=== PATIENT | male | born 1970 | race Caucasian/White ===

== ENCOUNTER 2016-10-29 16:16 | Emergency (ER) | payer BC, OTHER ==
[~2016-10-29] VITALS: Ht 185.4 cm; Wt 180.8 kg
[~2016-10-29 16:16] MED LIST: BECA1GEL TOP; INSDGIPEN SC; MCR5 PO; SLWMEC PO
[2016-10-29 16:18] VITALS: TEMP 36.9; Ht 185.4 cm; Wt 180.8 kg
--- NOTE | 2016-10-29 16:45 | EMERGENCY ROOM VISIT NOTE ---
History Report prepared by Sherri: Phil Vigil Under the Supervision of: Dr. Rosa Ramirez D.O. First contact with patient: 16:22 Chief Complaint: DIZZY Stated Complaint: DIZZINESS, SOB, PAIN IN LOWER NECK-REFERRED BY History of Present Illness The patient is a 46 year old male who presents to the Emergency Room with complaints of an episode of dizziness that occurred around an hour and a half ago. He states that he was walking his dog outside, and not doing anything strenuous, when he started getting dizzy, short of breath, and nauseous. The patient also started getting a headache and pain in the back of his neck that wraps around his neck. He says that he felt fine earlier today, and he has had nothing like this before. The patient went back to his house and sat down, and his shortness of breath went away, but his dizziness and neck pain persisted. The patient called his primary care physician's office, and was recommended to come here for evaluation. Currently, his dizziness is waning and he still has a bit of pain behind his neck. The patient describes the dizziness as feeling "off -balance". He notes that bending his neck worsens his pain. The patient also states that he still feels a bit fuzzy. He denies any chest pain, sweating, blurry vision, ringing in ears, numbness, tingling, urinary symptoms, or bowel issues. He says that he has not been sleeping well lately, and has been having extra stress with his daughter. He has no history of heart issues. The patient has recently upped his Lantus from 60 to 70 mg. His sugars have been okay, but he is still trying to lower them a bit. He notes that he does not feel like he is getting allergies. Source of History: patient Onset: An hour and a half ago Position: other (global - dizziness) Quality: other (off balance) Timing: other (episode) Associated Symptoms: + SOB, + nausea, + neck pain, No chest pain, No diaphoresis, No numbness, No urinary symptoms Note: Associated symptoms: Denies blurry vision, tingling, ringing in ears, bowel issues. Review of Systems See HPI for pertinent positives & negatives. A total of 10 systems reviewed and were otherwise negative. Past Medical & Surgical Medical Problems: (1) Diabetes (2) Lazy eye (3) PNA (pneumonia) (4) Sleep apnea Family History FHx: cancer Heart disease Social History Smoking Status: Never Smoker Alcohol Use: none Drug Use: none Marital Status: Occupation Status: employed Current/Historical Medications Scheduled Citalopram (Citalopram Hydrobromide), 40 MG PO DAILY Insulin Aspart (Novolog Flexpen), 1 DOSE SC TIDM Insulin Glargine (Lantus Solostar), 70 UNITS SC BID Liraglutide (Victoza), 1.2 MG SC DAILY Lisinopril (Lisinopril), 2.5 MG PO DAILY Lovastatin (Mevacor), 40 MG PO HS Metformin Hcl (Glucophage), 1,000 MG PO BIDM Scheduled PRN Fluticasone Propionate (Fluticasone Propionate), 2 SPRAYS JALEEL DAILY PRN for Nasal Congestion Allergies Coded Allergies: No Known Allergies (Unverified , 10/14/11) Physical Exam Vital Signs Date Time Temp Pulse Resp B/P Pulse Ox O2 Delivery O2 Flow Rate FiO2 10/29/16 21:03 98 18 118/78 97 10/29/16 20:24 100 20 131/74 92 Room Air 10/29/16 19:06 95 116/79 108 118/76 100 107/72 10/29/16 18:08 99 17 121/70 94 Room Air 10/29/16 16:36 101 10/29/16 16:18 36.9 105 18 127/81 93 Room Air Physical Exam GENERAL: obese, no acute distress, alert, well appearing, well nourished, non- toxic EYE EXAM: normal conjunctiva, PERRL and EOM's grossly intact OROPHARYNX: no exudate, no erythema, lips, buccal mucosa, and tongue normal and mucous membranes are moist NECK: supple, no nuchal rigidity, no adenopathy, non-tender LUNGS: Clear to auscultation. Normal chest wall mechanics HEART: no murmurs, S1 normal and S2 normal ABDOMEN: abdomen soft, non-tender, normo-active bowel sounds, no masses, no rebound or guarding. BACK: Back is symmetrical on inspection and there is no deformity, no midline tenderness, no CVA tenderness. SKIN: psoriatic plaques everywhere UPPER EXTREMITIES: upper extremities are grossly normal. LOWER EXTREMITIES: No pitting edema. NEURO EXAM: Normal sensorium, cranial nerves II-XII grossly intact, normal speech, no gross weakness of arms, no gross weakness of legs. No drift. Finger to nose intact. Gross sensation intact. No pronator drift, normal ataxia. Negative hints exam. Medical Decision & Procedures ER Provider Diagnostic Interpretation: Xray results per the radiologist and my interpretation. Other results have been interpreted by the radiologist and reviewed by me. HEAD CT NONCONTRAST CT DOSE: 614.27 mGy.cm HISTORY: dizzy TECHNIQUE: Multiaxial CT images of the head were performed without the use of intravenous contrast. Automated exposure control was utilized for this study. Comparison: None. Findings: The paranasal sinuses and mastoid air cells are clear. The calvarium and skull base are intact. The ventricles and sulci are within normal limits. There is no mass, hematoma, midline shift, or acute infarct. Impression: No acute intracranial abnormality. Electronically signed by: Joe Kaur M.D. 10/29/2016 5:20 PM Dictated Date/Time: 10/29/2016 5:17 PM CHEST 2 VIEWS ROUTINE HISTORY: Short of breath. COMPARISON: None. FINDINGS: The lungs are clear. Cardiac silhouette is normal in size. No pleural effusions. No pneumothorax. IMPRESSION: No acute process. Electronically signed by: Joe Kaur M.D. 10/29/2016 7:11 PM Dictated Date/Time: 10/29/2016 7:[address] DOSE: 517.22 mGy.cm HISTORY: neck pain, lower c-spine TECHNIQUE: Multiaxial CT images of the cervical spine were performed and reformatted in the sagittal and coronal plane without the use of contrast. COMPARISON: None. FINDINGS: No fractures. No subluxation. Prevertebral soft tissues and the C1-C2 interval are intact. No pneumothorax. Mild reversal of the normal lordotic curvature. Mild disc space narrowing at C4-C5, C5-C6, and C6-C7. IMPRESSION: No fractures within the cervical spine. Electronically signed by: Joe Kaur M.D. 10/29/2016 7:52 PM Dictated Date/Time: 10/29/2016 7:50 PM Laboratory Results 10/29/16 17:00 Red Blood Count 4.28, Mean Corpuscular Volume 93.5, Mean Corpuscular Hemoglobin 31.5, Mean Corpuscular Hemoglobin Concent 33.8, Mean Platelet Volume 9.3, Neutrophils (%) (Auto) 58.7, Lymphocytes (%) (Auto) 29.6, Monocytes (%) (Auto) 9.7, Eosinophils (%) (Auto) 1.7, Basophils (%) (Auto) 0.2, Neutrophils # (Auto) 5.61, Lymphocytes # (Auto) 2.83, Monocytes # (Auto) 0.93, Eosinophils # (Auto) 0.16, Basophils # (Auto) 0.02 10/29/16 17:00 Test 10/29/16 17:00 10/29/16 20:36 White Blood Count 9.56 K/uL (4.8-10.8) Red Blood Count 4.28 M/uL (4.7-6.1) Hemoglobin 13.5 g/dL (14.0-18.0) Hematocrit 40.0 % (42-52) Mean Corpuscular Volume 93.5 fL (80-100) Mean Corpuscular Hemoglobin 31.5 pg (25-34) Mean Corpuscular Hemoglobin Concent 33.8 g/dl (32-36) Platelet Count 231 K/uL (130-400) Mean Platelet Volume 9.3 fL (7.4-10.4) Neutrophils (%) (Auto) 58.7 % Lymphocytes (%) (Auto) 29.6 % Monocytes (%) (Auto) 9.7 % Eosinophils (%) (Auto) 1.7 % Basophils (%) (Auto) 0.2 % Neutrophils # (Auto) 5.61 K/uL (1.4-6.5) Lymphocytes # (Auto) 2.83 K/uL (1.2-3.4) Monocytes # (Auto) 0.93 K/uL (0.11-0.59) Eosinophils # (Auto) 0.16 K/uL (0-0.5) Basophils # (Auto) 0.02 K/uL (0-0.2) RDW Standard Deviation 46.3 fL (36.4-46.3) RDW Coefficient of Variation 13.5 % (11.5-14.5) Immature Granulocyte % (Auto) 0.1 % Immature Granulocyte # (Auto) 0.01 K/uL (0.00-0.02) D-Dimer 350 ug/L FEU (0-500) Urine Color DK YELLOW Urine Appearance CLEAR (CLEAR) Urine pH 5.0 (4.5-7.5) Urine Specific [place] 1.022 (1.000-1.030) Urine Protein NEG (NEG) Urine Glucose (UA) 2+ (NEG) Urine Ketones TRACE (NEG) Urine Occult Blood NEG (NEG) Urine Nitrite NEG (NEG) Urine Bilirubin NEG (NEG) Urine Urobilinogen NEG (NEG) Urine Leukocyte Esterase NEG (NEG) Anion Gap 10.0 mmol/L (3-11) Est Creatinine Clear Calc Drug Dose 145.8 ml/min Estimated GFR () 94.1 Estimated GFR (Non- 81.2 BUN/Creatinine Ratio 15.3 (10-20) Calcium Level 9.2 mg/dl (8.5-10.1) Total Bilirubin 1.0 mg/dl (0.2-1) Aspartate Amino Transf (AST/SGOT) 27 U/L (15-37) Alanine Aminotransferase (ALT/SGPT) 49 U/L (12-78) Alkaline Phosphatase 88 U/L (45-117) Troponin I < 0.015 ng/ml (0-0.045) Pro-B-Type Natriuretic Peptide 12 pg/ml (0-450) Total Protein 7.6 gm/dl (6.4-8.2) Albumin 3.6 gm/dl (3.4-5.0) Globulin 4.0 gm/dl (2.5-4.0) Albumin/Globulin Ratio 0.9 (0.9-2) Thyroid Stimulating Hormone (TSH) 0.913 uIu/ml (0.300-4.500) Bedside Troponin I 0.010 ng/ml (0-0.045) Laboratory results per my review. ECG Indication: other (dizziness) Rate (beats per minute): 104 Rhythm: sinus tachycardia Findings: no acute ischemic change, no ectopy, other (normal axis, normal intervals) ED Course 1627: The patient was evaluated in room C6. A complete history and physical exam was performed. 1801: I reevaluated the patient and he is feeling better. 2002: Upon reevaluation, the patient is feeling better and has no symptoms. I discussed the findings and the treatment plan with the patient. He verbalizes agreement and understanding. He was discharged home. Medical Decision Prior records/ancillary studies reviewed. Triage Nursing notes reviewed. Differential diagnosis: Etiologies such as benign positional vertigo, dehydration, hypovolemia, anemia, tumor, infection, hypoglycemia, electrolyte abnormalities, cardiac sources, intracerebral event, toxicologic, neurologic, as well as others were entertained. Exam not consistent with central neuro pathology, no dysrhythmias/ectopy on tele , no chest pain throughout. Sx improving by arrival here and resolved otherwise. BP improved spontaneously, doubt hypertensive emergency, doubt dissection, PE, vertebral dissection, ICH, CVA. Doubt cardiac etiology. Pt not orthostatic, doubt infectious etiology. Pt ambulated with a steady gait and was tolerating po at bedside. No recurrence of any symptoms. Discussed f/ u with PCP, sx to watch/return for, he verbalized understanding and was agreeable with plan. Pt well appearing at time of DC. HEART score 3 Neg trop x 2 Impression Primary Impression: Dizziness Additional Impressions: Obesity Hypertension Scribe Attestation The scribe's documentation has been prepared under my direction and personally reviewed by me in its entirety. I confirm that the note above accurately reflects all work, treatment, procedures, and medical decision making performed by me. Departure Information Dispostion Home / Self-Care Referrals Joanne Sheikh M.D. (PCP) Patient Instructions [facility] Additional Instructions Please call and follow-up with your family doctor about todays event. Please drink plenty of water and eat normally. Please continue your regular medications. If you have any recurrent symptoms or other new and concerning symptoms, please return to the emergency room. Problem Qualifiers Additional Impressions: Obesity Obesity type: due to excess calories Obesity severity: morbid Qualified Codes: E66.01 - Morbid (severe) obesity due to excess calories Hypertension Hypertension type: essential hypertension Qualified Codes: I10 - Essential ( primary) hypertension
[2016-10-29] MEDS ORDERED: INSDGIPEN SC (17:04)
[2016-10-29] MEDS ORDERED: FLNIN/ NAE (17:04)
[2016-10-29] MEDS ORDERED: CITA40TA4 PO (17:04)
[2016-10-29] MEDS ORDERED: NVLGI/PEN SC (17:04)
[2016-10-29] MEDS ORDERED: LIRA18IN SC (17:04)
[2016-10-29] MEDS ORDERED: LSN25 PO (17:04)
[2016-10-29 17:18] LABS: BASO % 0.2 %; BASO ABS # 0.02 K/uL (0-0.2); COMPLETE YES; EOS % 1.7 %; IG% 0.1 %; LYMPH % 29.6 %; LYMPH ABS # 2.83 K/uL (1.2-3.4); MEAN CELL VOLUME 93.5 fL (80-100); MEAN CORPUSCULAR HEMOGLOBIN 31.5 pg (25-34); MEAN CORPUSCULAR HGB CONC 33.8 g/dl (32-36); MEAN PLATELET VOLUME 9.3 fL (7.4-10.4); MONO % 9.7 %; NEUT % 58.7 %; PLATELET COUNT 231 K/uL (130-400); RED BLOOD COUNT 4.28 M/uL (4.7-6.1); WHITE BLOOD COUNT 9.56 K/uL (4.8-10.8)
--- NOTE | 2016-10-29 17:22 | DIAGNOSTIC IMAGING REPORT ---
HEAD CT NONCONTRAST CT DOSE: 614.27 mGy.cm HISTORY: dizzy TECHNIQUE: Multiaxial CT images of the head were performed without the use of intravenous contrast. Automated exposure control was utilized for this study. Comparison: None. Findings: The paranasal sinuses and mastoid air cells are clear. The calvarium and skull base are intact. The ventricles and sulci are within normal limits. There is no mass, hematoma, midline shift, or acute infarct. Impression: No acute intracranial abnormality. Electronically signed by: Jeo Kaur M.D. 10/29/2016 5:20 PM Dictated Date/Time: 10/29/2016 5:17 PM
[2016-10-29 17:25] LABS: URINE APPEARANCE CLEAR (CLEAR); URINE BILIRUBIN NEG (NEG); URINE COLOR DK YELLOW; URINE NITRITE NEG (NEG); URINE SPECIFIC GRAVITY 1.022 (1.000-1.030); UROBILINOGEN NEG (NEG); ZZUR CULT IF INDIC CLEAN CATCH NO
[2016-10-29 17:34] LABS: MANUAL MICROSCOPIC REQUIRED? NO; REVIEW REQ? NO
[2016-10-29 17:35] LABS: ALT/SGPT 49 U/L (12-78); BLOOD UREA NITROGEN 17 mg/dl (7-18); BUN/CREATININE RATIO 15.3 (10-20); CARBON DIOXIDE 24 mmol/L (21-32); CHLORIDE 105 mmol/L (98-107); GLUCOSE 116 mg/dl (70-99); POTASSIUM 4.3 mmol/L (3.5-5.1); SODIUM 139 mmol/L (136-145)
[2016-10-29 17:38] LABS: CALCIUM 9.2 mg/dl (8.5-10.1)
[2016-10-29 17:46] LABS: ALB/GLOB RATIO 0.9 (0.9-2); ALKALINE PHOSPHATASE 88 U/L (45-117); AST/SGOT 27 U/L (15-37); THYROID STIMULATING HORMONE 0.913 uIu/ml (0.300-4.500)
--- NOTE | 2016-10-29 19:14 | DIAGNOSTIC IMAGING REPORT ---
CHEST 2 VIEWS ROUTINE HISTORY: Short of breath. COMPARISON: None. FINDINGS: The lungs are clear. Cardiac silhouette is normal in size. No pleural effusions. No pneumothorax. IMPRESSION: No acute process. Electronically signed by: Joe Kaur M.D. 10/29/2016 7:11 PM Dictated Date/Time: 10/29/2016 7:11 PM
--- NOTE | 2016-10-29 19:54 | DIAGNOSTIC IMAGING REPORT ---
CERVICAL SPINE CT CT DOSE: 517.22 mGy.cm HISTORY: neck pain, lower c-spine TECHNIQUE: Multiaxial CT images of the cervical spine were performed and reformatted in the sagittal and coronal plane without the use of contrast. COMPARISON: None. FINDINGS: No fractures. No subluxation. Prevertebral soft tissues and the C1-C2 interval are intact. No pneumothorax. Mild reversal of the normal lordotic curvature. Mild disc space narrowing at C4-C5, C5-C6, and C6-C7. IMPRESSION: No fractures within the cervical spine. Electronically signed by: Joe Kaur M.D. 10/29/2016 7:52 PM Dictated Date/Time: 10/29/2016 7:50 PM
[2016-10-29 21:03] VITALS: BP 118/78; PULSE 98; O2SAT 97
[2016-10-29] MEDS ORDERED: METF-384 PO (22:33)
[2016-10-29] MEDS ORDERED: LOVA40TA3 PO (22:33)
== END 2016-10-29 21:03 | disposition home or self-care (01) ==
LOC: C.EDB 16:18 → C.EDC 21:03
DX: R42 Dizziness and giddiness (principal); E66.01 Morbid (severe) obesity due to excess calories; I10 Essential (primary) hypertension; E11.9 Type 2 diabetes mellitus without complications; G47.30 Sleep apnea, unspecified; Z80.9 Family history of malignant neoplasm, unspecified; Z82.49 Family history of ischemic heart disease and other diseases of the circulatory system; Z79.4 Long term (current) use of insulin; Z79.899 Other long term (current) drug therapy

== ENCOUNTER 2020-01-23 18:00 | Inpatient (IN) ==
[2020-01-23] MEDS ORDERED: ACETAMINOPHEN 325 MG TAB PO STA (18:52)
[2020-01-23] MEDS ORDERED: SODIUM CHLORIDE 0.9% 1000ML 1,000 ML IV SCH ×2 (19:00→20:15)
--- NOTE | 2020-01-23 19:11 | XRay Report ---
XR foot RT min 3V routine CLINICAL HISTORY: Fever, foot edema COMPARISON STUDY: Right foot 09/24/2012. FINDINGS: Extensive soft tissue swelling throughout the foot most pronounced within the dorsal midfoo t. Mild vascular calcifications are noted. Interval development of sclerosis, erosive change, fragmen tation, and periosteal reaction throughout the tarsal bones and proximal metatarsals. There appears t o be fragmentation/dislocation of the navicular bone and offset at the Lisfranc joint. There is also partial collapse of the midfoot. This results in a pes planus deformity. This is new compared to the prior study. Findings favor a neuropathic (Charcot) joint. A chronic infectious process or inflammato ry process would be impossible to exclude. IMPRESSION: 1. Interval development of sclerosis, erosive change, fragmentation, and periosteal reaction througho ut the tarsal bones and proximal metatarsals. There appears to be fragmentation/dislocation of the na vicular bone and offset at the Lisfranc joint. There is also partial collapse of the midfoot. This re sults in a pes planus deformity. This is new compared to the prior study. Findings favor a neuropathi c (Charcot) joint. A chronic infectious process or inflammatory process would be impossible to exclud e. 2. Extensive soft tissue swelling within the foot. ACT 112: Negative or not required by law. Electronically signed by: Joe Kaur M.D. 01/23/2020 7:09 PM
--- NOTE | 2020-01-23 19:12 | XRay Report ---
XR chest 1V portable HISTORY: SEPSIS COMPARISON: Chest 01/07/2020. FINDINGS: No pneumothorax. No pleural effusions. The heart is normal in size. Mild diffuse interstiti al thickening is again noted. No new focal lung consolidations to suggest pneumonia. No evidence for pulmonary edema. IMPRESSION: Mild diffuse interstitial thickening which is likely chronic. Otherwise, no acute process within the chest. ACT 112: Negative or not required by law. Electronically signed by: Joe Kaur M.D. 01/23/2020 7:11 PM
[2020-01-23 19:29] LABS: Basophils # (auto) 0.01 K/uL (0-0.2); Basophils % (auto) 0.1 %; Hematocrit (blood only) 40.3 % (42-52); Hemoglobin 13.7 g/dL (14.0-18.0); Immature Granulocytes % (auto) 0.8 %; Lymphocytes % (auto) 3.2 %; Mean Corpuscular Hemoglobin 30.2 pg (25-34); Mean Platelet Volume 9.4 fL (7.4-10.4); Monocytes # (auto) 1.02 K/uL (0.11-0.59); Monocytes % (auto) 8.2 %; Neutrophils # (auto) 10.94 K/uL (1.4-6.5); Neutrophils % (auto) 87.7 %; Platelet Count 173 K/uL (130-400); RDW Coefficient of Variation 13.6 % (11.5-14.5); RDW Standard Deviation 44.2 fL (36.4-46.3); Red Blood Count 4.53 M/uL (4.7-6.1); White Blood Count 12.47 K/uL (4.8-10.8)
[2020-01-23 19:40] LABS: INR 1.2 (0.9-1.1); Partial Thromboplastin Ratio 1.2; Partial Thromboplastin Time 33.4 Seconds (21.0-31.0)
[2020-01-23 20:06] LABS: Albumin Globulin Ratio 0.5 (0.9-2); Albumin Level 2.7 gm/dl (3.4-5.0); BUN Creatinine Ratio 12.8 (10-20); Bilirubin,Total 2.1 mg/dl (0.2-1); C Reactive Protein 42.1 mg/dl (0-0.29); Calcium 8.7 mg/dl (8.5-10.1); Creatinine Clr Calc Pharmacy 100.5 ml/min; Est GFR (African American) 64.4; Est GFR (Non-African American) 55.5; Globulin 5.2 gm/dl (2.5-4.0); Magnesium 1.3 mg/dl (1.8-2.4); Potassium 3.7 mmol/L (3.5-5.1); Total Protein 7.9 gm/dl (6.4-8.2); Uric Acid 6.5 mg/dl (2.6-7.2)
[2020-01-23] MEDS ORDERED: PIPERACILL/TAZOBAC CONSULT ACTIVE PRN (20:07)
[2020-01-23] MEDS ORDERED: PIPERACILLIN/TAZOBACTAM 4.5 GM/120 ML BAG IV ONE (20:07)
[2020-01-23] MEDS ORDERED: DAPTOmycin 700 MG in SYRINGE 0 ML IV ONE (20:09)
[2020-01-23] MEDS ORDERED: DAPTOMYCIN CONSULT ACTIVE PRN (20:09)
[2020-01-23] MEDS ORDERED: SODIUM CHLORIDE 0.9% 500 ML IV ONE (20:10)
[2020-01-23 20:18] LABS: Beta-Hydroxybutyrate 6.65 mg/dl (0.2-2.81)
[2020-01-23] MEDS ORDERED: OPTIRAY 320 125ml IV PRN (20:26)
[2020-01-23] MEDS ORDERED: ONDANSETRON INJ 2 MG/ML 2 ML VIAL IV STA (20:30)
[2020-01-23] MEDS ORDERED: ONDANSETRON INJ 2 MG/ML 2 ML VIAL ONE (20:30)
--- NOTE | 2020-01-23 21:03 | CT Scan Report ---
RIGHT FOOT CT with contrast CT DOSE: 238.19 mGy.cm HISTORY: R foot edema, fever TECHNIQUE: Multiaxial CT images of the right foot were performed and reformatted in the sagittal and coronal plane following the use of intravenous contrast. A dose lowering technique was utilized adhe ring to the principles of ALARA. COMPARISON: Right foot radiographs 01/23/2020. FINDINGS: There is subcutaneous edema seen throughout the foot. There are also multiple loculated flu id collections seen along the dorsum of the foot involving the subcutaneous and deep compartments. So me of the fluid collections surround the extensor tendons. Dominant fluid collection surrounding the extensor digitorum tendons contains punctate foci of gas and measures approximately 6.3 x 6.3 x 1.8 c m. There are also multiple joint effusions seen within the intertarsal joints. Peripheral enhancing f luid collections also involve the mid to distal flexor and peroneal tendons. These fluid collections demonstrate mild peripheral enhancement. Therefore, these are highly suspicious for multiple abscesse s. Destructive changes throughout the intertarsal joints, tarsometatarsal joints, and subtalar joints with erosive change, fragmentation, and periostitis involving the majority of the tarsal bones from the anterior calcaneus/anterior talus through the base of the metatarsals. This is most pronounced at the navicular bone which demonstrates fragmentation and medial dislocation. Therefore, these high fi ndings are highly suspicious for a septic arthritis/osteomyelitis throughout the majority of the hind foot and midfoot. There is also mild periosteal reaction seen within the distal shaft of the fibula w hich is also nonspecific but could represent an early osteomyelitis. There are no definite erosive ch anges at the tibiotalar joint. However, there may be a small effusion at this location. IMPRESSION: 1. Above findings are highly suspicious for advanced septic arthritis/osteomyelitis throughout majori ty of the intertarsal and tarsometatarsal joints from the subtalar joint through the tarsometatarsal joints as described above. There is extensive destructive change throughout the tarsal bones with med ial dislocation of the navicular bone. 2. Multiple dorsal soft tissue abscesses seen within the midfoot some of which contain gas. This rais es the possibility of a gas-forming organism. 3. Multiple peripheral enhancing fluid collection seen within the mid to distal tendons of the ankle/ hindfoot also likely represent infectious change. 4. There are no definite erosive changes at the tibiotalar joint. However, there may be a small effus ion at this location. Therefore, infectious involvement cannot be excluded on the basis of imaging al one. 5. There is also mild periosteal reaction seen within the distal shaft of the fibula which is also no nspecific but could represent an early osteomyelitis. ACT 112: Negative or not required by law. Electronically signed by: Joe Kaur M.D. 01/23/2020 9:02 PM
--- NOTE | 2020-01-23 22:53 | Emergency Department Note ---
History of Present Illness General Chief complaint: Illness Stated complaint: ILLNESS Time Seen by Provider: 01/23/20 18:27 History of Present Illness Maximum Pain Intensity: 0 This is a 49-year-old male with a past medical history significant for that of diabetes and sleep apnea that presents to the emergency department via private vehicle with complaints of "illness". Patient's main concern is fever and sinus congestion noting his symptoms developed a few days ago. The patient states that on Wednesday he felt ill and believe that he had a gout flare noting some right foot discomfort. He states that the pain seemed to worsen and he then took indomethacin for this and we did a getting better. He states that he also has had increased sinus pressure since that time and now feels nauseated. He denies eating any food since yesterday. He denies taking any diabetic medication today. He states that he has been following locally with Dr. Valderrama for his right ankle. No recent travel or exposure to COVID individuals. No chest pain or shortness of breath. In regard to the right foot, he notes that he has had mild pinkish hue and edema/mild deformity for about the past year. No recent trauma or injury to the right foot. Overall discomfort currently is a 0/10. Home Medications Home Medications Medication Instructions Recorded Confirmed Type citalopram [Celexa] 40 mg PO QAM 06/25/19 01/23/20 History insulin aspart U-100 [Novolog 15 unit SUBCUT TIDM 06/25/19 01/23/20 History Flexpen U-100 Insulin] insulin degludec [Tresiba 156 unit SUBCUT QAM 06/25/19 01/23/20 History FlexTouch U-200] liraglutide [Victoza 3-Moy] 1.8 mg SUBCUT QAM 06/25/19 01/23/20 History lisinopril 2.5 mg PO QAM 06/25/19 01/23/20 History lovastatin 40 mg PO HS 06/25/19 01/23/20 History metformin [Glucophage XR] 2,000 mg PO QAM 06/25/19 01/23/20 History indomethacin 50 mg PO BID PRN 01/07/20 01/23/20 History Allergies Allergy/AdvReac Type Severity Reaction Status Date / Time No Known Allergies Allergy Verified 01/23/20 19:38 Past Med/Surg History Medical History Abdominal wall cellulitis (Inactive) Diabetes (Chronic) Lazy eye (Chronic) Morbid obesity with BMI of 45.0-49.9, adult Psoriasis Sleep apnea (Chronic) Surgical History No significant past surgical history Family History Grandfather (Maternal) Coronary heart disease Grandfather (Paternal) Coronary heart disease Other No significant family history Social History Preferred Language: French Communication Ability: Effective Beliefs That Will Affect Care: None marital status: Current Living Situation: Spouse current occupational status: employed Other Information That Helps Us Care for You: No Feels Safe at Home: Yes Safety Concerns: Feels Safe At This Time Smoking Status: Never smoker Hx Alcohol Use: No Hx Substance Use: No Review of Systems A total of 10 systems reviewed and were otherwise negative Physical Exam Vital Signs Vital Signs - 24 hr 01/23/20 18:03 01/23/20 19:30 01/23/20 19:40 Temperature 39.2 C H Temperature Source Oral Pulse Rate 126 H 130 H Pulse Rate from SpO2 Sensor 126 H Respiratory Rate 22 21 Blood Pressure 138/70 113/78 Blood Pressure Mean 92 89 Pulse Oximetry 98 96 94 Oxygen Delivery Method Room Air Room Air Sepsis Recent Fever Within 48 Hours Yes Sepsis New/Unexplained Change in Mental Status No Sepsis Action Taken by Nursing No Action Required 01/23/20 20:00 01/23/20 20:38 01/23/20 20:40 Temperature 37.9 C H Temperature Source Oral Pulse Rate 123 H 115 H Pulse Rate from SpO2 Sensor 122 H Respiratory Rate 21 23 Blood Pressure 91/63 L 96/61 L Blood Pressure Mean 73 65 Pulse Oximetry 98 95 Oxygen Delivery Method Room Air Sepsis Recent Fever Within 48 Hours Sepsis New/Unexplained Change in Mental Status Sepsis Action Taken by Nursing 01/23/20 21:00 01/23/20 21:30 01/23/20 22:00 Temperature Temperature Source Pulse Rate 113 H 109 H 108 H Pulse Rate from SpO2 Sensor 111 H 111 H 109 H Respiratory Rate 18 20 20 Blood Pressure 90/56 L 96/54 L 89/62 L Blood Pressure Mean 65 66 70 Pulse Oximetry 92 94 92 Oxygen Delivery Method Room Air Room Air Room Air Sepsis Recent Fever Within 48 Hours Sepsis New/Unexplained Change in Mental Status Sepsis Action Taken by Nursing 01/23/20 22:31 Temperature Temperature Source Pulse Rate 110 H Pulse Rate from SpO2 Sensor 110 H Respiratory Rate 21 Blood Pressure 97/58 L Blood Pressure Mean 61 Pulse Oximetry 94 Oxygen Delivery Method Room Air Sepsis Recent Fever Within 48 Hours Sepsis New/Unexplained Change in Mental Status Sepsis Action Taken by Nursing VITAL SIGNS - Vital signs and nursing notes were reviewed. Concerning for sepsis, patient is tachycardic and febrile on examination. GENERAL -49-year-old male appearing his stated age who is in no acute distress. Communicates well with provider and answers questions appropriately. SKIN -the right foot is with a large amount of edema noting diffuse pinkish hue with circumferential edema and potential palpable fluctuance to the dorsum of the foot on examination. HEAD - NC/AT. EYES - PERRL with EOMI bilaterally. Sclera anicteric. EARS - No deformities of external structures noted on gross examination bilaterally. NOSE - Midline and without cyanosis. No epistaxis or purulent drainage noted. MOUTH/OROPHARYNX - Without perioral cyanosis. NECK - Neck with FROM. No nuchal rigidity. LUNGS - Chest wall symmetric without accessory muscle use, intercostals retractions, or central cyanosis. Normal vesicular breath sounds CTA B/L. No wheezes, rales, or rhonchi appreciated. CARDIAC -tachycardic with S1/S2. No murmur, rubs, or gallops appreciated. EXTREMITIES - No clubbing or peripheral cyanosis. Marked edema to the right foot but does not appear to track to the right fontenot or knee. Left lower extremity unremarkable. +5/5 strength noted in UE/LE bilaterally. Patient is with decreased sensation of the right foot to palpation but does have intact cap refill and palpable dorsalis pedis pulse. NEUROLOGIC - Cranial nerves II through XII grossly intact. PSYCH - A&Ox3 and cooperates fully with examiner. Pt is very pleasant and interacts well with examiner. Course Administered Medications Acetaminophen (Tylenol) 650 mg PO Q4H PRN PRN Reason: Pain or Fever Stop: 02/22/20 23:35 Last Admin: 01/24/20 00:25 Dose: 650 mg Documented by: [id number] Magnesium Sulfate/Dextrose (Magnesium Sulfate / D5w) 1 gm in 100 mls @ 50 mls/hr IV Q2H DISHA Stop: 01/24/20 03:01 Last Admin: 01/24/20 00:39 Dose: 50 mls/hr Documented by: [id number] Infusion: 01/24/20 00:39 Dose: 50 mls/hr Documented by: [id number] Admin: 01/23/20 23:09 Dose: 50 mls/hr Documented by: [id number] Sodium Chloride (Nss 1000ml) 1,000 mls @ 150 mls/hr IV .Q6H40M DISHA Stop: 02/22/20 23:35 Last Admin: 01/24/20 00:18 Dose: 150 mls/hr Documented by: [id number] Insulin Aspart (Novolog Flexpen) 0 units SC Q6 DISHA; Protocol Stop: 02/23/20 00:14 Last Admin: 01/24/20 00:36 Dose: 21 units Documented by: [id number] Cosigned by: [id number] Discontinued Medications Acetaminophen (Tylenol) 650 mg PO NOW STA Stop: 01/23/20 18:53 Last Admin: 01/23/20 19:23 Dose: 650 mg Documented by: [id number] Sodium Chloride (Nss 1000ml) 1,000 mls @ 999 mls/hr IV .Q1H1M DISHA Stop: 01/23/20 20:00 Last Infusion: 01/23/20 20:49 Dose: 0 mls/hr Documented by: [id number] Admin: 01/23/20 19:38 Dose: 999 mls/hr Documented by: [id number] Piperacillin Sod/Tazobactam Sod (Zosyn) 4.5 gm in 120 mls @ 240 mls/hr IV NOW ONE Stop: 01/23/20 20:36 Last Infusion: 01/23/20 21:22 Dose: 0 mls/hr Documented by: [id number] Admin: 01/23/20 20:48 Dose: 240 mls/hr Documented by: [id number] Sodium Chloride (Nss 1000ml) 1,000 mls @ 999 mls/hr IV .Q1H1M DISHA Stop: 01/23/20 21:15 Last Infusion: 01/23/20 21:51 Dose: 0 mls/hr Documented by: [id number] Admin: 01/23/20 20:48 Dose: 999 mls/hr Documented by: [id number] Daptomycin 700 mg/ Syringe 14 mls @ 7 mls/min IV NOW ONE; Protocol Stop: 01/23/20 20:10 Last Admin: 01/23/20 20:42 Dose: 7 mls/min Documented by: [id number] Sodium Chloride (Nss) 500 mls @ 999 mls/hr IV .Q31M ONE Stop: 01/23/20 20:40 Last Infusion: 01/23/20 22:43 Dose: 0 mls/hr Documented by: [id number] Admin: 01/23/20 21:52 Dose: 999 mls/hr Documented by: [id number] Sodium Chloride (Nss) 500 mls @ 500 mls/hr IV .Q1H DISHA Stop: 01/24/20 00:35 Last Infusion: 01/24/20 01:15 Dose: 0 mls/hr Documented by: [id number] Admin: 01/24/20 00:00 Dose: 500 mls/hr Documented by: [id number] Insulin Glargine (Lantus) 50 units SC NOW ONE; Protocol Stop: 01/24/20 00:16 Last Admin: 01/24/20 00:34 Dose: 50 units Documented by: [id number] Cosigned by: [id number] Ioversol (Optiray 320 125ml) 118 ml IV ONCE PRN PRN Reason: Interaction Checking Stop: 01/27/20 20:25 Last Admin: 01/23/20 20:26 Dose: 118 ml Documented by: [id number] Ondansetron HCl (Zofran) 4 mg IV NOW STA Stop: 01/23/20 20:31 Last Admin: 01/23/20 20:36 Dose: Not Given Documented by: [id number] Ondansetron HCl (Zofran) Confirm Administered Dose 4 mg .ROUTE .STK-MED ONE Stop: 01/23/20 20:31 Last Admin: 01/23/20 20:42 Dose: 4 mg Documented by: [id number] Critical Care Time Total Critical Care Time: 60 Patient presents with septic appearing vital signs in the setting of what appears to be osteomyelitis of the right lower extremity. I have personally spent about 60 minutes of critical care time in the direct management of this patient. This includes bedside care, interpretation of diagnostic studies, and testing, discussion with consultants, patient, and family members, and other required patient management activities. This 60 minutes is in excess of all separately billable procedures. Medical Decision Making Laboratory Data Result diagrams: 01/23/20 19:11 01/23/20 19:11 Lab Results 01/23/20 01/23/20 01/23/20 Range/Units 19:11 19:11 19:11 WBC 12.47 H (4.8-10.8) K/uL RBC 4.53 L (4.7-6.1) M/uL Hgb 13.7 L (14.0-18.0) g/dL Hct 40.3 L (42-52) % MCV 89.0 (80-100) fL MCH 30.2 (25-34) pg MCHC 34.0 (32-36) g/dL RDW Std Deviation 44.2 (36.4-46.3) fL RDW Coeff of José Manuel 13.6 (11.5-14.5) % Plt Count 173 (130-400) K/uL MPV 9.4 (7.4-10.4) fL Immature Gran % (Auto) 0.8 % Neut % (Auto) 87.7 % Lymph % (Auto) 3.2 % [place] % (Auto) 8.2 % Eos % (Auto) 0.0 % Baso % (Auto) 0.1 % Neut # (Auto) 10.94 H (1.4-6.5) K/uL Lymph # (Auto) 0.40 L (1.2-3.4) K/uL [place] # (Auto) 1.02 H (0.11-0.59) K/uL Eos # (Auto) 0.00 (0-0.5) K/uL Baso # (Auto) 0.01 (0-0.2) K/uL Immature Gran # (Auto) 0.10 H (0.00-0.02) K/uL ESR 80 H (0-14) mm/hr PT 13.0 H (9.0-12.0) Seconds INR 1.2 H (0.9-1.1) APTT 33.4 H (21.0-31.0) Seconds PTT Ratio 1.2 Sodium (136-145) mmol/L Potassium (3.5-5.1) mmol/L Chloride (98-107) mmol/L Carbon Dioxide (21-32) mmol/L Anion Gap (3-11) BUN (7-18) mg/dl Creatinine (0.6-1.4) mg/dl Est Cr Clr Drug Dosing ml/min Est GFR ( Amer) Est GFR (Non-Af Amer) BUN/Creatinine Ratio (10-20) Glucose (70-99) mg/dl Lactate (0.4-2.0) mmol/L Uric Acid (2.6-7.2) mg/dl Calcium (8.5-10.1) mg/dl Magnesium (1.8-2.4) mg/dl Total Bilirubin (0.2-1) mg/dl AST (15-37) U/L ALT (12-78) U/L Alkaline Phosphatase (45-117) U/L C-Reactive Protein (0-0.29) mg/dl Total Protein (6.4-8.2) gm/dl Albumin (3.4-5.0) gm/dl Globulin (2.5-4.0) gm/dl Albumin/Globulin Ratio (0.9-2) Beta-Hydroxybutyric Acd (0.2-2.81) mg/dl Procalcitonin (0-0.5) ng/ml Urine Color Urine Appearance (Clear) Urine pH (4.5-7.5) Ur Specific [place] (1.000-1.030) Urine Protein (Negative) Urine Glucose (UA) (Negative) Urine Ketones (Negative) Urine Blood (Negative) Urine Nitrite (Negative) Urine Bilirubin (Negative) Urine Urobilinogen (Negative) Ur Leukocyte Esterase (Negative) Urine WBC (Auto) (0-5) /hpf Urine RBC (Auto) (0-4) /hpf U Hyaline Cast (Auto) (0-5) /lpf U Epithel Cells (Auto) (0-5) /lpf Urine Bacteria (Auto) (Negative) Granular Casts (0) /lpf Urine Yeast Urine Sperm (None Prsent) 01/23/20 01/23/20 01/23/20 Range/Units 19:11 19:11 19:11 WBC (4.8-10.8) K/uL RBC (4.7-6.1) M/uL Hgb (14.0-18.0) g/dL Hct (42-52) % MCV (80-100) fL MCH (25-34) pg MCHC (32-36) g/dL RDW Std Deviation (36.4-46.3) fL RDW Coeff of José Manuel (11.5-14.5) % Plt Count (130-400) K/uL MPV (7.4-10.4) fL Immature Gran % (Auto) % Neut % (Auto) % Lymph % (Auto) % [place] % (Auto) % Eos % (Auto) % Baso % (Auto) % Neut # (Auto) (1.4-6.5) K/uL Lymph # (Auto) (1.2-3.4) K/uL [place] # (Auto) (0.11-0.59) K/uL Eos # (Auto) (0-0.5) K/uL Baso # (Auto) (0-0.2) K/uL Immature Gran # (Auto) (0.00-0.02) K/uL ESR (0-14) mm/hr PT (9.0-12.0) Seconds INR (0.9-1.1) APTT (21.0-31.0) Seconds PTT Ratio Sodium 126 L (136-145) mmol/L Potassium 3.7 (3.5-5.1) mmol/L Chloride 94 L (98-107) mmol/L Carbon Dioxide 24 (21-32) mmol/L Anion Gap 7.0 (3-11) BUN 19 H (7-18) mg/dl Creatinine 1.48 H (0.6-1.4) mg/dl Est Cr Clr Drug Dosing 100.5 ml/min Est GFR ( Amer) 64.4 Est GFR (Non-Af Amer) 55.5 BUN/Creatinine Ratio 12.8 (10-20) Glucose 314 H* (70-99) mg/dl Lactate 2.5 H* (0.4-2.0) mmol/L Uric Acid 6.5 (2.6-7.2) mg/dl Calcium 8.7 (8.5-10.1) mg/dl Magnesium 1.3 L (1.8-2.4) mg/dl Total Bilirubin 2.1 H (0.2-1) mg/dl AST 19 (15-37) U/L ALT 23 (12-78) U/L Alkaline Phosphatase 106 (45-117) U/L C-Reactive Protein 42.10 H (0-0.29) mg/dl Total Protein 7.9 (6.4-8.2) gm/dl Albumin 2.7 L (3.4-5.0) gm/dl Globulin 5.2 H (2.5-4.0) gm/dl Albumin/Globulin Ratio 0.5 L (0.9-2) Beta-Hydroxybutyric Acd 6.65 H (0.2-2.81) mg/dl Procalcitonin 14.75 H (0-0.5) ng/ml Urine Color Urine Appearance (Clear) Urine pH (4.5-7.5) Ur Specific [place] (1.000-1.030) Urine Protein (Negative) Urine Glucose (UA) (Negative) Urine Ketones (Negative) Urine Blood (Negative) Urine Nitrite (Negative) Urine Bilirubin (Negative) Urine Urobilinogen (Negative) Ur Leukocyte Esterase (Negative) Urine WBC (Auto) (0-5) /hpf Urine RBC (Auto) (0-4) /hpf U Hyaline Cast (Auto) (0-5) /lpf U Epithel Cells (Auto) (0-5) /lpf Urine Bacteria (Auto) (Negative) Granular Casts (0) /lpf Urine Yeast Urine Sperm (None Prsent) 01/23/20 01/23/20 Range/Units 22:00 22:47 WBC (4.8-10.8) K/uL RBC (4.7-6.1) M/uL Hgb (14.0-18.0) g/dL Hct (42-52) % MCV (80-100) fL MCH (25-34) pg MCHC (32-36) g/dL RDW Std Deviation (36.4-46.3) fL RDW Coeff of José Manuel (11.5-14.5) % Plt Count (130-400) K/uL MPV (7.4-10.4) fL Immature Gran % (Auto) % Neut % (Auto) % Lymph % (Auto) % [place] % (Auto) % Eos % (Auto) % Baso % (Auto) % Neut # (Auto) (1.4-6.5) K/uL Lymph # (Auto) (1.2-3.4) K/uL [place] # (Auto) (0.11-0.59) K/uL Eos # (Auto) (0-0.5) K/uL Baso # (Auto) (0-0.2) K/uL Immature Gran # (Auto) (0.00-0.02) K/uL ESR (0-14) mm/hr PT (9.0-12.0) Seconds INR (0.9-1.1) APTT (21.0-31.0) Seconds PTT Ratio Sodium (136-145) mmol/L Potassium (3.5-5.1) mmol/L Chloride (98-107) mmol/L Carbon Dioxide (21-32) mmol/L Anion Gap (3-11) BUN (7-18) mg/dl Creatinine (0.6-1.4) mg/dl Est Cr Clr Drug Dosing ml/min Est GFR ( Amer) Est GFR (Non-Af Amer) BUN/Creatinine Ratio (10-20) Glucose (70-99) mg/dl Lactate 1.9 (0.4-2.0) mmol/L Uric Acid (2.6-7.2) mg/dl Calcium (8.5-10.1) mg/dl Magnesium (1.8-2.4) mg/dl Total Bilirubin (0.2-1) mg/dl AST (15-37) U/L ALT (12-78) U/L Alkaline Phosphatase (45-117) U/L C-Reactive Protein (0-0.29) mg/dl Total Protein (6.4-8.2) gm/dl Albumin (3.4-5.0) gm/dl Globulin (2.5-4.0) gm/dl Albumin/Globulin Ratio (0.9-2) Beta-Hydroxybutyric Acd (0.2-2.81) mg/dl Procalcitonin (0-0.5) ng/ml Urine Color Dark Yellow Urine Appearance Clear (Clear) Urine pH 5.0 (4.5-7.5) Ur Specific [place] > 1.045 H (1.000-1.030) Urine Protein 2+ H (Negative) Urine Glucose (UA) 3+ H (Negative) Urine Ketones Trace H (Negative) Urine Blood 3+ H (Negative) Urine Nitrite Negative (Negative) Urine Bilirubin 1+ H (Negative) Urine Urobilinogen Negative (Negative) Ur Leukocyte Esterase Negative (Negative) Urine WBC (Auto) 1-5 (0-5) /hpf Urine RBC (Auto) 10-30 H (0-4) /hpf U Hyaline Cast (Auto) 5-10 H (0-5) /lpf U Epithel Cells (Auto) >30 H (0-5) /lpf Urine Bacteria (Auto) 1+ H (Negative) Granular Casts 1-5 H (0) /lpf Urine Yeast Not Reportable Urine Sperm Present A (None Prsent) Imaging Data Radiologist's Impression: XR chest 1V portable HISTORY: SEPSIS COMPARISON: Chest 01/07/2020. FINDINGS: No pneumothorax. No pleural effusions. The heart is normal in size. Mild diffuse interstitial thickening is again noted. No new focal lung consolidations to suggest pneumonia. No evidence for pulmonary edema. IMPRESSION: Mild diffuse interstitial thickening which is likely chronic. Otherwise, no acute process within the chest. ACT 112: Negative or not required by law. Electronically signed by: Joe Kaur M.D. 01/23/2020 7:11 PM XR foot RT min 3V routine CLINICAL HISTORY: Fever, foot edema COMPARISON STUDY: Right foot 09/24/2012. FINDINGS: Extensive soft tissue swelling throughout the foot most pronounced within the dorsal midfoot. Mild vascular calcifications are noted. Interval development of sclerosis, erosive change, fragmentation, and periosteal reaction throughout the tarsal bones and proximal metatarsals. There appears to be fragmentation/dislocation of the navicular bone and offset at the Lisfranc joint. There is also partial collapse of the midfoot. This results in a pes planus deformity. This is new compared to the prior study. Findings favor a neuropathic (Charcot) joint. A chronic infectious process or inflammatory process would be impossible to exclude. IMPRESSION: 1. Interval development of sclerosis, erosive change, fragmentation, and periosteal reaction throughout the tarsal bones and proximal metatarsals. There appears to be fragmentation/dislocation of the navicular bone and offset at the Lisfranc joint. There is also partial collapse of the midfoot. This results in a pes planus deformity. This is new compared to the prior study. Findings favor a neuropathic (Charcot) joint. A chronic infectious process or inflammatory process would be impossible to exclude. 2. Extensive soft tissue swelling within the foot. ACT 112: Negative or not required by law. Electronically signed by: Joe Kaur M.D. 01/23/2020 7:[address] with contrast CT DOSE: 238.19 mGy.cm HISTORY: R foot edema, fever TECHNIQUE: Multiaxial CT images of the right foot were performed and reformatted in the sagittal and coronal plane following the use of intravenous contrast. A dose lowering technique was utilized adhering to the principles of ALARA. COMPARISON: Right foot radiographs 01/23/2020. FINDINGS: There is subcutaneous edema seen throughout the foot. There are also multiple loculated fluid collections seen along the dorsum of the foot involving the subcutaneous and deep compartments. Some of the fluid collections surround the extensor tendons. Dominant fluid collection surrounding the extensor digitorum tendons contains punctate foci of gas and measures approximately 6.3 x 6.3 x 1.8 cm. There are also multiple joint effusions seen within the intertarsal joints. Peripheral enhancing fluid collections also involve the mid to distal flexor and peroneal tendons. These fluid collections demonstrate mild peripheral enhancement. Therefore, these are highly suspicious for multiple abscesses. Destructive changes throughout the intertarsal joints, tarsometat arsal joints, and subtalar joints with erosive change, fragmentation, and periostitis involving the majority of the tarsal bones from the anterior calcaneus/anterior talus through the base of the metatarsals. This is most pronounced at the navicular bone which demonstrates fragmentation and medial d islocation. Therefore, these high findings are highly suspicious for a septic arthritis/osteomyelitis throughout the majority of the hindfoot and midfoot. There is also mild periosteal reaction seen within the distal shaft of the fibula which is also nonspecific but could represent an early osteomyelitis. There are no definite erosive changes at the tibiotalar joint. However, there may be a small effusion at this location. IMPRESSION: 1. Above findings are highly suspicious for advanced septic arthritis/osteomyelitis throughout majority of the intertarsal and tarsometatarsal joints from the subtalar joint through the tarsometatarsal joints as described above. There is extensive destructive change throughout the tarsal bones with medial dislocation of the navicular bone. 2. Multiple dorsal soft tissue abscesses seen within the midfoot some of which contain gas. This raises the possibility of a gas-forming organism. 3. Multiple peripheral enhancing fluid collection seen within the mid to distal tendons of the ankle/hindfoot also likely represent infectious change. 4. There are no definite erosive changes at the tibiotalar joint. However, there may be a small effusion at this location. Therefore, infectious involvement cannot be excluded on the basis of imaging alone. 5. There is also mild periosteal reaction seen within the distal shaft of the fibula which is also nonspecific but could represent an early osteomyelitis. ACT 112: Negative or not required by law. Electronically signed by: Joe Kaur M.D. 01/23/2020 9:02 PM Blood Pressure Additional Comments: EKG reveals sinus tachycardia rate of [address] elevation. QTc 446. QRS 106. This was compared to EKG performed on January 07, 2020 and on today's exam the patient is tachycardic. No other significant changes found. MDM Narrative Patient was seen and evaluated as above in room B 10. Review was performed of nursing notes and vital signs. I did review pertinent previous visits and patient history. After obtaining a thorough history and physical examination the above work up was performed. Patient presents to us today noting sinus congestion and nausea. He also notes that this past Wednesday he began with right foot discomfort but took indomethacin treating what he believed to be a gout flare. On examination the sinus examination and head examination is quite unremarkable. His lungs are clear to auscultation. Concern was because the patient was febrile on arrival with lack of URI symptoms therefore further investigation was performed and inspection of the right foot revealed a markedly edematous foot. Patient notes that the edema to the foot has been ongoing for the past year as well as a pinkish hue. On my examination the right foot is warmer compared to the left but the patient does not believe that this is new. Septic work-up began. CBC reveals mild leukocytosis with mild anemia. There is marked elevation of ESR and CRP at 80 as well as 42 respectively. BUN and creatinine are mildly elevated. Glucose in the 300s. Magnesium low at 1.3. Beta hydroxybutyric acid is 6.65 with pro calcitonin at 14.75 and lactic acid mildly elevated but after fluids improved. I did do a weight adjustment for medication dosing for the patient and 30/kg was based upon an ideal body weight of around 80 kg therefore he received just over 2400 mL of NSS. Empiric Zosyn and daptomycin were ordered. Chest x-ray clear for any infection. X-ray of the right foot is concerning for neuropathic joint versus chronic infectious process. Given the patient's septic appearance it is felt that a CT scan of the right foot would be warranted. This is highly concerning for advanced septic arthritis/osteomyelitis. Clinically I believe this is what the patient is ex periencing. I discussed the finding with the on-call orthopedic surgeon, Dr. Whitfield. At this time we agreed upon aggressive antibiotic management and admission to the hospitalist service and he is happy to see the patient tomorrow in consult which I believe is reasonable as the patient will have to be stabilized. Case then discussed with the hospitalist service. Please refer to further documentation regarding the patient's stay. I also discussed findings with the patient's at bedside and informed the patient upon his findings here today. Case was discussed with the attending physician. EKG reveals sinus tachycardia rate of [address] elevation. QTc 446. QRS 106. This was compared to EKG performed on January 07, 2020 and on today's exam the patient is tachycardic. No other significant changes found. An order was placed for continuous cardiac monitoring. The monitor shows a rate of 113 with tachycardic sinus rhythm. I attest that I have personally reviewed the patient medication list. I attest that I have reviewed the patient's blood pressure and it was found to b e slightly elevated on arrival but did trend downward. GCS: 15 In the evaluation and treatment of this patient the following differential diagnoses were entertained: Fracture, dislocation, subluxation, DVT, sinus infection, meningitis, encephalitis, COVID-19, septic joint, osteomyelitis, among others. Impression & Plan Osteomyelitis of right foot, Sepsis Discharge Plan Visit Data *Final* Discharge Date/Time: 01/23/20 23:24 Chief Complaint: Illness Stated Complaint: ILLNESS ED Provider: [facility] Midlevel Provider: Jordy Seymour Discharge Problem: Osteomyelitis of right foot, Sepsis Patient Disposition: Admitted As Inpatient Condition: Fair Discharge Instructions Interventions: ED Discharge Assessment Last Done: 01/23/20 23:24
[2020-01-23] MEDS: MAGNESIUM SULFATE / D5W 1 GM/100 ML BAG IV SCH (23:09)
[2020-01-23 23:13] LABS: Appearance Urine Clear (Clear); Blood Urine 3+ (Negative); Color Urine Dark Yellow; Epithelial Cell Urine Auto >30 /lpf (0-5); Glucose Urine UA 3+ (Negative); Ketones Urine Trace (Negative); Leukocyte Esterase Urine Negative (Negative); Nitrite Urine Negative (Negative); Protein Urine 2+ (Negative); Specific Gravity Urine > 1.045 (1.000-1.030); Urobilinogen Urine Negative (Negative)
[2020-01-23 23:36] LABS: Bilirubin Urine 1+ (Negative); Ictotest Urine Positive (Negative)
[2020-01-23] MEDS ORDERED: SODIUM CHLORIDE 0.9% 500 ML IV SCH (23:36)
[2020-01-23] MEDS ORDERED: POLYETHYLENE (MIRALAX) 17 GM PACK PO PRN (23:36)
[2020-01-23] MEDS ORDERED: NITROGLYCERIN SL 0.4 MG/TAB TAB SL PRN (23:36)
[2020-01-23 23:37] LABS: Sperm Urine Present (None Prsent)
[2020-01-23 23:39] LABS: Bacteria Urine Automated 1+ (Negative)
[2020-01-24] MEDS ORDERED: PHARMACY GLYCEMIC MGMT CONSULT PRN (00:14)
[2020-01-24] MEDS ORDERED: INSULIN GLARGINE 100 UNIT/ML VIAL SC ONE ×2 (00:15→03:15)
[2020-01-24] MEDS: SODIUM CHLORIDE 0.9% 1000ML 1,000 ML IV SCH ×4 (00:18→21:05)
[2020-01-24] MEDS: ACETAMINOPHEN 325 MG TAB PO PRN ×2 (00:25→11:12)
[2020-01-24] MEDS: INSULIN ASPART 100 UNITS/ML 3 ML PEN SC SCH ×5 (00:36→23:17)
[2020-01-24] MEDS: MAGNESIUM SULFATE / D5W 1 GM/100 ML BAG IV SCH ×3 (00:39→09:31)
--- NOTE | 2020-01-24 00:55 | History and Physical Report ---
DATE OF ADMISSION: 01/23/2020 CHIEF COMPLAINT: Sepsis. HISTORY OF PRESENT ILLNESS: This is a 49-year-old male with past medical history significant for morbid obesity, sleep apnea, allergic rhinitis due to pollen, gout arthropathy, type 2 diabetes, psoriatic arthropathy, noncompliance, anxiety, who comes because of fevers. The patient says he developed fever last Wednesday and he also noticed pain in his right lower extremity and had some erythema. He thought it was his gout attack and taken indomethacin. That indomethacin took care of his pain, but he was developing fevers, today temperature was around 103, which prompted him to come to the ER. In the ER, he was tachycardic. Blood pressure was somewhat on the lower side. His white count was 12.4. His sodium was somewhat on the lower side at 126, glucose was 314. initial lactate was 2.5, magnesium was 1.3, procalcitonin was 14.7. Chest x-ray, no acute process seen. Right foot CT showed suspicious for septic arthritis and osteomyelitis and ER called ortho and they are going to see the patient in the a.m. Currently received fluid bolus as per sepsis protocol and daptomycin and Zosyn. His hemodynamics are improving. His lactic acid has improved to 1.9. Currently resting comfortably. He has some mild headache, no blurred vision, no earache, no runny nose. He has sinus congestion going on for several weeks now. He has allergies to pollen and it is causing him some headaches. No sore throat. Denies any cough, no difficulty swallowing, no chest pain, no shortness of breath, no nausea, no abdominal pain. Normal bowel and bladder movements. No hematuria or blood in the stools. Ambulating okay at home. ALLERGIES: No known drug allergies. PAST MEDICAL HISTORY: As mentioned above. PAST SURGICAL HISTORY: Tonsillectomy, adenoidectomy. MEDICATIONS: The patient is on indomethacin 50 mg p.o. b.i.d. p.r.n., lisinopril 2.5 mg p.o. daily, lovastatin 40 mg p.o. daily, metformin 2000 mg daily, NovoLog 15 units t.i.d. with meals, insulin degludec 156 units under skin daily, Victoza 1.8 mg under skin daily, Flexeril 10 mg p.o. b.i.d. p.r.n., Celexa 40 mg p.o. daily, Flonase 2 sprays into each nostril at bedtime, aspirin 81 mg p.o. daily. FAMILY HISTORY: Significant for father had arthritis, alcoholism; mother had ovarian cancer; maternal grandmother had breast cancer; maternal grandfather had heart disorder; paternal grandfather had heart disorder. SOCIAL HISTORY: . No smoking, no alcohol, no drug use. REVIEW OF SYSTEMS: As per HPI. Rest of the review of systems negative. PHYSICAL EXAMINATION: GENERAL: The patient is morbidly obese, currently not in acute distress. VITAL SIGNS: Temperature T-max 39.2, pulse 110, blood pressure 97/58, respiratory rate 21, oxygen 94% on room air. HEENT: No pallor, no icterus. Oral mucosa moist. NECK: No JVD, no neck masses seen. CARDIOVASCULAR: S1, S2 heard. Tachycardia. No murmurs. RESPIRATORY SYSTEM: Normal AP diameter. No accessory muscle use. No wheezing, no crackles. ABDOMEN: Soft, bowel sounds present, nontender. No distention. CENTRAL NERVOUS SYSTEM: Alert and oriented. Speech is clear. Moves extremities. Obeys commands. EXTREMITIES: Bilateral lower extremities, mild erythema seen. SKIN: Psoriatic rash seen. LABORATORY DATA: WBC 12.4, hemoglobin 13.7, hematocrit 40.3, platelets 173. PT 13, INR 1.1, APTT 33.4. Sodium 126, potassium 3.7, chloride 94, CO2 of 24, BUN 19, creatinine 1.48, serum glucose 314. Lactate 1.9. Uric acid 6.5, calcium 8.7, magnesium 1.3, total bilirubin 2.1, AST 19, ALT 23, alkaline phosphatase 106. C-reactive protein 42. Procalcitonin 14.7. IMAGING DATA: Chest x-ray: Mild diffuse interstitial thickening, which is likely chronic. No acute process within the chest. Foot x-ray: Interval development of erosive change, fragmentation and periosteal reaction throughout the tarsal bones and proximal metatarsal. This appears to be a fragmentation, dislocation of the navicular bone, and offset of the Lisfranc joint. There is also partial collapse of the midfoot. A chronic infectious process or inflammatory process would be impossible to exclude. Foot CT shows suspicion for advanced septic arthritis, osteomyelitis throughout the majority of the intertarsal and tarsometatarsal joints from the subtalar joint through the tarsometatarsal joints. Extensive destructive change through the tarsal bones with medial dislocation of the navicular bone. Multiple dorsal soft tissue abscess seen within mid foot, some of which contain gas. This raises the possibility of gas forming organisms. Multiple peripheral enhancing fluid collections seen within the mid to distal tendons of the ankle hinge joint, also likely representing infectious change. There are no definite erosive changes at the tibiotalar joint. However, there appears to be small effusion at this location. Therefore, infectious involvement cannot be excluded on the basis of imaging alone. Mild periosteal reaction seen within the distal shaft of the fibula, which is also nonspecific but could represent early osteomyelitis. EKG: Sinus tachycardia at the rate of 128, no significant change was found. ASSESSMENT AND PLAN: This is a 49-year-old male who presents with ongoing fever and right foot pain. 1. Severe sepsis mostly from right foot osteomyelitis and possible septic arthritis. Presents with tachycardia, hypotension, fever, white count of 12.4, elevated ESR and prolactin, elevated lactic acid of 2.5. Received fluid boluses per sepsis protocol, Zosyn and daptomycin. Blood pressure is improving, hemodynamics are improving. Lactic acid improved to 1.9. We will continue to monitor in the tele floor. We will give another 500 mL bolus and IV normal saline at 150 mL per hour. Ortho was notified by the ER and planned for OR tomorrow. We will monitor his hemodynamics. If he is not improving or if he gets worse, we will transfer him to the ICU. 2. History of sleep apnea, on CPAP at bedtime. 3. History of diabetes. He is on high dose of insulin degludec. We will continue with sliding scale. Hold his metformin and Victoza and consult pharmacy for glycemic management. 4. Hyponatremia with sodium of 126. Possibly somewhat could be contributed by the high glucose. Getting fluids. We will closely monitor his sodium levels. 5. Acute kidney injury, creatinine of 1.4, baseline creatinine around 1.2. Getting labs, on fluids. We will follow the labs in the a.m. 6. Hypomagnesemia, we will replace. 7. Elevated bilirubin. We will follow the repeat labs in a.m. 8. hypertension. We will hold his lisinopril as the patient is hypotensive currently. 9. Hyperlipidemia, hold his statins, the patient is getting daptomycin. 10. Depression. Continue Celexa. 11. Deep venous thrombosis prophylaxis. The patient is going to OR tomorrow. We will hold off on any anticoagulation. Could not place sequential compression devices because of the infection in the foot. DISPOSITION: Closely monitor in the tele floor. Level 1 full code. Expect to discharge home and follow with family doctor. LORI
[2020-01-24] MEDS ORDERED: GLUCAGON FOR INJ 1 MG VIAL IM PRN (01:30)
[2020-01-24] MEDS ORDERED: CARBOHYDRATES FOR HYPOGLYCEMIA PO PRN (01:30)
[2020-01-24] MEDS ORDERED: DEXTROSE 50% 50 ML SYRINGE IV PRN (01:30)
[2020-01-24] MEDS ORDERED: GLUCOSE 10 TABS/TUBE PO PRN (01:30)
[2020-01-24] MEDS ORDERED: GLUCOSE 40% GEL 15 GM TUBE PO PRN (01:30)
[2020-01-24] MEDS: PIPERACILLIN/TAZOBACTAM 4.5 GM in DEXTROSE 5% 100 ML IV SCH ×3 (02:02→21:06)
[2020-01-24] MEDS ORDERED: INSULIN ASPART 100 UNITS/ML 3 ML PEN SC SCH (03:00)
[2020-01-24 05:42] LABS: Hematocrit (blood only) 35.1 % (42-52); Hemoglobin 11.6 g/dL (14.0-18.0); Mean Corpuscular Hemoglobin 29.4 pg (25-34); Mean Corpuscular Volume 89.1 fL (80-100); Mean Platelet Volume 9.6 fL (7.4-10.4); Platelet Count 163 K/uL (130-400); RDW Coefficient of Variation 13.7 % (11.5-14.5); RDW Standard Deviation 45.4 fL (36.4-46.3); Red Blood Count 3.94 M/uL (4.7-6.1); White Blood Count 12.16 K/uL (4.8-10.8)
[2020-01-24 06:05] LABS: Estimated Average Glucose 324 mg/dl; Hemoglobin A1C 12.9 % (4.5-5.6)
[2020-01-24 06:09] LABS: Basophils # (auto) 0.01 K/uL (0-0.2); Basophils % (auto) 0.1 %; Dohle Bodies 2+; Immature Granulocytes # (auto) 0.07 K/uL (0.00-0.02); Immature Granulocytes % (auto) 0.6 %; Lymphocytes # (auto) 0.62 K/uL (1.2-3.4); Lymphocytes % (auto) 5.1 %; Monocytes # (auto) 1.11 K/uL (0.11-0.59); Monocytes % (auto) 9.1 %; Neutrophils # (auto) 10.35 K/uL (1.4-6.5); Neutrophils % (auto) 85.1 %
[2020-01-24 06:13] LABS: BUN Creatinine Ratio 13.8 (10-20); Calcium 7.6 mg/dl (8.5-10.1); Creatinine Clr Calc Pharmacy 100.2 ml/min; Est GFR (African American) 63.9; Est GFR (Non-African American) 55.1; Magnesium 1.6 mg/dl (1.8-2.4); Potassium 3.9 mmol/L (3.5-5.1)
[2020-01-24] MEDS: ONDANSETRON INJ 2 MG/ML 2 ML VIAL IV PRN (07:39)
[2020-01-24] MEDS ORDERED: MAGNESIUM SULFATE / D5W 1 GM/100 ML BAG IV ONE (09:00)
[2020-01-24] MEDS ORDERED: INSULIN GLARGINE 100 UNIT/ML VIAL SC SCH (09:00)
[2020-01-24] MEDS: CITALOPRAM 40 MG TAB PO SCH (09:06)
[2020-01-24] MEDS ORDERED: PROMETHAZINE HCL 12.5 MG in SODIUM CHLORIDE 0.9% 50 ML IV STA (11:54)
[2020-01-24] MEDS ORDERED: CLINDAMYCIN 900 MG in DEXTROSE 5% 50 ML IV SCH (12:00)
--- NOTE | 2020-01-24 13:26 | Pharmacy Report ---
Glycemic Control Consultation - Date of Service January 24, 2020 - Scope Scope: Glycemic Pharmacist consulted for glycemic control and to write orders per [facility] inpatient glycemic control protocol. - Objective Weight: 169 kg Accuchecks BSG (last 24hrs): 01/23/20 01/24/20 01/24/20 19:11 00:16 03:06 Glucose 314 H* POC Glucose 304 H* 344 H* 01/24/20 01/24/20 05:23 05:58 Glucose 296 H POC Glucose 291 H Laboratory Data (last 24hrs): 01/23/20 01/24/20 19:11 05:23 Potassium 3.7 3.9 Carbon Dioxide 24 23 Anion Gap 7.0 9.0 Creatinine 1.48 H 1.49 H Est Cr Clr Drug Dosing 100.5 100.2 Beta-Hydroxybutyric Acd 6.65 H HbA1c: Hemoglobin A1c 12.9 % (4.5-5.6) H 01/24/20 05:23 - Recent Pertinent Medications Outpatient Anti-diabetic Regimen: * Tresiba 156 units SQ QAM * Novolog 15 units TID with meals * Victoza 1.8 mg SQ daily * Metformin ER 2000 mg PO daily * A1c = 12.9 % on 01/24/20 Risk Factors for Insulin Resistance: * Steroids: none * Infection: Daptomycin + Zosyn * Pressors: none * IVF: none * Diet: NPO - Assessment & Plan Assessment & Plan: ASSESSMENT: * 49 y/o M admitted for sepsis, septic arthritis or possibly osteomyelitis. * Patient with history of Type 2 diabetes managed at home with basal + bolus insulin, Victoza SQ daily and Metformin. * Holding Victoza and Metformin while inpatient. Will continue with basal Lantus and bolus Novolog insulin for glycemic control, dosing adjusted per BSG trends. * Nurse said patient had missed taking his basal Tresiba dose (156 units QAM) on 01/22 (yesterday). Therefore, BSGs were above 300 upon admission. * A total of 100 units of Lantus was given in two shots of 50 units around 6 hrs apart last night. * Fasting BSG this AM elevated at 291, so another 100 units of Lantus was given today AM since patient had a big deficit in his insulin needs. * Novolog parameters were started with tight control based on weight and stress of 3. Correction factor will be further tightened since BSG today still elevated above 200. PLAN FOR INPATIENT GLYCEMIC CONTROL: * Holding outpatient oral diabetes medication and Victoza * Basal insulin * Lantus 100 units SQ QAM * Bolus insulin: * NovoLog per scale ACHS or Q6hrs while NPO * Goal Range: Low 110 mg/dL - High 140 mg/dL * Correction Factor: 5 mg/dL/unit * Nutritional / Prandial insulin per carb ratio of 1 unit per 3 grams CHO consumed * Please note that the plan above was derived based on current level of insulin resistance and hospital stress. These recommendations are appropriate for inpatient admission only. Plan of care upon discharge will need to be reassessed to avoid potential outpatient hypo/hyperglycemia. Thank you.
[2020-01-24] MEDS ORDERED: BACITRACIN INJ 50,000 UNIT VIAL ONE ×2 (14:53→19:05)
[2020-01-24] MEDS ORDERED: BUPIVACAINE 0.5 % 5 MG/1 ML MPF 30ML VIAL ONE (14:53)
[2020-01-24] MEDS ORDERED: MIDAZOLAM HCL 1 MG/ML 2ML VIAL ONE (15:39)
[2020-01-24] MEDS ORDERED: DEXAMETHASONE SOD INJ 4 MG/ML VIAL ONE (15:40)
[2020-01-24] MEDS ORDERED: LIDOCAINE HCL 2% 2 ML VIAL/AMP(20MG/ML) INFIL ONE (15:40)
[2020-01-24] MEDS ORDERED: ONDANSETRON INJ 2 MG/ML 2 ML VIAL ONE (15:40)
[2020-01-24] MEDS ORDERED: PROPOFOL IV EMULSION 10 MG/ML 20 ML VIAL IV ONE (15:40)
[2020-01-24] MEDS ORDERED: fentaNYL citrate 100 MCG/2 ML VIAL ONE ×2 (15:40→18:33)
--- NOTE | 2020-01-24 15:54 | History & Physical Bridge Note ---
Date of Service January 24, 2020 History & Physical Bridge Note I have examined the patient, reviewed the History & Physical and in the interval since the performance of the History & Physical I have noted the following changes of clinical significance: Will require right foot incision and drainage abscess dorsal foot, incision and drainage abscess lateral foot, tenosynovectomy extensor digitorum tendons right foot.
--- NOTE | 2020-01-24 15:56 | Anesthesiology Consultation ---
Date of Service January 24, 2020 Assessment & Plan (1) Encounter for pre-operative examination: Chart Review Chart Review: Pending: Refer to Additional Notes / Consult section and Patient NOT seen in Pre Admission Testing Consults Requested none History Surgery Operation Date: 01/24/20 11:20 Proposed Procedures p Incision and Drainage Septic Right Foot - Barrera Whitfield DO Height/Weight Height: 6 ft 1 in Weight: 169 kg Allergies Allergy/AdvReac Type Severity Reaction Status Date / Time No Known Allergies Allergy Verified 01/23/20 19:38 Medications Home Medications Medication Instructions Recorded Confirmed Last Taken citalopram [Celexa] 40 mg PO QAM 06/25/19 01/23/20 01/07/20 insulin aspart U-100 [Novolog 15 unit SUBCUT TIDM 06/25/19 01/23/20 01/05/20 Flexpen U-100 Insulin] insulin degludec [Tresiba 156 unit SUBCUT QAM 06/25/19 01/23/20 01/07/20 FlexTouch U-200] liraglutide [Victoza 3-Moy] 1.8 mg SUBCUT QAM 06/25/19 01/23/20 01/07/20 lisinopril 2.5 mg PO QAM 06/25/19 01/23/20 01/07/20 lovastatin 40 mg PO HS 06/25/19 01/23/20 01/07/20 metformin [Glucophage XR] 2,000 mg PO QAM 06/25/19 01/23/20 01/07/20 indomethacin 50 mg PO BID PRN 01/07/20 01/23/20 Unknown Active Medications Generic Name Dose Route Start Last Admin Trade Name Freq PRN Reason Stop Dose Admin Acetaminophen 650 mg 01/23/20 23:36 01/24/20 11:12 Tylenol PO 02/22/20 23:35 650 mg Q4H PRN Administration Pain or Fever Citalopram Hydrobromide 40 mg 01/24/20 09:00 01/24/20 09:06 Celexa PO 02/23/20 08:59 Not Given QAM DISHA Sodium Chloride 1,000 mls @ 150 mls/hr 01/23/20 23:36 01/24/20 12:09 Nss 1000ml IV 02/22/20 23:35 150 mls/hr .Q6H40M DISHA Administration Piperacillin Sod/Tazobactam 120 mls @ 30 mls/hr 01/24/20 02:00 01/24/20 13:40 Sod 4.5 gm/ Dextrose IV 03/06/20 01:59 Infused Q8H DISHA Infusion Protocol Clindamycin Phosphate 900 mg/ 56 mls @ 112 mls/hr 01/24/20 12:00 01/24/20 13:29 Dextrose IV 03/06/20 11:59 Infused Q8H DISHA Infusion Protocol Insulin Aspart 0 units 01/24/20 00:15 01/24/20 12:04 Novolog Flexpen SC 02/23/20 00:14 16 units Q6 DISHA Administration Protocol Insulin Glargine 100 units 01/24/20 09:00 01/24/20 09:31 Lantus SC 02/23/20 08:59 100 units DAILY@0900 DISHA Administration Lisinopril 2.5 mg 01/24/20 09:00 01/24/20 07:19 Zestril PO 02/23/20 08:59 Not Given QAM DISHA Ondansetron HCl 4 mg 01/23/20 23:36 01/24/20 07:39 Zofran IV 02/22/20 23:35 4 mg Q6H PRN Administration Nausea Past Medical History Medical History Abdominal wall cellulitis (Inactive) Diabetes (Chronic) Lazy eye (Chronic) Morbid obesity with BMI of 45.0-49.9, adult Psoriasis Sleep apnea (Chronic) Exercise / Class Metabolic Activity III < 4 Walking/Shop/Light housework Past Family History Family History Grandfather (Maternal) Coronary heart disease Grandfather (Paternal) Coronary heart disease Other No significant family history Past Surgical History Surgical History No significant past surgical history Past Anesthesia History No Hx of Anesthesia Complications and No Family Hx of Anesthesia Complications Social History Smoking Status: Never smoker Hx Alcohol Use: No Hx Substance Use: No Physical Exam Vital Signs Last Vital Signs Temp 39.4 C H 01/24/20 11:06 Pulse 121 H 01/24/20 11:06 Resp 20 01/24/20 11:06 BP 108/65 01/24/20 11:06 Pulse Ox 95 01/24/20 11:06 Testing Laboratory Results 01/24/20 05:23 01/24/20 05:23 PT 13.0 Seconds (9.0-12.0) H 01/23/20 19:11 INR 1.2 (0.9-1.1) H 01/23/20 19:11 APTT 33.4 Seconds (21.0-31.0) H 01/23/20 19:11 Hemoglobin A1c 12.9 % (4.5-5.6) H 01/24/20 05:23 Urine Color Dark Yellow 01/23/20 22:47 Urine Appearance Clear (Clear) 01/23/20 22:47 Urine pH 5.0 (4.5-7.5) 01/23/20 22:47 Ur Specific [place] > 1.045 (1.000-1.030) H 01/23/20 22:47 Urine Protein 2+ (Negative) H 01/23/20 22:47 Urine Glucose (UA) 3+ (Negative) H 01/23/20 22:47 Urine Ketones Trace (Negative) H 01/23/20 22:47 Urine Nitrite Negative (Negative) 01/23/20 22:47 Ur Leukocyte Esterase Negative (Negative) 01/23/20 22:47 Urine WBC (Auto) 1-5 /hpf (0-5) 01/23/20 22:47 Urine RBC (Auto) 10-30 /hpf (0-4) H 01/23/20 22:47 U Hyaline Cast (Auto) 5-10 /lpf (0-5) H 01/23/20 22:47 U Epithel Cells (Auto) >30 /lpf (0-5) H 01/23/20 22:47 Urine Bacteria (Auto) 1+ (Negative) H 01/23/20 22:47 01/23/20 19:40 Aerobic Blood Culture - Preliminary Blood Gram positive cocci clusters Anaerobic Blood Culture - Preliminary Gram positive cocci clusters 01/23/20 19:11 Aerobic Blood Culture - Preliminary Blood Gram positive cocci clusters Anaerobic Blood Culture - Preliminary Gram positive cocci 01/24/20 01/24/20 15:34 05:58 POC Glucose 196 H 291 H Electrocardiogram Date: 01/23/20 Findings: + ST @ (128) Sinus tachycardia Otherwise normal ECG When compared with ECG of 07-JAN-2020 14 :13, No significant change was found
--- NOTE | 2020-01-24 16:05 | Orthopedic Consultation ---
Date of Consultation January 24, 2020 Assessment & Plan (1) Foot abscess, right: The CT findings were discussed with the patient and his . Dr. Whitfield also saw that patient. He has been NPO and will be scheduled for a right foot I & D abscess. All potential risks, benefits, complications, alternatives, and rehab have been discussed with the patient and he wishes to proceed. He will be taken to the OR today, 01.24.2020. 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 He had previously seen a old coin dealer who treated him for gout. More recently, he became ill with a fever and chills. He came to [facility] ER where blood cultures were positive. He was admitted and had a CT of the right foot. There was a large fluid collection at the dorsal foot with gas noted in the area. Severe Charcot arthropathy changes of the entire midfoot. He is now being set up for surgical tx of the foot abscess. Allergies Allergy/AdvReac Type Severity Reaction Status Date / Time No Known Allergies Allergy Verified 01/23/20 19:38 Home Medications Home Medications Medication Instructions Recorded Confirmed Type citalopram [Celexa] 40 mg PO QAM 06/25/19 01/23/20 History insulin aspart U-100 [Novolog 15 unit SUBCUT TIDM 06/25/19 01/23/20 History Flexpen U-100 Insulin] insulin degludec [Tresiba 156 unit SUBCUT QAM 06/25/19 01/23/20 History FlexTouch U-200] liraglutide [Victoza 3-Moy] 1.8 mg SUBCUT QAM 06/25/19 01/23/20 History lisinopril 2.5 mg PO QAM 06/25/19 01/23/20 History lovastatin 40 mg PO HS 06/25/19 01/23/20 History metformin [Glucophage XR] 2,000 mg PO QAM 06/25/19 01/23/20 History indomethacin 50 mg PO BID PRN 01/07/20 01/23/20 History Patient History Medical History Abdominal wall cellulitis (Inactive) Diabetes (Chronic) Lazy eye (Chronic) Morbid obesity with BMI of 45.0-49.9, adult Psoriasis Sleep apnea (Chronic) Surgical History No significant past surgical history Family History Grandfather (Maternal) Coronary heart disease Grandfather (Paternal) Coronary heart disease Other No significant family history Social History Preferred Language: Portuguese Communication Ability: Effective Beliefs That Will Affect Care: None marital status: Current Living Situation: Spouse current occupational status: employed Other Information That Helps Us Care for You: No Feels Safe at Home: Yes Safety Concerns: Feels Safe At This Time Smoking Status: Never smoker Hx Alcohol Use: No Hx Substance Use: No Physical Exam Constitutional: well developed and + morbidly obese; no acute distress ENMT: external ear and nose normal, oropharynx normal Neck: trachea midline, no thyromegaly Musculoskeletal: Right foot: severe swelling and edema of the foot. There is a new skin excoriation at the dorsal foot. No open areas or draining areas. Fluctuance noted over most of the dorsal foot. Limited sensation BLE secondary to neuropathy. Skin: no rashes, warm and dry no rashes and no ulcers Neurologic: + abnormal touch/pain/proprioception Psychiatric: A+Ox3, euthymic affect Speech: normal rate/rhythm/volume of speech Results & Data ([facility]) Vital Signs (Past 12 Hours) Vital Signs Temp Pulse Resp BP Pulse Ox 01/24/20 11:06 39.4 C H 121 H 20 108/65 95 01/24/20 07:15 38.4 C H 120 H 20 90/56 L [address] right foot: Large dorsal foot abscess with gas. Charcot arthropathy changes of the midfoot. Questionable osteomyelitis of the midfoot and forefoot.
[2020-01-24] MEDS ORDERED: HYDROmorphone INJ 1 MG/ML SYRINGE IV PRN (18:39)
[2020-01-24] MEDS ORDERED: ONDANSETRON INJ 2 MG/ML 2 ML VIAL IV PRN (18:39)
[2020-01-24] MEDS ORDERED: ePHEDrine sulfate 50 MG/ML AMP IV PRN (18:39)
[2020-01-24] MEDS ORDERED: ATROPINE SULFATE 0.1 MG/ML 10ML SYR IV PRN (18:39)
[2020-01-24] MEDS ORDERED: fentaNYL citrate 100 MCG/2 ML VIAL IV PRN (18:39)
--- NOTE | 2020-01-24 18:44 | Hospitalist Progress Note ---
Date of Service January 24, 2020 Assessment & Plan (1) Sepsis: (2) Foot abscess, right: Present on admission with fever and right foot pain. Meet sepsis criteria on admission with tachycardia, febrile, leukocytosis and elevated lactate Right foot CT showed findings are highly suspicious for advanced septic arthritis/osteomyelitis throughout majority of the intertarsal and tarsometatarsal joints from the subtalar joint through the tarsometatarsal joints as described above. There is extensive destructive change throughout the tarsal bones with medial dislocation of the navicular bone. Multiple dorsal soft tissue abscesses seen within the midfoot some of which contain gas. This raises the possibility of a gas-forming organism. Multiple peripheral enhancing fluid collection seen within the mid to distal tendons of the ankle/hindfoot also likely represent infectious change. Received IVF, IV Dapto and Zosyn Continue IV abx with dapto, Zosyn and Clinda Blood cx positive for gram positive cocci Lactic acid normalize, but continue to be febrile. Case discussed with ID in [place] Dr. Nan sadler recommended to d/c the Clinda since pt already covered for anaerobes with the Zosyn Elevated ESR Continue IVF Ortho on board and plan to take to OR for I&D Keep NPO for now for the procedure Continue monitor closely Gram positive bacteremia Blood cx positive for gram positive cocci Continue Dapto IV ID consulted Blood cx repeat, will get an echo to r/o vegetation Acute Kidney Injury Possible related to sepsis Creatinine on admission 1.48 Continue IVF Will hold lisinopril and NSAID Monitor BMP History of sleep apnea on CPAP at bedtime. History of diabetes. Uncontrolled DM with A1C 12.9 Continue to hold metformin and Victoza Pharmacy on board for glycemic management. Continue Lantus and Novolog sliding scale Continue monitor BS Hyponatremia Sodium on admission 126. P Received IVF Na 130 today Continue monitor BMP Electrolytes imbalance Mg 1.6 today Magnesium replaced Continue monitor electrolytes Hypertension. BP stable will hold his lisinopril Hyperlipidemia Continue to hold his statins while on daptomycin. Depression. Continue Celexa. DVT px No anticoagulant since pt is planning to go to OR today Unable to put SCD due to right foot infection Code Status Full code Disposition Continue monitor closely Admission and Anticipated Discharge Date Admission Date: January 23, 2020 Subjective Pt was seen and examined Lying in bed with no distress with at bedside Pt said that right leg pain improves Continue to feel warm Denies any chest pain, palpitation, dizziness and SOB Physical Exam Physical Exam: General- No acute distress Head- atraumatic Eyes- PERRL, EOMI, ENT- oropharynx clear Neck- supple, no JVD Lungs- clear to auscultation Heart- regular rhythm; no murmur Abdomen- normal bowel sounds, soft, nontender Extremities- no calf tenderness, +right foot foot edema +skin excoriation at the dorsal right foot with no open area or drainage, +decrease sensation in b/l LE Neuro- alert, oriented x 3; PERRL, EOMI; no facial palsy; no dysarthria Skin- warm & dry Results & Data Results & Data ([facility]) Vital Signs (Past 12 Hours) Vital Signs Temp Pulse Resp BP Pulse Ox 01/24/20 11:06 39.4 C H 121 H 20 108/65 95 01/24/20 07:15 38.4 C H 120 H 20 90/56 L 97
--- NOTE | 2020-01-24 19:14 | Electrocardiogram Report ---
Test Reason : Blood Pressure : / mmHG Vent. Rate : 128 BPM Atrial Rate : 128 BPM P-R Int : 128 ms QRS Dur : 106 ms QT Int : 306 ms P-R-T Axes : 053 -23 046 degrees QTc Int : 446 ms Sinus tachycardia Incomplete right bundle branch block Otherwise normal ECG When compared with ECG of 07-JAN-2020 14:13, No significant change was found Confirmed by Julian Bradley ([id number]) on 01/24/2020 7:14:02 PM Referred By: REFERRED SELF Confirmed By:Sebastian Bradley
--- NOTE | 2020-01-24 20:06 | Post Operative Brief Note ---
Immediate Post Op Note v1 Date of Surgery January 24, 2020 Pre & Post Diagnosis Operation Date: 01/24/20 11:20 Pre-Op Diagnosis: Foot dorsal abscess, right lateral foot abscess; septic extensor digitorum tenosynovitis x4 tendons, Charcot foot, sepsis, diabetes mellitus, morbid obesity Post-Op Diagnosis: Foot dorsal abscess, right lateral foot abscess; septic extensor digitorum tenosynovitis x4 tendons, septic tenosynovitis extensor hallucis longus tendon, avulsion fracture lateral cuboid, Charcot foot, sepsis, diabetes mellitus, morbid obesity I identified the patient and participated in the time-out.: Yes Procedure Operation Date: 01/24/20 11:20 Actual Procedures p Incision and Drainage Septic Right Foot Dorsal abscess, incision and drainage lateral foot abscess; Tenosynovectomy Extensor Digitorum Tendons(x4 ), exploration with irrigation and debridement plantar deep space foot, irrigation debridement tarsal tunnel, tenosynovectomy extensor hallucis longus tendon, excision avulsion fracture lateral cuboid, placement of deep Hemovac suction drains x2, placement of iodoform packing x6 incisions (Right) - Barrera Whitfield DO Surgeon Barrera Whitfield DO Environmental Services Specialist None Estimated Blood Loss 15 Findings Consistent with Post-Op Diagnosis Specimens Aerobic anaerobic Gram stain dorsal abscess right foot; tenosynovitis extensor digitorum tendons foot Drains Hemovac Drain (10fr) and Other (1/2 inch iodoform gauze packing drains x6 sites) Anesthesia Type General Complications none Disposition Accompanied Patient To Recovery: No Disposition: Recovery Room
--- NOTE | 2020-01-24 20:30 | Anesthesiology Progress Note ---
Date of Service January 24, 2020 Anesthesia Post Procedure Vital Signs Vital Signs: Temp Pulse Pulse Pulse Resp BP BP 01/24/20 20:15 104 H 31 H 95/66 L 01/24/20 20:05 37.5 C 110 H 30 H 104/60 01/24/20 11:06 39.4 C H 121 H 20 108/65 01/24/20 07:15 38.4 C H 120 H 20 90/56 L 01/24/20 03:50 36.8 C 117 H 20 105/62 01/24/20 02:16 37.1 C 96/63 L 01/24/20 00:04 38.3 C H 113 H 16 113/63 01/23/20 23:13 112 H 29 H 93/62 L 01/23/20 23:00 109 H 16 87/58 L 01/23/20 22:31 110 H 21 97/58 L 01/23/20 22:00 108 H 20 89/62 L 01/23/20 21:30 109 H 20 96/54 L 01/23/20 21:00 113 H 18 90/56 L 01/23/20 20:40 115 H 23 96/61 L 01/23/20 20:38 37.9 C H Pulse Ox 01/24/20 20:15 94 01/24/20 20:05 97 01/24/20 11:06 95 01/24/20 07:15 97 01/24/20 03:50 95 01/24/20 02:16 01/24/20 00:04 97 01/23/20 23:13 92 01/23/20 23:00 95 01/23/20 22:31 94 01/23/20 22:00 92 01/23/20 21:30 94 01/23/20 21:00 92 01/23/20 20:40 95 01/23/20 20:38 Transfer of Care Handoff Completed per policy Notes Mental Status: alert / awake / arousable and participated in evaluation Patient Amnestic to Procedure: Yes Nausea / Vomiting: adequately controlled Pain: adequately controlled Airway Patency, RR, SpO2: stable & adequate BP & HR: stable & adequate Hydration State: stable & adequate Anesthetic Complications: no major complications apparent and Pt Satisfied with anesthetic care Notes: Pt at his preoperative baseline.
[2020-01-24] MEDS: DAPTOmycin 700 MG in SYRINGE 0 ML IV SCH (21:10)
[2020-01-24] MEDS ORDERED: Nursing to Pharmacy Communication SCH (21:15)
[2020-01-25] MEDS: PIPERACILLIN/TAZOBACTAM 4.5 GM in DEXTROSE 5% 100 ML IV SCH ×3 (01:21→17:08)
--- NOTE | 2020-01-25 02:49 | Operative Report (OR) ---
DATE OF OPERATION: 01/24/2020 PREOPERATIVE DIAGNOSES: 1. Right foot dorsal abscess. 2. Right lateral foot abscess. 3. Septic extensor digitorum tenosynovitis x4 tendons. 4. Charcot arthropathy of the foot. 5. Sepsis. 6. Diabetes mellitus. 7. Morbid obesity. POSTOPERATIVE DIAGNOSES: 1. Right foot dorsal abscess. 2. Right lateral foot abscess. 3. Septic extensor digitorum tenosynovitis x4 tendons. 4. Charcot arthropathy of the foot. 5. Sepsis. 6. Diabetes mellitus. 7. Morbid obesity. 8. Septic tenosynovitis of the extensor hallucis longus tendon. 9. Avulsion fracture of the lateral cuboid. PROCEDURE: 1. Incision and drainage, septic right foot dorsal abscess. 2. Incision and drainage, lateral foot abscess with evacuation of abscess of the subtalar joint. 3. Tenosynovectomy of the extensor digitorum tendons x4 tendons. 4. Exploration with irrigation and debridement, plantar deep space of the foot. 5. Irrigation and debridement, tarsal tunnel. 6. Tenosynovectomy of the extensor hallucis longus tendon. 7. Excision, avulsion fracture of the lateral cuboid. 8. Placement of deep Hemovac suction drains x2. 9. Placement of iodoform packing x6, separate incisions, right foot. SURGEON: Barrera Whitfield DO BAG LOADER: None. ANESTHESIA: General. SPECIMENS: 1. Aerobic, anaerobic Gram stain, dorsal abscess, right foot. 2. Tenosynovitis of the extensor digitorum tendons, right dorsal foot. DRAINS: Deep Hemovac suction drains x2 and iodoform one-half inch packing x6 separate incisions. COMPLICATIONS: None. BLOOD LOSS: 15 mL. PERTINENT HISTORY: This is a 49-year-old gentleman with ongoing Charcot arthropathy of his right foot under the care of Phil Ramesh DPM, over the last year. The patient has been off and on in a walking boot. Over the last several days, he had worsening redness, swelling which developed then into fevers, chills, and other constitutional symptoms. Presented to [facility], he was evaluated and noted to be in sepsis with elevated septic markers and was admitted to the hospitalist service for resuscitation and stabilization. Orthopedics was then consulted. They had CT scan and radiographs noting severe Charcot arthropathy of the right foot with massive abscess dorsal foot extending into the extensor tendons of the extensor digitorum. Also a secondary abscess noted along the lateral border of the right foot with extension into the subtalar joint. The patient was then scheduled for surgery when stabilized and when indicated. All potential risks, benefits, complications, alternatives, rehab, potential for incomplete relief of symptoms, need for further surgery, DVT, PE, , persistent pain, swelling, scarring, weakness, neurovascular injury, wound complications, need for further surgery, irrigation and debridement, and amputation were discussed with the patient and his , they both decided to proceed with procedure as indicated. DESCRIPTION OF PROCEDURE: The patient was taken to the operative suite, placed supine on the operating room table. After review of the consent and identification of proper operative site, the patient was anesthetized. Endotracheal tube was placed. Tourniquet was applied high on the right thigh over cast padding. Right lower extremity was then sterilely prepped and draped in usual fashion, elevated and tourniquet inflated to 350 mmHg. There was no exsanguination performed due to the nature of the sepsis and extensive infection. Dorsal incision was made over the mid foot extending distally at site of excoriation and thin skin consistent with abscess. After the dermal layer was pierced with a 15 blade scalpel, an exuberant amount of purulent material poured forth from the dorsal foot, approximately 100 mL or more. A specimen was obtained for aerobic, anaerobic Gram stain. Next, a second incision was made slightly distal over the distal aspect of the extensor digitorum tendons in line with the prior incision to try and preserve a skin bridge. The incision was deepened through subcutaneous tissue. Abscess material also extruded. This appeared to be in a more superficial location in the deeper abscess than the more proximal dorsal foot. Next, a third incision was made over the lateral subtalar joint extending over the lateral foot. Incision was made through the skin and subcutaneous tissue and the extensor digitorum brevis was noted to be prominent. This was incised and into the subtalar joint and sinus tarsi, there was noted to be a significant amount of abscess fluid and purulent material. This was then evacuated with a suction. Dorsal foot abscess was also evacuated with suction. Next, a fourth incision was made over the tarsal tunnel. Incision was deepened through subcutaneous tissue. Meticulous hemostasis was achieved with electrocautery. Careful dissection was performed down to the level of the tarsal tunnel. There was noted to be thin abundant fluid; however, no obvious abscess. After exploration of the tarsal tunnel, debridement was performed with rongeur. This was used to remove any fibrinous tissue. No obvious abscess was encountered. Next, another incision was made along the plantar aspect of the mid foot to explore the deep space. The incision was deepened through subcutaneous tissue. Meticulous hemostasis was achieved with electrocautery. Careful dissection was performed with Metzenbaum scissors through the plantar aponeurosis. Lakesha rakes were applied and then careful dissection was performed with Metzenbaum scissors into the deep space of the plantar foot. Thin fluid was encountered. No obvious abscess. This was irrigated with pulsatile lavage with sterile normal saline and bacitracin. Next, there was noted to be a prominence over the extensor hallucis longus. A 15-blade scalpel incision was made over the EHL. Careful dissection was performed with a 15-blade scalpel, was then transitioned to placement of Lakesha rakes and careful dissection with Metzenbaum scissors of the extensor hallus longus, there was noted to be tenosynovitis. Tenosynovectomy was then performed with a rongeur. Pulsatile lavage was used to irrigate the extensor hallucis longus extensively followed by attention directed back toward the extensor digitorum tendons. Tenosynovectomy was performed. Hypertrophic tenosynovial tissue was harvested with a rongeur and passed off as specimen. Tendons were then carefully debrided with Metzenbaum scissors and rongeur. Next, pulsatile lavage of approximately 6 liters was then used to irrigate all 6 incisions mentioned, until clear. There was noted to be an avulsion fracture of the lateral cuboid adjacent to the sinus tarsi. This was resected with a rongeur. Next, after irrigation was completed, top gloves and top sheet were changed. Fresh instruments were employed then to place 2 deep Hemovac drains in the dorsum of the foot and also in to the subtalar joint and sinus tarsi extending through a small puncture incision in the anterior aspect of the hindfoot ankle junction, taking care to avoid neurovascular structures. Next, six one-half inch iodoform gauze packing drains were placed in all the incisions mentioned and tissue was then loosely closed over all drains with interrupted 3-0 nylon sutures. Loose approximation would allow for extrusion of any infectious material. Next, a sterile lightly compressive dressing was applied overwrapped with Xeroform gauze, sterile 4 x 4s, ABD pads x3, cast padding, and George wrap. The tourniquet was released. The patient was awakened and taken to recovery in stable condition. I attest to the content of the Intraoperative Record and any orders documented therein. Any exception s are noted below.
[2020-01-25] MEDS: SODIUM CHLORIDE 0.9% 1000ML 1,000 ML IV SCH ×2 (06:37→15:34)
[2020-01-25 06:43] LABS: Hemoglobin 10.7 g/dL (14.0-18.0); Mean Corpuscular Hemoglobin 30.7 pg (25-34); Mean Corpuscular Hgb Conc 34.5 g/dL (32-36); Mean Corpuscular Volume 89.1 fL (80-100); Mean Platelet Volume 9.9 fL (7.4-10.4); Platelet Count 143 K/uL (130-400); RDW Coefficient of Variation 14.5 % (11.5-14.5); RDW Standard Deviation 47.6 fL (36.4-46.3); Red Blood Count 3.48 M/uL (4.7-6.1); White Blood Count 12.29 K/uL (4.8-10.8)
[2020-01-25 06:54] LABS: BUN Creatinine Ratio 20.1 (10-20); Calcium 7.6 mg/dl (8.5-10.1); Creatinine Clr Calc Pharmacy 118.3 ml/min; Est GFR (African American) 81.3; Est GFR (Non-African American) 70.2; Potassium 3.9 mmol/L (3.5-5.1)
[2020-01-25] MEDS ORDERED: PERFLUTREN LIPID MICROSPHERE (DEFINITY) IV ONE (07:55)
[2020-01-25] MEDS: INSULIN GLARGINE 100 UNIT/ML VIAL SC SCH ×2 (07:56→21:00)
[2020-01-25] MEDS: CITALOPRAM 40 MG TAB PO SCH (07:57)
[2020-01-25] MEDS: INSULIN ASPART 100 UNITS/ML 3 ML PEN SC SCH ×4 (07:59→21:02)
--- NOTE | 2020-01-25 08:40 | Anesthesiology Progress Note ---
Date of Service January 25, 2020 Anesthesia Post Procedure Vital Signs Vital Signs: Temp Pulse Pulse Pulse Resp BP Pulse Ox 01/25/20 07:31 36.4 C L 92 H 20 107/73 95 01/25/20 04:14 36.7 C 94 H 18 105/76 97 01/25/20 02:30 36.8 C 92 H 20 106/74 98 01/25/20 01:30 36.4 C L 94 H 18 103/71 92 01/25/20 00:40 36.5 C 97 H 24 131/80 94 01/24/20 23:56 103 H 01/24/20 23:53 37.3 C 98 H 20 95/63 L 96 01/24/20 22:51 37.6 C H 101 H 24 97/62 L 92 01/24/20 22:00 37.4 C 103 H 22 107/70 93 01/24/20 21:37 37.7 C H 104 H 24 113/79 96 01/24/20 21:15 37.3 C 105 H 24 101/55 L 94 01/24/20 21:02 106 H 18 118/66 97 01/24/20 20:50 37.7 C H 107 H 18 132/84 95 01/24/20 20:45 37.0 C 105 H 27 H 114/86 94 01/24/20 20:35 103 H 31 H 112/73 92 01/24/20 20:25 102 H 28 H 99/70 L 92 01/24/20 20:15 104 H 31 H 95/66 L 94 01/24/20 20:05 37.5 C 110 H 30 H 104/60 97 01/24/20 11:06 39.4 C H 121 H 20 108/65 95 Notes Mental Status: alert / awake / arousable Patient Amnestic to Procedure: Yes Nausea / Vomiting: adequately controlled Pain: adequately controlled Airway Patency, RR, SpO2: stable & adequate BP & HR: stable & adequate Hydration State: stable & adequate Anesthetic Complications: no major complications apparent and Pt Satisfied with anesthetic care
--- NOTE | 2020-01-25 08:45 | Orthopedic Progress Note ---
Date of Service January 25, 2020 Assessment & Plan (1) Foot abscess, right: POD #1 s/p 1. Incision and drainage, septic right foot dorsal abscess. 2. Incision and drainage, lateral foot abscess with evacuation of abscess of the subtalar joint. 3. Tenosynovectomy of the extensor digitorum tendons x4 tendons. 4. Exploration with irrigation and debridement, plantar deep space of the foot. 5. Irrigation and debridement, tarsal tunnel. 6. Tenosynovectomy of the extensor hallucis longus tendon. 7. Excision, avulsion fracture of the lateral cuboid. 8. Placement of deep Hemovac suction drains x2. 9. Placement of iodoform packing x6, separate incisions, right foot Hemovac drains to be in place until minimal drainage. Dressing kept in place today. Will plan for dressing change tomorrow and removal of some packing from each site. NWB RLE at all times. Awaiting cultures and sensitivities for proper antibiotic choices. D/C planning--uncertain at this time. (2) 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: (3) Sepsis: Admission and Anticipated Discharge Date Admission Date: January 23, 2020 Supervising Physician Co-Signing Physician Notes Patient seen and examined. Agree with LATOSHA Bynum's note as above. Per Dr. Whitfield's operative report, it looks like patient had a fairly extensive abscess in his right foot. His right foot dressings and drain are clean, dry, and intact. He has some scant serous drainage from his Hemovac drain; no purulent drainage. No erythema tracking up the leg. He has diabetes with neuropathy in that foot, and does not have much pain or feeling in that foot. However, he notes overall improvement in his general health feeling since the surgery. Intraoperative cultures are growing staph aureus, but have not yet been further speciated. Previous blood cultures are growing MSSA. He had an echocardiogram to evaluate for any evidence of endocarditis as a potential source, but this was inconclusive due to his body habitus. Infectious disease is recommending a transesophageal echocardiogram to definitively determine whether any endocarditis is the potential source of his bacteremia or whether this is coming from his right foot infection. Subjective No complaints of the right foot today. States he feels a lot better today after the surgery. Generally, feeling better. Physical Exam Constitutional: well developed and + morbidly obese; no acute distress ENMT: external ear and nose normal, oropharynx normal Neck: trachea midline, no thyromegaly Musculoskeletal: Right foot: Dressing C/D/I. Hemovac drains in place. 150 cc total drainage from last evening. Toes are mobile. Skin: no rashes, warm and dry no rashes and no ulcers Neurologic: + abnormal touch/pain/proprioception Psychiatric: A+Ox3, euthymic affect Speech: normal rate/rhythm/volume of speech Results & Data ([facility]) Vital Signs (Past 12 Hours) Vital Signs Temp Pulse Pulse Resp BP Pulse Ox 01/25/20 07:31 36.4 C L 92 H 20 107/73 95 01/25/20 04:14 36.7 C 94 H 18 105/76 97 01/25/20 02:30 36.8 C 92 H 20 106/74 98 01/25/20 01:30 36.4 C L 94 H 18 103/71 92 01/25/20 00:40 36.5 C 97 H 24 131/80 94 01/24/20 23:56 103 H 01/24/20 23:53 37.3 C 98 H 20 95/63 L 96 01/24/20 22:51 37.6 C H 101 H 24 97/62 L 92 01/24/20 22:00 37.4 C 103 H 22 107/70 93 01/24/20 21:37 37.7 C H 104 H 24 113/79 96 01/24/20 21:15 37.3 C 105 H 24 101/55 L 94 01/24/20 21:02 106 H 18 118/66 97 01/24/20 20:50 37.7 C H 107 H 18 132/84 95 01/24/20 20:45 37.0 C 105 H 27 H 114/86 94
--- NOTE | 2020-01-25 14:48 | Pharmacy Report ---
Pharmacy Glycemic Short Note 2 - Date of Service January 25, 2020 - Glycemic Short BSG Results (Last 24 hours): 01/24/20 01/24/20 01/24/20 12:00 15:34 20:07 Glucose POC Glucose 262 H 196 H 217 H 01/24/20 01/25/20 01/25/20 21:14 05:58 07:30 Glucose 216 H POC Glucose 234 H 227 H 01/25/20 11:36 Glucose POC Glucose 292 H ASSESSMENT: * 49 y/o M admitted for sepsis, septic arthritis or possibly osteomyelitis. * Patient with history of Type 2 diabetes managed at home with basal + bolus insulin, Victoza SQ daily and Metformin. * Holding Victoza and Metformin while inpatient. Will continue with basal Lantus and bolus Novolog insulin for glycemic control, dosing adjusted per BSG trends. * Nurse said patient had missed taking his basal Tresiba dose (156 units QAM) on 01/22 (yesterday). Therefore, BSGs were above 300 upon admission. * A total of 100 units of Lantus was given in two shots of 50 units around 6 hrs apart last night. * Fasting BSG this AM elevated at 291, so another 100 units of Lantus was given today AM since patient had a big deficit in his insulin needs. * Novolog parameters were started with tight control based on weight and stress of 3. Correction factor will be further tightened since BSG today still elevated above 200. 01/24: * Patient received total of 204 units of insulin yesterday, of which 150 were basal insulin * Patient had missed dose on 01/22 AM therefore basal insulin yesterday helping to make up missed dosing (avg 100 units of basal per day) * Fasting BSG this AM 227 mg/dL - dose with 110 units of insulin for this AM, and use scale for HS * Tighten CF/CR as patient received dex yesterday PLAN FOR INPATIENT GLYCEMIC CONTROL: * Holding outpatient oral diabetes medication and Victoza * Basal insulin * Lantus 110 Qam * Lantus 0-15 units based upon BSG scale * Bolus insulin: * NovoLog per scale ACHS or Q6hrs while NPO * Goal Range: Low 110 mg/dL - High 140 mg/dL * Correction Factor: 4 mg/dL/unit * Nutritional / Prandial insulin per carb ratio of 1 unit per 1.5 grams CHO consumed
--- NOTE | 2020-01-25 16:44 | Cardiology Consultation ---
Date of Consultation January 25, 2020 Assessment & Plan (1) Foot abscess, right: (2) Staphylococcus aureus bacteremia: (3) Morbid obesity with BMI of 45.0-49.9, adult: (4) Sleep apnea: Consulted to evaluate for transesophageal echocardiogram. Study ordered in the setting of staph aureus bacteremia with documented right foot abscess and osteomyelitis. Transthoracic echocardiogram without gross abnormalities or valvular abnormality on study limited. No conduction system disease or significant valvular insufficiency Will tentatively arrange for procedure tomorrow but discussed with infectious disease in interim. Uncertain whether this will change clinical course and procedural risk present in the setting of morbid obesity and severe sleep apnea. History of Present Illness Reason for Consultation: Staph aureus bacteremia Requesting Physician: Dr. Rachel Attending Physician: Breana Rachel MD History of Present Illness Patient is a 49-year-old male without prior history of cardiac or structural heart disease. His underlying medical issues include 1. Morbid obesity BMI greater than 50 2. Severe obstructive sleep apnea on BiPAP 3. Diabetes mellitus insulin requiring with peripheral neuropathy 4. Charcot foot right with nonhealing ulceration and current admission with dorsal foot abscess and osteomyelitis 5. Staph aureus bacteremia Patient is referred for consideration of transesophageal echocardiogram after discussion with initially infectious disease [facility]. Patient without thromboembolic phenomena notable by exam or history. No conduction abnormalities on EKG. Echocardiogram without visible vegetations. All valve structures intact No swallowing disorders has partial plate in. No prior difficulties with sedation Uses BiPAP for sleep and naps Allergies Allergy/AdvReac Type Severity Reaction Status Date / Time No Known Allergies Allergy Verified 01/23/20 19:38 Home Medications Home Medications Medication Instructions Recorded Confirmed Type citalopram [Celexa] 40 mg PO QAM 06/25/19 01/23/20 History insulin aspart U-100 [Novolog 15 unit SUBCUT TIDM 06/25/19 01/23/20 History Flexpen U-100 Insulin] insulin degludec [Tresiba 156 unit SUBCUT QAM 06/25/19 01/23/20 History FlexTouch U-200] liraglutide [Victoza 3-Moy] 1.8 mg SUBCUT QAM 06/25/19 01/23/20 History lisinopril 2.5 mg PO QAM 06/25/19 01/23/20 History lovastatin 40 mg PO HS 06/25/19 01/23/20 History metformin [Glucophage XR] 2,000 mg PO QAM 06/25/19 01/23/20 History indomethacin 50 mg PO BID PRN 01/07/20 01/23/20 History Patient History Medical History Abdominal wall cellulitis (Inactive) Diabetes (Chronic) Lazy eye (Chronic) Morbid obesity with BMI of 45.0-49.9, adult Psoriasis Sleep apnea (Chronic) Surgical History No significant past surgical history Family History Grandfather (Maternal) Coronary heart disease Grandfather (Paternal) Coronary heart disease Other No significant family history Social History Preferred Language: Swedish Communication Ability: Effective Beliefs That Will Affect Care: None marital status: Current Living Situation: Spouse current occupational status: employed Other Information That Helps Us Care for You: No Feels Safe at Home: Yes Safety Concerns: Feels Safe At This Time Smoking Status: Never smoker Hx Alcohol Use: No Hx Substance Use: No Physical Exam Constitutional: + morbidly obese ENMT: external ear and nose normal, oropharynx normal Neck: trachea midline, no thyromegaly + thick neck Respiratory: Auscultation: + diminished lung sounds Cardiovascular: Rate/Rhythm: regular rate and regular rhythm Heart Sounds: normal S1 and normal S2; no murmur Vessels: no JVD Extremities: + edema (1+ with right foot bandaged) Gastrointestinal (Abdomen): Obese, soft, nontender with large clinic Musculoskeletal: Right foot bandaged with drain Results & Data ([facility]) Vital Signs (Past 12 Hours) Vital Signs Temp Pulse Pulse Resp BP Pulse Ox 01/25/20 15:59 36.5 C 92 H 18 119/76 96 01/25/20 12:57 36.8 C 88 20 118/72 93 01/25/20 08:00 91 H 01/25/20 07:31 36.4 C L 92 H 20 107/73 95 Laboratory Results Laboratory Results - last 24 hr 01/24/20 01/24/20 01/24/20 16:45 20:07 21:14 WBC RBC Hgb Hct MCV MCH MCHC RDW Std Deviation RDW Coeff of José Manuel Plt Count MPV Sodium Potassium Chloride Carbon Dioxide Anion Gap BUN Creatinine Est Cr Clr Drug Dosing Est GFR ( Amer) Est GFR (Non-Af Amer) BUN/Creatinine Ratio Glucose POC Glucose 217 H 234 H Calcium COVID-19 PCR NEGATIVE 01/25/20 01/25/20 01/25/20 05:58 05:58 07:30 WBC 12.29 H RBC 3.48 L Hgb 10.7 L Hct 31.0 L MCV 89.1 MCH 30.7 MCHC 34.5 RDW Std Deviation 47.6 H RDW Coeff of José Manuel 14.5 Plt Count 143 MPV 9.9 Sodium 133 L Potassium 3.9 Chloride 104 Carbon Dioxide 22 Anion Gap 7.0 BUN 25 H Creatinine 1.22 Est Cr Clr Drug Dosing 118.3 Est GFR ( Amer) 81.3 Est GFR (Non-Af Amer) 70.2 BUN/Creatinine Ratio 20.1 H Glucose 216 H POC Glucose 227 H Calcium 7.6 L COVID-19 PCR 01/25/20 01/25/20 01/25/20 11:36 16:22 16:24 WBC RBC Hgb Hct MCV MCH MCHC RDW Std Deviation RDW Coeff of José Manuel Plt Count MPV Sodium Potassium Chloride Carbon Dioxide Anion Gap BUN Creatinine Est Cr Clr Drug Dosing Est GFR ( Amer) Est GFR (Non-Af Amer) BUN/Creatinine Ratio Glucose POC Glucose 292 H 305 H* 302 H* Calcium COVID-19 PCR
[2020-01-25] MEDS: ONDANSETRON INJ 2 MG/ML 2 ML VIAL IV PRN (17:13)
--- NOTE | 2020-01-25 19:30 | Hospitalist Progress Note ---
Date of Service January 25, 2020 Assessment & Plan (1) Sepsis: (2) Foot abscess, right: Present on admission with fever and right foot pain. Meet sepsis criteria on admission with tachycardia, febrile, leukocytosis and elevated lactate Right foot CT showed findings are highly suspicious for advanced septic arthritis/osteomyelitis throughout majority of the intertarsal and tarsometatarsal joints from the subtalar joint through the tarsometatarsal joints as described above. There is extensive destructive change throughout the tarsal bones with medial dislocation of the navicular bone. Multiple dorsal soft tissue abscesses seen within the midfoot some of which contain gas. This raises the possibility of a gas-forming organism. Multiple peripheral enhancing fluid collection seen within the mid to distal tendons of the ankle/hindfoot also likely represent infectious change. S/P day 1 Incision and Drainage Septic Right Foot Dorsal abscess, incision and drainage lateral foot abscess; Tenosynovectomy Extensor Digitorum Tendons(x4 ), exploration with irrigation and debridement plantar deep space foot, irrigation debridement tarsal tunnel, tenosynovectomy extensor hallucis longus tendon, excision avulsion fracture lateral cuboid, placement of deep Hemovac suction drains x2 by ortho Dr. Whitfield Received IVF, IV Dapto and Zosyn Continue IV abx with dapto, Zosyn Blood cx positive for gram positive cocci Wound cx from the I&D grew staph aureus ID [facility] on board will repeat blood cx Follow up sensitivity Lactic acid normalize has been afebrile Elevated ESR Will d/c IVF Continue monitor Gram positive bacteremia Blood cx positive for gram positive cocci Repeat blood cx on 01/23 positive for gram positive cocci ID [facility] on board Echo showed no wall motion abnormality. Ejection fraction 55 to 60%. No significant valvular abnormality discerned ID recommended CHUY since unable to assess for vegetation on echo due to patient body habit Continue Dapto IV and Zosyn as per ID Cardio consult for possible CHUY Will make NPO after midnight Will repeat blood cx Acute Kidney Injury Possible related to sepsis Creatinine on admission 1.48 Creatinine 1.2 today Will d/c IVF since pt increased his oral intake Continue to hold lisinopril and NSAID Monitor BMP History of sleep apnea on CPAP at bedtime. History of diabetes. Uncontrolled DM with A1C 12.9 Continue to hold metformin and [facility] on board for glycemic management. Continue Lantus and Novolog sliding scale Continue monitor BS Hyponatremia Sodium on admission 126. P Received IVF Na 133 today Continue monitor BMP Electrolytes imbalance Mg 1.6 Magnesium replaced Continue monitor electrolytes Hypertension. BP stable will hold his lisinopril Hyperlipidemia Continue to hold his statins while on daptomycin. Depression. Continue Celexa. DVT px No anticoagulant since pt is planning to go to OR today Unable to put SCD due to right foot infection Code Status Full code Disposition Continue monitor closely Admission and Anticipated Discharge Date Admission Date: January 23, 2020 Subjective Pt was seen and examined Lying in bed with no distress with at bedside Pt said that he feels ok He said that he does not have any pain Denies any chest pain, palpitation, dizziness and SOB Physical Exam Physical Exam: General- No acute distress Head- atraumatic Eyes- PERRL, EOMI, ENT- oropharynx clear Neck- supple, no JVD Lungs- clear to auscultation Heart- regular rhythm; no murmur Abdomen- normal bowel sounds, soft, nontender Extremities- no calf tenderness, +right foot wrap and hemovac in Right foot, +decrease sensation in b/l LE Neuro- alert, oriented x 3; PERRL, EOMI; no facial palsy; no dysarthria Skin- warm & dry Results & Data Results & Data ([facility]) Vital Signs (Past 12 Hours) Vital Signs Temp Pulse Pulse Resp BP Pulse Ox 01/25/20 17:00 91 H 01/25/20 15:59 36.5 C 92 H 18 119/76 96 01/25/20 12:57 36.8 C 88 20 118/72 93 01/25/20 08:00 91 H 01/25/20 07:31 36.4 C L 92 H 20 107/73 95
[2020-01-25] MEDS: DAPTOmycin 700 MG in SYRINGE 0 ML IV SCH (21:06)
[2020-01-26] MEDS: INSULIN ASPART 100 UNITS/ML 3 ML PEN SC SCH ×6 (00:43→20:51)
[2020-01-26] MEDS: SODIUM CHLORIDE 0.9% 1000ML 1,000 ML IV SCH (02:25)
[2020-01-26] MEDS: PIPERACILLIN/TAZOBACTAM 4.5 GM in DEXTROSE 5% 100 ML IV SCH (02:25)
[2020-01-26] MEDS ORDERED: INSULIN GLARGINE 100 UNIT/ML VIAL SC SCH (09:00)
[2020-01-26] MEDS ORDERED: INSULIN GLARGINE 100 UNIT/ML VIAL SC ONE (09:45)
[2020-01-26] MEDS: CITALOPRAM 40 MG TAB PO SCH (10:00)
[2020-01-26 10:10] LABS: Hematocrit (blood only) 32.2 % (42-52); Hemoglobin 10.8 g/dL (14.0-18.0); Mean Corpuscular Hemoglobin 29.8 pg (25-34); Mean Corpuscular Hgb Conc 33.5 g/dL (32-36); Mean Corpuscular Volume 88.7 fL (80-100); Mean Platelet Volume 10.2 fL (7.4-10.4); Platelet Count 183 K/uL (130-400); RDW Coefficient of Variation 14.8 % (11.5-14.5); RDW Standard Deviation 48.5 fL (36.4-46.3); Red Blood Count 3.63 M/uL (4.7-6.1); White Blood Count 13.19 K/uL (4.8-10.8)
[2020-01-26 10:21] LABS: BUN Creatinine Ratio 21.4 (10-20); Calcium 8.2 mg/dl (8.5-10.1); Creatinine Clr Calc Pharmacy 149.3 ml/min; Est GFR (African American) 104.7; Est GFR (Non-African American) 90.3; Potassium 3.7 mmol/L (3.5-5.1)
--- NOTE | 2020-01-26 10:36 | Orthopedic Progress Note ---
Date of Service January 26, 2020 Assessment & Plan (1) Foot abscess, right: POD #2 s/p 1. Incision and drainage, septic right foot dorsal abscess. 2. Incision and drainage, lateral foot abscess with evacuation of abscess of the subtalar joint. 3. Tenosynovectomy of the extensor digitorum tendons x4 tendons. 4. Exploration with irrigation and debridement, plantar deep space of the foot. 5. Irrigation and debridement, tarsal tunnel. 6. Tenosynovectomy of the extensor hallucis longus tendon. 7. Excision, avulsion fracture of the lateral cuboid. 8. Placement of deep Hemovac suction drains x2. 9. Placement of iodoform packing x6, separate incisions, right foot Hemovac drains to be in place until minimal drainage Daily dressing changes. Removal of remainder of packing over the next day 24-48 hours. Depending on how all wounds sites appear, pt possibly may need 2nd washout. NWB RLE at all times. Cultures as noted to date: antibx as per Med Team Nursing team knows about the increased sputum and will discuss with Med Service. I reminded the patient to mention this to the hospitalist during his rounds. D/C planning--uncertain at this time. (2) 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: (3) Sepsis: Admission and Anticipated Discharge Date Admission Date: January 23, 2020 Subjective Postop day 2 Patient is awake and alert sitting up in bed. Pain is controlled. Pt's is with him currently. She states he has been having increased sputum with a cough which is new. Pt states it's brown in color. No other complaints. Physical Exam Physical Exam: Dressings are removed. Multiple incisions noted with iodoform packing. Packing removed partially from all sites except one site on the medial aspect all packing removed. The lateral site has some slight purulent drainage. As I removed the packing, this lessened. Hemovac drain is still in and drained 50 mL's in the previous shift. There appears to be another 25 to 30 cc in the collection unit at this time. No serous color. Dressing sites redressed with Adaptic and 4 x 4's and ABDs and wrapped with an George wrap. Drain is currently left in at this time. The foot has some swelling compared to the left. Slight erythema at the lateral wound site. Results & Data ([facility]) Vital Signs (Past 12 Hours) Vital Signs Temp Pulse Pulse Resp BP Pulse Ox 01/26/20 08:49 36.5 C 89 18 123/81 96 01/26/20 03:41 36.3 C L 83 18 119/84 93 01/26/20 00:00 94 H 01/25/20 23:23 37 C 90 18 115/80 95 Laboratory Results Laboratory Results WBC 13.19 K/uL (4.8-10.8) H 01/26/20 09:16 RBC 3.63 M/uL (4.7-6.1) L 01/26/20 09:16 Hgb 10.8 g/dL (14.0-18.0) L 01/26/20 09:16 Hct 32.2 % (42-52) L 01/26/20 09:16 MCV 88.7 fL (80-100) 01/26/20 09:16 MCH 29.8 pg (25-34) 01/26/20 09:16 MCHC 33.5 g/dL (32-36) 01/26/20 09:16 RDW Std Deviation 48.5 fL (36.4-46.3) H 01/26/20 09:16 RDW Coeff of José Manuel 14.8 % (11.5-14.5) H 01/26/20 09:16 Plt Count 183 K/uL (130-400) 01/26/20 09:16 MPV 10.2 fL (7.4-10.4) 01/26/20 09:16 Immature Gran % (Auto) 0.6 % 01/24/20 05:23 Neut % (Auto) 85.1 % 01/24/20 05:23 Lymph % (Auto) 5.1 % 01/24/20 05:23 [place] % (Auto) 9.1 % 01/24/20 05:23 Eos % (Auto) 0.0 % 01/24/20 05:23 Baso % (Auto) 0.1 % 01/24/20 05:23 Neut # (Auto) 10.35 K/uL (1.4-6.5) H 01/24/20 05:23 Lymph # (Auto) 0.62 K/uL (1.2-3.4) L 01/24/20 05:23 [place] # (Auto) 1.11 K/uL (0.11-0.59) H 01/24/20 05:23 Eos # (Auto) 0.00 K/uL (0-0.5) 01/24/20 05:23 Baso # (Auto) 0.01 K/uL (0-0.2) 01/24/20 05:23 Immature Gran # (Auto) 0.07 K/uL (0.00-0.02) H 01/24/20 05:23 Dohle Bodies 2+ 01/24/20 05:23 ESR 80 mm/hr (0-14) H 01/23/20 19:11 PT 13.0 Seconds (9.0-12.0) H 01/23/20 19:11 INR 1.2 (0.9-1.1) H 01/23/20 19:11 APTT 33.4 Seconds (21.0-31.0) H 01/23/20 19:11 PTT Ratio 1.2 01/23/20 19:11 Sodium 133 mmol/L (136-145) L 01/26/20 09:16 Potassium 3.7 mmol/L (3.5-5.1) 01/26/20 09:16 Chloride 101 mmol/L (98-107) 01/26/20 09:16 Carbon Dioxide 25 mmol/L (21-32) 01/26/20 09:16 Anion Gap 7.0 (3-11) 01/26/20 09:16 BUN 21 mg/dl (7-18) H 01/26/20 09:16 Creatinine 0.99 mg/dl (0.6-1.4) 01/26/20 09:16 Est Cr Clr Drug Dosing 149.3 ml/min 01/26/20 09:16 Est GFR ( Amer) 104.7 01/26/20 09:16 Est GFR (Non-Af Amer) 90.3 01/26/20 09:16 BUN/Creatinine Ratio 21.4 (10-20) H 01/26/20 09:16 Glucose 119 mg/dl (70-99) H 01/26/20 09:16 POC Glucose 118 mg/dl (70-99) H 01/26/20 07:33 Estimat Average Glucose 324 mg/dl 01/24/20 05:23 Hemoglobin A1c 12.9 % (4.5-5.6) H 01/24/20 05:23 Lactate 1.9 mmol/L (0.4-2.0) 01/23/20 22:00 Uric Acid 6.5 mg/dl (2.6-7.2) 01/23/20 19:11 Calcium 8.2 mg/dl (8.5-10.1) L 01/26/20 09:16 Magnesium 1.6 mg/dl (1.8-2.4) L 01/24/20 05:23 Total Bilirubin 2.1 mg/dl (0.2-1) H 01/23/20 19:11 AST 19 U/L (15-37) 01/23/20 19:11 ALT 23 U/L (12-78) 01/23/20 19:11 Alkaline Phosphatase 106 U/L (45-117) 01/23/20 19:11 C-Reactive Protein 42.10 mg/dl (0-0.29) H 01/23/20 19:11 Total Protein 7.9 gm/dl (6.4-8.2) 01/23/20 19:11 Albumin 2.7 gm/dl (3.4-5.0) L 01/23/20 19:11 Globulin 5.2 gm/dl (2.5-4.0) H 01/23/20 19:11 Albumin/Globulin Ratio 0.5 (0.9-2) L 01/23/20 19:11 Beta-Hydroxybutyric Acd 6.65 mg/dl (0.2-2.81) H 01/23/20 19:11 Procalcitonin 14.75 ng/ml (0-0.5) H 01/23/20 19:11 Urine Color Dark Yellow 01/23/20 22:47 Urine Appearance Clear (Clear) 01/23/20 22:47 Urine pH 5.0 (4.5-7.5) 01/23/20 22:47 Ur Specific Massey > 1.045 (1.000-1.030) H 01/23/20 22:47 Urine Protein 2+ (Negative) H 01/23/20 22:47 Urine Glucose (UA) 3+ (Negative) H 01/23/20 22:47 Urine Ketones Trace (Negative) H 01/23/20 22:47 Urine Blood 3+ (Negative) H 01/23/20 22:47 Urine Nitrite Negative (Negative) 01/23/20 22:47 Urine Bilirubin 1+ (Negative) H 01/23/20 22:47 Urine Urobilinogen Negative (Negative) 01/23/20 22:47 Ur Leukocyte Esterase Negative (Negative) 01/23/20 22:47 Urine WBC (Auto) 1-5 /hpf (0-5) 01/23/20 22:47 Urine RBC (Auto) 10-30 /hpf (0-4) H 01/23/20 22:47 U Hyaline Cast (Auto) 5-10 /lpf (0-5) H 01/23/20 22:47 U Epithel Cells (Auto) >30 /lpf (0-5) H 01/23/20 22:47 Urine Bacteria (Auto) 1+ (Negative) H 01/23/20 22:47 Granular Casts 1-5 /lpf (0) H 01/23/20 22:47 Urine Yeast Not Reportable 01/23/20 22:47 Urine Sperm Present (None Prsent) A 01/23/20 22:47 COVID-19 PCR NEGATIVE (Negative) 01/24/20 16:45 Bld Cult Staph aureus PCR Positive (Negative) A 01/23/20 19:40 Blood Culture MRSA PCR Negative (Negative) 01/23/20 19:40 Diagnostic Findings Name: MIS MILLER Acct: [id number] Status: AD[place] 1970 [facility] [place]/23/20 Age: 49 Sex: M Dis Date: Loc: Telemetry [address] [place] [address]/Bed: S2-1 Spec: [id number] Collected: 01/24/20 Received: 01/24/[address]: Barrera Whitfield,D.O. Copy To: Aguila Tesfaye MD Source: Foot,Right OV Order: Ordered: Aer/Kelin Cult/Sm Comments: Reason for Exam I&D Right Foot Procedure Result Verified Site Gram Stain Final 01/25/20 Gram Stain Result Many WBCs Seen Moderate Gram Positive Cocci Aero/Kelin Cult Preliminary 01/26/20 Organism 1 Staphylococcus aureus Quantity Many Sens Sensitivities to Follow S aureus RX M.I.C. --- --------- Clindamycin S <=0.5 Daptomycin S <=0.5 Erythromycin S <=0.5 Oxacillin S <=0.25 Tetracycline S <=4 Trimeth/Sulfa S <=0.5/9.5 Vancomycin S 2 S = SENSITIVE I = INTERMEDIATE R = RESISTANT
--- NOTE | 2020-01-26 12:23 | Cardiology Progress Note ---
Date of Service January 26, 2020 Assessment & Plan (1) Foot abscess, right: (2) Staphylococcus aureus bacteremia: (3) Morbid obesity with BMI of 45.0-49.9, adult: (4) Sleep apnea: Consulted to evaluate for transesophageal echocardiogram. Study ordered in the setting of staph aureus bacteremia with documented right foot abscess and osteomyelitis. Transthoracic echocardiogram without gross abnormalities or valvular abnormality on study limited. No conduction system disease or significant valvular insufficiency Discussed case with infectious disease [facility], Dr Torey Sims, CHUY initially and not felt to change clinical course or treatment unless patient remains persistently bacteremic or other signs develop of cardiac involvement. None currently present. Procedure would be at increased risk and would likely would require a general anesthesia without expected change in clinical course as patient will require long-term antibiotic therapies and current echocardiogram without valve dysfunction Subjective No significant change overnight Physical Exam Constitutional: + morbidly obese ENMT: external ear and nose normal, oropharynx normal Neck: trachea midline, no thyromegaly + thick neck Respiratory: Auscultation: + diminished lung sounds Cardiovascular: Rate/Rhythm: regular rate and regular rhythm Heart Sounds: normal S1 and normal S2; no murmur Vessels: no JVD Extremities: + edema (1+ with right foot bandaged) Results & Data Vital Signs (Past 12 Hours) Vital Signs Temp Pulse Pulse Resp BP Pulse Ox 01/26/20 12:02 37.3 C 86 18 106/75 93 01/26/20 08:49 36.5 C 89 18 123/81 96 01/26/20 08:00 84 01/26/20 03:41 36.3 C L 83 18 119/84 93
--- NOTE | 2020-01-26 19:00 | Hospitalist Progress Note ---
Date of Service January 26, 2020 Assessment & Plan (1) Sepsis: (2) Foot abscess, right: Present on admission with fever and right foot pain. Meet sepsis criteria on admission with tachycardia, febrile, leukocytosis and elevated lactate Right foot CT showed findings are highly suspicious for advanced septic arthritis/osteomyelitis throughout majority of the intertarsal and tarsometatarsal joints from the subtalar joint through the tarsometatarsal joints as described above. There is extensive destructive change throughout the tarsal bones with medial dislocation of the navicular bone. Multiple dorsal soft tissue abscesses seen within the midfoot some of which contain gas. This raises the possibility of a gas-forming organism. Multiple peripheral enhancing fluid collection seen within the mid to distal tendons of the ankle/hindfoot also likely represent infectious change. S/P day 2 Incision and Drainage Septic Right Foot Dorsal abscess, incision and drainage lateral foot abscess; Tenosynovectomy Extensor Digitorum Tendons(x4 ), exploration with irrigation and debridement plantar deep space foot, irrigation debridement tarsal tunnel, tenosynovectomy extensor hallucis longus tendon, excision avulsion fracture lateral cuboid, placement of deep Hemovac suction drains x2 by ortho Dr. Whitfield Received IVF, IV Dapto and Zosyn Blood cx positive for staph aureus Wound cx from the I&D grew staph aureus ID [facility] on board Recommended to D/C IV Zosyn and since PCR MRSA negative, Dapto changed to Cefazolin IV Lactic acid normalize Pt has been afebrile Elevated ESR Dressing changed today by ortho with hemovac drainage remains Gram positive bacteremia Blood cx positive for gram positive cocci Repeat blood cx on 01/23 positive for gram positive cocci ID [facility] on board Echo showed no wall motion abnormality. Ejection fraction 55 to 60%. No significant valvular abnormality discerned ID recommended CHUY since unable to assess for vegetation on echo due to patient body habit IV Dapto IV and Zosyn was discontinued Transition to Cefazolin IV Cardio was consulted for CHUY. CHUY was cancelled since it would not change the management and the course of the abx Repeat blood cx collected today pending Continue monitor Acute Kidney Injury Possible related to sepsis Creatinine on admission 1.48 Creatinine 0.9 today lasix resumed Plan to resume Lisinopril in am Monitor BMP History of sleep apnea on CPAP at bedtime. History of diabetes. Uncontrolled DM with A1C 12.9 Continue to hold metformin and [facility] on board for glycemic management. Continue Lantus and Novolog sliding scale Continue monitor BS Hyponatremia Sodium on admission 126. P Received IVF Na 133 today Continue monitor BMP Electrolytes imbalance Mg 1.6 Magnesium replaced Continue monitor electrolytes Hypertension. BP stable will hold his lisinopril Hyperlipidemia Continue to hold his statins while on daptomycin. Depression. Continue Celexa. DVT px No anticoagulant since pt is planning to go to OR today Unable to put SCD due to right foot infection Code Status Full code Disposition Continue monitor closely Admission and Anticipated Discharge Date Admission Date: January 23, 2020 Subjective Pt was seen and examined Lying in bed with no do distress Pt said that he feels ok CHUY was cancelled since that would not change clinical course or treatment Denies any new complaint Physical Exam Physical Exam: General- No acute distress Head- atraumatic Eyes- PERRL, EOMI, ENT- oropharynx clear Neck- supple, no JVD Lungs- clear to auscultation Heart- regular rhythm; no murmur Abdomen- normal bowel sounds, soft, nontender Extremities- no calf tenderness, +right foot wrap and hemovac in Right foot, +decrease sensation in b/l LE Neuro- alert, oriented x 3; PERRL, EOMI; no facial palsy; no dysarthria Skin- warm & dry Results & Data Results & Data ([facility]) Vital Signs (Past 12 Hours) Vital Signs Temp Pulse Pulse Resp BP Pulse Ox 01/26/20 16:00 84 01/26/20 15:31 36.8 C 92 H 18 110/76 90 01/26/20 12:02 37.3 C 86 18 106/75 93 01/26/20 08:49 36.5 C 89 18 123/81 96 01/26/20 08:00 84
[2020-01-26] MEDS: INSULIN GLARGINE 100 UNIT/ML VIAL SC SCH (20:52)
[2020-01-26] MEDS: CEFAZOLIN 2000MG 2,000 MG/15 ML SYR IV SCH (20:52)
[2020-01-27] MEDS: CEFAZOLIN 2000MG 2,000 MG/15 ML SYR IV SCH ×3 (03:54→19:34)
[2020-01-27] MEDS: ONDANSETRON INJ 2 MG/ML 2 ML VIAL IV PRN (04:00)
[2020-01-27] MEDS: ACETAMINOPHEN 325 MG TAB PO PRN (04:00)
[2020-01-27 07:01] LABS: Hematocrit (blood only) 30.7 % (42-52); Hemoglobin 10.6 g/dL (14.0-18.0); Mean Corpuscular Hemoglobin 30.4 pg (25-34); Mean Corpuscular Hgb Conc 34.5 g/dL (32-36); Mean Platelet Volume 9.9 fL (7.4-10.4); Platelet Count 217 K/uL (130-400); RDW Coefficient of Variation 14.8 % (11.5-14.5); RDW Standard Deviation 48.3 fL (36.4-46.3); Red Blood Count 3.49 M/uL (4.7-6.1); White Blood Count 11.61 K/uL (4.8-10.8)
[2020-01-27 07:28] LABS: Est GFR (African American) 125.9; Est GFR (Non-African American) 108.6; Magnesium 2.2 mg/dl (1.8-2.4)
[2020-01-27] MEDS: CITALOPRAM 40 MG TAB PO SCH (08:38)
--- NOTE | 2020-01-27 08:39 | Orthopedic Progress Note ---
Date of Service January 27, 2020 Assessment & Plan (1) Foot abscess, right: POD #3 s/p 1. Incision and drainage, septic right foot dorsal abscess. 2. Incision and drainage, lateral foot abscess with evacuation of abscess of the subtalar joint. 3. Tenosynovectomy of the extensor digitorum tendons x4 tendons. 4. Exploration with irrigation and debridement, plantar deep space of the foot. 5. Irrigation and debridement, tarsal tunnel. 6. Tenosynovectomy of the extensor hallucis longus tendon. 7. Excision, avulsion fracture of the lateral cuboid. 8. Placement of deep Hemovac suction drains x2. 9. Placement of iodoform packing x6, separate incisions, right foot Hemovac drains to be in place until minimal drainage, likely pull tomorrow Daily dressing changes. Removal of remainder of packing over the next day 24-48 hours, will remove more tomorrow am. Depending on how all wounds sites appear, pt possibly may need 2nd washout. NWB RLE at all times. Cultures as noted to date: antibx as per Med Team Nursing team knows about the increased sputum and will discuss with Med Service. I reminded the patient to mention this to the hospitalist during his rounds. D/C planning--uncertain at this time. (2) 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: (3) Sepsis: Admission and Anticipated Discharge Date Admission Date: January 23, 2020 Supervising Physician Co-Signing Physician Notes Patient seen and examined. Agree with LATOSHA Brody's note above. Patient reports he overall continues to feel better every day. Denies significant pain in his foot. His dressings were changed today, and some of the packing from all the wounds was removed. His foot overall looks very good. Swelling and erythema continue to improve. We will leave his drain in until tomorrow, since he had about 100 output over 8 hours. This appears to be mostly serous drainage; no significant purulent drainage noted. Previous foot wound cultures are growing MSSA. Infectious disease had recommended a transesophageal echo, but cardiology did not feel like this is warranted. Currently on Ancef and daptomycin. We will plan to remove the rest of his packing and drains tomorrow. Subjective POD #3 Review of Systems Constitutional: no fever and no chills Respiratory: no cough and no dyspnea Cardiovascular: no chest pain, no dyspnea and no orthopnea Gastrointestinal: no abdominal pain, no nausea and no vomiting Physical Exam Physical Exam: Vital Signs Temp 36.4 C L 01/27/20 07:39 Pulse 75 01/27/20 07:39 Resp 19 01/27/20 07:39 BP 124/88 01/27/20 07:39 Pulse Ox 92 01/27/20 07:39 Intake & Output 01/26/20 01/27/20 01/27/20 18:59 06:59 18:59 Intake Total 1999 / 5150 3150 / 5150 Output Total 475 / 3025 2550 / 3025 Balance 1525 / 2125 600 / 2125 Weight 172.8 kg Intake: IV 0 / 0 Nss 1000ML 1,0 00 ml @ 100 mls/ 0 / 0 hr IV .Q10H SC H Rx#:[id number] Oral 19990 3150 / 5150 Output: Urine 400 / 2850 2450 / 2850 Drain Output 75 / 175 100 / 175 Right Foot Hem ovac 75 / 175 100 / 175 Constitutional: WD/WN, vitals as above no acute distress Musculoskeletal: Right foot: Dressing C/D/I. Hemovac drains in place. 100 cc total drainage from last evening. Toes are mobile, pulled all packing from 2 of the sites, approx 6 inches from the other sites. Results & Data ([facility]) Vital Signs (Past 12 Hours) Vital Signs Temp Pulse Pulse Resp BP Pulse Ox 01/27/20 07:39 36.4 C L 75 19 124/88 92 01/27/20 03:03 36.4 C L 80 16 123/77 96 01/26/20 23:15 37.2 C 92 H 20 147/85 H 96 01/26/20 23:04 93 H
[2020-01-27] MEDS: INSULIN GLARGINE 100 UNIT/ML VIAL SC SCH (08:40)
[2020-01-27] MEDS: INSULIN ASPART 100 UNITS/ML 3 ML PEN SC SCH ×4 (08:42→21:33)
--- NOTE | 2020-01-27 19:34 | Hospitalist Progress Note ---
Date of Service January 27, 2020 Assessment & Plan (1) Sepsis: (2) Foot abscess, right: Present on admission with fever and right foot pain. Meet sepsis criteria on admission with tachycardia, febrile, leukocytosis and elevated lactate Right foot CT showed findings are highly suspicious for advanced septic arthritis/osteomyelitis throughout majority of the intertarsal and tarsometatarsal joints from the subtalar joint through the tarsometatarsal joints as described above. There is extensive destructive change throughout the tarsal bones with medial dislocation of the navicular bone. Multiple dorsal soft tissue abscesses seen within the midfoot some of which contain gas. This raises the possibility of a gas-forming organism. Multiple peripheral enhancing fluid collection seen within the mid to distal tendons of the ankle/hindfoot also likely represent infectious change. S/P day 3 Incision and Drainage Septic Right Foot Dorsal abscess, incision and drainage lateral foot abscess; Tenosynovectomy Extensor Digitorum Tendons(x4 ), exploration with irrigation and debridement plantar deep space foot, irrigation debridement tarsal tunnel, tenosynovectomy extensor hallucis longus tendon, excision avulsion fracture lateral cuboid, placement of deep Hemovac suction drains x2 by ortho Dr. Whitfield Received IVF, IV Dapto and Zosyn Blood cx positive for staph aureus Wound cx from the [facility] Re[facility] to D/C IV Zosyn and since PCR MRSA negative, Dapto changed to Cefazolin IV Lactic acid normalize Pt has been afebrile Elevated ESR WBC trending down 11K Dressing changed today by ortho with hemovac drainage remains Plan to d/c hemovac tomorrow PT/OT eval Gram positive bacteremia Blood cx positive for gram positive cocci Repeat blood cx on 01/23 positive for gram positive cocci [facility] showed no wall motion abnormality. Ejection fraction 55 to 60%. No significant valvular abnormality discerned ID recommended CHUY since unable to assess for vegetation on echo due to patient body habit IV Dapto IV and Zosyn was discontinued Transition to Cefazolin IV Cardio was consulted for CHUY. CHUY was cancelled since it would not change the management and the course of the abx Repeat blood cx on 01/[address] a PICC line on Wednesday if blood cx remains negative Continue monitor Acute Kidney Injury Possible related to sepsis Creatinine on admission 1.48 Creatinine 0.9 lasix resumed Lisinopril resumed Monitor BMP History of sleep apnea on CPAP at bedtime. History of diabetes. Uncontrolled DM with A1C 12.9 Continue to hold metformin and Victoza Pharmacy on board for glycemic management. Continue Lantus and Novolog sliding scale Continue monitor BS Hyponatremia Sodium on admission 126. P Received IVF Na 133 today Continue monitor BMP Electrolytes imbalance Mg 2.2 stable Continue monitor electrolytes Hypertension. BP fluctuated Lisinopril resumed Hyperlipidemia Continue to hold his statins while on daptomycin. Depression. Continue Celexa. DVT px No anticoagulant due to recent precedure and hemovac continue to drain Unable to put SCD due to right foot infection Consider to add subq heparin tomorrow once bleeding stable Code Status Full code Disposition Will transfer to medical Admission and Anticipated Discharge Date Admission Date: January 23, 2020 Subjective Pt was seen and examined Lying in bed with no distress with at bedside Pt said that he woke up in the middle of the night and was not able to go back to bed Denies any chest pain, palpitation, dizziness and SOB Physical Exam Physical Exam: General- No acute distress Head- atraumatic Eyes- PERRL, EOMI, ENT- oropharynx clear Neck- supple, no JVD Lungs- clear to auscultation Heart- regular rhythm; no murmur Abdomen- normal bowel sounds, soft, nontender Extremities- no calf tenderness, +right foot wrap and hemovac in Right foot, +decrease sensation in b/l LE Neuro- alert, oriented x 3; PERRL, EOMI; no facial palsy; no dysarthria Skin- warm & dry Results & Data Results & Data ([facility]) Vital Signs (Past 12 Hours) Vital Signs Temp Pulse Pulse Pulse Resp BP Pulse Ox 01/27/20 15:29 36.3 C L 97 H 16 164/95 H 92 01/27/20 11:43 37.0 C 85 20 118/78 96 01/27/20 08:00 75 01/27/20 07:39 36.4 C L 75 19 124/88 92
[2020-01-28] MEDS: CEFAZOLIN 2000MG 2,000 MG/15 ML SYR IV SCH ×3 (03:55→20:05)
[2020-01-28 06:19] LABS: Hematocrit (blood only) 32.8 % (42-52); Hemoglobin 10.9 g/dL (14.0-18.0); Mean Corpuscular Hemoglobin 29.5 pg (25-34); Mean Corpuscular Hgb Conc 33.2 g/dL (32-36); Mean Corpuscular Volume 88.9 fL (80-100); Mean Platelet Volume 9.4 fL (7.4-10.4); Nucleated RBC # (auto) 0.02 K/uL (0-0); Nucleated RBC % (auto) 0.1 %; Platelet Count 282 K/uL (130-400); RDW Coefficient of Variation 14.9 % (11.5-14.5); RDW Standard Deviation 48.7 fL (36.4-46.3); Red Blood Count 3.69 M/uL (4.7-6.1); White Blood Count 13.95 K/uL (4.8-10.8)
[2020-01-28] MEDS: CITALOPRAM 40 MG TAB PO SCH (07:33)
--- NOTE | 2020-01-28 07:38 | Orthopedic Progress Note ---
Date of Service January 28, 2020 Assessment & Plan (1) Foot abscess, right: POD #4 s/p 1. Incision and drainage, septic right foot dorsal abscess. 2. Incision and drainage, lateral foot abscess with evacuation of abscess of the subtalar joint. 3. Tenosynovectomy of the extensor digitorum tendons x4 tendons. 4. Exploration with irrigation and debridement, plantar deep space of the foot. 5. Irrigation and debridement, tarsal tunnel. 6. Tenosynovectomy of the extensor hallucis longus tendon. 7. Excision, avulsion fracture of the lateral cuboid. 8. Placement of deep Hemovac suction drains x2. 9. Placement of iodoform packing x6, separate incisions, right foot Hemovac pulled this am. Daily dressing changes. Removal of remainder of packing over the next day 24-48 hours, will remove more tomorrow am. Depending on how all wounds sites appear, pt possibly may need 2nd washout. NWB RLE at all times. Cultures as noted to date: antibx as per Med Team Nursing team knows about the increased sputum and will discuss with Med Service. I reminded the patient to mention this to the hospitalist during his rounds. D/C planning--uncertain at this time. (2) 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: (3) Sepsis: Admission and Anticipated Discharge Date Admission Date: January 23, 2020 Supervising Physician Co-Signing Physician Notes Patient seen and examined. Agree with LATOSHA Brody's note above. Patient reports he overall continues to feel better every day. Denies significant pain in his foot. His dressings were changed again today, and more of the packing was removed; still some remaining in dorsal and lateral wounds. Drain removed. His foot overall looks very good. Swelling and erythema continue to improve. Previous foot wound cultures are growing MSSA. Currently on Ancef and daptomycin. Plan to remove the rest of his packing tomorrow. Subjective POD #4 pain in foot tolerable Denies any chest pain, palpitation, dizziness and SOB Physical Exam Physical Exam: Vital Signs Temp 37.1 C 01/28/20 03:14 Pulse 78 01/28/20 03:14 Resp 22 01/28/20 03:14 BP 125/72 01/28/20 03:14 Pulse Ox 94 01/28/20 03:14 Intake & Output 01/27/20 01/28/20 01/28/20 18:59 06:59 18:59 Intake Total 2800 / 6475 3675 / 6475 Output Total / 3486 3460 / 3486 Balance 2774 / 2989 215 / 2989 Weight 171.2 kg Intake: Oral 2800 / 6475 3675 / 6475 Output: Urine 3425 / 3425 Drain Output 35 60 Right Foot Hem ovac 35 60 # Bowel Movement s Constitutional: WD/WN, vitals as above no acute distress Right foot: Dressing removed. Hemovac also removed this am. Toes are mobile, pulled all packing from all sites, except the dorsal wound and the most lateral wound, otherwise all packing from medial and plantar surface has been removed. Results & Data ([facility]) Vital Signs (Past 12 Hours) Vital Signs Temp Pulse Pulse Resp BP Pulse Ox 01/28/20 03:14 37.1 C 78 22 125/72 94 01/28/20 00:00 85 01/27/20 23:18 37.7 C H 85 18 114/73 94 01/27/20 19:41 37.4 C 89 20 149/93 H 90 Laboratory Results Laboratory Results WBC 13.95 K/uL (4.8-10.8) H 01/28/20 05:56 RBC 3.69 M/uL (4.7-6.1) L 01/28/20 05:56 Hgb 10.9 g/dL (14.0-18.0) L 01/28/20 05:56 Hct 32.8 % (42-52) L 01/28/20 05:56 MCV 88.9 fL (80-100) 01/28/20 05:56 MCH 29.5 pg (25-34) 01/28/20 05:56 MCHC 33.2 g/dL (32-36) 01/28/20 05:56 RDW Std Deviation 48.7 fL (36.4-46.3) H 01/28/20 05:56 RDW Coeff of José Manuel 14.9 % (11.5-14.5) H 01/28/20 05:56 Plt Count 282 K/uL (130-400) 01/28/20 05:56 MPV 9.4 fL (7.4-10.4) 01/28/20 05:56 Immature Gran % (Auto) 0.6 % 01/24/20 05:23 Neut % (Auto) 85.1 % 01/24/20 05:23 Lymph % (Auto) 5.1 % 01/24/20 05:23 [place] % (Auto) 9.1 % 01/24/20 05:23 Eos % (Auto) 0.0 % 01/24/20 05:23 Baso % (Auto) 0.1 % 01/24/20 05:23 Neut # (Auto) 10.35 K/uL (1.4-6.5) H 01/24/20 05:23 Lymph # (Auto) 0.62 K/uL (1.2-3.4) L 01/24/20 05:23 [place] # (Auto) 1.11 K/uL (0.11-0.59) H 01/24/20 05:23 Eos # (Auto) 0.00 K/uL (0-0.5) 01/24/20 05:23 Baso # (Auto) 0.01 K/uL (0-0.2) 01/24/20 05:23 Immature Gran # (Auto) 0.07 K/uL (0.00-0.02) H 01/24/20 05:23 Absolute Nucleated RBC 0.02 K/uL (0-0) H 01/28/20 05:56 Nucleated RBC % (auto) 0.1 % 01/28/20 05:56 Dohle Bodies 2+ 01/24/20 05:23 ESR 80 mm/hr (0-14) H 01/23/20 19:11 PT 13.0 Seconds (9.0-12.0) H 01/23/20 19:11 INR 1.2 (0.9-1.1) H 01/23/20 19:11 APTT 33.4 Seconds (21.0-31.0) H 01/23/20 19:11 PTT Ratio 1.2 01/23/20 19:11 Sodium 133 mmol/L (136-145) L 01/26/20 09:16 Potassium 3.7 mmol/L (3.5-5.1) 01/26/20 09:16 Chloride 101 mmol/L (98-107) 01/26/20 09:16 Carbon Dioxide 25 mmol/L (21-32) 01/26/20 09:16 Anion Gap 7.0 (3-11) 01/26/20 09:16 BUN 21 mg/dl (7-18) H 01/26/20 09:16 Creatinine 0.76 mg/dl (0.6-1.4) 01/27/20 06:28 Est Cr Clr Drug Dosing 199.0 ml/min 01/27/20 06:28 Est GFR ( Amer) 125.9 01/27/20 06:28 Est GFR (Non-Af Amer) 108.6 01/27/20 06:28 BUN/Creatinine Ratio 21.4 (10-20) H 01/26/20 09:16 Glucose 119 mg/dl (70-99) H 01/26/20 09:16 POC Glucose 116 mg/dl (70-99) H 01/27/20 20:11 Estimat Average Glucose 324 mg/dl 01/24/20 05:23 Hemoglobin A1c 12.9 % (4.5-5.6) H 01/24/20 05:23 Lactate 1.9 mmol/L (0.4-2.0) 01/23/20 22:00 Uric Acid 6.5 mg/dl (2.6-7.2) 01/23/20 19:11 Calcium 8.2 mg/dl (8.5-10.1) L 01/26/20 09:16 Magnesium 2.2 mg/dl (1.8-2.4) 01/27/20 06:28 Total Bilirubin 2.1 mg/dl (0.2-1) H 01/23/20 19:11 AST 19 U/L (15-37) 01/23/20 19:11 ALT 23 U/L (12-78) 01/23/20 19:11 Alkaline Phosphatase 106 U/L (45-117) 01/23/20 19:11 C-Reactive Protein 42.10 mg/dl (0-0.29) H 01/23/20 19:11 Total Protein 7.9 gm/dl (6.4-8.2) 01/23/20 19:11 Albumin 2.7 gm/dl (3.4-5.0) L 01/23/20 19:11 Globulin 5.2 gm/dl (2.5-4.0) H 01/23/20 19:11 Albumin/Globulin Ratio 0.5 (0.9-2) L 01/23/20 19:11 Beta-Hydroxybutyric Acd 6.65 mg/dl (0.2-2.81) H 01/23/20 19:11 Procalcitonin 14.75 ng/ml (0-0.5) H 01/23/20 19:11 Urine Color Dark Yellow 01/23/20 22:47 Urine Appearance Clear (Clear) 01/23/20 22:47 Urine pH 5.0 (4.5-7.5) 01/23/20 22:47 Ur Specific [place] > 1.045 (1.000-1.030) H 01/23/20 22:47 Urine Protein 2+ (Negative) H 01/23/20 22:47 Urine Glucose (UA) 3+ (Negative) H 01/23/20 22:47 Urine Ketones Trace (Negative) H 01/23/20 22:47 Urine Blood 3+ (Negative) H 01/23/20 22:47 Urine Nitrite Negative (Negative) 01/23/20 22:47 Urine Bilirubin 1+ (Negative) H 01/23/20 22:47 Urine Urobilinogen Negative (Negative) 01/23/20 22:47 Ur Leukocyte Esterase Negative (Negative) 01/23/20 22:47 Urine WBC (Auto) 1-5 /hpf (0-5) 01/23/20 22:47 Urine RBC (Auto) 10-30 /hpf (0-4) H 01/23/20 22:47 U Hyaline Cast (Auto) 5-10 /lpf (0-5) H 01/23/20 22:47 U Epithel Cells (Auto) >30 /lpf (0-5) H 01/23/20 22:47 Urine Bacteria (Auto) 1+ (Negative) H 01/23/20 22:47 Granular Casts 1-5 /lpf (0) H 01/23/20 22:47 Urine Yeast Not Reportable 01/23/20 22:47 Urine Sperm Present (None Prsent) A 01/23/20 22:47 COVID-19 PCR NEGATIVE (Negative) 01/24/20 16:45 Bld Cult Staph aureus PCR Positive (Negative) A 01/23/20 19:40 Blood Culture MRSA PCR Negative (Negative) 01/23/20 19:40
[2020-01-28] MEDS: INSULIN ASPART 100 UNITS/ML 3 ML PEN SC SCH ×4 (08:12→21:28)
[2020-01-28] MEDS ORDERED: INSULIN GLARGINE 100 UNIT/ML VIAL SC SCH (09:00)
--- NOTE | 2020-01-28 10:36 | Pharmacy Report ---
Pharmacy Glycemic Short Note 2 - Date of Service January 28, 2020 - Glycemic Short BSG Results (Last 24 hours): 01/27/20 01/27/20 01/27/20 11:35 16:40 16:41 POC Glucose 132 H 68 L* 73 01/27/20 01/28/20 20:11 07:39 POC Glucose 116 H 72 ASSESSMENT: 01/27 * Patient received total of 192 units of insulin yesterday of which 110 were basal insulin * Fasting BSG on lower end of range at 72 mg/dL - spoke with nurse and patient feeling okay and plans to eat / loosened CR slightly. Plan was to hold AM Lantus until BSG trending up * Confusion with insulin coverage for AM check, no carb coverage given. (ate 75 gm of carbs) Instructed nurse to give basal dose now instead. * Lunch time BSG lower than expected d/t no correctional insulin given / will loosen CF and CR PLAN FOR INPATIENT GLYCEMIC CONTROL: * Holding outpatient oral diabetes medication and Victoza * Basal insulin * Lantus 70 units x 1 * Bolus insulin: * NovoLog per scale ACHS or Q6hrs while NPO * Goal Range: Low 110 mg/dL - High 140 mg/dL * Correction Factor: 6 mg/dL/unit * Nutritional / Prandial insulin per carb ratio of 1 unit per 3 grams CHO consumed
[2020-01-28] MEDS: INSULIN GLARGINE 100 UNIT/ML VIAL SC SCH (10:39)
--- NOTE | 2020-01-28 11:21 | Hospitalist Progress Note ---
Date of Service January 28, 2020 Assessment & Plan (1) Sepsis: (2) Foot abscess, right: Present on admission with fever and right foot pain. Meet sepsis criteria on admission with tachycardia, febrile, leukocytosis and elevated lactate Right foot CT showed findings are highly suspicious for advanced septic arthritis/osteomyelitis throughout majority of the intertarsal and tarsometatarsal joints from the subtalar joint through the tarsometatarsal joints as described above. There is extensive destructive change throughout the tarsal bones with medial dislocation of the navicular bone. Multiple dorsal soft tissue abscesses seen within the midfoot some of which contain gas. This raises the possibility of a gas-forming organism. Multiple peripheral enhancing fluid collection seen within the mid to distal tendons of the ankle/hindfoot also likely represent infectious change. S/P day 4 Incision and Drainage Septic Right Foot Dorsal abscess, incision and drainage lateral foot abscess; Tenosynovectomy Extensor Digitorum Tendons(x4 ), exploration with irrigation and debridement plantar deep space foot, irrigation debridement tarsal tunnel, tenosynovectomy extensor hallucis longus tendon, excision avulsion fracture lateral cuboid, placement of deep Hemovac suction drains x2 by ortho Dr. Whitfield Received IVF, IV Dapto and Zosyn Blood cx positive for staph aureus Wound cx from the I&D grew staph [facility] Recommended to D/C IV Zosyn and since PCR MRSA negative, Dapto changed to Cefazolin IV Lactic acid normalize Pt has been afebrile Elevated ESR WBC slightly increased from 11K to 13K Dressing changed and hemovac discontinued today by ortho Continue non weight bearing in RLE PT/OT eval Gram positive bacteremia Blood cx positive for gram positive cocci Repeat blood cx on 01/23 positive for gram positive cocci ID [facility] [place] on board Echo showed no wall motion abnormality. Ejection fraction 55 to 60%. No significant valvular abnormality discerned ID recommended CHUY since unable to assess for vegetation on echo due to patient body habit IV Dapto IV and Zosyn was discontinued Transition to Cefazolin IV Cardio was consulted for CHUY. CHUY was cancelled since it would not change the management and the course of the abx Repeat blood cx on 01/25 positive for gram positive cocci Once blood cx remains negative, will place PICC line Continue monitor Acute Kidney Injury Possible related to sepsis Creatinine on admission 1.48 Creatinine 0.9 lasix resumed Lisinopril resumed Monitor BMP History of sleep apnea on CPAP at bedtime. History of diabetes. Uncontrolled DM with A1C 12.9 Continue to hold metformin and Victoza Pharmacy on board for glycemic management. Continue Lantus and Novolog sliding scale Continue monitor BS Hyponatremia Sodium on admission 126. P Received IVF Na 133 today Continue monitor BMP Electrolytes imbalance Mg 2.2 stable Continue monitor electrolytes Hypertension. BP fluctuated Lisinopril resumed Hyperlipidemia Continue to hold his statins while on daptomycin. Depression. Continue Celexa. DVT px No anticoagulant due to recent precedure and hemovac continue to drain Unable to put SCD due to right foot infection Will add subq heparin (Monitor for bleeding Code Status Full code Disposition Will transfer to medical Admission and Anticipated Discharge Date Admission Date: January 23, 2020 Subjective Pt was seen and examined Lying in bed with no distress Pt said that he feels fine Denies any new symptoms Physical Exam Physical Exam: General- No acute distress Head- atraumatic Eyes- PERRL, EOMI, ENT- oropharynx clear Neck- supple, no JVD Lungs- clear to auscultation Heart- regular rhythm; no murmur Abdomen- normal bowel sounds, soft, nontender Extremities- no calf tenderness, +right foot wrap and hemovac in Right foot, +decrease sensation in b/l LE Neuro- alert, oriented x 3; PERRL, EOMI; no facial palsy; no dysarthria Skin- warm & dry Results & Data Results & Data ([facility]) Vital Signs (Past 12 Hours) Vital Signs Temp Pulse Pulse Resp BP Pulse Ox 01/28/20 08:00 86 01/28/20 07:48 36.4 C L 76 20 138/92 92 01/28/20 03:14 37.1 C 78 22 125/72 94 01/28/20 00:00 85
[2020-01-28] MEDS ORDERED: HEPARIN SOD 5,000 UNIT/0.5 ML VIAL SQ SCH (21:00)
[2020-01-29] MEDS: CEFAZOLIN 2000MG 2,000 MG/15 ML SYR IV SCH ×3 (04:17→20:38)
[2020-01-29 06:33] LABS: Hemoglobin 10.8 g/dL (14.0-18.0); Mean Corpuscular Hemoglobin 29.3 pg (25-34); Mean Corpuscular Hgb Conc 32.7 g/dL (32-36); Mean Corpuscular Volume 89.7 fL (80-100); Mean Platelet Volume 9.3 fL (7.4-10.4); Platelet Count 372 K/uL (130-400); RDW Coefficient of Variation 15.3 % (11.5-14.5); RDW Standard Deviation 50.2 fL (36.4-46.3); Red Blood Count 3.68 M/uL (4.7-6.1); White Blood Count 13.51 K/uL (4.8-10.8)
[2020-01-29 07:01] LABS: Calcium 8.1 mg/dl (8.5-10.1); Creatinine Clr Calc Pharmacy 214.8 ml/min; Est GFR (African American) 130.3; Est GFR (Non-African American) 112.4; Potassium 3.4 mmol/L (3.5-5.1)
[2020-01-29] MEDS ORDERED: POTASSIUM CHLORIDE 20 MEQ TABCR PO ONE (08:15)
[2020-01-29] MEDS: CITALOPRAM 40 MG TAB PO SCH (08:46)
[2020-01-29] MEDS: INSULIN ASPART 100 UNITS/ML 3 ML PEN SC SCH ×4 (08:54→20:38)
[2020-01-29] MEDS: INSULIN GLARGINE 100 UNIT/ML VIAL SC SCH (08:56)
--- NOTE | 2020-01-29 10:44 | Pharmacy Report ---
Glycemic Control Progress Note - Date of Service January 29, 2020 - Scope Glycemic Pharmacist consulted for glycemic control to write orders per [facility] inpatient glycemic control protocol. - Objective Accuchecks BSG(last 24 hours):: 01/28/20 01/28/20 01/28/20 11:39 16:14 17:08 Glucose POC Glucose 180 H 91 95 01/28/20 01/29/20 01/29/20 20:41 05:52 08:05 Glucose 84 POC Glucose 130 H 89 HbA1c:: Hemoglobin A1c 12.9 % (4.5-5.6) H 01/24/20 05:23 - Recent Pertinent Medications The patient is currently receiving: * Basal insulin: Lantus 70 units every 24 hours * Correctional Insulin: Novolog Correction per scale ACHS Goal Range: Low 110 mg/dL - High 140 mg/dL Correction Factor: 6 mg/dL/unit * Prandial insulin: Per carb ratio of 1 unit per 3.5 grams CHO consumed - Outpatient Anti-Diabetic Meds Tresiba 156 units qAM Novolog 15 units TIDM Victoza 1.8 mg SQ daily Metformin ER 2000 mg Daily - Assessment & Plan ASSESSMENT: * See progress note from 01/24/20 for more background info, in short: * Pt receiving SQ basal bolus insulin regimen for hyperglycemia secondary to baseline DM (outpatient regimen on hold). Patient currently on Ancef for infection. * Patient is currently receiving an average of 111 units of insulin per day * 70 units of basal insulin * 41 units of prandial/correctional insulin * BSGs ranging 77 - 180 mg/dl over the past 24hrs * Changes needed to insulin regimen: * AM Fasting BSG = 89 mg/dl. This is in goal range for patient based on inpatient targets and co-morbidities. Therefore Basal insulin will be continued * Post-prandial BSGs trended downwards after being elevated indicating that correction factor is too tight. Loosen to CF of 8. Carbohydrate ratio was loosened yesterday. * Total daily dose = 90-100 units. Loosened CF. Patient's regimen is very basal heavy but this is how his home regimen is as well. Basal insulin was also decreased yesterday from 110 units to 70 units. * Additional notes / comments: continue to hold metformin PLAN FOR INPATIENT GLYCEMIC CONTROL: * Continuing Lantus 40 units SQ qAM * LOOSENING correction factor to 8 mg/dl/unit * Continuing carb ratio of 1 unit per 3.5 grams CHO consumed * Continuing goal range of Low 110 mg/dL - High 140 mg/dL * Please note that the plan above was derived based on current level of insulin resistance and hospital stress. These recommendations are appropriate for inpatient admission only. Plan of care upon discharge will need to be reassessed to avoid potential outpatient hypo/hyperglycemia. Thank you.
--- NOTE | 2020-01-29 11:02 | Orthopedic Progress Note ---
Date of Service January 29, 2020 Assessment & Plan (1) Foot abscess, right: POD #5 s/p 1. Incision and drainage, septic right foot dorsal abscess. 2. Incision and drainage, lateral foot abscess with evacuation of abscess of the subtalar joint. 3. Tenosynovectomy of the extensor digitorum tendons x4 tendons. 4. Exploration with irrigation and debridement, plantar deep space of the foot. 5. Irrigation and debridement, tarsal tunnel. 6. Tenosynovectomy of the extensor hallucis longus tendon. 7. Excision, avulsion fracture of the lateral cuboid. 8. Placement of deep Hemovac suction drains x2. 9. Placement of iodoform packing x6, separate incisions, right foot Increased serous drainage noted after Hemovacs were removed yesterday. Not uncommon. Daily dressing changes. All packing removed. Continue to maintain elevation. With the exception of the dorsal wound over the second metacarpal, all other wounds look fairly benign. I will discuss this with Dr. Whitfield to see if he would like to have wound care look at this area as well, versus plan for a second I&D. NWB RLE at all times. Cultures as noted to date: Foot culture showing MSSA. Multiple blood cultures with staph aureus noted. Current blood cultures that were drawn on the are showing no growth. Current antibiotic choice is Cefazolin. D/C planning--uncertain at this time. (2) 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: (3) Sepsis: Admission and Anticipated Discharge Date Admission Date: January 23, 2020 Subjective Postop day 5 Patient lying in bed. is present. She states that the patient just finished doing some physical therapy and ambulated into the bathroom. No difficulty in doing this. Patient states he is feeling better each day. No new complaints of the foot. They noticed that there was some increased drainage on the dressing. We discussed that since the drains have been removed, that these of the areas that will most likely continue to drain as well as from the incisions. Physical Exam Physical Exam: Dressings removed. Moderate serous drainage noted on a good portion of the dressing on the dorsum and lateral side. There was 2 areas that packing had remained. All packing removed at this time. Plantar incision appears benign and is well approximated. No overt erythema. Scant serous drainage. Lateral foot wound showing some mild erythema around the area where he has packing that was removed. Wounds on the dorsum of the foot shows the wound over the first metacarpal has some mild erythema and scant serous drainage. Wound is well approximated. The wound over the second metatarsal has an area of fibrin slough with a larger area of demarcation in a circular fashion around the incision line. He has multiple blisters from swelling going down to the second toe the wounds were redressed with Adaptic, 4 x 4's, ABDs, Kerlix, an d George wrap loosely wrapped. Moderate swelling of the foot noted. Results & Data ([facility]) Vital Signs (Past 12 Hours) Vital Signs Temp Pulse Resp BP BP Pulse Ox 01/29/20 08:51 156/98 H 01/29/20 06:50 36.7 C 77 22 167/92 H 93 01/28/20 23:24 36.9 C 78 18 118/70 90
[2020-01-29] MEDS: HEPARIN SOD 5,000 UNIT/0.5 ML VIAL SQ SCH ×2 (13:38→20:38)
--- NOTE | 2020-01-29 18:49 | Hospitalist Progress Note ---
Date of Service January 29, 2020 Assessment & Plan (1) Sepsis: (2) Foot abscess, right: Present on admission with fever and right foot pain. Meet sepsis criteria on admission with tachycardia, febrile, leukocytosis and elevated lactate Right foot CT showed findings are highly suspicious for advanced septic arthritis/osteomyelitis throughout majority of the intertarsal and tarsometatarsal joints from the subtalar joint through the tarsometatarsal joints as described above. There is extensive destructive change throughout the tarsal bones with medial dislocation of the navicular bone. Multiple dorsal soft tissue abscesses seen within the midfoot some of which contain gas. This raises the possibility of a gas-forming organism. Multiple peripheral enhancing fluid collection seen within the mid to distal tendons of the ankle/hindfoot also likely represent infectious change. S/P day 5 Incision and Drainage Septic Right Foot Dorsal abscess, incision and drainage lateral foot abscess; Tenosynovectomy Extensor Digitorum Tendons(x4 ), exploration with irrigation and debridement plantar deep space foot, irrigation debridement tarsal tunnel, tenosynovectomy extensor hallucis longus tendon, excision avulsion fracture lateral cuboid, placement of deep Hemovac suction drains x2 by ortho Dr. Whitfield Received IVF, IV Dapto and Zosyn Blood cx positive for staph aureus Wound cx from the I&D grew staph aureus ID [facility] Cecilia on board Recommended to D/C IV Zosyn and since PCR MRSA negative, Dapto changed to Cefazolin IV Lactic acid normalize Pt has been afebrile Elevated ESR WBC slightly decreeased to 13.5 Dressing changed and hemovac discontinued by ortho on 01/27 Dressing changed and all packing removed today Continue non weight bearing in RLE PT/OT eval Gram positive bacteremia Blood cx positive for gram positive cocci Repeat blood cx on 01/23 positive for gram positive cocci ID [facility] Cecilia on board Echo showed no wall motion abnormality. Ejection fraction 55 to 60%. No significant valvular abnormality discerned ID recommended CHUY since unable to assess for vegetation on echo due to patient body habit IV Dapto IV and Zosyn was discontinued Transition to Cefazolin IV Cardio was consulted for CHUY. CHUY was cancelled since it would not change the management and the course of the abx Repeat blood cx on 01/25 positive for gram positive cocci Repeat blood cx on 01/27 showed no growth Once blood cx remains negative, will place PICC line Will discuss with ID tomorrow on duration on abx if blood cx remains negative Continue monitor Acute Kidney Injury Possible related to sepsis Creatinine on admission 1.48 Creatinine 0.7 Continue Lisinopril Monitor BMP History of sleep apnea on CPAP at bedtime. History of diabetes. Uncontrolled DM with A1C 12.9 Continue to hold metformin and Victoza Pharmacy on board for glycemic management. Continue Lantus and Novolog sliding scale Continue monitor BS Hyponatremia Sodium on admission 126. P Received IVF Na 139 today Continue monitor BMP Electrolytes imbalance Mg 2.2 stable Continue monitor electrolytes Hypertension. BP fluctuated Continue Lisinopril Hyperlipidemia Continue to hold his statins while on daptomycin. Depression. Continue Celexa. DVT px No anticoagulant due to recent precedure and hemovac continue to drain heparin subq started today Code Status Full code Disposition Will discharge once medically stable Admission and Anticipated Discharge Date Admission Date: January 23, 2020 Subjective Pt was seen and examined Lying in bed with no distress with at bedside Pt said that he feels ok Denies any new complaint Physical Exam Physical Exam: General- No acute distress Head- atraumatic Eyes- PERRL, EOMI, ENT- oropharynx clear Neck- supple, no JVD Lungs- clear to auscultation Heart- regular rhythm; no murmur Abdomen- normal bowel sounds, soft, nontender Extremities- no calf tenderness, +right foot wrap , +decrease sensation in b/l LE Neuro- alert, oriented x 3; PERRL, EOMI; no facial palsy; no dysarthria Skin- warm & dry Results & Data Results & Data ([facility]) Vital Signs (Past 12 Hours) Vital Signs Temp Pulse Resp BP Pulse Ox 01/29/20 16:00 36.8 C 83 18 148/93 H 94 01/29/20 08:51 156/98 H 01/29/20 06:50 36.7 C 77 22 167/92 H 93
[2020-01-30] MEDS: CEFAZOLIN 2000MG 2,000 MG/15 ML SYR IV SCH ×3 (05:26→21:13)
[2020-01-30] MEDS: HEPARIN SODIUM (PORCINE) 7,500 UNITS in SYRINGE 0 ML SQ SCH ×3 (05:26→21:22)
[2020-01-30 06:40] LABS: Hematocrit (blood only) 34.9 % (42-52); Hemoglobin 11.5 g/dL (14.0-18.0); Mean Corpuscular Hemoglobin 29.8 pg (25-34); Mean Corpuscular Volume 90.4 fL (80-100); Mean Platelet Volume 9.3 fL (7.4-10.4); Platelet Count 343 K/uL (130-400); RDW Coefficient of Variation 15.1 % (11.5-14.5); Red Blood Count 3.86 M/uL (4.7-6.1); White Blood Count 13.25 K/uL (4.8-10.8)
[2020-01-30] MEDS: CITALOPRAM 40 MG TAB PO SCH (08:33)
[2020-01-30] MEDS: INSULIN GLARGINE 100 UNIT/ML VIAL SC SCH (08:34)
[2020-01-30] MEDS: INSULIN ASPART 100 UNITS/ML 3 ML PEN SC SCH ×4 (08:38→21:23)
--- NOTE | 2020-01-30 09:30 | Pharmacy Report ---
Glycemic Control Progress Note - Date of Service January 30, 2020 - Scope Glycemic Pharmacist consulted for glycemic control to write orders per [facility] inpatient glycemic control protocol. - Objective Accuchecks BSG(last 24 hours):: 01/29/20 01/29/20 01/29/20 12:13 17:19 20:23 POC Glucose 102 H 120 H 84 01/30/20 08:14 POC Glucose 119 H HbA1c:: Hemoglobin A1c 12.9 % (4.5-5.6) H 01/24/20 05:23 - Recent Pertinent Medications The patient is currently receiving: * Basal insulin: Lantus 70 units every 24 hours * Correctional Insulin: Novolog Correction per scale ACHS Goal Range: Low 110 mg/dL - High 140 mg/dL Correction Factor: 8 mg/dL/unit * Prandial insulin: Per carb ratio of 1 unit per 3.5 grams CHO consumed - Outpatient Anti-Diabetic Meds Tresiba 156 units qAM Novolog 15 units TIDM Victoza 1.8 mg SQ daily Metformin ER 2000 mg po daily - Assessment & Plan ASSESSMENT: * See progress note from 01/24/2020 for more background info, in short: * Pt receiving SQ basal bolus insulin regimen for hyperglycemia secondary to baseline DM (outpatient regimen on hold) and on Ancef for persistent bacteremia. * Patient is currently receiving an average of 125 units of insulin per day * 70 units of basal insulin * 55 units of prandial/correctional insulin * BSGs ranging 84 - 120 mg/dl over the past 24hrs * Changes needed to insulin regimen: * AM Fasting BSG = 119 mg/dl. This is in goal range for patient based on inpatient targets and co-morbidities. Will provide a higher dose of 80 units for tomorrow if fasting BSG > 140 mg/dL. This would represent a further trend upwards indicating the patient does not have enough basal. * Post-prandial BSGs were all below goal range. Loosen parameters slightly. * Total daily dose = ~100-120 units. Loosened insulin appropriately. * Additional notes / comments: Continue to hold metformin and Victoza PLAN FOR INPATIENT GLYCEMIC CONTROL: * Continuing Lantus 70 units SQ qAM (80 units if BSG > 140 mg/dL) * LOOSENING correction factor to 10 mg/dl/unit * LOOSENING carb ratio to 1 unit per 4 grams CHO consumed * Continuing goal range of Low 110 mg/dL - High 140 mg/dL RECOMMENDATIONS FOR DISCHARGE: * Spoke with patient via telephone. He states that he follows with [facility] in [place]. Recommend to continue following with that clinic. * He also has had some difficulties recently managing his blood sugars. Per our discussion, he will start to work on. Thank you.
--- NOTE | 2020-01-30 13:56 | Orthopedic Progress Note ---
Date of Service January 30, 2020 Assessment & Plan (1) Foot abscess, right: POD #6 s/p 1. Incision and drainage, septic right foot dorsal abscess. 2. Incision and drainage, lateral foot abscess with evacuation of abscess of the subtalar joint. 3. Tenosynovectomy of the extensor digitorum tendons x4 tendons. 4. Exploration with irrigation and debridement, plantar deep space of the foot. 5. Irrigation and debridement, tarsal tunnel. 6. Tenosynovectomy of the extensor hallucis longus tendon. 7. Excision, avulsion fracture of the lateral cuboid. 8. Placement of deep Hemovac suction drains x2. 9. Placement of iodoform packing x6, separate incisions, right foot Increased serous drainage noted after Hemovacs were removed yesterday. Not uncommon. Daily dressing changes. Continue to maintain elevation. With the exception of the dorsal wound over the second metacarpal, all other wounds look fairly benign. Discussed with Dr Whitfield today. No further washouts at this time NWB RLE at all times. Cultures as noted to date: Foot culture showing MSSA. Multiple blood cultures with staph aureus noted. Current blood cultures that were drawn on the are showing no growth. Current antibiotic choice is Cefazolin. Continue wound care and patient to follow up with [facility] early next week. 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 Will need picc line. (2) 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: (3) Sepsis: Admission and Anticipated Discharge Date Admission Date: January 23, 2020 Subjective Pt lying in bed. No new changes. Pain controlled. States he's feeling good today. I asked Wound Care nurse to be present for dressing change. Physical Exam Physical Exam: Dressings changed. A bit less serous drainage today but still saturating the kerlix. Less drainage on the dnei wrap. No new changes with lateral, plantar, and medial aspect wounds. Dorsal wound continues with yellow slough that appears the same. Some of the blisters on the 2nd toe have decompressed. Area of demarcation appears the same. No purulent drainage. Pt feels the swelling may be a bit less today. Mild pain up the calf on palpation. Nick's exam is negative. No red streaks or erythema noted. Results & Data ([facility]) Vital Signs (Past 12 Hours) Vital Signs Temp Pulse Resp BP Pulse Ox 01/30/20 07:31 36.9 C 79 18 169/90 H 94
--- NOTE | 2020-01-30 16:29 | Hospitalist Progress Note ---
Date of Service January 30, 2020 Assessment & Plan (1) Sepsis: (2) Foot abscess, right: Present on admission with fever and right foot pain. Meet sepsis criteria on admission with tachycardia, febrile, leukocytosis and elevated lactate Right foot CT showed findings are highly suspicious for advanced septic arthritis/osteomyelitis throughout majority of the intertarsal and tarsometatarsal joints from the subtalar joint through the tarsometatarsal joints as described above. There is extensive destructive change throughout the tarsal bones with medial dislocation of the navicular bone. Multiple dorsal soft tissue abscesses seen within the midfoot some of which contain gas. This raises the possibility of a gas-forming organism. Multiple peripheral enhancing fluid collection seen within the mid to distal tendons of the ankle/hindfoot also likely represent infectious change. S/P day 6 Incision and Drainage Septic Right Foot Dorsal abscess, incision and drainage lateral foot abscess; Tenosynovectomy Extensor Digitorum Tendons(x4 ), exploration with irrigation and debridement plantar deep space foot, irrigation debridement tarsal tunnel, tenosynovectomy extensor hallucis longus tendon, excision avulsion fracture lateral cuboid, placement of deep Hemovac suction drains x2 by ortho Dr. Whitfield Received IVF, IV Dapto and Zosyn Blood cx positive for staph aureus Wound cx from the I&D grew staph aureus ID [facility] Cecilia on board Recommended to D/C IV Zosyn and since PCR MRSA negative, Dapto changed to Cefazolin IV Lactic acid normalize Pt has been afebrile Elevated ESR WBC slightly decreased to 13.25 Dressing changed and hemovac discontinued by ortho on 01/27 Dressing changed and all packing removed Continue daily dressing Continue non weight bearing in RLE PT/OT eval Fall precaution Follow up with ortho Dr. Whitfield in 1 week Follow up with wound care outpatient Gram positive bacteremia Blood cx positive for gram positive cocci Repeat blood cx on 01/23 positive for gram positive cocci ID [facility] [place] on board Echo showed no wall motion abnormality. Ejection fraction 55 to 60%. No significant valvular abnormality discerned ID recommended CHUY since unable to assess for vegetation on echo due to patient body habit IV Dapto IV and Zosyn was discontinued Transition to Cefazolin IV Cardio was consulted for CHUY. CHUY was cancelled since it would not change the management and the course of the abx Repeat blood cx on 01/25 positive for gram positive cocci Repeat blood cx on 01/27 showed no growth If blood cx remains negative, will place PICC line tomorrow (Consent signed and place in the chart) Case discussed with ID [facility] Cecilia Hansen today and recommended to continue Ancef 2g q8h to complete 6 weeks course starting on the first negative blood cx Follow blood cx in am and if no growth please place order for PICC line Acute Kidney Injury Possible related to sepsis Creatinine on admission 1.48 Creatinine 0.7 Continue Lisinopril Monitor BMP History of sleep apnea on CPAP at bedtime. History of diabetes. Uncontrolled DM with A1C 12.9 Continue to hold metformin and Victoza Pharmacy on board for glycemic management. Continue Lantus and Novolog sliding scale Continue monitor BS Hyponatremia Sodium on admission 126. P Received IVF Na 139 today Continue monitor BMP Electrolytes imbalance Mg 2.2 stable Continue monitor electrolytes Hypertension. BP fluctuated Continue Lisinopril Hyperlipidemia Continue to hold his statins while on daptomycin. Depression. Continue Celexa. DVT px on heparin subq Code Status Full code Disposition Plan to discharge home with Home health services Follow up with ortho Dr. Whitfield in 1 week Follow up with wound care Admission and Anticipated Discharge Date Admission Date: January 23, 2020 Subjective Pt was seen and examined Lying in bed with no distress Pt said that he feels fine Consent signed for PICC/Midline to be placed tomorrow Denies any chest pain, palpitation, dizziness and SOB Physical Exam Physical Exam: General- No acute distress Head- atraumatic Eyes- PERRL, EOMI, ENT- oropharynx clear Neck- supple, no JVD Lungs- clear to auscultation Heart- regular rhythm; no murmur Abdomen- normal bowel sounds, soft, nontender Extremities- no calf tenderness, +right foot wrap , +decrease sensation in b/l LE Neuro- alert, oriented x 3; PERRL, EOMI; no facial palsy; no dysarthria Skin- warm & dry Results & Data Results & Data ([facility]) Vital Signs (Past 12 Hours) Vital Signs Temp Pulse Resp BP Pulse Ox 01/30/20 15:09 36.5 C 85 18 143/86 H 93 01/30/20 07:31 36.9 C 79 18 169/90 H 94
[2020-01-31] MEDS: HEPARIN SODIUM (PORCINE) 7,500 UNITS in SYRINGE 0 ML SQ SCH (06:20)
[2020-01-31] MEDS: CEFAZOLIN 2000MG 2,000 MG/15 ML SYR IV SCH ×3 (06:24→22:08)
[2020-01-31] MEDS ORDERED: ACETAMINOPHEN 325 MG TAB PO PRN (07:50)
[2020-01-31] MEDS: CITALOPRAM 40 MG TAB PO SCH (08:22)
[2020-01-31 08:27] LABS: Hematocrit (blood only) 32.8 % (42-52); Hemoglobin 10.9 g/dL (14.0-18.0); Mean Corpuscular Hemoglobin 29.9 pg (25-34); Mean Corpuscular Hgb Conc 33.2 g/dL (32-36); Mean Corpuscular Volume 89.9 fL (80-100); Mean Platelet Volume 8.7 fL (7.4-10.4); Platelet Count 405 K/uL (130-400); RDW Coefficient of Variation 14.8 % (11.5-14.5); RDW Standard Deviation 48.7 fL (36.4-46.3); Red Blood Count 3.65 M/uL (4.7-6.1); White Blood Count 12.86 K/uL (4.8-10.8)
[2020-01-31 08:57] LABS: Basophils # (auto) 0.01 K/uL (0-0.2); Basophils % (auto) 0.1 %; Eosinophils # (auto) 0.07 K/uL (0-0.5); Eosinophils % (auto) 0.5 %; Immature Granulocytes # (auto) 0.69 K/uL (0.00-0.02); Immature Granulocytes % (auto) 5.4 %; Lymphocytes # (auto) 1.86 K/uL (1.2-3.4); Lymphocytes % (auto) 14.5 %; Monocytes % (auto) 5.4 %; Neutrophils # (auto) 9.53 K/uL (1.4-6.5); Neutrophils % (auto) 74.1 %
[2020-01-31] MEDS: INSULIN ASPART 100 UNITS/ML 3 ML PEN SC SCH ×4 (08:58→21:48)
[2020-01-31] MEDS ORDERED: INSULIN GLARGINE 100 UNIT/ML VIAL SC SCH (09:00)
[2020-01-31 09:01] LABS: Albumin Level 1.5 gm/dl (3.4-5.0); BUN Creatinine Ratio 14.6 (10-20); Calcium 8.3 mg/dl (8.5-10.1); Est GFR (African American) 120.8; Est GFR (Non-African American) 104.3
[2020-01-31 09:04] LABS: Albumin Globulin Ratio 0.3 (0.9-2); Globulin 5.6 gm/dl (2.5-4.0); Total Protein 7.1 gm/dl (6.4-8.2)
--- NOTE | 2020-01-31 09:14 | Pharmacy Report ---
Pharmacy Glycemic Short Note 2 - Date of Service January 31, 2020 - Glycemic Short BSG Results (Last 24 hours): 01/30/20 01/30/20 01/30/20 12:00 17:03 20:39 Glucose POC Glucose 104 H 90 141 H 01/31/20 01/31/20 08:12 08:45 Glucose 96 POC Glucose 106 H ASSESSMENT: 01/30 * Patient received total of 93 units of insulin yesterday, of which 70 units were basal insulin * Fasting BSG trending down from 119-96 mg/dL this AM / plan to decrease basal ~15% this AM * Continue same CF/CR for now PLAN FOR INPATIENT GLYCEMIC CONTROL: * Holding outpatient oral diabetes medication and Victoza * Basal insulin - decrease * Lantus 60 daily * Bolus insulin: * NovoLog per scale ACHS or Q6hrs while NPO * Goal Range: Low 110 mg/dL - High 140 mg/dL * Correction Factor: 12 mg/dL/unit * Nutritional / Prandial insulin per carb ratio of 1 unit per 5 grams CHO consumed
[2020-01-31] MEDS: INSULIN GLARGINE 100 UNIT/ML VIAL SC SCH (11:26)
[2020-01-31] MEDS: HEPARIN SOD 5,000 UNIT/0.5 ML VIAL SQ SCH ×2 (12:44→22:10)
--- NOTE | 2020-01-31 14:31 | Hospitalist Progress Note ---
Date of Service January 31, 2020 Assessment & Plan (1) Sepsis: (2) Foot abscess, right: Staphylococcus Bacteremia Right foot osteomyelitis -Present on 01/23/2020 to the ED with fever and right foot pain; and Met sepsis criteria on admission with tachycardia, febrile, leukocytosis and elevated l actate -on admission, theRight foot CT showed findings are highly suspicious for advanced septic arthritis/osteomyelitis throughout majority of the intertarsal and tarsometatarsal joints from the subtalar joint through the tarsometatarsal joints as described above. There is extensive destructive change throughout the tarsal bones with medial dislocation of the navicular bone. Multiple dorsal soft tissue abscesses seen within the midfoot some of which contain gas. This raises the possibility of a gas-forming organism. Multiple peripheral enhancing fluid collection seen within the mid to distal tendons of the ankle/hindfoot also likely represent infectious change. -01/24/2020, patient had 6 Incision and Drainage Septic Right Foot Dorsal abscess, incision and drainage lateral foot abscess; Tenosynovectomy Extensor Digitorum Tendons(x4 ), exploration with irrigation and debridement plantar deep space foot, irrigation debridement tarsal tunnel, tenosynovectomy extensor hallucis longus tendon, excision avulsion fracture lateral cuboid, placement of deep Hemovac suction drains x2 by ortho Dr. Whitfield (hemovac discontinued by ortho on 01/28/20202) -was initially on IV daptomycin and IV Zosyn, and then wound culture and blood cultures with Staphylococcus aureus -Infectious disease physician (Dr. Hansen) from [facility] were consulted by telephone. the IV Zosyn was discontinued since PCR MRSA negative, Daptomycin changed to Cefazolin IV -the 01/28/2020 blood cultures appears to be first negative blood culture, plans to place PICC line and then to continue IV Cefazolin as 2 grams every 8 hours for 6 weeks from the first negative blood culture (last day as February) -Orthopedic instructions as: Nonweightbearing right foot, daily dressing changes, Follow up with Dr Whitfield in 1 week. Patient to Call for appt. [phone]; Follow [facility] with [facility] early next week. Appt being made by Wound Care Team. (3) Hypertension: Hyperlipidemia -continue lisinopril -resume home dose Lovastatin 40 mg qhs Acute Kidney Injury, present on admission -Creatinine on admission 1.48 -creatinine downtrended with treatment -at baseline renal function currently sleep apnea -on CPAP at bedtime. Type II diabetes mellitus with halfway current use of insulin -HbA1c 12.9 -holding home dose metformin and Victoza during the hospital stay -has been managed with Lantus and Novolog sliding scale insulin by glycemic control pharmacist Hyponatremia on admission Hypomagnesemia -serum sodium 126 on admission, this is resolved -serum magnesium was 1.3 on admission, has been supplemented on this admission and at goal as of 01/27/2020 Depression. -Continue Celexa. DVT prophylaxisx on heparin subq Code Status Full code Admission and Anticipated Discharge Date Admission Date: January 23, 2020 Subjective breathing on room air. no acute distress. no chest pain. no palpitations. no lightheadedness. no dizziness. no abdomen pain. right foot discomforts are not apparent. right foot in dressing Review of Systems Review of Systems: All systems reviewed & are unremarkable except as noted in Subjective Physical Exam Constitutional: comfortable Eyes: PERRL, conjunctivae normal, anicteric sclerae EOM intact bilaterally ENMT: external ear and nose normal, oropharynx normal Neck: trachea midline, no thyromegaly normal visual inspection Respiratory: normal respiratory effort Cardiovascular: Rate/Rhythm: regular rate Gastrointestinal (Abdomen): normal bowel sounds, soft, nontender, no hepatosplenomegaly Musculoskeletal: Head/Neck/Chest: normocephalic right foot in dressing Neurologic: PERRL, EOMI, accommodation nl, no face palsy, no dysarthria Psychiatric: A+Ox3, euthymic affect Results & Data Results & Data ([facility]) Vital Signs (Past 12 Hours) Vital Signs Temp Pulse Resp BP Pulse Ox 01/31/20 07:40 37.1 C 68 16 162/69 H 94
[2020-01-31] MEDS ORDERED: ENALAPRILAT 1.25 MG in DEXTROSE 5% 25 ML IV ONE (16:45)
[2020-01-31] MEDS ORDERED: LOVASTATIN 20 MG TAB PO SCH (17:00)
[2020-01-31] MEDS: AMLODIPINE BESYLATE 5 MG TAB PO SCH (17:29)
[2020-02-01] MEDS: HEPARIN SOD 5,000 UNIT/0.5 ML VIAL SQ SCH (05:53)
[2020-02-01] MEDS: CEFAZOLIN 2000MG 2,000 MG/15 ML SYR IV SCH (05:53)
[2020-02-01 06:31] LABS: Basophils # (auto) 0.01 K/uL (0-0.2); Basophils % (auto) 0.1 %; Eosinophils # (auto) 0.09 K/uL (0-0.5); Eosinophils % (auto) 0.9 %; Hematocrit (blood only) 30.4 % (42-52); Hemoglobin 10.1 g/dL (14.0-18.0); Immature Granulocytes % (auto) 3.8 %; Lymphocytes # (auto) 1.74 K/uL (1.2-3.4); Lymphocytes % (auto) 16.7 %; Mean Corpuscular Hemoglobin 30.1 pg (25-34); Mean Corpuscular Hgb Conc 33.2 g/dL (32-36); Mean Corpuscular Volume 90.5 fL (80-100); Mean Platelet Volume 8.6 fL (7.4-10.4); Monocytes # (auto) 0.76 K/uL (0.11-0.59); Monocytes % (auto) 7.3 %; Neutrophils # (auto) 7.43 K/uL (1.4-6.5); Neutrophils % (auto) 71.2 %; Platelet Count 424 K/uL (130-400); RDW Coefficient of Variation 14.9 % (11.5-14.5); RDW Standard Deviation 49.8 fL (36.4-46.3); Red Blood Count 3.36 M/uL (4.7-6.1); White Blood Count 10.43 K/uL (4.8-10.8)
[2020-02-01 07:08] LABS: Albumin Globulin Ratio 0.3 (0.9-2); Albumin Level 1.4 gm/dl (3.4-5.0); BUN Creatinine Ratio 17.4 (10-20); Est GFR (African American) 135.1; Est GFR (Non-African American) 116.6; Globulin 5.5 gm/dl (2.5-4.0); Magnesium 1.9 mg/dl (1.8-2.4); Potassium 4.2 mmol/L (3.5-5.1); Total Protein 6.9 gm/dl (6.4-8.2)
[2020-02-01 07:11] LABS: Bilirubin,Total 0.8 mg/dl (0.2-1)
[2020-02-01] MEDS: CITALOPRAM 40 MG TAB PO SCH (08:29)
[2020-02-01] MEDS: AMLODIPINE BESYLATE 5 MG TAB PO SCH (08:29)
[2020-02-01] MEDS: INSULIN GLARGINE 100 UNIT/ML VIAL SC SCH (08:32)
--- NOTE | 2020-02-01 08:37 | Orthopedic Progress Note ---
Date of Service February 01, 2020 Assessment & Plan (1) Foot abscess, right: POD #7 s/p 1. Incision and drainage, septic right foot dorsal abscess. 2. Incision and drainage, lateral foot abscess with evacuation of abscess of the subtalar joint. 3. Tenosynovectomy of the extensor digitorum tendons x4 tendons. 4. Exploration with irrigation and debridement, plantar deep space of the foot. 5. Irrigation and debridement, tarsal tunnel. 6. Tenosynovectomy of the extensor hallucis longus tendon. 7. Excision, avulsion fracture of the lateral cuboid. 8. Placement of deep Hemovac suction drains x2. 9. Placement of iodoform packing x6, separate incisions, right foot Less serous drainage overall. Daily dressing changes as per wound care recommendations. Patient has an appointment to follow-up tomorrow with wound care. NWB RLE at all times. Cultures as noted to date: Foot culture showing MSSA. Antibiotics as per medicine team with use of PICC line and IV antibiotics for 4 to 6 weeks Plan for follow-up with Dr. Whitfield next week. (2) 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: (3) Sepsis: Admission and Anticipated Discharge Date Admission Date: January 23, 2020 Subjective Postop day 7 Patient resting comfortably. No complaints this morning. Wound care team is in the process of doing dressing change. Patient states that he is going home today. A PICC line has been placed and he is being set up for home IV antibiotics. Physical Exam Physical Exam: I am encouraged by the way the wounds look today. It looks like the area over the dorsum of the foot with the yellow slough granulation tissue appears to be a bit smaller. No overt erythema around any of the wounds. The demarcation area around the slough does not appear to be darkening and appears to be slightly senior genetic counselor this morning. Other wounds are benign at this time. Flor from wound care, noted some regular serous drainage from the lateral wound. Capillary refill is less than 2 seconds. It appears that his swelling has gone down a little bit. Results & Data ([facility]) Vital Signs (Past 12 Hours) Vital Signs Temp Pulse Resp BP Pulse Ox 01/31/20 22:52 37.1 C 77 16 149/82 H 94
[2020-02-01] MEDS: INSULIN ASPART 100 UNITS/ML 3 ML PEN SC SCH (08:40)
--- NOTE | 2020-02-01 08:44 | Hospitalist Progress Note ---
Date of Service February 01, 2020 Assessment & Plan (1) Sepsis: (2) Foot abscess, right: Staphylococcus Bacteremia Right foot osteomyelitis -Present on 01/23/2020 to the ED with fever and right foot pain; and Met sepsis criteria on admission with tachycardia, febrile, leukocytosis and elevated l actate -on admission, theRight foot CT showed findings are highly suspicious for advanced septic arthritis/osteomyelitis throughout majority of the intertarsal and tarsometatarsal joints from the subtalar joint through the tarsometatarsal joints as described above. There is extensive destructive change throughout the tarsal bones with medial dislocation of the navicular bone. Multiple dorsal soft tissue abscesses seen within the midfoot some of which contain gas. This raises the possibility of a gas-forming organism. Multiple peripheral enhancing fluid collection seen within the mid to distal tendons of the ankle/hindfoot also likely represent infectious change. -01/24/2020, patient had 6 Incision and Drainage Septic Right Foot Dorsal abscess, incision and drainage lateral foot abscess; Tenosynovectomy Extensor Digitorum Tendons(x4 ), exploration with irrigation and debridement plantar deep space foot, irrigation debridement tarsal tunnel, tenosynovectomy extensor hallucis longus tendon, excision avulsion fracture lateral cuboid, placement of deep Hemovac suction drains x2 by ortho Dr. Whitfield (hemovac discontinued by ortho on 01/28/20202) -was initially on IV daptomycin and IV Zosyn, and then wound culture and blood cultures with Staphylococcus aureus -Infectious disease physician (Dr. Hansen) from [facility] were consulted by telephone. the IV Zosyn was discontinued since PCR MRSA negative, Daptomycin changed to Cefazolin IV -the 01/28/2020 blood cultures appears to be first negative blood culture, PICC line placed on 01/31/2020 and then to continue IV Cefazolin as 2 grams every 8 hours for 6 weeks from the first negative blood culture (last day as February) patient is discharge to home with PICC line to continue IV Cefazolin as 2 grams every 8 hours for 6 weeks from the first negative blood culture (last day as February) other discharge medication of amlodipine 5 mg daily for hypertension and acetaminophen 325 mg every 6 hours as needed for pain or fever are sent electronically to [facility] at [address] [place] [id number] Nonweightbearing right foot Daily dressing changes per Wound Care recommendations Follow up with Dr Whitfield of [facility] [address], [place] [address] in 1 week. Call for appt. [phone] Follow up with [facility] [address], [place] [address] early next week (Apointment being made by Wound Care Team) scheduled appointments 02/09/2020 12:00 PM Provider Joanne Sheikh MD Department Internal Medicine [facility]. Patient should follow up in regards to antibiotic duration and labs as needed. for diabetes mellitus management. for hypertension management 02/23/2020 6:20 PM Provider [facility] Pharmacy, [facility] (3) Hypertension: Hyperlipidemia -continue lisinopril and amlodipine -continue home dose Lovastatin 40 mg qhs Acute Kidney Injury, present on admission -Creatinine on admission 1.48 -creatinine downtrended with treatment -at baseline renal function currently sleep apnea -on CPAP at bedtime. 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 -Continue Celexa. Admission and Anticipated Discharge Date Admission Date: January 23, 2020 Subjective patient had PICC line placed in evening of 01/31/2020. patient denies pain of arms or legs. WBC down to 10,000. no fevers. breathing on room air. no shortness of breath. no abdomen pain. patient denies other symptoms. discharge plans discussed at length Review of Systems Review of Systems: All systems reviewed & are unremarkable except as noted in Subjective Physical Exam Constitutional: comfortable Eyes: PERRL, conjunctivae normal, anicteric sclerae EOM intact bilaterally ENMT: external ear and nose normal, oropharynx normal Neck: trachea midline, no thyromegaly normal visual inspection Respiratory: normal respiratory effort Cardiovascular: Rate/Rhythm: regular rate Gastrointestinal (Abdomen): normal bowel sounds, soft, nontender, no hepatosplenomegaly Musculoskeletal: Head/Neck/Chest: normocephalic Extremities: + upper extremity abnormal to inspection (right arm PICC line) and + lower leg abnormality (right leg in dressing) Neurologic: PERRL, EOMI, accommodation nl, no face palsy, no dysarthria Psychiatric: A+Ox3, euthymic affect Results & Data Results & Data ([facility]) Vital Signs (Past 12 Hours) Vital Signs Temp Pulse Resp BP BP Pulse Ox 02/01/20 08:40 36.9 C 83 18 156/88 H 94 01/31/20 22:52 37.1 C 77 16 149/82 H 94
--- NOTE | 2020-02-01 08:49 | Discharge Summary ---
Date of Service February 01, 2020 Admission HPI Per Admitting Provider CHIEF COMPLAINT: Sepsis. HISTORY OF PRESENT ILLNESS: This is a 49-year-old male with past medical history significant for morbid obesity, sleep apnea, allergic rhinitis due to pollen, gout arthropathy, type 2 diabetes, psoriatic arthropathy, noncompliance, anxiety, who comes because of fevers. The patient says he developed fever last Wednesday and he also noticed pain in his right lower extremity and had some erythema. He thought it was his gout attack and taken indomethacin. That indomethacin took care of his pain, but he was developing fevers, today temperature was around 103, which prompted him to come to the ER. In the ER, he was tachycardic. Blood pressure was somewhat on the lower side. His white count was 12.4. His sodium was somewhat on the lower side at 126, glucose was 314. initial lactate was 2.5, magnesium was 1.3, procalcitonin was 14.7. Chest x-ray, no acute process seen. Right foot CT showed suspicious for septic arthritis and osteomyelitis and ER called ortho and they are going to see the patient in the a.m. Currently received fluid bolus as per sepsis protocol and daptomycin and Zosyn. His hemodynamics are improving. His lactic acid has improved to 1.9. Currently resting comfortably. He has some mild headache, no blurred vision, no earache, no runny nose. He has sinus congestion going on for several weeks now. He has allergies to pollen and it is causing him some headaches. No sore throat. Denies any cough, no difficulty swallowing, no chest pain, no shortness of breath, no nausea, no abdominal pain. Normal bowel and bladder movements. No hematuria or blood in the stools. Ambulating okay at home. Principal Diagnosis Sepsis Staphylococcus Bacteremia Foot abscess, right Right foot osteomyelitis Hypertension Type II diabetes mellitus with residential current use of insulin Obstructive Sleep Apnea Acute Kidney Injury (resolved) Hyponatremia on admission(resolved) Hypomagnesemia (resolved) Discharge Exam Constitutional comfortable Eyes PERRL, conjunctivae normal, anicteric sclerae EOM intact bilaterally ENMT external ear and nose normal, oropharynx normal Neck trachea midline, no thyromegaly normal visual inspection Respiratory normal respiratory effort Cardiovascular Rate/Rhythm: regular rate Gastrointestinal (Abdomen) normal bowel sounds, soft, nontender, no hepatosplenomegaly Musculoskeletal Head/Neck/Chest: normocephalic Extremities: + upper extremity abnormal to inspection (right arm PICC line) and + lower leg abnormality (right leg in dressing) Neurologic PERRL, EOMI, accommodation nl, no face palsy, no dysarthria Psychiatric A+Ox3, euthymic affect Discharge Data Allergies Allergy/AdvReac Type Severity Reaction Status Date / Time No Known Allergies Allergy Verified 01/23/20 19:38 Consultations 01/23/20 20:54 ED Decision to Admit Stat 01/23/20 23:36 Consult Case Management - Discharge Planning Routine 01/24/20 08:30 Consult Infectious Diseases Routine Consult Orthopedic Surgery Routine 01/25/20 15:08 Consult Cardiology Routine Procedures Performed Operation Date: 01/24/20 11:20 Actual Procedures p Incision and Drainage Septic Right Foot Dorsal and Lateral Abscesses; Tenosynovectomy Extensor Digitorum Tendons(Right) - Barrera Whitfield DO Ordered Studies 01/23/20 19:45 CT foot RT w con Stat Hospital Course (1) Sepsis: (2) Foot abscess, right: Staphylococcus Bacteremia Right foot osteomyelitis -Present on 01/23/2020 to the ED with fever and right foot pain; and Met sepsis criteria on admission with tachycardia, febrile, leukocytosis and elevated lactate -on admission, theRight foot CT showed findings are highly suspicious for advanced septic arthritis/osteomyelitis throughout majority of the intertarsal and tarsometatarsal joints from the subtalar joint through the tarsometatarsal joints as described above. There is extensive destructive change throughout the tarsal bones with medial dislocation of the navicular bone. Multiple dorsal soft tissue abscesses seen within the midfoot some of which contain gas. This raises the possibility of a gas-forming organism. Multiple peripheral enhancing fluid collection seen within the mid to distal tendons of the ankle/hindfoot also likely represent infectious change. -01/24/2020, patient had 6 Incision and Drainage Septic Right Foot Dorsal abscess, incision and drainage lateral foot abscess; Tenosynovectomy Extensor Digitorum Tendons(x4 ), exploration with irrigation and debridement plantar deep space foot, irrigation debridement tarsal tunnel, tenosynovectomy extensor hallucis longus tendon, excision avulsion fracture lateral cuboid, placement of deep Hemovac suction drains x2 by ortho Dr. Whitfield (hemovac discontinued by ortho on ) -was initially on IV daptomycin and IV Zosyn, and then wound culture and blood cultures with Staphylococcus aureus -Infectious disease physician (Dr. Hansen) from [facility] were consulted by telephone. the IV Zosyn was discontinued since PCR MRSA negative, Daptomycin changed to Cefazolin IV -the 01/28/2020 blood cultures appears to be first negative blood culture, PICC line placed on 01/31/2020 and then to continue IV Cefazolin as 2 grams every 8 hours for 6 weeks from the first negative blood culture (last day as February) patient is discharge to home with PICC line to continue IV Cefazolin as 2 grams every 8 hours for 6 weeks from the first negative blood culture (last day as February) other discharge medication of amlodipine 5 mg daily for hypertension and acetaminophen 325 mg every 6 hours as needed for pain or fever are sent electronically to [facility] at [address] [place] [address] Nonweightbearing right foot Daily dressing changes per Wound Care recommendations Follow up with Dr Whitfield of [facility] [address], [place] [address] in 1 week. Call for appt. [phone] Follow up with [facility] [address], [place] [address] early next week (Apointment being made by Wound Care Team) scheduled appointments 02/09/2020 12:00 PM Provider Joanne Sheikh MD Department Internal Medicine [facility]. Patient should follow up in regards to antibiotic duration and labs as needed. for diabetes mellitus management. for hypertension management 02/23/2020 6:20 PM Provider [facility] Department Pharmacy, [facility] (3) Hypertension: Hyperlipidemia -continue lisinopril and amlodipine -continue home dose Lovastatin 40 mg qhs Acute Kidney Injury, present on admission -Creatinine on admission 1.48 -creatinine downtrended with treatment -at baseline renal function currently sleep apnea -on CPAP at bedtime. 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 -Continue Celexa. Total Time Total Time Spent Total Time Spent (In Minutes): 40 minutes Total Time Includes: Examination of the Patient, Discharge Planning, Medication Reconciliation and Communication With Other Providers Discharge Plan Discharge Items Patient Disposition: Home - Self-Care Reason For Visit: FEVERS Discharge Diagnosis: Sepsis Staphylococcus Bacteremia Foot abscess, right Right foot osteomyelitis Hypertension Type II diabetes mellitus with residential current use of insulin Obstructive Sleep Apnea Acute Kidney Injury (resolved) Hyponatremia on admission(resolved) Hypomagnesemia (resolved) Condition on Discharge: Good Activity: Per Instructions section Weightbearing: Right non-weightbearing Non-emergency contact: Surgeon Call non-emergency contact if: your pain is not controlled, your temperature is above 101.5, your wound has increased redness and your wound has increased drainage Follow-up/Referrals: Barrera Whitfield DO [Surgeon] - (f/u in 1 week.) Joanne Sheikh MD [Primary Care Provider] - Diet: Carb Consistent or DM2 Addtl Attending Provider Instructions: patient is discharge to home with PICC line to continue IV Cefazolin as 2 grams every 8 hours for 6 weeks from the first negative blood culture (last day as February) other discharge medication of amlodipine 5 mg daily for hypertension and acetaminophen 325 mg every 6 hours as needed for pain or fever are sent electronically to [facility] at [address] [place] [address] Nonweightbearing right foot Daily dressing changes per Wound Care recommendations Follow up with Dr Whitfield of [facility] [address], [place] [address] in 1 week. Call for appt. [phone] Follow up with [facility] [address], [place] [address] early next week (Apointment being made by Wound Care Team) scheduled appointments 02/09/2020 12:00 PM Provider Joanne Sheikh MD Department Internal Medicine [facility]. Patient should follow up in regards to antibiotic duration and labs as needed. for diabetes mellitus management. for hypertension management 02/23/2020 6:20 PM Provider [facility], [facility] Child Nutrition Assistant Provider Instructions: Sepsis: Foot abscess, right: Staphylococcus Bacteremia Right foot osteomyelitis -Present on 01/23/2020 to the ED with fever and right foot pain; and Met sepsis criteria on admission with tachycardia, febrile, leukocytosis and elevated lactate -on admission, theRight foot CT showed findings are highly suspicious for advanced septic arthritis/osteomyelitis throughout majority of the intertarsal and tarsometatarsal joints from the subtalar joint through the tarsometatarsal joints as described above. There is extensive destructive change throughout the tarsal bones with medial dislocation of the navicular bone. Multiple dorsal soft tissue abscesses seen within the midfoot some of which contain gas. This raises the possibility of a gas-forming organism. Multiple peripheral enhancing fluid collection seen within the mid to distal tendons of the ankle/hindfoot also likely represent infectious change. -01/24/2020, patient had 6 Incision and Drainage Septic Right Foot Dorsal abscess, incision and drainage lateral foot abscess; Tenosynovectomy Extensor Digitorum Tendons(x4 ), exploration with irrigation and debridement plantar deep space foot, irrigation debridement tarsal tunnel, tenosynovectomy extensor hallucis longus tendon, excision avulsion fracture lateral cuboid, placement of deep Hemovac suction drains x2 by ortho Dr. Whitfield (hemovac discontinued by ortho on ) -was initially on IV daptomycin and IV Zosyn, and then wound culture and blood cultures with Staphylococcus aureus -the 01/28/2020 blood cultures appears to be first negative blood culture, PICC l ine placed on 01/31/2020 and then to continue IV Cefazolin as 2 grams every 8 hours for 6 weeks from the first negative blood culture (last day as February) -Infectious disease physician (Dr. Hansen) from [facility] were consulted by telephone. the IV Zosyn was discontinued since PCR MRSA negative, Daptomycin changed to Cefazolin IV Pending Studies at Discharge: No Stand-Alone Forms: My [employer], Smoking Cessation Medications and DC Order Prescriptions: New cefazolin 1 gram recon soln 2 gm IV Q8H 40 Days Qty: 40 RF: 0 acetaminophen 325 mg Tablet 325 mg PO Q6H PRN (Reason: fever or pain) 7 Days Qty: 28 RF: 0 amlodipine [Norvasc] 5 mg Tablet 5 mg PO QAM 30 Days Qty: 30 RF: 0 Continued citalopram [Celexa] 40 mg tablet 40 mg PO QAM RF: 0 lovastatin 40 mg tablet 40 mg PO HS RF: 0 metformin [Glucophage XR] 500 mg tablet extended release 24 hr 2,000 mg PO QAM RF: 0 lisinopril 2.5 mg tablet 2.5 mg PO QAM RF: 0 insulin aspart U-100 [Novolog Flexpen U-100 Insulin] 100 unit/mL (3 mL) Insulin Pen 15 unit SUBCUT TIDM RF: 0 Victoza 3-Moy 0.6 mg/0.1 mL (18 mg/3 mL) pen injector 1.8 mg SUBCUT QAM RF: 0 Tresiba FlexTouch U-200 200 unit/mL (3 mL) insulin pen 156 unit SUBCUT QAM RF: 0 indomethacin 50 mg capsule 50 mg PO BID PRN (Reason: Gout Flare Up) RF: 0 Discharge Orders: Discharge Order (Routine); Ordered 02/01/20 Ordered By: Sean Cabrera/Other Patient Handouts: Diabetes and Heart Disease, Long-Term Complications of Diabetes, Healthy Meals for Diabetes, Diabetes: The Benefits of Exercise, Diabetes: Living Your Life, Managing Diabetes: The A1C Test Admission Data Admit Date/Time: 01/23/20 22:50 Attending Provider: Sean Mora Admit Provider: Aguila Tesfaye Primary Care Provider: Joanne Sheikh Other Providers: Aguila Tesfaye ; Torey Osorio ; Jo-Ann Montana ; Guido Whaley I. ; Etienne Hansen II ; Harika Reynolds ; Tevin Kolb ; Barrera Whitfield ; Edward Maldonado
--- NOTE | 2020-02-14 06:49 | Coding Query ---
CODING QUERY To promote full compliance with coding requirements relating to patient care, provider participation is requested in all cases of medical equipment sales uncertainty. Please assist us with the question(s) below: Coding Question(s): Diabetes Type 2 is documented by attending and on Discharge Summary, however, Orthopedic Consultation and Progress Notes document Diabetes Type 1. Due to the conflicting documentation, please clarify below regarding the type of Diabetes. ( ) Diabetes Type 1 ( x) Diabetes Type 2 ( ) Diabetes, Other: Please Specify____Patient reports diabetes mellitus is Type 2 Physician's Response(s): Thank you Lakisha Canela Principal Diagnosis: "that condition established after study, to be chiefly responsible for occasioning the admission of the patient to the hospital for care." Co-Existing Principal Diagnosis: "when two or more diagnoses equally meet the criteria for principal diagnosis as determined by the circumstances of admission, diagnostic work up, and/or therapy provided, and the Alphabetic Index, Tabular List, or another coding guideline does not provide sequencing direction, any one of the diagnoses may be sequenced first." "When the physician has documented what appears to be a current diagnosis in the body of the record, but has not included the diagnosis in the final diagnostic statement, the physician should be asked whether the diagnosis should be added." (Source Coding Clinic 2 QTR90. p3-4) LORI
== END 2020-02-01 11:32 | disposition home health service (06) | DRG 854 ==
LOC: ED 18:00 → 2S 22:50 → SUATTDRO 22:50 → 2S 23:24 → 3W 01-28 16:40

== ENCOUNTER 2020-02-02 16:37 | Inpatient (IN) ==
[2020-02-02] MEDS ORDERED: GLUCOSE 40% GEL 15 GM TUBE PO PRN (16:58)
[2020-02-02] MEDS ORDERED: GLUCAGON FOR INJ 1 MG VIAL SQ PRN (16:58)
[2020-02-02] MEDS ORDERED: GLUCOSE 10 TABS/TUBE PO PRN (16:58)
[2020-02-02] MEDS ORDERED: DEXTROSE 50% 50 ML SYRINGE IV PRN (16:58)
[2020-02-02] MEDS ORDERED: CARBOHYDRATES FOR HYPOGLYCEMIA PO PRN (16:58)
[2020-02-02] MEDS ORDERED: PIPERACILL/TAZOBAC CONSULT ACTIVE PRN (17:04)
[2020-02-02] MEDS ORDERED: PATIENT'S HEIGHT AND/OR WEIGHT NEEDED SCH (17:15)
[2020-02-02] MEDS ORDERED: PIPERACILLIN/TAZOBACTAM 3.375 GM in DEXTROSE 5% 100 ML IV SCH (17:15)
[2020-02-02] MEDS ORDERED: PIPERACILLIN/TAZOBACTAM 4.5 GM in DEXTROSE 5% 100 ML IV ONE ×2 (17:30→20:15)
[2020-02-02 17:34] LABS: Basophils # (auto) 0.01 K/uL (0-0.2); Basophils % (auto) 0.1 %; Eosinophils # (auto) 0.07 K/uL (0-0.5); Eosinophils % (auto) 0.7 %; Hematocrit (blood only) 30.7 % (42-52); Hemoglobin 10.2 g/dL (14.0-18.0); Immature Granulocytes # (auto) 0.12 K/uL (0.00-0.02); Immature Granulocytes % (auto) 1.1 %; Lymphocytes # (auto) 1.52 K/uL (1.2-3.4); Lymphocytes % (auto) 14.3 %; Mean Corpuscular Hemoglobin 29.9 pg (25-34); Mean Platelet Volume 8.4 fL (7.4-10.4); Monocytes # (auto) 0.78 K/uL (0.11-0.59); Monocytes % (auto) 7.3 %; Neutrophils # (auto) 8.13 K/uL (1.4-6.5); Neutrophils % (auto) 76.5 %; Platelet Count 404 K/uL (130-400); RDW Coefficient of Variation 14.7 % (11.5-14.5); RDW Standard Deviation 48.6 fL (36.4-46.3); Red Blood Count 3.41 M/uL (4.7-6.1); White Blood Count 10.63 K/uL (4.8-10.8)
--- NOTE | 2020-02-02 17:44 | History & Physical Report ---
Date of Service February 02, 2020 Assessment & Plan (1) Osteomyelitis of right foot: Staphylococcus Bacteremia possible surgical site infection / gangrene -This 49 year old Male who was admitted on 01/23/2020 and found to have right foot osteomyelitis and abscesses in the setting of type 1 diabetes and had been operated on by orthopedics on 01/24/2020(patient had 6 Incision and Drainage Septic Right Foot Dorsal abscess, incision and drainage lateral foot abscess; Tenosynovectomy Extensor Digitorum Tendons(x4 ), exploration with irrigation and debridement plantar deep space foot, irrigation debridement tarsal tunnel, tenosynovectomy extensor hallucis longus tendon, excision avulsion fracture lateral cuboid, placement of deep Hemovac suction drains x2 by ortho Dr. Whitfield (hemovac discontinued by ortho on ) and also treated with IV antibiotics Staphylococcus aureus bacteremia with right arm PICC line placed on 01/31/2020 and then to continue IV Cefazolin as 2 grams every 8 hours for 6 weeks with expected stop date on for February. -On follow up to wound care center center on 02/02/2020, the wound care Dr. Dolan reported "that compared to patient's last inpatient picture, appears the foot is more erythematous, inflamed and edematous. There is some purulent drainage coming from the main dorsal wound. There is drainage from all suture lines." also that patient's blood pressure was was 90/60 and that the Patient's left first toe also appears to be turning gangrene. His foot was painted with Betadine and Other wounds covered with Adaptic and Aquacel Ag -He was sent back to hospital as direct admission for further management of the right foot. On arrival, to the medical hull, patient does not appear to be tachycardic and with normal blood pressure of 143/83. I taken down the right foot dressing and see that there are not much draining from the suture sites of the. There is an abrasion of the right foot 2nd toe which will have surface wound culture taken. The left foot with which is the unoperated side with dry 2nd toe eschar. -On review of systems: no fever, no dizziness, no headache. no chest pain, no shortness of breath. no vomiting. -surface wound culture sent from right foot left toe as there is minimal drainage seen -orthopedics Dr. Whitfield aware to evaluate -NPO after midnight Type II diabetes mellitus with intermediate designer current use of insulin -HbA1c 12.9 -home dose metformin and Victoza and Tresiba -will have aspart sliding scale -aspart 15 units TID with meals (hold if NPO) Lantus 10 units daily for now because NPO after midnight on 02/03/2020 in case of surgical procedure Hypertension: Hyperlipidemia -continue lisinopril and amlodipine -continue home dose Lovastatin 40 mg qhs sleep apnea -on CPAP at bedtime. DVT prophylaxis: SCDs to left foot only Admission and Anticipated Discharge Date Admission Date: February 02, 2020 History of Present Illness This 49 year old Male who was admitted on 01/23/2020 and found to have right foot osteomyelitis and abscesses in the setting of type 1 diabetes and had been operated on by orthopedics on 01/24/2020(patient had 6 Incision and Drainage Septic Right Foot Dorsal abscess, incision and drainage lateral foot abscess; Tenosynovectomy Extensor Digitorum Tendons(x4 ), exploration with irrigation and debridement plantar deep space foot, irrigation debridement tarsal tunnel, tenosynovectomy extensor hallucis longus tendon, excision avulsion fracture lateral cuboid, placement of deep Hemovac suction drains x2 by ortho Dr. Whitfield (hemovac discontinued by ortho on 01/28/20202) and also treated with IV antibiotics Staphylococcus aureus bacteremia with right arm PICC line placed on 01/31/2020 and then to continue IV Cefazolin as 2 grams every 8 hours for 6 weeks with expected stop date on for February. On follow up to wound care center center on 02/02/2020, the wound care Dr. Dolan reported "that compared to patient's last inpatient picture, appears the foot is more erythematous, inflamed and edematous. There is some purulent drainage coming from the main dorsal wound. There is drainage from all suture lines." also that patient's blood pressure was was 90/60 and that the Patient's left first toe also appears to be turning gangrene. His foot was painted with Betadine and Other wounds covered with Adaptic and Aquacel Ag He was sent back to hospital as direct admission for further management of the right foot. On arrival, to the medical hull, patient does not appear to be tachycardic and with normal blood pressure of 143/83. I taken down the right foot dressing and see that there are not much draining from the suture sites of the. There is an abrasion of the right foot 2nd toe which will have surface wound culture taken. The left foot with which is the unoperated side with dry 2nd toe eschar. On review of systems: no fever, no dizziness, no headache. no chest pain, no shortness of breath. no vomiting. Primary Care Provider: Joanne Sheikh MD Allergies Allergy/AdvReac Type Severity Reaction Status Date / Time No Known Allergies Allergy Verified 02/02/20 14:44 Home Medications Home Medications Medication Instructions Recorded Confirmed Type Tresiba FlexTouch U-200 156 unit SUBCUT QAM 06/25/19 01/23/20 History Victoza 3-Moy 1.8 mg SUBCUT QAM 06/25/19 01/23/20 History citalopram [Celexa] 40 mg PO QAM 06/25/19 01/23/20 History insulin aspart U-100 [Novolog 15 unit SUBCUT TIDM 06/25/19 01/23/20 History Flexpen U-100 Insulin] lisinopril 2.5 mg PO QAM 06/25/19 01/23/20 History lovastatin 40 mg PO HS 06/25/19 01/23/20 History metformin [Glucophage XR] 2,000 mg PO QAM 06/25/19 01/23/20 History indomethacin 50 mg PO BID PRN 01/07/20 01/23/20 History cefazolin 2 gm IV Q8H 40 Days #40 ea 01/30/20 Rx acetaminophen 325 mg PO Q6H PRN 7 Days #28 tab 02/01/20 Rx amlodipine [Norvasc] 5 mg PO QAM 30 Days #30 tab 02/01/20 Rx Past Med/Surg History Social History Smoking Status: Never smoker Hx Alcohol Use: No Hx Substance Use: No Preferred Language: Maori Communication Ability: Effective Beliefs That Will Affect Care: None marital status: Current Living Situation: Spouse current occupational status: employed Feels Safe at Home: Yes Review of Systems Review of Systems: All systems reviewed & are unremarkable except as noted in Subjective Physical Exam Constitutional: + obese Eyes: PERRL, conjunctivae normal, anicteric sclerae EOM intact bilaterally ENMT: external ear and nose normal, oropharynx normal Neck: trachea midline, no thyromegaly normal visual inspection Respiratory: normal respiratory effort, lungs clear to auscultation Cardiovascular: Rate/Rhythm: regular rate Gastrointestinal (Abdomen): normal bowel sounds, soft, nontender, no hepatosplenomegaly Musculoskeletal: Head/Neck/Chest: normocephalic and head atraumatic Skin: I taken down the right foot dressing and see that there are not much draining from the suture sites of the. There is an abrasion of the right foot 2nd toe which will have surface wound culture taken. The left foot with which is the unoperated side with dry 2nd toe eschar. Neurologic: PERRL, EOMI, accommodation nl, no face palsy, no dysarthria Psychiatric: A+Ox3, euthymic affect Results & Data Results & Data ([facility]) Vital Signs (Past 12 Hours) Vital Signs Temp Pulse Resp BP Pulse Ox 02/02/20 16:59 37 C 98 H 18 143/84 H 94 Code Status & VTE Plan VTE Prophylaxis Plan VTE Prophylaxis will be ordered: Yes
[2020-02-02 17:46] LABS: Mean Corpuscular Hgb Conc 33.2 g/dL (32-36)
[2020-02-02 17:52] LABS: Alanine Aminotransferase 16 U/L (12-78); Albumin Level 1.6 gm/dl (3.4-5.0); Aspartate Aminotransferase 15 U/L (15-37); BUN Creatinine Ratio 21.1 (10-20); Blood Urea Nitrogen 16 mg/dl (7-18); Calcium 8.5 mg/dl (8.5-10.1); Carbon Dioxide 25 mmol/L (21-32); Chloride 108 mmol/L (98-107); Est GFR (African American) 125.2; Est GFR (Non-African American) 108.1; Glucose 113 mg/dl (70-99); Potassium 4.1 mmol/L (3.5-5.1); Sodium 137 mmol/L (136-145)
[2020-02-02 17:55] LABS: Albumin Globulin Ratio 0.3 (0.9-2); Alkaline Phosphatase 173 U/L (45-117); Bilirubin,Total 0.7 mg/dl (0.2-1); Globulin 5.6 gm/dl (2.5-4.0); Total Protein 7.2 gm/dl (6.4-8.2)
[2020-02-02] MEDS ORDERED: CEFAZOLIN 2000MG 2,000 MG/15 ML SYR IV SCH (18:00)
[2020-02-02 18:05] LABS: INR 1.1 (0.9-1.1); Partial Thromboplastin Time 26.6 Seconds (21.0-31.0); Prothrombin Time 11.6 Seconds (9.0-12.0)
[2020-02-02] MEDS ORDERED: LOVASTATIN 20 MG TAB PO SCH (21:00)
[2020-02-02] MEDS ORDERED: INSULIN ASPART 100 UNITS/ML 3 ML PEN SC SCH ×2 (21:00)
[2020-02-02] MEDS ORDERED: Nursing to Pharmacy Communication SCH (23:15)
[2020-02-03] MEDS: PIPERACILLIN/TAZOBACTAM 4.5 GM in DEXTROSE 5% 100 ML IV SCH ×3 (02:50→18:20)
[2020-02-03] MEDS ORDERED: LIDOCAINE HCL 2% 2 ML VIAL/AMP(20MG/ML) INFIL ONE (07:00)
[2020-02-03] MEDS ORDERED: PROPOFOL IV EMULSION 10 MG/ML 20 ML VIAL IV ONE ×2 (07:00→09:43)
[2020-02-03] MEDS ORDERED: ONDANSETRON INJ 2 MG/ML 2 ML VIAL ONE (07:00)
[2020-02-03] MEDS ORDERED: fentaNYL citrate 100 MCG/2 ML VIAL ONE (07:01)
[2020-02-03] MEDS ORDERED: MIDAZOLAM HCL 1 MG/ML 2ML VIAL ONE ×2 (07:01→08:24)
[2020-02-03] MEDS ORDERED: BACITRACIN INJ 50,000 UNIT VIAL ONE ×2 (07:03→08:30)
[2020-02-03] MEDS ORDERED: BUPIVACAINE 0.5 % 5 MG/1 ML MPF 30ML VIAL ONE (07:03)
--- NOTE | 2020-02-03 07:24 | Anesthesiology Consultation ---
Date of Service February 03, 2020 Assessment & Plan (1) Encounter for pre-operative examination: Chart Review Chart Review: Acceptable Risk for Surgery History Surgery Operation Date: 02/03/20 07:30 Proposed Procedures p Incision and Drainage Right Foot Abcess(Right) - Barrera Whitfield DO Height/Weight Height: 6 ft Weight: 174.1 kg Allergies Allergy/AdvReac Type Severity Reaction Status Date / Time No Known Allergies Allergy Verified 02/02/20 14:44 Medications Home Medications Medication Instructions Recorded Confirmed Last Taken Tresiba FlexTouch U-200 156 unit SUBCUT QAM 06/25/19 01/23/20 01/07/20 Victoza 3-Moy 1.8 mg SUBCUT QAM 06/25/19 01/23/20 01/07/20 citalopram [Celexa] 40 mg PO QAM 06/25/19 01/23/20 01/07/20 insulin aspart U-100 [Novolog 15 unit SUBCUT TIDM 06/25/19 01/23/20 01/05/20 Flexpen U-100 Insulin] lisinopril 2.5 mg PO QAM 06/25/19 01/23/20 01/07/20 lovastatin 40 mg PO HS 06/25/19 01/23/20 01/07/20 metformin [Glucophage XR] 2,000 mg PO QAM 06/25/19 01/23/20 01/07/20 indomethacin 50 mg PO BID PRN 01/07/20 01/23/20 Unknown cefazolin 2 gm IV Q8H 40 Days #40 ea 01/30/20 Unknown acetaminophen 325 mg PO Q6H PRN 7 Days #28 tab 02/01/20 Unknown amlodipine [Norvasc] 5 mg PO QAM 30 Days #30 tab 02/01/20 Unknown Active Medications Generic Name Dose Route Start Last Admin Trade Name Freq PRN Reason Stop Dose Admin Heparin Sodium (Beef Lung) 5 ml 02/02/20 21:30 02/03/20 06:50 Heparin Sod 10 Unit/Ml Flush FLUSH 03/03/20 21:29 5 ml PRN PRN Administration Flush Piperacillin Sod/Tazobactam 120 mls @ 30 mls/hr 02/03/20 02:00 02/03/20 06:50 Sod 4.5 gm/ Dextrose IV 02/17/20 01:59 Infused Q8H [facility] Infusion Protocol Insulin Aspart 0 units 02/02/20 21:00 02/02/20 21:41 Novolog Flexpen SC 03/03/20 20:59 Not Given ACHS DISHA NPO Date Last Intake of Fluids: 02/02/20 Time Last Intake of Fluids: 19:30 Date Last Intake of Solids: 02/02/20 Time Last Intake of Solids: 19:30 Past Medical History Medical History Abdominal wall cellulitis (Inactive) Diabetes (Chronic) Foot abscess, right Hypertension Lazy eye (Chronic) Morbid obesity with BMI of 45.0-49.9, adult Osteomyelitis of right foot (Acute) Psoriasis Sepsis (Acute) Sleep apnea (Chronic) Staphylococcus aureus bacteremia 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 Past Family History Family History Grandfather (Maternal) Coronary heart disease Grandfather (Paternal) Coronary heart disease Other No significant family history Past Surgical History Surgical History (Updated 02/03/20 @ 07:22 by Darin Rae MD) H/O foot surgery I&D Social History Smoking Status: Never smoker Do You Dip or Chew Tobacco: No Hx Alcohol Use: No Hx Substance Use: No Physical Exam Vital Signs Last Vital Signs Temp 36.9 C 02/03/20 07:08 Pulse 89 02/03/20 07:08 Resp 14 02/03/20 07:08 BP 164/96 H 02/03/20 07:08 Pulse Ox 97 02/03/20 07:08 Testing Laboratory Results 02/02/20 17:25 02/02/20 17:25 PT 11.6 Seconds (9.0-12.0) 02/02/20 17:37 INR 1.1 (0.9-1.1) 02/02/20 17:37 APTT 26.6 Seconds (21.0-31.0) 02/02/20 17:37 Blood Type A Negative 02/02/20 17:25 Antibody Screen NEGATIVE 02/02/20 17:25 02/03/20 02/03/20 02/02/20 06:02 00:01 20:26 POC Glucose 105 H 164 H 125 H Electrocardiogram Date: 01/23/20 Findings: + RBBB (incomplete) and + ST @ (128) Chest X-Ray Date: 01/23/20 Findings: + NAD Echocardiogram Date: 01/25/20 EF: 55-60% LV Function: normal Valvular Disease: + no significant valvular disease
[2020-02-03] MEDS ORDERED: ROPIVACAINE 0.5% 5 MG/ML 30 ML VIAL ONE (07:41)
[2020-02-03] MEDS ORDERED: ATROPINE SULFATE 0.1 MG/ML 10ML SYR IV PRN (07:46)
[2020-02-03] MEDS ORDERED: HYDROmorphone INJ 1 MG/ML SYRINGE IV PRN (07:46)
[2020-02-03] MEDS ORDERED: KETOROLAC 30 MG/ML VIAL IV PRN (07:46)
[2020-02-03] MEDS ORDERED: LABETALOL HCL IV 5 MG/ML 20ML IV PRN (07:46)
[2020-02-03] MEDS ORDERED: ONDANSETRON INJ 2 MG/ML 2 ML VIAL IV PRN (07:46)
--- NOTE | 2020-02-03 07:57 | History & Physical Bridge Note ---
Date of Service February 03, 2020 History & Physical Bridge Note I have examined the patient, reviewed the History & Physical and in the interval since the performance of the History & Physical I have noted the following changes of clinical significance: Please see full consult. Will require incision and drainage abscess dorsal foot, irrigation and debridement medial foot necrosis.
[2020-02-03] MEDS ORDERED: INSULIN GLARGINE SOLOSTAR 100 UNITS/ML 3 ML PEN SC SCH (09:00)
--- NOTE | 2020-02-03 09:59 | Post Operative Brief Note ---
Immediate Post Op Note v1 Date of Surgery February 03, 2020 Pre & Post Diagnosis Operation Date: 02/03/20 07:30 Pre-Op Diagnosis: Right Foot recurrent dorsal foot abscess, septic tenosynovitis second toe extensor, tenosynovitis dorsal foot, eschar dorsal foot, Charcot arthropathy, diabetes mellitus, morbid obesity Post-Op Diagnosis: Right Foot recurrent dorsal foot abscess, septic tenosynovitis second toe extensor, tenosynovitis dorsal foot, eschar dorsal foot, Charcot arthropathy, diabetes mellitus, morbid obesity I identified the patient and participated in the time-out.: Yes Procedure Operation Date: 02/03/20 07:30 Actual Procedures p right foot capsulotomy 2nd MPJ with synovectomy, Right Second Toe Extensor Tenosynovectomy, arthrotomy second toe proximal interphalangeal joint with synovectomy, incision and Drainage dorsal foot abscess, Lateral Foot Abscess Incision and Drainage, Medial Foot Abscess Incision and Drainage, Plantar Foot Abscess Incision and Drainage (Right) - Barrera Whitfield DO Surgeon Barrera Whitfield DO Insulation Hoseman None Estimated Blood Loss 25 Findings Consistent with Post-Op Diagnosis Specimens Aerobic anaerobic Gram stain dorsal foot abscess Drains Other (1/2 inch iodoform gauze drains x8) Anesthesia Type MAC Regional Complications none Disposition Accompanied Patient To Recovery: Yes Disposition: Recovery Room
--- NOTE | 2020-02-03 10:12 | Anesthesiology Progress Note ---
Date of Service February 03, 2020 Anesthesia Post Procedure Vital Signs Vital Signs: Temp Pulse Resp BP Pulse Ox 02/03/20 10:06 81 18 146/93 H 93 02/03/20 09:56 86 18 144/84 H 94 02/03/20 09:46 36.6 C 86 18 176/97 H 96 02/03/20 07:42 88 16 166/98 H 94 02/03/20 07:08 36.9 C 89 14 164/96 H 97 02/03/20 00:02 36.8 C 95 H 18 153/91 H 94 02/02/20 18:23 36.8 C 92 H 20 130/78 95 02/02/20 16:59 37 C 98 H 18 143/84 H 94 Transfer of Care Handoff Completed per policy Notes Mental Status: alert / awake / arousable Patient Amnestic to Procedure: Yes Nausea / Vomiting: adequately controlled Pain: adequately controlled Airway Patency, RR, SpO2: stable & adequate BP & HR: stable & adequate Hydration State: stable & adequate Anesthetic Complications: no major complications apparent
--- NOTE | 2020-02-03 10:24 | Consultation Report ---
DATE OF CONSULTATION: 02/03/2020 PERTINENT HISTORY: This is a 49-year-old gentleman seen at the request of Dr. Sean Mora after the patient turned to [facility] upon readmission for right foot presumed recurrent abscess with Charcot arthropathy and reported sepsis and possible bacteremia. The patient was admitted to the hospital initially on 01/23/2020 and I had taken to the OR on 01/24/2020 where he had extensive incision and drainage of multiple abscesses and debridement of septic tenosynovitis, resection of an avulsion fracture among other procedures. The patient was placed on IV antibiotics. He is markedly improved since that time and was stable for discharge on 01/31/2020. The patient was seen in Wound Care Center on 02/02/2020 and per the wound care physician, he felt that the patient was tachycardic with low blood pressure, concern for sepsis and recommended readmission to the [facility]. He spoke with hospitalist service and the patient was then readmitted to Dr. Mora's service with Orthopedics consult. The patient says he has some intermittent discomfort in the foot; however, overall it has been markedly improved compared to prior to surgery. He noted an area in the dorsum of the foot that has been slow to heal due to initial wound necrosis. No complaints of lightheadedness or dizziness at this time. Vitals are stable. PAST MEDICAL HISTORY: Type 2 diabetes mellitus, morbid obesity, recent osteomyelitis with bacteremia and sepsis, sleep apnea. PAST SURGICAL HISTORY: Surgery as listed above; otherwise, noncontributory. ALLERGIES: No known drug allergies. MEDICATIONS: Please note the list in the medical record. SOCIAL HISTORY: Denies tobacco, alcohol or drug use. He is . He is employed. PHYSICAL EXAMINATION: This is a 49-year-old obese gentleman who is lying supine in his hospital room bed. He is alert and oriented x3. Speech clear and fluent. Affect is appropriate. Cranial nerves II-XII are grossly intact. Examination of right foot demonstrates previous incisions with sutures intact. Area on the dorsum of the foot with some local eschar and wound necrosis. No obvious deep necrosis; however, he does have some local drainage in the dorsum in the foot, appears purulent. The remaining incisions have normal serous discharge. No obvious purulence. The medial incision has some mild wound maceration. LABORATORIES AND RADIOGRAPHS: Reviewed. IMPRESSION: Recurrent abscess dorsum of the foot, possible local wound maceration and slough medial, severe diabetes mellitus, recent sepsis and bacteremia and diabetic neuropathy. RECOMMENDATION: The patient will be scheduled for incision and drainage dorsal foot abscess, irrigation and debridement medial incision and other debridement and washout as necessary. Thank you for the opportunity to consult in care of this patient.
--- NOTE | 2020-02-03 10:47 | Operative Report (OR) ---
DATE OF OPERATION: 02/03/2020 PREOPERATIVE DIAGNOSES: 1. Right foot recurrent abscess, dorsal foot. 2. Septic tenosynovitis of the second toe extensor. 3. Tenosynovitis of the dorsal foot. 4. Eschar, dorsal foot. 5. Charcot arthropathy. 6. Diabetes mellitus. 7. Morbid obesity. POSTOPERATIVE DIAGNOSES: 1. Right foot recurrent abscess, dorsal foot. 2. Septic tenosynovitis of the second toe extensor. 3. Tenosynovitis of the dorsal foot. 4. Eschar, dorsal foot. 5. Charcot arthropathy. 6. Diabetes mellitus. 7. Morbid obesity. 8. Synovitis of the second toe proximal interphalangeal joint. 9. Synovitis of the second metatarsophalangeal joint. PROCEDURES PERFORMED: 1. Right foot capsulotomy, second metatarsophalangeal joint with synovectomy. 2. Right second toe extensor tenosynovectomy. 3. Arthrotomy second toe proximal interphalangeal joint with synovectomy. 4. Incision and drainage of dorsal foot abscess. 5. Incision and drainage of lateral foot abscess. 6. Incision and drainage of medial foot abscess. 7. Incision and drainage of plantar foot abscess. SURGEON: Barrera Whitfield DO. CASINO CHANGE ATTENDANT: None. ANESTHESIA: MAC regional. SPECIMENS: Aerobic, anaerobic, Gram stain of dorsal foot abscess. DRAINS: 1/2 inch iodoform gauze drains x8. COMPLICATIONS: None. BLOOD LOSS: 25 mL. PERTINENT HISTORY: This is a 49-year-old diabetic with morbid obesity, who previously underwent incision and drainage, irrigation and debridement of multiple abscesses of his right foot on 01/24/2020. He had drains placed and iodoform gauze wick drains. He had those pulled. He was on IV antibiotics, he was doing well, was discharged from the hospital on 01/31 and the patient was discharged to home. He was doing fairly well and then was seen in the wound care center the next day and had an episode where he had a low blood pressure. The wound care physician had concerns regarding the appearance of the foot, considered his complicated history and some drainage that he noted, recommended readmission to the hospital for further surgical management. The patient was then seen by the hospitalist, admitted and then consultation with orthopedics was performed. The patient is scheduled for surgery as indicated. All potential risks, benefits, complications, alternatives, rehab potential for incomplete relief of symptoms, need for further surgery, DVT, PE, , persistent pain, swelling, scarring, weakness, neurovascular injury, wound complications, need for further irrigation and debridement, and possible amputation were discussed with the patient. The patient decided to proceed with the procedure as indicated. DESCRIPTION OF PROCEDURE: The patient was taken to the operative suite after regional anesthetic was administered, the patient was then placed supine on the operating room table. He was sedated. Proper operative site was identified. Surgical timeout was performed. Right lower extremity was then sterilely prepped and draped in usual fashion and a limited exsanguination was performed with Esmarch bandage at the level of the ankle. An Esmarch tourniquet was applied over sterile surgical towel at the level of the ankle. Next, all sutures from previous surgery were removed from dorsal, plantar, medial and lateral aspects of the foot. There was noted to be an area of skin excoriation. Local fluctuance on the dorsum of the second toe proximal interphalangeal joint. Axial incision was made with 15 blade scalpel. The incision was deepened through subcutaneous tissue. The extensor tendon was identified and noted to be some local tenosynovitis. Tenosynovectomy was then performed with a rongeur and then a dorsal arthrotomy was made in the second toe proximal interphalangeal joint. Synovectomy was performed and this was irrigated with pulsatile lavage with bacitracin. Next, a dorsal incision was made over the second metatarsophalangeal joint area of local tissue edema, concern for possible deep abscess. A 15 blade scalpel incision was made over the second metatarsophalangeal joint. It was deepened through the subcutaneous tissue. Judicious hemostasis was performed with electrocautery. Weitlaner retractor was placed in the incision revealing the second extensor tendon. Tenosynovectomy was performed with tenotomy scissors and a rongeur. Dorsal capsulotomy was performed of the second metatarsophalangeal joint followed by synovectomy. No gross purulence was noted at the site. Local serous fluid was appreciated. Next, the dorsal abscess site from prior incision was then opened, noted to be serous fluid, possible abscess fluid. This was sent for culture, aerobic, anaerobic and Gram stain, specimen sent for laboratory analysis. Next, the medial incision was then opened with tenotomy scissors. No obvious abscess; however, serous fluid was present. The lateral incision was then opened with Metzenbaum scissors. Local clot and serous fluid without any convincing abscess; however, abundant coagulated blood. Next, the plantar incision was then opened and local serous fluid was also present. Next, a large curette was then used to curettage all soft tissues around the medial, lateral, plantar and dorsal incisions. Rongeur was then used to resect any necrotic-appearing tissue and any caseative necrosis of fat tissue. Next, pulsatile lavage 6 liters with bacitracin and saline was then used to cleanse the dorsal, plantar, medial and lateral incisions and then also over the second metatarsophalangeal arthrotomy, capsulotomy and the arthrotomy of the second toe proximal interphalangeal joint until clear. Next, top gloves and top sheath were changed. 1/2 inch iodoform gauze wick drains were placed in all incisions and then loosely closed with interrupted 3-0 nylon sutures. Next, a sterile compressive dressing was applied overwrapped with an George wrap. The tourniquet was released. The patient was awakened and taken to recovery in stable condition. I attest to the content of the Intraoperative Record and any orders documented therein. Any exception s are noted below.
[2020-02-03] MEDS ORDERED: SODIUM CHLORIDE 0.9% 1000ML 1,000 ML IV SCH (11:30)
[2020-02-03] MEDS: LOVASTATIN 20 MG TAB PO SCH (11:30)
[2020-02-03] MEDS: CITALOPRAM 40 MG TAB PO SCH (11:30)
[2020-02-03] MEDS: AMLODIPINE BESYLATE 5 MG TAB PO SCH (11:30)
--- NOTE | 2020-02-03 11:31 | Hospitalist Progress Note ---
Date of Service February 03, 2020 Assessment & Plan (1) Osteomyelitis of right foot: Osteomyelitis of right foot, right foot abscesses Staphylococcus Bacteremia -This 49 year old Male who was admitted on 01/23/2020 and found to have right foot osteomyelitis and abscesses in the setting of type 1 diabetes and had been operated on by orthopedics on 01/24/2020(patient had 6 Incision and Drainage Septic Right Foot Dorsal abscess, incision and drainage lateral foot abscess; Tenosynovectomy Extensor Digitorum Tendons(x4 ), exploration with irrigation and debridement plantar deep space foot, irrigation debridement tarsal tunnel, tenosynovectomy extensor hallucis longus tendon, excision avulsion fracture lateral cuboid, placement of deep Hemovac suction drains x2 by ortho Dr. Whitfield (hemovac discontinued by ortho on ) and also treated with IV antibiotics Staphylococcus aureus bacteremia with right arm PICC line placed on 01/31/2020 and then to continue IV Cefazolin as 2 grams every 8 hours for 6 weeks with expected stop date on for February. -On follow up to wound care center center on 02/02/2020, the wound care Dr. Dolan reported "that compared to patient's last inpatient picture, appears the foot is more erythematous, inflamed and edematous. There is some purulent drainage coming from the main dorsal wound. There is drainage from all suture lines." also that patient's blood pressure was was 90/60 and that the Patient's left first toe also appears to be turning gangrene. His foot was painted with Betadine and Other wounds covered with Adaptic and Aquacel Ag -He was sent back to hospital as direct admission for further management of the right foot. On arrival, to the medical hull, patient does not appear to be tachycardic and with normal blood pressure of 143/83. I taken down the right foot dressing and see that there are not much draining from the suture sites of the. There is an abrasion of the right foot 2nd toe which will have surface wound culture taken. The left foot with which is the unoperated side with dry 2nd toe eschar. -On review of systems: no fever, no dizziness, no headache. no chest pain, no shortness of breath. no vomiting. -surface wound culture sent from right foot left toe as there is minimal drainage seen -orthopedics Dr. Whitfield took patient to operting room on 02/03/2020 POSTOPERATIVE DIAGNOSES: 1. Right foot recurrent abscess, dorsal foot. 2. Septic tenosynovitis of the second toe extensor. 3. Tenosynovitis of the dorsal foot. 4. Eschar, dorsal foot. 5. Charcot arthropathy. 6. Diabetes mellitus. 7. Morbid obesity. 8. Synovitis of the second toe proximal interphalangeal joint. 9. Synovitis of the second metatarsophalangeal joint. PROCEDURES PERFORMED by Dr. Whitfield on 02/03/2020 1. Right foot capsulotomy, second metatarsophalangeal joint with synovectomy. 2. Right second toe extensor tenosynovectomy. 3. Arthrotomy second toe proximal interphalangeal joint with synovectomy. 4. Incision and drainage of dorsal foot abscess. 5. Incision and drainage of lateral foot abscess. 6. Incision and drainage of medial foot abscess. 7. Incision and drainage of plantar foot abscess. 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 DVT prophylaxis: SCDs to left foot only Admission and Anticipated Discharge Date Admission Date: February 02, 2020 Subjective Patient returns from operating room after having right foot capsulotomy 2nd MPJ with synovectomy, Right Second Toe Extensor Tenosynovectomy, arthrotomy second toe proximal interphalangeal joint with synovectomy, incision and Drainage dorsal foot abscess, Lateral Foot Abscess Incision and Drainage, Medial Foot Abscess Incision and Drainage, Plantar Foot Abscess Incision and Drainage (Right) no acute distress. breathing on room air. no chest pain. no palpitations. no dizziness. no abdomen pain. he denies acute pain of the legs Review of Systems Review of Systems: All systems reviewed & are unremarkable except as noted in Subjective Physical Exam Constitutional: + obese Eyes: PERRL, conjunctivae normal, anicteric sclerae EOM intact bilaterally ENMT: external ear and nose normal, oropharynx normal Neck: trachea midline, no thyromegaly normal visual inspection Respiratory: normal respiratory effort, lungs clear to auscultation Cardiovascular: Rate/Rhythm: regular rate Gastrointestinal (Abdomen): normal bowel sounds, soft, nontender, no hepatosplenomegaly Musculoskeletal: Head/Neck/Chest: normocephalic and head atraumatic right foot in dressing Neurologic: PERRL, EOMI, accommodation nl, no face palsy, no dysarthria Psychiatric: A+Ox3, euthymic affect Results & Data Results & Data ([facility]) Vital Signs (Past 12 Hours) Vital Signs Temp Pulse Resp BP Pulse Ox 02/03/20 11:21 36.8 C 81 18 161/84 H 96 02/03/20 10:30 36.6 C 86 18 159/99 H 94 02/03/20 10:15 36.4 C L 83 18 150/88 H 94 02/03/20 10:06 81 18 146/93 H 93 02/03/20 09:56 86 18 144/84 H 94 02/03/20 09:46 36.6 C 86 18 176/97 H 96 02/03/20 07:42 88 16 166/98 H 94 02/03/20 07:08 36.9 C 89 14 164/96 H 97 02/03/20 00:02 36.8 C 95 H 18 153/91 H 94
[2020-02-03] MEDS ORDERED: PHARMACY GLYCEMIC MGMT CONSULT PRN (11:33)
[2020-02-03] MEDS ORDERED: INSULIN GLARGINE SOLOSTAR 100 UNITS/ML 3 ML PEN SC ONE (13:00)
--- NOTE | 2020-02-03 13:28 | Pharmacy Report ---
Pharmacy Glycemic Short Note 2 - Date of Service February 03, 2020 - Glycemic Short BSG Results (Last 24 hours): 02/02/20 02/02/20 02/03/20 17:25 20:26 00:01 Glucose 113 H POC Glucose 125 H 164 H 02/03/20 02/03/20 02/03/20 06:02 10:04 11:18 Glucose POC Glucose 105 H 105 H 111 H OUTPATIENT ANTIDIABETIC REGIMEN: * Tresiba 156 units SC qAM * Novolog 15 units TIDM * Victoza 1.8 mg SC daily * Metformin 2g PO qAM * HbA1c: 12.9% (01/24/20) ASSESSMENT: * SH is a 49 year old male now POD #0 s/p I&D of right foot * Pharmacy consulted for glycemic management postoperatively * Pharmacy also consulted during recent admission (discharged on 02/01/20) - will use this data to help with initial insulin dosing * Receiving Zosyn 4.5 g IV q8h for treatment of right foot osteomyelitis/tenosynovitis PLAN FOR INPATIENT GLYCEMIC CONTROL: * Hold outpatient oral diabetes medications * Basal insulin * Lantus 10 units given per provider order, will add 50 units this afternoon to make total of 60 units today * --Per previous admission data (mentioned above) - 60 units of basal is reasonable to start. Will adjust as necessary. * Bolus insulin * NovoLog per scale ACHS or Q6hrs while NPO * Goal Range: Low 110 mg/dL - High 140 mg/dL * Correction Factor: 15 mg/dL/unit * Nutritional / Prandial insulin per carb ratio of 1 unit per 5 grams CHO consumed PLAN FOR DISCHARGE: * To be determined
[2020-02-03] MEDS: INSULIN ASPART 100 UNITS/ML 3 ML PEN SC SCH ×3 (13:34→21:13)
[2020-02-03] MEDS ORDERED: ACETAMINOPHEN 325 MG TAB PO PRN (17:56)
[2020-02-03] MEDS ORDERED: Nursing to Pharmacy Communication SCH (18:00)
[2020-02-04] MEDS ORDERED: INSULIN ASPART 100 UNITS/ML 3 ML PEN SC ONE (02:00)
[2020-02-04] MEDS: PIPERACILLIN/TAZOBACTAM 4.5 GM in DEXTROSE 5% 100 ML IV SCH ×3 (02:12→18:00)
[2020-02-04 06:28] LABS: Basophils # (auto) 0.01 K/uL (0-0.2); Basophils % (auto) 0.1 %; Eosinophils # (auto) 0.06 K/uL (0-0.5); Eosinophils % (auto) 0.6 %; Hemoglobin 9.8 g/dL (14.0-18.0); Immature Granulocytes # (auto) 0.05 K/uL (0.00-0.02); Immature Granulocytes % (auto) 0.5 %; Lymphocytes # (auto) 1.48 K/uL (1.2-3.4); Lymphocytes % (auto) 14.4 %; Mean Corpuscular Hemoglobin 29.7 pg (25-34); Mean Corpuscular Hgb Conc 32.7 g/dL (32-36); Mean Corpuscular Volume 90.9 fL (80-100); Mean Platelet Volume 8.5 fL (7.4-10.4); Monocytes # (auto) 0.77 K/uL (0.11-0.59); Monocytes % (auto) 7.5 %; Neutrophils # (auto) 7.92 K/uL (1.4-6.5); Neutrophils % (auto) 76.9 %; Platelet Count 442 K/uL (130-400); RDW Coefficient of Variation 14.4 % (11.5-14.5); White Blood Count 10.29 K/uL (4.8-10.8)
[2020-02-04 07:03] LABS: Albumin Level 1.5 gm/dl (3.4-5.0); BUN Creatinine Ratio 16.9 (10-20); Calcium 8.2 mg/dl (8.5-10.1); Creatinine Clr Calc Pharmacy 187.6 ml/min; Est GFR (African American) 123.3; Est GFR (Non-African American) 106.4; Magnesium 1.9 mg/dl (1.8-2.4); Potassium 4.4 mmol/L (3.5-5.1)
[2020-02-04 07:06] LABS: Albumin Globulin Ratio 0.3 (0.9-2); Bilirubin,Total 0.9 mg/dl (0.2-1); Globulin 5.9 gm/dl (2.5-4.0); Phosphorus 4.1 mg/dl (2.5-4.9); Total Protein 7.4 gm/dl (6.4-8.2)
--- NOTE | 2020-02-04 08:46 | Pharmacy Report ---
Pharmacy Glycemic Short Note 2 - Date of Service February 04, 2020 - Glycemic Short BSG Results (Last 24 hours): 02/03/20 02/03/20 02/03/20 10:04 11:18 17:00 Glucose POC Glucose 105 H 111 H 137 H 02/03/20 02/04/20 02/04/20 20:18 01:55 05:37 Glucose 105 H POC Glucose 174 H 113 H 02/04/20 08:24 Glucose POC Glucose 116 H OUTPATIENT ANTIDIABETIC REGIMEN: * Tresiba 156 units SC qAM * Novolog 15 units TIDM * Victoza 1.8 mg SC daily * Metformin 2g PO qAM * HbA1c: 12.9% (01/24/20) ASSESSMENT: * SH is a 49 year old male now POD #1 s/p I&D of right foot * Pharmacy consulted for glycemic management postoperatively * Pharmacy also consulted during recent admission (discharged on 02/01/20) - will use this data to help with initial insulin dosing * Receiving Zosyn 4.5 g IV q8h for treatment of right foot osteomyelitis/tenosynovitis * BSGs well-controlled yesterday - ranging 105-174 mg/dL * Fasting BSG this morning of 116 mg/dL - continue current basal dose PLAN FOR INPATIENT GLYCEMIC CONTROL: * Hold outpatient oral diabetes medications * Basal insulin - continue * Lantus 60 units SC qAM * Bolus insulin - continue parameters from previous admission for now * NovoLog per scale ACHS or Q6hrs while NPO * Goal Range: Low 110 mg/dL - High 140 mg/dL * Correction Factor: 12 mg/dL/unit * Nutritional / Prandial insulin per carb ratio of 1 unit per 5 grams CHO consumed PLAN FOR DISCHARGE: * To be determined
[2020-02-04] MEDS: CITALOPRAM 40 MG TAB PO SCH (08:50)
[2020-02-04] MEDS: AMLODIPINE BESYLATE 5 MG TAB PO SCH (08:50)
[2020-02-04] MEDS: LOVASTATIN 20 MG TAB PO SCH (08:50)
[2020-02-04] MEDS: INSULIN GLARGINE SOLOSTAR 100 UNITS/ML 3 ML PEN SC SCH (08:55)
[2020-02-04] MEDS: INSULIN ASPART 100 UNITS/ML 3 ML PEN SC SCH ×4 (08:55→22:03)
--- NOTE | 2020-02-04 10:13 | Orthopedic Progress Note ---
Date of Service February 04, 2020 Assessment & Plan (1) Osteomyelitis of right foot: 49 yo male stable POD 31 s/p repeat I&D right foot, surgical cultures pending 1. Med management- cont IV abx 2. DVT prophylaxis- SCDs 3. PT/OT 4. D/C planning- per medicine, pt has PICC line in place Admission and Anticipated Discharge Date Admission Date: February 02, 2020 Subjective Pt resting in bed, denies complaints, pain controlled Physical Exam Physical Exam: Surgical dressing in place Results & Data ([facility]) Vital Signs (Past 12 Hours) Vital Signs Temp Pulse Resp BP Pulse Ox 02/04/20 08:01 36.8 C 84 18 171/99 H 95 02/04/20 03:28 36.8 C 89 18 164/97 H 94 02/03/20 23:15 36.8 C 93 H 18 144/84 H 95 Laboratory Results 02/04/20 02/04/20 02/04/20 Range/Units 08:24 05:37 05:37 WBC 10.29 (4.8-10.8) K/uL RBC 3.30 L (4.7-6.1) M/uL Hgb 9.8 L (14.0-18.0) g/dL Hct 30.0 L (42-52) % MCV 90.9 (80-100) fL MCH 29.7 (25-34) pg MCHC 32.7 (32-36) g/dL RDW Std Deviation 48.0 H (36.4-46.3) fL RDW Coeff of José Manuel 14.4 (11.5-14.5) % Plt Count 442 H (130-400) K/uL MPV 8.5 (7.4-10.4) fL Immature Gran % (Auto) 0.5 % Neut % (Auto) 76.9 % Lymph % (Auto) 14.4 % [place] % (Auto) 7.5 % Eos % (Auto) 0.6 % Baso % (Auto) 0.1 % Neut # (Auto) 7.92 H (1.4-6.5) K/uL Lymph # (Auto) 1.48 (1.2-3.4) K/uL [place] # (Auto) 0.77 H (0.11-0.59) K/uL Eos # (Auto) 0.06 (0-0.5) K/uL Baso # (Auto) 0.01 (0-0.2) K/uL Immature Gran # (Auto) 0.05 H (0.00-0.02) K/uL Sodium 137 (136-145) mmol/L Potassium 4.4 (3.5-5.1) mmol/L Chloride 105 (98-107) mmol/L Carbon Dioxide 27 (21-32) mmol/L Anion Gap 5.0 (3-11) BUN 13 (7-18) mg/dl Creatinine 0.80 (0.6-1.4) mg/dl Est Cr Clr Drug Dosing 187.6 ml/min Est GFR ( Amer) 123.3 Est GFR (Non-Af Amer) 106.4 BUN/Creatinine Ratio 16.9 (10-20) Glucose 105 H (70-99) mg/dl POC Glucose 116 H (70-99) mg/dl Calcium 8.2 L (8.5-10.1) mg/dl Phosphorus 4.1 (2.5-4.9) mg/dl Magnesium 1.9 (1.8-2.4) mg/dl Total Bilirubin 0.9 (0.2-1) mg/dl AST 15 (15-37) U/L ALT 14 (12-78) U/L Alkaline Phosphatase 153 H (45-117) U/L Total Protein 7.4 (6.4-8.2) gm/dl Albumin 1.5 L (3.4-5.0) gm/dl Globulin 5.9 H (2.5-4.0) gm/dl Albumin/Globulin Ratio 0.3 L (0.9-2) 02/04/20 02/03/20 02/03/20 Range/Units 01:55 20:18 17:00 WBC (4.8-10.8) K/uL RBC (4.7-6.1) M/uL Hgb (14.0-18.0) g/dL Hct (42-52) % MCV (80-100) fL MCH (25-34) pg MCHC (32-36) g/dL RDW Std Deviation (36.4-46.3) fL RDW Coeff of José Manuel (11.5-14.5) % Plt Count (130-400) K/uL MPV (7.4-10.4) fL Immature Gran % (Auto) % Neut % (Auto) % Lymph % (Auto) % [place] % (Auto) % Eos % (Auto) % Baso % (Auto) % Neut # (Auto) (1.4-6.5) K/uL Lymph # (Auto) (1.2-3.4) K/uL [place] # (Auto) (0.11-0.59) K/uL Eos # (Auto) (0-0.5) K/uL Baso # (Auto) (0-0.2) K/uL Immature Gran # (Auto) (0.00-0.02) K/uL Sodium (136-145) mmol/L Potassium (3.5-5.1) mmol/L Chloride (98-107) mmol/L Carbon Dioxide (21-32) mmol/L Anion Gap (3-11) BUN (7-18) mg/dl Creatinine (0.6-1.4) mg/dl Est Cr Clr Drug Dosing ml/min Est GFR ( Amer) Est GFR (Non-Af Amer) BUN/Creatinine Ratio (10-20) Glucose (70-99) mg/dl POC Glucose 113 H 174 H 137 H (70-99) mg/dl Calcium (8.5-10.1) mg/dl Phosphorus (2.5-4.9) mg/dl Magnesium (1.8-2.4) mg/dl Total Bilirubin (0.2-1) mg/dl AST (15-37) U/L ALT (12-78) U/L Alkaline Phosphatase (45-117) U/L Total Protein (6.4-8.2) gm/dl Albumin (3.4-5.0) gm/dl Globulin (2.5-4.0) gm/dl Albumin/Globulin Ratio (0.9-2) 02/03/20 02/03/20 Range/Units 11:18 10:04 WBC (4.8-10.8) K/uL RBC (4.7-6.1) M/uL Hgb (14.0-18.0) g/dL Hct (42-52) % MCV (80-100) fL MCH (25-34) pg MCHC (32-36) g/dL RDW Std Deviation (36.4-46.3) fL RDW Coeff of José Manuel (11.5-14.5) % Plt Count (130-400) K/uL MPV (7.4-10.4) fL Immature Gran % (Auto) % Neut % (Auto) % Lymph % (Auto) % [place] % (Auto) % Eos % (Auto) % Baso % (Auto) % Neut # (Auto) (1.4-6.5) K/uL Lymph # (Auto) (1.2-3.4) K/uL [place] # (Auto) (0.11-0.59) K/uL Eos # (Auto) (0-0.5) K/uL Baso # (Auto) (0-0.2) K/uL Immature Gran # (Auto) (0.00-0.02) K/uL Sodium (136-145) mmol/L Potassium (3.5-5.1) mmol/L Chloride (98-107) mmol/L Carbon Dioxide (21-32) mmol/L Anion Gap (3-11) BUN (7-18) mg/dl Creatinine (0.6-1.4) mg/dl Est Cr Clr Drug Dosing ml/min Est GFR ( Amer) Est GFR (Non-Af Amer) BUN/Creatinine Ratio (10-20) Glucose (70-99) mg/dl POC Glucose 111 H 105 H (70-99) mg/dl Calcium (8.5-10.1) mg/dl Phosphorus (2.5-4.9) mg/dl Magnesium (1.8-2.4) mg/dl Total Bilirubin (0.2-1) mg/dl AST (15-37) U/L ALT (12-78) U/L Alkaline Phosphatase (45-117) U/L Total Protein (6.4-8.2) gm/dl Albumin (3.4-5.0) gm/dl Globulin (2.5-4.0) gm/dl Albumin/Globulin Ratio (0.9-2)
--- NOTE | 2020-02-04 12:05 | Hospitalist Progress Note ---
Date of Service February 04, 2020 Assessment & Plan (1) Osteomyelitis of right foot: Osteomyelitis of right foot, right foot abscesses Staphylococcus Bacteremia -This 49 year old Male who was admitted on 01/23/2020 and found to have right foot osteomyelitis and abscesses in the setting of type 1 diabetes and had been operated on by orthopedics on 01/24/2020(patient had 6 Incision and Drainage Septic Right Foot Dorsal abscess, incision and drainage lateral foot abscess; Tenosynovectomy Extensor Digitorum Tendons(x4 ), exploration with irrigation and debridement plantar deep space foot, irrigation debridement tarsal tunnel, tenosynovectomy extensor hallucis longus tendon, excision avulsion fracture lateral cuboid, placement of deep Hemovac suction drains x2 by ortho Dr. Whitfield (hemovac discontinued by ortho on ) and also treated with IV antibiotics Staphylococcus aureus bacteremia with right arm PICC line placed on 01/31/2020 and then to continue IV Cefazolin as 2 grams every 8 hours for 6 weeks with expected stop date on for February. -On follow up to wound care center center on 02/02/2020, the wound care Dr. Dolan reported "that compared to patient's last inpatient picture, appears the foot is more erythematous, inflamed and edematous. There is some purulent drainage coming from the main dorsal wound. There is drainage from all suture lines." also that patient's blood pressure was was 90/60 and that the Patient's left first toe also appears to be turning gangrene. His foot was painted with Betadine and Other wounds covered with Adaptic and Aquacel Ag -He was sent back to hospital as direct admission for further management of the right foot. On arrival, to the medical hull, patient does not appear to be tachycardic and with normal blood pressure of 143/83. I taken down the right foot dressing and see that there are not much draining from the suture sites of the. There is an abrasion of the right foot 2nd toe which will have surface wound culture taken. The left foot with which is the unoperated side with dry 2nd toe eschar. -On review of systems: no fever, no dizziness, no headache. no chest pain, no shortness of breath. no vomiting. -surface wound culture sent from right foot left toe as there is minimal drainage seen -orthopedics Dr. Whitfield took patient to operating room on 02/03/2020 POSTOPERATIVE DIAGNOSES: 1. Right foot recurrent abscess, dorsal foot. 2. Septic tenosynovitis of the second toe extensor. 3. Tenosynovitis of the dorsal foot. 4. Eschar, dorsal foot. 5. Charcot arthropathy. 6. Diabetes mellitus. 7. Morbid obesity. 8. Synovitis of the second toe proximal interphalangeal joint. 9. Synovitis of the second metatarsophalangeal joint. PROCEDURES PERFORMED by Dr. Whitfield on 02/03/2020 1. Right foot capsulotomy, second metatarsophalangeal joint with synovectomy. 2. Right second toe extensor tenosynovectomy. 3. Arthrotomy second toe proximal interphalangeal joint with synovectomy. 4. Incision and drainage of dorsal foot abscess. 5. Incision and drainage of lateral foot abscess. 6. Incision and drainage of medial foot abscess. 7. Incision and drainage of plantar foot abscess. 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 DVT prophylaxis: SCDs to left foot only Admission and Anticipated Discharge Date Admission Date: February 02, 2020 Subjective no acute distress. he denies acute pain of the right foot. he has been able to ambulate to the bathroom. no fevers. no abdomen pain. no vomiting. no shortness of breath. on room air. no chest pain. Review of Systems Review of Systems: All systems reviewed & are unremarkable except as noted in Subjective Physical Exam Constitutional: + obese Eyes: PERRL, conjunctivae normal, anicteric sclerae EOM intact bilaterally ENMT: external ear and nose normal, oropharynx normal Neck: trachea midline, no thyromegaly normal visual inspection Respiratory: normal respiratory effort, lungs clear to auscultation Cardiovascular: Rate/Rhythm: regular rate Gastrointestinal (Abdomen): normal bowel sounds, soft, nontender, no hepatosplenomegaly Musculoskeletal: Head/Neck/Chest: normocephalic and head atraumatic right foot in dressing Neurologic: PERRL, EOMI, accommodation nl, no face palsy, no dysarthria Psychiatric: A+Ox3, euthymic affect Results & Data Results & Data ([facility]) Vital Signs (Past 12 Hours) Vital Signs Temp Pulse Resp BP Pulse Ox 02/04/20 08:01 36.8 C 84 18 171/99 H 95 02/04/20 03:28 36.8 C 89 18 164/97 H 94
[2020-02-05] MEDS: PIPERACILLIN/TAZOBACTAM 4.5 GM in DEXTROSE 5% 100 ML IV SCH ×3 (02:43→18:06)
[2020-02-05 06:22] LABS: Basophils # (auto) 0.01 K/uL (0-0.2); Basophils % (auto) 0.1 %; Eosinophils # (auto) 0.05 K/uL (0-0.5); Eosinophils % (auto) 0.6 %; Hemoglobin 9.1 g/dL (14.0-18.0); Immature Granulocytes # (auto) 0.03 K/uL (0.00-0.02); Immature Granulocytes % (auto) 0.4 %; Lymphocytes # (auto) 1.35 K/uL (1.2-3.4); Lymphocytes % (auto) 17.2 %; Mean Corpuscular Hemoglobin 29.2 pg (25-34); Mean Corpuscular Hgb Conc 32.5 g/dL (32-36); Mean Corpuscular Volume 89.7 fL (80-100); Mean Platelet Volume 8.5 fL (7.4-10.4); Monocytes # (auto) 0.69 K/uL (0.11-0.59); Monocytes % (auto) 8.8 %; Neutrophils % (auto) 72.9 %; Platelet Count 399 K/uL (130-400); RDW Coefficient of Variation 14.4 % (11.5-14.5); RDW Standard Deviation 47.6 fL (36.4-46.3); Red Blood Count 3.12 M/uL (4.7-6.1); White Blood Count 7.83 K/uL (4.8-10.8)
[2020-02-05 06:54] LABS: BUN Creatinine Ratio 15.1 (10-20); Calcium 8.3 mg/dl (8.5-10.1); Creatinine Clr Calc Pharmacy 180.8 ml/min; Est GFR (African American) 121.4; Est GFR (Non-African American) 104.8; Potassium 4.3 mmol/L (3.5-5.1)
--- NOTE | 2020-02-05 08:21 | Pharmacy Report ---
Pharmacy Glycemic Short Note 2 - Date of Service February 05, 2020 - Glycemic Short BSG Results (Last 24 hours): OUTPATIENT ANTIDIABETIC REGIMEN: * Tresiba 156 units SC qAM * Novolog 15 units TIDM * Victoza 1.8 mg SC daily * Metformin 2g PO qAM * HbA1c: 12.9% (01/24/20) ASSESSMENT: * SH is a 49 year old male now POD #2 s/p I&D of right foot * Pharmacy consulted for glycemic management postoperatively * Receiving Zosyn 4.5 g IV q8h for treatment of right foot osteomyelitis/tenosynovitis * BSGs well-controlled yesterday - ranging 95-136 mg/dL * Fasting BSG this morning of 134 mg/dL - continue current basal dose PLAN FOR INPATIENT GLYCEMIC CONTROL: * Hold outpatient oral diabetes medications * Basal insulin * Lantus 60 units SC qAM * Bolus insulin * NovoLog per scale ACHS or Q6hrs while NPO * Goal Range: Low 110 mg/dL - High 140 mg/dL * Correction Factor: 12 mg/dL/unit * Nutritional / Prandial insulin per carb ratio of 1 unit per 5 grams CHO consumed PLAN FOR DISCHARGE: * Continue to follow with MTM clinic at [facility] in [place]
[2020-02-05] MEDS: LOVASTATIN 20 MG TAB PO SCH (08:42)
[2020-02-05] MEDS: AMLODIPINE BESYLATE 5 MG TAB PO SCH (08:42)
[2020-02-05] MEDS: CITALOPRAM 40 MG TAB PO SCH (08:42)
[2020-02-05] MEDS: INSULIN GLARGINE SOLOSTAR 100 UNITS/ML 3 ML PEN SC SCH (08:45)
[2020-02-05] MEDS: INSULIN ASPART 100 UNITS/ML 3 ML PEN SC SCH ×4 (08:46→20:55)
--- NOTE | 2020-02-05 09:35 | Hospitalist Progress Note ---
Date of Service February 05, 2020 Assessment & Plan (1) Osteomyelitis of right foot: Osteomyelitis of right foot, right foot abscesses Staphylococcus Bacteremia -This 49 year old Male who was admitted on 01/23/2020 and found to have right foot osteomyelitis and abscesses in the setting of type 1 diabetes and had been operated on by orthopedics on 01/24/2020(patient had 6 Incision and Drainage Septic Right Foot Dorsal abscess, incision and drainage lateral foot abscess; Tenosynovectomy Extensor Digitorum Tendons(x4 ), exploration with irrigation and debridement plantar deep space foot, irrigation debridement tarsal tunnel, tenosynovectomy extensor hallucis longus tendon, excision avulsion fracture lateral cuboid, placement of deep Hemovac suction drains x2 by ortho Dr. Whitfield (hemovac discontinued by ortho on ) and also treated with IV antibiotics Staphylococcus aureus bacteremia with right arm PICC line placed on 01/31/2020 and then to continue IV Cefazolin as 2 grams every 8 hours for 6 weeks with expected stop date on for February. -On follow up to wound care center center on 02/02/2020, the wound care Dr. Dolan reported "that compared to patient's last inpatient picture, appears the foot is more erythematous, inflamed and edematous. There is some purulent drainage coming from the main dorsal wound. There is drainage from all suture lines." also that patient's blood pressure was was 90/60 and that the Patient's left first toe also appears to be turning gangrene. His foot was painted with Betadine and Other wounds covered with Adaptic and Aquacel Ag -He was sent back to hospital as direct admission for further management of the right foot. On arrival, to the medical hull, patient does not appear to be tachycardic and with normal blood pressure of 143/83. I taken down the right foot dressing and see that there are not much draining from the suture sites of the. There is an abrasion of the right foot 2nd toe which will have surface wound culture taken. The left foot with which is the unoperated side with dry 2nd toe eschar. -On review of systems: no fever, no dizziness, no headache. no chest pain, no shortness of breath. no vomiting. -surface wound culture sent from right foot left toe as there is minimal drainage seen -orthopedics Dr. Whitfield took patient to operating room on 02/03/2020 POSTOPERATIVE DIAGNOSES: 1. Right foot recurrent abscess, dorsal foot. 2. Septic tenosynovitis of the second toe extensor. 3. Tenosynovitis of the dorsal foot. 4. Eschar, dorsal foot. 5. Charcot arthropathy. 6. Diabetes mellitus. 7. Morbid obesity. 8. Synovitis of the second toe proximal interphalangeal joint. 9. Synovitis of the second metatarsophalangeal joint. PROCEDURES PERFORMED by Dr. Whitfield on 02/03/2020 1. Right foot capsulotomy, second metatarsophalangeal joint with synovectomy. 2. Right second toe extensor tenosynovectomy. 3. Arthrotomy second toe proximal interphalangeal joint with synovectomy. 4. Incision and drainage of dorsal foot abscess. 5. Incision and drainage of lateral foot abscess. 6. Incision and drainage of medial foot abscess. 7. Incision and drainage of plantar foot abscess. -was given IV fluids post-operatively -continue IV Zosyn for now while inpatient, surgical wound culture from 02/03/2020 rare quantity of saba sensitive Staphylococcus aureus (MSSA). White blood cells is 7,000 by 02/05/2020 -likely patient can be discharged with previous previous IV cefazolin IV q8 hours when cleared by orthopedics for discharge. discussed with orthopedic physician administrative assistant who was doing the dressing changes on 02/05/2020 to keep patient in hospital for now to continue post-surgical would care of right foot. Type II diabetes mellitus with retirement current use of insulin -HbA1c 12.9 -home dose metformin and Victoza and Tresiba -post-operatively have requested pharmacy glycemic control on glucose management Hypertension: Hyperlipidemia -continue lisinopril and amlodipine -continue home dose Lovastatin 40 mg qhs sleep apnea -on CPAP at bedtime. DVT prophylaxis: SCDs to left foot only Admission and Anticipated Discharge Date Admission Date: February 02, 2020 Subjective discussed with orthopedic physician administrative assistant who was doing the dressing changes on 02/05/2020 to keep patient in hospital for now to continue post-surgical would care of right foot. patient denies acute pain of the right foot. no chest pain. no shortness of breath. on room air. no abdomen pain. no nausea. no vomiting Review of Systems Review of Systems: All systems reviewed & are unremarkable except as noted in Subjective Physical Exam Constitutional: + obese Eyes: PERRL, conjunctivae normal, anicteric sclerae EOM intact bilaterally ENMT: external ear and nose normal, oropharynx normal Neck: trachea midline, no thyromegaly normal visual inspection Respiratory: normal respiratory effort, lungs clear to auscultation Cardiovascular: Rate/Rhythm: regular rate Gastrointestinal (Abdomen): normal bowel sounds, soft, nontender, no hepatosplenomegaly Musculoskeletal: Head/Neck/Chest: normocephalic and head atraumatic orthopedic physician administrative assistant was doing the dressing changes for right foot during hospitalist bedside exam Neurologic: PERRL, EOMI, accommodation nl, no face palsy, no dysarthria Psychiatric: A+Ox3, euthymic affect Results & Data Results & Data ([facility]) Vital Signs (Past 12 Hours) Vital Signs Temp Pulse Resp BP Pulse Ox 02/05/20 07:57 36.9 C 76 18 162/82 H 95 02/04/20 23:12 37.1 C 73 16 134/76 94
--- NOTE | 2020-02-05 10:07 | Orthopedic Progress Note ---
Date of Service February 05, 2020 Assessment & Plan (1) Osteomyelitis of right foot: 49 yo male stable POD 2 s/p repeat I&D right foot, surgical cultures pending Continue daily dressing changes with packing removal. Med management- cont IV abx DVT prophylaxis- SCDs PT/OT D/C planning- per medicine, pt has PICC line in place Admission and Anticipated Discharge Date Admission Date: February 02, 2020 Subjective Pt lying in bed awake, alert. States he's had some twinges of pain today but otherwise he feels well. No other complaints. Wound care team present to photo wounds. Physical Exam Physical Exam: Dressings removed. No erythema of the foot. Pkg removed completely from 2 sites. Pkg advanced in remaining wound sites. The dorsal wound, proximal packing has thicker drainage noted on it. No foul odor. The distal packing is more serous drainage. Serous drainage noted on lateral and plantar wound with packing advancement. wounds redressed. Results & Data ([facility]) Vital Signs (Past 12 Hours) Vital Signs Temp Pulse Resp BP Pulse Ox 02/05/20 07:57 36.9 C 76 18 162/82 H 95 02/04/20 23:12 37.1 C 73 16 134/76 94
[2020-02-05] MEDS: OXYCODONE/ACETAMINOPHEN 5mg/325mg TAB PO PRN (20:56)
[2020-02-06] MEDS: PIPERACILLIN/TAZOBACTAM 4.5 GM in DEXTROSE 5% 100 ML IV SCH ×3 (01:44→17:46)
[2020-02-06] MEDS: AMLODIPINE BESYLATE 5 MG TAB PO SCH (07:35)
[2020-02-06] MEDS: CITALOPRAM 40 MG TAB PO SCH (07:35)
[2020-02-06] MEDS: LOVASTATIN 20 MG TAB PO SCH (07:35)
[2020-02-06] MEDS: INSULIN ASPART 100 UNITS/ML 3 ML PEN SC SCH ×4 (08:43→20:51)
[2020-02-06] MEDS: INSULIN GLARGINE SOLOSTAR 100 UNITS/ML 3 ML PEN SC SCH (08:44)
--- NOTE | 2020-02-06 09:39 | Pharmacy Report ---
Pharmacy Glycemic Short Note 2 - Date of Service February 06, 2020 - Glycemic Short BSG Results (Last 24 hours): OUTPATIENT ANTIDIABETIC REGIMEN: * Tresiba 156 units SC qAM * Novolog 15 units TIDM * Victoza 1.8 mg SC daily * Metformin 2g PO qAM * HbA1c: 12.9% (01/24/20) ASSESSMENT: 02/05: * SH is a 49 year old male now POD #3 s/p I&D of right foot * Pharmacy consulted for glycemic management postoperatively * Receiving Zosyn 4.5 g IV q8h for treatment of right foot osteomyelitis/tenosynovitis * BSGs well-controlled yesterday - ranging 104-143 mg/dL * Carb ratio and correction factor loosened yesterday * Fasting BSG this morning of 124 mg/dL - no change in basal dose necessary * Lunch BSG today was 193 mg/dL - tightened novolog parameters PLAN FOR INPATIENT GLYCEMIC CONTROL: * Hold outpatient oral diabetes medications * Basal insulin * Lantus 60 units SC qAM * Bolus insulin - tightened * NovoLog per scale ACHS or Q6hrs while NPO * Goal Range: Low 110 mg/dL - High 140 mg/dL * Correction Factor: 12 mg/dL/unit * Nutritional / Prandial insulin per carb ratio of 1 unit per 5 grams CHO consumed PLAN FOR DISCHARGE: * Continue to follow with MTM clinic at [facility] in [place]
--- NOTE | 2020-02-06 11:25 | Hospitalist Progress Note ---
Date of Service February 06, 2020 Assessment & Plan (1) Osteomyelitis of right foot: Osteomyelitis of right foot, right foot abscesses Staphylococcus Bacteremia -This 49 year old Male who was admitted on 01/23/2020 and found to have right foot osteomyelitis and abscesses in the setting of type 1 diabetes and had been operated on by orthopedics on 01/24/2020(patient had 6 Incision and Drainage Septic Right Foot Dorsal abscess, incision and drainage lateral foot abscess; Tenosynovectomy Extensor Digitorum Tendons(x4 ), exploration with irrigation and debridement plantar deep space foot, irrigation debridement tarsal tunnel, tenosynovectomy extensor hallucis longus tendon, excision avulsion fracture lateral cuboid, placement of deep Hemovac suction drains x2 by ortho Dr. Whitfield (hemovac discontinued by ortho on ) and also treated with IV antibiotics Staphylococcus aureus bacteremia with right arm PICC line placed on 01/31/2020 and then to continue IV Cefazolin as 2 grams every 8 hours for 6 weeks with expected stop date on for February. -On follow up to wound care center center on 02/02/2020, the wound care Dr. Dolan reported "that compared to patient's last inpatient picture, appears the foot is more erythematous, inflamed and edematous. There is some purulent drainage coming from the main dorsal wound. There is drainage from all suture lines." also that patient's blood pressure was was 90/60 and that the Patient's left first toe also appears to be turning gangrene. His foot was painted with Betadine and Other wounds covered with Adaptic and Aquacel Ag -He was sent back to hospital as direct admission for further management of the right foot. On arrival, to the medical hull, patient does not appear to be tachycardic and with normal blood pressure of 143/83. I taken down the right foot dressing and see that there are not much draining from the suture sites of the. There is an abrasion of the right foot 2nd toe which will have surface wound culture taken. The left foot with which is the unoperated side with dry 2nd toe eschar. -On review of systems: no fever, no dizziness, no headache. no chest pain, no shortness of breath. no vomiting. -surface wound culture sent from right foot left toe as there is minimal drainage seen -orthopedics Dr. Whitfield took patient to operating room on 02/03/2020 POSTOPERATIVE DIAGNOSES: 1. Right foot recurrent abscess, dorsal foot. 2. Septic tenosynovitis of the second toe extensor. 3. Tenosynovitis of the dorsal foot. 4. Eschar, dorsal foot. 5. Charcot arthropathy. 6. Diabetes mellitus. 7. Morbid obesity. 8. Synovitis of the second toe proximal interphalangeal joint. 9. Synovitis of the second metatarsophalangeal joint. PROCEDURES PERFORMED by Dr. Whitfield on 02/03/2020 1. Right foot capsulotomy, second metatarsophalangeal joint with synovectomy. 2. Right second toe extensor tenosynovectomy. 3. Arthrotomy second toe proximal interphalangeal joint with synovectomy. 4. Incision and drainage of dorsal foot abscess. 5. Incision and drainage of lateral foot abscess. 6. Incision and drainage of medial foot abscess. 7. Incision and drainage of plantar foot abscess. -was given IV fluids post-operatively -continue IV Zosyn for now while inpatient, surgical wound culture from 02/03/2020 rare quantity of saba sensitive Staphylococcus aureus (MSSA). White blood cells is 7,000 by 02/05/2020 -likely patient can be discharged with previous previous IV cefazolin IV q8 hours when cleared by orthopedics for discharge. discussed with orthopedic physician assistant professor of radiology who was doing the dressing changes on 02/05/2020 to keep patient in hospital for now to continue post-surgical would care of right foot. -will appreciate in later hospitalization days when orthopedic service can deem patient ready for discharge Type II diabetes mellitus with mcc current use of insulin -HbA1c 12.9 -home dose metformin and Victoza and Tresiba -post-operatively have requested pharmacy glycemic control on glucose management Hypertension: Hyperlipidemia -continue amlodipine -continue home dose Lovastatin 40 mg qhs -increase lisinopril to 10 mg daily based on recent blood pressures sleep apnea -on CPAP at bedtime. DVT prophylaxis: SCDs to left foot only Admission and Anticipated Discharge Date Admission Date: February 02, 2020 Subjective Patient awoke after sleeping with CPAP. No acute distress. no pain of right foot which is in dressing. no dizziness. no headache. no nausea. no vomiting Review of Systems Review of Systems: All systems reviewed & are unremarkable except as noted in Subjective Physical Exam Constitutional: + obese Eyes: PERRL, conjunctivae normal, anicteric sclerae EOM intact bilaterally ENMT: external ear and nose normal, oropharynx normal Neck: trachea midline, no thyromegaly normal visual inspection Respiratory: normal respiratory effort, lungs clear to auscultation Cardiovascular: Rate/Rhythm: regular rate Gastrointestinal (Abdomen): normal bowel sounds, soft, nontender, no hepatosplenomegaly Musculoskeletal: Head/Neck/Chest: normocephalic and head atraumatic Neurologic: PERRL, EOMI, accommodation nl, no face palsy, no dysarthria Psychiatric: A+Ox3, euthymic affect Results & Data Results & Data ([facility]) Vital Signs (Past 12 Hours) Vital Signs Temp Pulse Resp BP Pulse Ox 02/06/20 07:56 36.5 C 76 18 171/103 H 94
[2020-02-06] MEDS: lisinopriL 10 MG TAB PO SCH (12:00)
[2020-02-06 15:56] LABS: Basophils # (auto) 0.02 K/uL (0-0.2); Basophils % (auto) 0.3 %; Eosinophils # (auto) 0.05 K/uL (0-0.5); Eosinophils % (auto) 0.8 %; Hematocrit (blood only) 27.9 % (42-52); Immature Granulocytes # (auto) 0.01 K/uL (0.00-0.02); Immature Granulocytes % (auto) 0.2 %; Lymphocytes # (auto) 1.76 K/uL (1.2-3.4); Lymphocytes % (auto) 27.1 %; Mean Corpuscular Hemoglobin 29.4 pg (25-34); Mean Corpuscular Hgb Conc 32.3 g/dL (32-36); Mean Corpuscular Volume 91.2 fL (80-100); Monocytes # (auto) 0.47 K/uL (0.11-0.59); Monocytes % (auto) 7.2 %; Neutrophils # (auto) 4.19 K/uL (1.4-6.5); Neutrophils % (auto) 64.4 %; Platelet Count 399 K/uL (130-400); RDW Coefficient of Variation 14.3 % (11.5-14.5); RDW Standard Deviation 47.9 fL (36.4-46.3); Red Blood Count 3.06 M/uL (4.7-6.1)
[2020-02-06 16:18] LABS: Albumin Level 1.6 gm/dl (3.4-5.0); BUN Creatinine Ratio 14.3 (10-20); Calcium 8.3 mg/dl (8.5-10.1); Creatinine Clr Calc Pharmacy 153.2 ml/min; Est GFR (Non-African American) 91.4; Magnesium 1.6 mg/dl (1.8-2.4); Potassium 4.6 mmol/L (3.5-5.1)
[2020-02-06 16:20] LABS: Albumin Globulin Ratio 0.3 (0.9-2); Bilirubin,Total 0.6 mg/dl (0.2-1); Globulin 5.9 gm/dl (2.5-4.0); Phosphorus 4.1 mg/dl (2.5-4.9); Total Protein 7.5 gm/dl (6.4-8.2)
--- NOTE | 2020-02-06 18:23 | Orthopedic Progress Note ---
Date of Service February 06, 2020 Assessment & Plan (1) Osteomyelitis of right foot: 49 yo male stable POD 3 s/p repeat I&D right foot, surgical cultures pending I will discuss findings with Dr. Whitfield. Question need for another washout. Continue daily dressing changes. Med management- cont IV abx DVT prophylaxis- SCDs PT/OT D/C planning- per medicine, pt has PICC line in place Admission and Anticipated Discharge Date Admission Date: February 02, 2020 Subjective Postop day 3 Patient currently sitting up in bed eating dinner. She had some pain last night that required 1 Percocet. He states that he gets shooting pains off and on but is not excruciating. No other complaints at this time. Denies any shortness of breath, chest pain, lightheadedness. Physical Exam Physical Exam: Right foot dressing shows drainage that has come through on the George bandage slightly. Removing the George bandage he has noted drainage over the dorsum and also lateral aspect of his Kerlix. This is all removed. Remainder of the dressings were removed. All the packing was taken out of the remaining wounds. He has mild to moderate purulent drainage noted off of the lateral wound itself. Mostly serous drainage from the dorsum of the of the foot. Scant purulent drainage distal wound on the dorsum of the foot where the remainder of packing was removed. Medial wounds and the plantar wound appear benign. Continues to have some yellow slough over the dorsum wound. Results & Data ([facility]) Vital Signs (Past 12 Hours) Vital Signs Temp Pulse Resp BP Pulse Ox 02/06/20 16:26 74 02/06/20 15:00 37.1 C 18 126/82 92 02/06/20 07:56 36.5 C 76 18 171/103 H 94 Diagnostic Findings Name: MIS MILLER Acct: [id number] Status: [place] 1970 [facility] [place] 02/02/20 Age: 49 Sex: M Dis Date: Loc: Medical/Surgical/Ortho 3 [facility]/Bed: W356-1 Spec: [id number] Collected: 02/03/20 Received: 02/03/[address]: Barrera WhitfieldD.O. Copy To: Sean Mora MD Source: Foot,Right OV Order: Ordered: Aer/Kelin Cult/Sm Comments: Reason for Exam surgery Procedure Result Verified Site Gram Stain Final 02/04/20 Gram Stain Result Rare Polys No Organisms Seen Aero/Kelin Cult Preliminary 02/06/20 Organism 1 Staphylococcus aureus Quantity Rare Sens Sensitivities to Follow S aureus RX M.I.C. --- --------- Clindamycin S <=0.5 Daptomycin S <=0.5 Erythromycin S <=0.5 Oxacillin S <=0.25 Tetracycline S <=4 Trimeth/Sulfa S <=0.5/9.5 Vancomycin S 1 S = SENSITIVE I = INTERMEDIATE R = RESISTANT
[2020-02-07] MEDS: PIPERACILLIN/TAZOBACTAM 4.5 GM in DEXTROSE 5% 100 ML IV SCH ×3 (01:52→17:51)
[2020-02-07 06:31] LABS: Basophils # (auto) 0.02 K/uL (0-0.2); Basophils % (auto) 0.3 %; Eosinophils # (auto) 0.06 K/uL (0-0.5); Eosinophils % (auto) 0.9 %; Hematocrit (blood only) 27.9 % (42-52); Hemoglobin 9.1 g/dL (14.0-18.0); Immature Granulocytes # (auto) 0.03 K/uL (0.00-0.02); Immature Granulocytes % (auto) 0.5 %; Mean Corpuscular Hemoglobin 29.8 pg (25-34); Mean Corpuscular Hgb Conc 32.6 g/dL (32-36); Mean Corpuscular Volume 91.5 fL (80-100); Mean Platelet Volume 8.3 fL (7.4-10.4); Monocytes # (auto) 0.57 K/uL (0.11-0.59); Monocytes % (auto) 8.7 %; Neutrophils # (auto) 4.16 K/uL (1.4-6.5); Neutrophils % (auto) 63.6 %; Platelet Count 427 K/uL (130-400); RDW Coefficient of Variation 14.5 % (11.5-14.5); RDW Standard Deviation 48.7 fL (36.4-46.3); Red Blood Count 3.05 M/uL (4.7-6.1); White Blood Count 6.54 K/uL (4.8-10.8)
[2020-02-07 07:07] LABS: BUN Creatinine Ratio 15.9 (10-20); Calcium 8.6 mg/dl (8.5-10.1); Creatinine Clr Calc Pharmacy 156.3 ml/min; Est GFR (African American) 108.7; Est GFR (Non-African American) 93.8; Potassium 4.5 mmol/L (3.5-5.1)
[2020-02-07] MEDS: CITALOPRAM 40 MG TAB PO SCH (08:31)
[2020-02-07] MEDS: LOVASTATIN 20 MG TAB PO SCH (08:31)
[2020-02-07] MEDS: lisinopriL 10 MG TAB PO SCH (08:32)
[2020-02-07] MEDS: AMLODIPINE BESYLATE 5 MG TAB PO SCH (08:32)
[2020-02-07] MEDS: INSULIN ASPART 100 UNITS/ML 3 ML PEN SC SCH ×4 (09:52→20:57)
[2020-02-07] MEDS: INSULIN GLARGINE SOLOSTAR 100 UNITS/ML 3 ML PEN SC SCH (09:54)
--- NOTE | 2020-02-07 12:58 | Pharmacy Report ---
Pharmacy Glycemic Short Note 2 - Date of Service February 07, 2020 - Glycemic Short BSG Results (Last 24 hours): 02/06/20 02/06/20 02/06/20 15:49 16:58 20:40 Glucose 105 H POC Glucose 103 H 137 H 02/07/20 02/07/20 02/07/20 05:44 08:07 12:01 Glucose 119 H POC Glucose 119 H 193 H OUTPATIENT ANTIDIABETIC REGIMEN: * Tresiba 156 units SC qAM * Novolog 15 units TIDM * Victoza 1.8 mg SC daily * Metformin 2g PO qAM * HbA1c: 12.9% (01/24/20) ASSESSMENT: 02/06 * BSGs well controlled over last 24 hrs * Fasting BSG 119 this AM w/ 60 units basal on board - no change * Post-prandial BSGs fairly well controlled yesterday w/ current Novolog orders. Mild pre-lunch hyperglycemia noted - will continue to monitor. 02/05: * SH is a 49 year old male now POD #3 s/p I&D of right foot * Pharmacy consulted for glycemic management postoperatively * Receiving Zosyn 4.5 g IV q8h for treatment of right foot osteomyelitis/tenosynovitis * BSGs well-controlled yesterday - ranging 104-143 mg/dL * Carb ratio and correction factor loosened yesterday * Fasting BSG this morning of 124 mg/dL - no change in basal dose necessary * Lunch BSG today was 193 mg/dL - tightened novolog parameters PLAN FOR INPATIENT GLYCEMIC CONTROL: * Hold outpatient oral diabetes medications * Basal insulin no change * Lantus 60 units SC qAM * Bolus insulin - no change * NovoLog per scale ACHS or Q6hrs while NPO * Goal Range: Low 110 mg/dL - High 140 mg/dL * Correction Factor: 12 mg/dL/unit * Nutritional / Prandial insulin per carb ratio of 1 unit per 5 grams CHO consumed PLAN FOR DISCHARGE: * Continue to follow with MTM clinic at [facility] in [place]
[2020-02-07] MEDS: OXYCODONE/ACETAMINOPHEN 5mg/325mg TAB PO PRN (15:44)
--- NOTE | 2020-02-07 16:02 | Orthopedic Progress Note ---
Date of Service February 07, 2020 Assessment & Plan (1) Osteomyelitis of right foot: 49 yo male stable POD 4 s/p repeat I&D right foot, surgical cultures pending We will make the patient n.p.o. after midnight tonight. Plan for I&D of the lateral aspect of the right foot with possible further work needed on dorsal wound. Patient understands need for further irrigation and debridement. Dr. Whitfield aware. Continue daily dressing changes. Med management- cont IV abx DVT prophylaxis- SCDs PT/OT D/C planning- per medicine, pt has PICC line in place Admission and Anticipated Discharge Date Admission Date: February 02, 2020 Subjective Patient lying in bed. Awake and alert. No complaints. His is with him. Physical Exam Physical Exam: Dressings removed. Peers to have less drainage today. Small amounts of drainage from the plantar and medial wounds. There is less drainage from the dorsal wound today and no purulence noted. Continues with the yellow fibrin tissue. Surrounding tissues of this area do look better. Most of the drainage is from his lateral wound. And pulling away the gauze he has some thick yellow purulent drainage. I am able to express a little bit more of that from the wound on palpation. There is no foul odor. His erythema seems to be lessening and they both feel the patient and his , that he has less swelling today. Overall, most of the wounds are looking like they are healing better however the lateral wound continues to be problematic. Wounds are redressed. Results & Data ([facility]) Vital Signs (Past 12 Hours) Vital Signs Temp Pulse Resp BP Pulse Ox 02/07/20 15:19 36.7 C 70 18 116/75 93 02/07/20 06:54 36.6 C 77 18 160/87 H 94
--- NOTE | 2020-02-07 19:04 | Hospitalist Progress Note ---
Date of Service February 07, 2020 Assessment & Plan (1) Osteomyelitis of right foot: Osteomyelitis of right foot, right foot abscesses Staphylococcus Bacteremia -This 49 year old Male who was admitted on 01/23/2020 and found to have right foot osteomyelitis and abscesses in the setting of type 1 diabetes and had been operated on by orthopedics on 01/24/2020(patient had 6 Incision and Drainage Septic Right Foot Dorsal abscess, incision and drainage lateral foot abscess; Tenosynovectomy Extensor Digitorum Tendons(x4 ), exploration with irrigation and debridement plantar deep space foot, irrigation debridement tarsal tunnel, tenosynovectomy extensor hallucis longus tendon, excision avulsion fracture lateral cuboid, placement of deep Hemovac suction drains x2 by ortho Dr. Whitfield (hemovac discontinued by ortho on ) and also treated with IV antibiotics Staphylococcus aureus bacteremia with right arm PICC line placed on 01/31/2020 and then to continue IV Cefazolin as 2 grams every 8 hours for 6 weeks with expected stop date on for February. -On follow up to wound care center center on 02/02/2020, the wound care Dr. Dolan reported "that compared to patient's last inpatient picture, appears the foot is more erythematous, inflamed and edematous. There is some purulent drainage coming from the main dorsal wound. There is drainage from all suture lines." also that patient's blood pressure was was 90/60 and that the Patient's left first toe also appears to be turning gangrene. His foot was painted with Betadine and Other wounds covered with Adaptic and Aquacel Ag -He was sent back to hospital as direct admission for further management of the right foot. On arrival, to the medical [place], patient does not appear to be tachycardic and with normal blood pressure of 143/83. I taken down the right foot dressing and see that there are not much draining from the suture sites of the. There is an abrasion of the right foot 2nd toe which will have surface wound culture taken. The left foot with which is the unoperated side with dry 2nd toe eschar. -On review of systems: no fever, no dizziness, no headache. no chest pain, no shortness of breath. no vomiting. -surface wound culture sent from right foot left toe as there is minimal drainage seen -orthopedics Dr. Whitfield took patient to operating room on 02/03/2020 Plan to go to OR tomorrow for I&D with ortho POSTOPERATIVE DIAGNOSES: 1. Right foot recurrent abscess, dorsal foot. 2. Septic tenosynovitis of the second toe extensor. 3. Tenosynovitis of the dorsal foot. 4. Eschar, dorsal foot. 5. Charcot arthropathy. 6. Diabetes mellitus. 7. Morbid obesity. 8. Synovitis of the second toe proximal interphalangeal joint. 9. Synovitis of the second metatarsophalangeal joint. PROCEDURES PERFORMED by Dr. Whitfield on 02/03/2020 1. Right foot capsulotomy, second metatarsophalangeal joint with synovectomy. 2. Right second toe extensor tenosynovectomy. 3. Arthrotomy second toe proximal interphalangeal joint with synovectomy. 4. Incision and drainage of dorsal foot abscess. 5. Incision and drainage of lateral foot abscess. 6. Incision and drainage of medial foot abscess. 7. Incision and drainage of plantar foot abscess. -was given IV fluids post-operatively -continue IV Zosyn for now while inpatient, surgical wound culture from 02/03/2020 rare quantity of saba sensitive Staphylococcus aureus (MSSA). White blood cells is 7,000 by 02/05/2020 -likely patient can be discharged with previous previous IV cefazolin IV q8 hours when cleared by orthopedics for discharge. discussed with orthopedic physician administration assistant who was doing the dressing changes on 02/05/2020 to keep p atient in hospital for now to continue post-surgical would care of right foot. -will appreciate in later hospitalization days when orthopedic service can deem patient ready for discharge Type II diabetes mellitus with retirement current use of insulin -HbA1c 12.9 -home dose metformin and Victoza and Tresiba -post-operatively have requested pharmacy glycemic control on glucose management Hypertension: Hyperlipidemia -continue amlodipine -continue home dose Lovastatin 40 mg qhs -increase lisinopril to 10 mg daily based on recent blood pressures sleep apnea -on CPAP at bedtime. DVT prophylaxis: SCDs to left foot only Admission and Anticipated Discharge Date Admission Date: February 02, 2020 Subjective Pt was seen and examined Lying in bed with no distress at bedside Pt said that he feels fine Denies any chest pain, palpitation, dizziness and SOB Physical Exam Physical Exam: General- No acute distress Head- atraumatic Eyes- PERRL, EOMI, ENT- oropharynx clear Neck- supple, no JVD Lungs- clear to auscultation Heart- regular rhythm; no murmur Abdomen- normal bowel sounds, soft, nontender Extremities- no calf tenderness, +right foot wrap , +decrease sensation in b/l LE Neuro- alert, oriented x 3; PERRL, EOMI; no facial palsy; no dysarthria Skin- warm & dry Results & Data Results & Data ([facility]) Vital Signs (Past 12 Hours) Vital Signs Temp Pulse Resp BP Pulse Ox 02/07/20 15:19 36.7 C 70 18 116/75 93
[2020-02-08] MEDS: PIPERACILLIN/TAZOBACTAM 4.5 GM in DEXTROSE 5% 100 ML IV SCH ×3 (01:09→17:56)
[2020-02-08] MEDS ORDERED: Nursing to Pharmacy Communication SCH (04:45)
[2020-02-08] MEDS: INSULIN ASPART 100 UNITS/ML 3 ML PEN SC SCH ×4 (05:49→20:53)
[2020-02-08] MEDS ORDERED: NEOSTIGMINE METHYLSULFATE 5 MG/5 ML SYR ONE (06:20)
[2020-02-08] MEDS ORDERED: DEXAMETHASONE SOD INJ 4 MG/ML VIAL ONE (06:20)
[2020-02-08] MEDS ORDERED: fentaNYL citrate 100 MCG/2 ML VIAL ONE ×3 (06:20→10:39)
[2020-02-08] MEDS ORDERED: PROPOFOL IV EMULSION 10 MG/ML 20 ML VIAL IV ONE ×2 (06:20→11:50)
[2020-02-08] MEDS ORDERED: ROCURONIUM BROMIDE 10 MG/ML 5 ML VIAL IV ONE (06:20)
[2020-02-08] MEDS ORDERED: GLYCOPYRROLATE 0.2 MG/ML VIAL ONE (06:20)
[2020-02-08] MEDS ORDERED: ONDANSETRON INJ 2 MG/ML 2 ML VIAL ONE (06:20)
[2020-02-08] MEDS ORDERED: SUCCINYLCHOLINE CHLORIDE 20 MG/ML 10 ML VIAL IV ONE (06:21)
[2020-02-08] MEDS ORDERED: MIDAZOLAM HCL 1 MG/ML 2ML VIAL ONE ×2 (06:21→10:39)
[2020-02-08] MEDS: CITALOPRAM 40 MG TAB PO SCH (07:52)
[2020-02-08] MEDS: LOVASTATIN 20 MG TAB PO SCH (07:52)
[2020-02-08] MEDS: AMLODIPINE BESYLATE 5 MG TAB PO SCH (07:52)
[2020-02-08] MEDS: lisinopriL 10 MG TAB PO SCH (07:52)
[2020-02-08] MEDS ORDERED: INSULIN GLARGINE SOLOSTAR 100 UNITS/ML 3 ML PEN SC ONE ×2 (08:00→16:30)
--- NOTE | 2020-02-08 10:11 | History & Physical Bridge Note ---
Date of Service February 08, 2020 History & Physical Bridge Note I have examined the patient, reviewed the History & Physical and in the interval since the performance of the History & Physical I have noted the following changes of clinical significance: no changes noted
--- NOTE | 2020-02-08 10:16 | Anesthesiology Consultation ---
Date of Service February 08, 2020 Assessment & Plan Chart Review Chart Review: Acceptable Risk for Surgery Consults Requested none History Surgery Operation Date: 02/03/20 07:30 Proposed Procedures p Incision and Drainage Right Foot Abcess(Right) - Barrera Whitfield DO Operation Date: 02/08/20 07:00 Proposed Procedures p Right Foot Incision and Drainage - Barrera Whitfield DO Height/Weight Height: 6 ft Weight: 174.1 kg Allergies Allergy/AdvReac Type Severity Reaction Status Date / Time No Known Allergies Allergy Verified 02/02/20 14:44 Medications Home Medications Medication Instructions Recorded Confirmed Last Taken Tresiba FlexTouch U-200 156 unit SUBCUT QAM 06/25/19 01/23/20 01/07/20 Victoza 3-Moy 1.8 mg SUBCUT QAM 06/25/19 01/23/20 01/07/20 citalopram [Celexa] 40 mg PO QAM 06/25/19 01/23/20 01/07/20 insulin aspart U-100 [Novolog 15 unit SUBCUT TIDM 06/25/19 01/23/20 01/05/20 Flexpen U-100 Insulin] lisinopril 2.5 mg PO QAM 06/25/19 01/23/20 01/07/20 lovastatin 40 mg PO HS 06/25/19 01/23/20 01/07/20 metformin [Glucophage XR] 2,000 mg PO QAM 06/25/19 01/23/20 01/07/20 indomethacin 50 mg PO BID PRN 01/07/20 01/23/20 Unknown cefazolin 2 gm IV Q8H 40 Days #40 ea 01/30/20 Unknown acetaminophen 325 mg PO Q6H PRN 7 Days #28 tab 02/01/20 Unknown amlodipine [Norvasc] 5 mg PO QAM 30 Days #30 tab 02/01/20 Unknown Active Medications Generic Name Dose Route Start Last Admin Trade Name Freq PRN Reason Stop Dose Admin Acetaminophen 650 mg 02/03/20 17:56 02/05/20 19:02 Tylenol PO 03/04/20 17:55 650 mg Q6H PRN Administration Pain or Fever Amlodipine Besylate 5 mg 02/03/20 09:00 02/08/20 07:52 Norvasc PO 03/04/20 08:59 5 mg QAM DISHA Administration Citalopram Hydrobromide 40 mg 02/03/20 09:00 02/08/20 07:52 Celexa PO 03/04/20 08:59 40 mg QAM DISHA Administration Heparin Sodium (Beef Lung) 5 ml 02/02/20 21:30 02/08/20 04:55 Heparin Sod 10 Unit/Ml Flush FLUSH 03/03/20 21:29 5 ml PRN PRN Administration Flush Piperacillin Sod/Tazobactam 120 mls @ 30 mls/hr 02/03/20 02:00 02/08/20 09:19 Sod 4.5 gm/ Dextrose IV 02/17/20 01:59 30 mls/hr Q8H DISHA Administration Protocol Insulin Aspart 0 units 02/08/20 06:00 02/08/20 05:49 Novolog Flexpen SC 03/09/20 05:59 Not Given Q6 DISHA Protocol Lisinopril 10 mg 02/06/20 11:30 02/08/20 07:52 Zestril PO 03/07/20 11:29 10 mg QAM DISHA Administration Lovastatin 40 mg 02/03/20 09:00 02/08/20 07:52 Mevacor PO 03/04/20 08:59 40 mg QAM DISHA Administration Oxycodone/Acetaminophen 1 tab 02/03/20 17:51 02/07/20 15:44 Percocet 5mg/325mg PO 02/17/20 17:50 1 tab Q6H PRN Administration Pain NPO Date Last Intake of Fluids: 02/07/20 Time Last Intake of Fluids: 22:00 Date Last Intake of Solids: 02/07/20 Time Last Intake of Solids: 18:00 Past Medical History Medical History Abdominal wall cellulitis (Inactive) Diabetes (Chronic) Foot abscess, right Hypertension Lazy eye (Chronic) Morbid obesity with BMI of 45.0-49.9, adult Osteomyelitis of right foot (Acute) Psoriasis Sepsis (Acute) Sleep apnea (Chronic) Staphylococcus aureus bacteremia 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 Past Family History Family History Grandfather (Maternal) Coronary heart disease Grandfather (Paternal) Coronary heart disease Other No significant family history Past Surgical History Surgical History H/O foot surgery I&D Social History Smoking Status: Never smoker Do You Dip or Chew Tobacco: No Hx Alcohol Use: No Hx Substance Use: No Physical Exam Vital Signs Last Vital Signs Temp 36.8 C 02/08/20 09:58 Pulse 78 02/08/20 09:58 Resp 18 02/08/20 09:58 BP 175/93 H 02/08/20 09:58 Pulse Ox 93 02/08/20 09:58 Testing Laboratory Results 02/07/20 05:44 02/07/20 05:44 PT 11.6 Seconds (9.0-12.0) 02/02/20 17:37 INR 1.1 (0.9-1.1) 02/02/20 17:37 APTT 26.6 Seconds (21.0-31.0) 02/02/20 17:37 Blood Type A Negative 02/02/20 17:25 Antibody Screen NEGATIVE 02/02/20 17:25 02/02/20 17:38 Aerobic Blood Culture - Final Blood No growth in Aerobic bottle after 5 days. Anaerobic Blood Culture - Final No growth in Anaerobic bottle after 5 days. 02/02/20 17:25 Aerobic Blood Culture - Final Blood No growth in Aerobic bottle after 5 days. Anaerobic Blood Culture - Final No growth in Anaerobic bottle after 5 days. 02/03/20 08:45 Gram Stain - Final Foot,Right Aerobic and Anaerobic Culture - Preliminary Staphylococcus aureus 02/02/20 Unknown Gram Stain - Final Foot,Right Wound Culture - Final Low counts mixed probable skin microbiota. No further identifications or sensitivities to follow. 02/08/20 05:43 POC Glucose 129 H
[2020-02-08] MEDS ORDERED: METOCLOPRAMIDE HCL INJ 5 MG/ML 2 ML VIAL IV PRN (10:20)
[2020-02-08] MEDS ORDERED: HYDROmorphone INJ 2 MG/ML SYR/VIAL IV PRN (10:20)
[2020-02-08] MEDS ORDERED: PROMETHAZINE HCL 12.5 MG in SODIUM CHLORIDE 0.9% 50 ML IV PRN (10:20)
[2020-02-08] MEDS ORDERED: fentaNYL citrate 100 MCG/2 ML VIAL IV PRN (10:20)
[2020-02-08] MEDS ORDERED: ONDANSETRON INJ 2 MG/ML 2 ML VIAL IV PRN ×2 (10:20→12:28)
[2020-02-08] MEDS ORDERED: ePHEDrine sulfate 50 MG/ML AMP IV PRN (10:20)
[2020-02-08] MEDS ORDERED: ATROPINE SULFATE 0.1 MG/ML 10ML SYR IV PRN (10:20)
[2020-02-08] MEDS ORDERED: KETOROLAC 30 MG/ML VIAL IV PRN (10:20)
[2020-02-08] MEDS ORDERED: VANCOMYCIN HCL 1000MG/20ML VIAL ONE (10:38)
[2020-02-08] MEDS ORDERED: BACITRACIN INJ 50,000 UNIT VIAL ONE (10:38)
[2020-02-08] MEDS ORDERED: GENTAMICIN SULFATE 40 MG/ML 2 ML VIAL ONE (10:38)
[2020-02-08] MEDS ORDERED: BUPIVACAINE 0.5 % 5 MG/1 ML MPF 30ML VIAL ONE (10:58)
[2020-02-08] MEDS ORDERED: LIDOCAINE HCL 2% 2 ML VIAL/AMP(20MG/ML) INFIL ONE (11:50)
--- NOTE | 2020-02-08 11:56 | Post Operative Brief Note ---
Immediate Post Op Note v1 Date of Surgery February 08, 2020 Pre & Post Diagnosis Operation Date: 02/03/20 07:30 Pre-Op Diagnosis: Right Foot Abscess Post-Op Diagnosis: Right Foot Abscess Operation Date: 02/08/20 07:00 Pre-Op Diagnosis: Right foot recurrent abscess lateral foot, recurrent abscess dorsal foot, recurrent abscess dorsal second toe, septic arthritis right calcaneocuboid joint, Charcot arthropathy right foot Post-Op Diagnosis: Right foot recurrent abscess lateral foot, recurrent abscess dorsal foot, recurrent abscess dorsal second toe, septic arthritis right calcaneocuboid joint, Charcot arthropathy right foot I identified the patient and participated in the time-out.: Yes Procedure Operation Date: 02/03/20 07:30 Actual Procedures p Capsulotomy 2nd MPJ, Right Second Toe Extensor Tenosynovectomy, Multiple Incisions and Drainage, Dorsal Foot Abscess Incision and Drainage, Lateral Foot Abscess Incision and Drainage, Medial Foot Abcess Incision and Drainage, Plantar Foot Abscess Incision and Drainage (Right) - Barrera Whitfield DO Operation Date: 02/08/20 07:00 Actual Procedures p Right Foot Incision and drainage of recurrent abscess dorsal foot, incision and drainage of recurrent abscess lateral foot, incision and drainage recurrent abscess dorsal second toe, irrigation and debridement of calcaneus and cuboid including joint capsule and bone, implantation of antibiotic beads multiple sites right foot- Barrera Whitfield DO Surgeon Barrera Whitfield DO Product Promoter Sales Person Golden Jang PA-C Estimated Blood Loss 20 Findings Consistent with Post-Op Diagnosis Drains Other (1/2 inch iodoform gauze drains x7) Anesthesia Type MAC Regional Complications none Disposition Accompanied Patient To Recovery: No Disposition: Recovery Room Overlapping Procedure I was present for: the critical portions of procedure. I was immediately available: during the entire case.
[2020-02-08] MEDS ORDERED: MAGNESIUM HYDROXIDE SUSP 30 ML UDC PO PRN (12:28)
[2020-02-08] MEDS ORDERED: bisacodyL 10 MG SUPP PR PRN (12:28)
[2020-02-08] MEDS ORDERED: NALOXONE HCL 0.4 MG/1 ML VIAL/CARP IV PRN (12:28)
[2020-02-08] MEDS: SODIUM CHLORIDE 0.9% 1000ML 1,000 ML IV SCH (12:34)
--- NOTE | 2020-02-08 12:36 | Anesthesiology Progress Note ---
Date of Service February 08, 2020 Anesthesia Post Procedure Vital Signs Vital Signs: Temp Pulse Pulse Resp BP Pulse Ox 02/08/20 12:20 72 16 161/70 H 93 02/08/20 12:10 36.6 C 71 18 143/84 H 92 02/08/20 12:01 36.3 C L 72 12 156/76 H 100 02/08/20 09:58 36.8 C 78 18 175/93 H 93 02/08/20 06:54 36.7 C 75 18 126/72 94 02/08/20 06:18 37.1 C 77 18 159/80 H 95 02/07/20 23:32 36.7 C 74 14 118/68 93 02/07/20 15:19 36.7 C 70 18 116/75 93 Pain Intensity Right Foot: Pain Intensity: 5 Transfer of Care Handoff Completed per policy Notes Mental Status: alert / awake / arousable and participated in evaluation Patient Amnestic to Procedure: Yes Nausea / Vomiting: adequately controlled Pain: adequately controlled Airway Patency, RR, SpO2: stable & adequate BP & HR: stable & adequate Hydration State: stable & adequate Anesthetic Complications: no major complications apparent
--- NOTE | 2020-02-08 14:09 | Pharmacy Report ---
Pharmacy Glycemic Short Note 2 - Date of Service February 08, 2020 - Glycemic Short BSG Results (Last 24 hours): 02/07/20 02/07/20 02/08/20 16:59 20:52 05:43 POC Glucose 90 157 H 129 H 02/08/20 12:02 POC Glucose 136 H OUTPATIENT ANTIDIABETIC REGIMEN: * Tresiba 156 units SC qAM * Novolog 15 units TIDM * Victoza 1.8 mg SC daily * Metformin 2g PO qAM * HbA1c: 12.9% (01/24/20) ASSESSMENT: 02/07 * BSGs well controlled over last 24 hrs * Fasting BSG again at goal. FBS 129 with 60 units basal on board. * Patient is NPO this AM for return to OR for I+D or R foot, debridement and abx bead implantation. Gave 1/2 usual basal this AM, will give 1/2 with dinner today then resume usual dose tomorrow AM. * Dexamethasone IV was removed from Anesthesia work station however documentation does not reflect administration, nor was this handed off in nursing report. Will not escalate insulin doses as a result. 02/06 * BSGs well controlled over last 24 hrs * Fasting BSG 119 this AM w/ 60 units basal on board - no change * Post-prandial BSGs fairly well controlled yesterday w/ current Novolog orders. Mild pre-lunch hyperglycemia noted - will continue to monitor. 02/05: * SH is a 49 year old male now POD #3 s/p I&D of right foot * Pharmacy consulted for glycemic management postoperatively * Receiving Zosyn 4.5 g IV q8h for treatment of right foot osteomyelitis/tenosynovitis * BSGs well-controlled yesterday - ranging 104-143 mg/dL * Carb ratio and correction factor loosened yesterday * Fasting BSG this morning of 124 mg/dL - no change in basal dose necessary * Lunch BSG today was 193 mg/dL - tightened novolog parameters PLAN FOR INPATIENT GLYCEMIC CONTROL: * Hold outpatient oral diabetes medications * Basal insulin no change * Lantus 30 units SC this AM, 30 units with dinner, then resume 60 units daily in the AM * Bolus insulin - no change * NovoLog per scale ACHS or Q6hrs while NPO * Goal Range: Low 110 mg/dL - High 140 mg/dL * Correction Factor: 12 mg/dL/unit * Nutritional / Prandial insulin per carb ratio of 1 unit per 5 grams CHO consumed PLAN FOR DISCHARGE: * Continue to follow with MTM clinic at [facility] in [place]
--- NOTE | 2020-02-08 17:31 | Operative Report (OR) ---
DATE OF OPERATION: 02/08/2020 PREOPERATIVE DIAGNOSES: 1. Right foot recurrent abscess in the dorsal foot. 2. Recurrent abscess, lateral foot. 3. Recurrent abscess, dorsal second toe. 4. Septic arthritis of the calcaneocuboid joint. 5. Charcot arthropathy. POSTOPERATIVE DIAGNOSES: 1. Right foot recurrent abscess in the dorsal foot. 2. Recurrent abscess, lateral foot. 3. Recurrent abscess, dorsal second toe. 4. Septic arthritis of the calcaneocuboid joint. 5. Charcot arthropathy. PROCEDURES PERFORMED: 1. Right foot incision and drainage of recurrent abscess, second toe. 2. Incision and drainage of recurrent abscess, dorsal foot. 3. Incision and drainage of recurrent abscess, lateral foot. 4. Irrigation and debridement of calcaneocuboid joint including the joint capsule and the calcaneus and the cuboid bone. 5. Implantation of Stimulan antibiotic beads. SURGEON: Barrera Whitfield DO. MANAGER DISASTER RECOVERY: Golden Jang PA-C who was present for patient positioning, sterile prep and drape, management of retractors and instruments. He was present through the critical portions of the case including wound closure, application of sterile dressing and transport of the patient to recovery. ANESTHESIA: MAC regional. SPECIMENS: None. DRAINS: Multiple 1/2 inch iodoform gauze packing drains. COMPLICATIONS: None. BLOOD LOSS: 5 mL. PERTINENT HISTORY: This is a 49-year-old gentleman who had severe infection of his right foot including multiple compartments, multiple locations with underlying Charcot arthropathy and diabetic neuropathy. The patient underwent extensive irrigation and debridement, incision and drainage, debridement of damaged necrotic tissue at multiple locations. Please refer to my previous operative note. The patient was doing well and then over the last 24-48 hours began having increasing drainage over the lateral aspect of the foot, though the dorsum of the foot appeared somewhat better, the second toe also had dusky erythema and the dorsum of the foot with concerning area of local necrosis from previous injury. The patient is scheduled for surgery as indicated. All potential risks, benefits, complications, alternatives, rehab potential for incomplete relief of symptoms, need for further surgery, DVT, PE, , persistent pain, swelling, scarring, weakness, neurovascular injury, wound complications, need for further amputation were discussed with the patient. The patient decided to proceed with the procedure as indicated. DESCRIPTION OF PROCEDURE: The patient was taken to the operative suite, placed supine on the operating table. After review of consent and identification of proper operative site, the patient was sedated. Tourniquet was applied high on the right thigh over cast padding. Right lower extremity was then sterilely prepped with Betadine. Ankle block anesthesia was performed with 30 mL of 0.5% Marcaine plain. Next, the right lower extremity was then sterilely prepped and draped in usual fashion, elevated and partially exsanguinated from the region of the Achilles proximally, then a sterile compressive tourniquet was applied over a sterile towel at the level of the ankle. Next, sutures from previous surgery were removed from the dorsum of the foot, from the lateral aspect of the foot and also from the second toe due to previous suspicion for recurrent abscess. A slight amount of serous discharge, no milton purulence was noted. Debridement was performed with a rongeur and a curette. Lavage was performed with pulsatile lavage with sterile saline and bacitracin. Next, attention was then directed toward the lateral aspect of the foot. Calcaneocuboid joint was entered. Serous discharge was noted with local blood, no obvious purulence. Next, the joint capsule was debrided using a rongeur and a large curette, debrided down to the level of the calcaneus and cuboid. Joint surfaces were then debrided including the calcaneus and cuboid with a rongeur and curette. No obvious softened bone was noted. Next, 3 liters of sterile saline with bacitracin was used to cleanse all open incisions. Sutures were opened in all incisions just to explore for any further pockets of abscess, which there were none. Next, 5 mL of Stimulan antibiotic beads were created with gentamicin and vancomycin. This was then packed into the lateral aspect of the hindfoot, dorsum of the second toe, dorsum of the foot and in several remaining incisions. Next, 1/2 inch iodoform gauze wick packing drains were placed in all open incisions and then a sterile compressive dressing was applied after tourniquet was released. The patient was awakened. The ABDs and George wrap were then applied over the sterile dressing. The patient was then taken to recovery in stable condition. I attest to the content of the Intraoperative Record and any orders documented therein. Any exception s are noted below.
--- NOTE | 2020-02-08 20:05 | Hospitalist Progress Note ---
Date of Service February 08, 2020 Assessment & Plan (1) Osteomyelitis of right foot: Osteomyelitis of right foot, right foot abscesses Staphylococcus Bacteremia -This 49 year old Male who was admitted on 01/23/2020 and found to have right foot osteomyelitis and abscesses in the setting of type 1 diabetes and had been operated on by orthopedics on 01/24/2020(patient had 6 Incision and Drainage Septic Right Foot Dorsal abscess, incision and drainage lateral foot abscess; Tenosynovectomy Extensor Digitorum Tendons(x4 ), exploration with irrigation and debridement plantar deep space foot, irrigation debridement tarsal tunnel, tenosynovectomy extensor hallucis longus tendon, excision avulsion fracture lateral cuboid, placement of deep Hemovac suction drains x2 by ortho Dr. Whitfield (hemovac discontinued by ortho on ) and also treated with IV antibiotics Staphylococcus aureus bacteremia with right arm PICC line placed on 01/31/2020 and then to continue IV Cefazolin as 2 grams every 8 hours for 6 weeks with expected stop date on for February. -On follow up to wound care center center on 02/02/2020, the wound care Dr. Dolan reported "that compared to patient's last inpatient picture, appears the foot is more erythematous, inflamed and edematous. There is some purulent drainage coming from the main dorsal wound. There is drainage from all suture lines." also that patient's blood pressure was was 90/60 and that the Patient's left first toe also appears to be turning gangrene. His foot was painted with Betadine and Other wounds covered with Adaptic and Aquacel Ag -He was sent back to hospital as direct admission for further management of the right foot. On arrival, to the medical hull, patient does not appear to be tachycardic and with normal blood pressure of 143/83. I taken down the right foot dressing and see that there are not much draining from the suture sites of the. There is an abrasion of the right foot 2nd toe which will have surface wound culture taken. The left foot with which is the unoperated side with dry 2nd toe eschar. -On review of systems: no fever, no dizziness, no headache. no chest pain, no shortness of breath. no vomiting. -surface wound culture sent from right foot left toe as there is minimal drainage seen -orthopedics Dr. Whitfield took patient to operating room on 02/03/202002/07 S/P Right Foot Incision and drainage of recurrent abscess dorsal foot, incision and drainage of recurrent abscess lateral foot, incision and drainage recurrent abscess dorsal second toe, irrigation and debridement of calcaneus and cuboid including joint capsule and bone, implantation of antibiotic beads multiple sites right foot- Barrera Whitfield, DO Wound cx grew staph aureus (MSSA) Continue IV abx with Zosyn, will consider to transition to Cefazolin in next few days pain controlled POSTOPERATIVE DIAGNOSES: 1. Right foot recurrent abscess, dorsal foot. 2. Septic tenosynovitis of the second toe extensor. 3. Tenosynovitis of the dorsal foot. 4. Eschar, dorsal foot. 5. Charcot arthropathy. 6. Diabetes mellitus. 7. Morbid obesity. 8. Synovitis of the second toe proximal interphalangeal joint. 9. Synovitis of the second metatarsophalangeal joint. PROCEDURES PERFORMED by Dr. Whitfield on 02/03/2020 1. Right foot capsulotomy, second metatarsophalangeal joint with synovectomy. 2. Right second toe extensor tenosynovectomy. 3. Arthrotomy second toe proximal interphalangeal joint with synovectomy. 4. Incision and drainage of dorsal foot abscess. 5. Incision and drainage of lateral foot abscess. 6. Incision and drainage of medial foot abscess. 7. Incision and drainage of plantar foot abscess. -was given IV fluids post-operatively -continue IV Zosyn for now while inpatient, surgical wound culture from 02/03/2020 rare quantity of saba sensitive Staphylococcus aureus (MSSA). White blood cells is 7,000 by 02/05/2020 -likely patient can be discharged with previous previous IV cefazolin IV q8 hours when cleared by orthopedics for discharge. discussed with orthopedic physician assistant manager who was doing the dressing changes on 02/05/2020 to keep patient in hospital for now to continue post-surgical would care of right foot. -will appreciate in later hospitalization days when orthopedic service can deem patient ready for discharge Type II diabetes mellitus with intermission coordinator current use of insulin -HbA1c 12.9 -home dose metformin and Victoza and Tresiba -post-operatively have requested pharmacy glycemic control on glucose management Hypertension: Hyperlipidemia -continue amlodipine -continue home dose Lovastatin 40 mg qhs -increase lisinopril to 10 mg daily based on recent blood pressures sleep apnea -on CPAP at bedtime. DVT prophylaxis: SCDs to left foot only Admission and Anticipated Discharge Date Admission Date: February 02, 2020 Subjective Pt was seen and examined Lying in bed with no distress Pt said that he feels fine Denies any chest pain, palpitation, dizziness and SOB Physical Exam Physical Exam: General- No acute distress Head- atraumatic Eyes- PERRL, EOMI, ENT- oropharynx clear Neck- supple, no JVD Lungs- clear to auscultation Heart- regular rhythm; no murmur Abdomen- normal bowel sounds, soft, nontender Extremities- no calf tenderness, +right foot wrap , +decrease sensation in b/l LE Neuro- alert, oriented x 3; PERRL, EOMI; no facial palsy; no dysarthria Skin- warm & dry Results & Data Results & Data ([facility]) Vital Signs (Past 12 Hours) Vital Signs Temp Pulse Pulse Resp BP Pulse Ox 02/08/20 19:14 37.3 C 90 18 151/90 H 92 02/08/20 14:30 36.5 C 69 17 150/78 H 92 02/08/20 13:30 36.7 C 68 17 152/88 H 92 02/08/20 13:00 36.7 C 77 17 162/95 H 92 02/08/20 12:20 72 16 161/70 H 93 02/08/20 12:10 36.6 C 71 18 143/84 H 92 02/08/20 12:01 36.3 C L 72 12 156/76 H 100 02/08/20 09:58 36.8 C 78 18 175/93 H 93
[2020-02-08] MEDS: ASPIRIN 81 MG ECTAB PO SCH (20:52)
[2020-02-08] MEDS: OXYCODONE/ACETAMINOPHEN 5mg/325mg TAB PO PRN (22:07)
[2020-02-09] MEDS: PIPERACILLIN/TAZOBACTAM 4.5 GM in DEXTROSE 5% 100 ML IV SCH ×3 (01:18→17:53)
[2020-02-09] MEDS: SODIUM CHLORIDE 0.9% 1000ML 1,000 ML IV SCH (01:32)
--- NOTE | 2020-02-09 08:15 | Pharmacy Report ---
Pharmacy Glycemic Short Note 2 - Date of Service February 09, 2020 - Glycemic Short BSG Results (Last 24 hours): 02/08/20 02/08/20 02/08/20 12:02 17:04 20:29 POC Glucose 136 H 114 H 153 H 02/09/20 08:03 POC Glucose 109 H OUTPATIENT ANTIDIABETIC REGIMEN: * Tresiba 156 units SC qAM * Novolog 15 units TIDM * Victoza 1.8 mg SC daily * Metformin 2g PO qAM * HbA1c: 12.9% (01/24/20) ASSESSMENT: * BSGs continue to be well-controlled (ranging 114-153 mg/dL yesterday) * Fasting BSG this morning of 109 mg/dL - will continue current basal dose of 60 units daily * Patient now POD #1 s/p right foot I&D * Basal split BID yesterday - will change back to daily now that he is postop * Continues on Zosyn for osteomyelitis of the right foot * Anticipating no changes to current insulin regimen at this time PLAN FOR INPATIENT GLYCEMIC CONTROL: * Hold outpatient oral diabetes medications * Basal insulin no change * Lantus 60 units SC daily * Bolus insulin - no change * NovoLog per scale ACHS or Q6hrs while NPO * Goal Range: Low 110 mg/dL - High 140 mg/dL * Correction Factor: 15 mg/dL/unit * Nutritional / Prandial insulin per carb ratio of 1 unit per 5 grams CHO consumed PLAN FOR DISCHARGE: * Continue to follow with MTM clinic at [facility] in [place]
[2020-02-09] MEDS: INSULIN ASPART 100 UNITS/ML 3 ML PEN SC SCH ×4 (09:35→22:35)
[2020-02-09] MEDS: INSULIN GLARGINE SOLOSTAR 100 UNITS/ML 3 ML PEN SC SCH (09:37)
[2020-02-09] MEDS: ASPIRIN 81 MG ECTAB PO SCH ×2 (09:38→22:30)
[2020-02-09] MEDS: CITALOPRAM 40 MG TAB PO SCH (09:38)
[2020-02-09] MEDS: LOVASTATIN 20 MG TAB PO SCH (09:39)
[2020-02-09] MEDS: MULTIVITAMIN TAB PO SCH (09:39)
[2020-02-09] MEDS: lisinopriL 10 MG TAB PO SCH (09:40)
[2020-02-09] MEDS: AMLODIPINE BESYLATE 5 MG TAB PO SCH (09:40)
[2020-02-09 09:44] LABS: Hematocrit (blood only) 30.1 % (42-52); Hemoglobin 9.8 g/dL (14.0-18.0); Mean Corpuscular Hemoglobin 29.4 pg (25-34); Mean Corpuscular Hgb Conc 32.6 g/dL (32-36); Mean Corpuscular Volume 90.4 fL (80-100); Mean Platelet Volume 8.3 fL (7.4-10.4); Platelet Count 363 K/uL (130-400); RDW Coefficient of Variation 13.9 % (11.5-14.5); RDW Standard Deviation 45.8 fL (36.4-46.3); Red Blood Count 3.33 M/uL (4.7-6.1); White Blood Count 6.67 K/uL (4.8-10.8)
[2020-02-09 10:12] LABS: BUN Creatinine Ratio 11.3 (10-20); Calcium 9.2 mg/dl (8.5-10.1); Creatinine Clr Calc Pharmacy 159.7 ml/min; Est GFR (African American) 111.5; Est GFR (Non-African American) 96.2; Potassium 4.7 mmol/L (3.5-5.1)
--- NOTE | 2020-02-09 15:41 | Orthopedic Progress Note ---
Date of Service February 09, 2020 Assessment & Plan (1) Foot abscess, right: Assessment status post repeat incision and drainage recurrent abscesses right foot with irrigation debridement deep bone and Implantation antibiotic beads. Recommend continue IV antibiotics. Will perform dressing change in a.m. with following of deep packing. Maintain nonweightbearing right lower extremity. (2) 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: Admission and Anticipated Discharge Date Admission Date: February 02, 2020 Subjective Pt was seen and examined. Patient present at bedside. Lying in bed with no distress. No complaints of pain. Pt said that he feels fine Denies any chest pain, palpitation, dizziness and SOB Physical Exam Physical Exam: Right foot bandage in place. No strikethrough. No foul odor. Toes pink and warm. Edema diminished right lower extremity. Cap refill brisk less than 2 seconds. Results & Data ([facility]) Vital Signs (Past 12 Hours) Vital Signs Temp Pulse Resp BP Pulse Ox 02/09/20 15:23 36.7 C 79 16 158/84 H 94 02/09/20 06:59 36.8 C 78 18 159/96 H 93
--- NOTE | 2020-02-09 19:05 | Hospitalist Progress Note ---
Date of Service February 09, 2020 Assessment & Plan (1) Osteomyelitis of right foot: Osteomyelitis of right foot, right foot abscesses Staphylococcus Bacteremia -This 49 year old Male who was admitted on 01/23/2020 and found to have right foot osteomyelitis and abscesses in the setting of type 1 diabetes and had been operated on by orthopedics on 01/24/2020(patient had 6 Incision and Drainage Septic Right Foot Dorsal abscess, incision and drainage lateral foot abscess; Tenosynovectomy Extensor Digitorum Tendons(x4 ), exploration with irrigation and debridement plantar deep space foot, irrigation debridement tarsal tunnel, tenosynovectomy extensor hallucis longus tendon, excision avulsion fracture lateral cuboid, placement of deep Hemovac suction drains x2 by ortho Dr. Whitfield (hemovac discontinued by ortho on ) and also treated with IV antibiotics Staphylococcus aureus bacteremia with right arm PICC line placed on 01/31/2020 and then to continue IV Cefazolin as 2 grams every 8 hours for 6 weeks with expected stop date on for February. -On follow up to wound care center center on 02/02/2020, the wound care Dr. Dolan reported "that compared to patient's last inpatient picture, appears the foot is more erythematous, inflamed and edematous. There is some purulent drainage coming from the main dorsal wound. There is drainage from all suture lines." also that patient's blood pressure was was 90/60 and that the Patient's left first toe also appears to be turning gangrene. His foot was painted with Betadine and Other wounds covered with Adaptic and Aquacel Ag -He was sent back to hospital as direct admission for further management of the right foot. On arrival, to the medical hull, patient does not appear to be tachycardic and with normal blood pressure of 143/83. I taken down the right foot dressing and see that there are not much draining from the suture sites of the. There is an abrasion of the right foot 2nd toe which will have surface wound culture taken. The left foot with which is the unoperated side with dry 2nd toe eschar. -On review of systems: no fever, no dizziness, no headache. no chest pain, no shortness of breath. no vomiting. -surface wound culture sent from right foot left toe as there is minimal drainage seen -orthopedics Dr. Whitfield took patient to operating room on 02/03/2020 02/08/22 S/P day#1 Right Foot Incision and drainage of recurrent abscess dorsal foot, incision and drainage of recurrent abscess lateral foot, incision and drainage recurrent abscess dorsal second toe, irrigation and debridement of calcaneus and cuboid including joint capsule and bone, implantation of antibiotic beads multiple sites right foot- Barrera Whitfield, DO Wound cx grew staph aureus (MSSA) Continue IV abx with Zosyn, will consider to transition to Cefazolin in next few days pain controlled Will transition to previous IV cefazolin IV q8 hours on discharge. 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 Depression. Continue Celexa. DVT px SCDs Will consider to add heparin subq tomorrow Code Status Full code Admission and Anticipated Discharge Date Admission Date: February 02, 2020 Subjective Pt was seen and examined Lying in bed with no distress Pt said that he feels ok Denies any new concern Physical Exam Physical Exam: General- No acute distress Head- atraumatic Eyes- PERRL, EOMI, ENT- oropharynx clear Neck- supple, no JVD Lungs- clear to auscultation Heart- regular rhythm; no murmur Abdomen- normal bowel sounds, soft, nontender Extremities- no calf tenderness, +right foot wrap , +decrease sensation in b/l LE Neuro- alert, oriented x 3; PERRL, EOMI; no facial palsy; no dysarthria Skin- warm & dry Results & Data Results & Data ([facility]) Vital Signs (Past 12 Hours) Vital Signs Temp Pulse Resp BP Pulse Ox 02/09/20 15:23 36.7 C 79 16 158/84 H 94
[2020-02-10] MEDS: PIPERACILLIN/TAZOBACTAM 4.5 GM in DEXTROSE 5% 100 ML IV SCH ×3 (02:42→17:59)
[2020-02-10] MEDS: CITALOPRAM 40 MG TAB PO SCH (08:38)
[2020-02-10] MEDS: ASPIRIN 81 MG ECTAB PO SCH ×2 (08:38→20:28)
[2020-02-10] MEDS: AMLODIPINE BESYLATE 5 MG TAB PO SCH (08:39)
[2020-02-10] MEDS: lisinopriL 10 MG TAB PO SCH (08:39)
[2020-02-10] MEDS: LOVASTATIN 20 MG TAB PO SCH (08:39)
[2020-02-10] MEDS: MULTIVITAMIN TAB PO SCH (08:40)
[2020-02-10] MEDS: INSULIN ASPART 100 UNITS/ML 3 ML PEN SC SCH ×4 (09:52→20:54)
[2020-02-10] MEDS: INSULIN GLARGINE SOLOSTAR 100 UNITS/ML 3 ML PEN SC SCH (09:53)
--- NOTE | 2020-02-10 10:55 | Orthopedic Progress Note ---
Date of Service February 10, 2020 Assessment & Plan (1) Foot abscess, right: POD #2 Assessment status post repeat incision and drainage recurrent abscesses right foot with irrigation debridement deep bone and Implantation antibiotic beads. Recommend continue IV antibiotics. Maintain nonweightbearing right lower extremity. Dressings changed and packing pulled this AM. Disposition as per primary team. Stable for DC on 02/10 from ortho standpoint if ok with primary team. (2) 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: Admission and Anticipated Discharge Date Admission Date: February 02, 2020 Subjective POD #2 Doing well. Pain controlled well. Denies SOB, Cp, N/V. Physical Exam Physical Exam: Dressing taken down and packing removed x 4 incisions. Incisions with scant drainage. Not odorous. No milton erythema. Results & Data ([facility]) Vital Signs (Past 12 Hours) Vital Signs Temp Pulse Resp BP Pulse Ox 02/10/20 07:33 36.7 C 78 18 143/84 H 97 02/09/20 23:46 36.8 C 75 18 153/81 H 93
--- NOTE | 2020-02-10 19:19 | Hospitalist Progress Note ---
Date of Service February 10, 2020 Assessment & Plan (1) Osteomyelitis of right foot: Osteomyelitis of right foot, right foot abscesses Staphylococcus Bacteremia -This 49 year old Male who was admitted on 01/23/2020 and found to have right foot osteomyelitis and abscesses in the setting of type 1 diabetes and had been operated on by orthopedics on 01/24/2020(patient had 6 Incision and Drainage Septic Right Foot Dorsal abscess, incision and drainage lateral foot abscess; Tenosynovectomy Extensor Digitorum Tendons(x4 ), exploration with irrigation and debridement plantar deep space foot, irrigation debridement tarsal tunnel, tenosynovectomy extensor hallucis longus tendon, excision avulsion fracture lateral cuboid, placement of deep Hemovac suction drains x2 by ortho Dr. Whitfield (hemovac discontinued by ortho on ) and also treated with IV antibiotics Staphylococcus aureus bacteremia with right arm PICC line placed on 01/31/2020 and then to continue IV Cefazolin as 2 grams every 8 hours for 6 weeks with expected stop date on for February. -On follow up to wound care center center on 02/02/2020, the wound care Dr. Dolan reported "that compared to patient's last inpatient picture, appears the foot is more erythematous, inflamed and edematous. There is some purulent drainage coming from the main dorsal wound. There is drainage from all suture lines." also that patient's blood pressure was was 90/60 and that the Patient's left first toe also appears to be turning gangrene. His foot was painted with Betadine and Other wounds covered with Adaptic and Aquacel Ag -He was sent back to hospital as direct admission for further management of the right foot. On arrival, to the medical hull, patient does not appear to be tachycardic and with normal blood pressure of 143/83. I taken down the right foot dressing and see that there are not much draining from the suture sites of the. There is an abrasion of the right foot 2nd toe which will have surface wound culture taken. The left foot with which is the unoperated side with dry 2nd toe eschar. -On review of systems: no fever, no dizziness, no headache. no chest pain, no shortness of breath. no vomiting. -surface wound culture sent from right foot left toe as there is minimal drainage seen -orthopedics Dr. Whitfield took patient to operating room on 02/03/2020 02/10/20 S/P day#2 Right Foot Incision and drainage of recurrent abscess dorsal foot, incision and drainage of recurrent abscess lateral foot, incision and drainage recurrent abscess dorsal second toe, irrigation and debridement of calcaneus and cuboid including joint capsule and bone, implantation of antibiotic beads multiple sites right foot- Barrera Whitfield, Wound cx grew staph aureus (MSSA) Continue IV abx with Zosyn, will consider to transition to Cefazolin in next few days pain controlled Dressing changed and packing pulled today as per ortho Continue Non weight bearing Will transition to previous IV cefazolin IV q8 hours on discharge. 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 Depression. Continue Celexa. DVT px SCDs Will add on heparin subq Code Status Full code Disposition Possible discharge tomorrow if arrangement makes for abx infusion. Admission and Anticipated Discharge Date Admission Date: February 02, 2020 Subjective Pt was seen and examined Lying in bed with no distress with at bedside Dressing change today Denies any chest pain, palpitation and SOB Physical Exam Physical Exam: General- No acute distress Head- atraumatic Eyes- PERRL, EOMI, ENT- oropharynx clear Neck- supple, no JVD Lungs- clear to auscultation Heart- regular rhythm; no murmur Abdomen- normal bowel sounds, soft, nontender Extremities- no calf tenderness, +right foot wrap , +decrease sensation in b/l LE Neuro- alert, oriented x 3; PERRL, EOMI; no facial palsy; no dysarthria Skin- warm & dry Results & Data Results & Data ([facility]) Vital Signs (Past 12 Hours) Vital Signs Temp Pulse Resp BP Pulse Ox 02/10/20 07:33 36.7 C 78 18 143/84 H 97
[2020-02-10] MEDS: OXYCODONE/ACETAMINOPHEN 5mg/325mg TAB PO PRN (21:00)
[2020-02-11] MEDS: CEFAZOLIN 2000MG 2,000 MG/15 ML SYR IV SCH ×3 (05:40→21:57)
--- NOTE | 2020-02-11 09:10 | Orthopedic Progress Note ---
Date of Service February 11, 2020 Assessment & Plan (1) Osteomyelitis of right foot: POD #3 Right foot repeat I&D abscess Continue IV antibxs and ID follow up. PICC placed. care services manager working on agency, if cannot get approval patient will have to see wound clinic for dressing changes and debridement as needed starting Wednesday02/12/20, patient is familiar with wound clinic arrangements. Continue NWB Right foot. Follow up with Dr. Whitfield 10-12 days post op, call [phone] for appt. Ortho will sign off, thank you for consult. Admission and Anticipated Discharge Date Admission Date: February 02, 2020 Subjective POD #3 Doing well, Denies SOB, CP, N/V. Pain controlled well. States navigating on walker well. Physical Exam Physical Exam: Right dressings c/d/i, changed yesterday. No drainage. Pain controlled well. A&Ox3. Results & Data ([facility]) Vital Signs (Past 12 Hours) Vital Signs Temp Pulse Resp BP Pulse Ox 02/11/20 07:45 36.7 C 78 16 141/88 H 96 02/10/20 23:11 36.8 C 72 16 131/86 90
[2020-02-11] MEDS: LOVASTATIN 20 MG TAB PO SCH (09:59)
[2020-02-11] MEDS: lisinopriL 10 MG TAB PO SCH (09:59)
[2020-02-11] MEDS: AMLODIPINE BESYLATE 5 MG TAB PO SCH (09:59)
[2020-02-11] MEDS: CITALOPRAM 40 MG TAB PO SCH (09:59)
[2020-02-11] MEDS: MULTIVITAMIN TAB PO SCH (09:59)
[2020-02-11] MEDS: ASPIRIN 81 MG ECTAB PO SCH ×2 (09:59→21:57)
[2020-02-11] MEDS: INSULIN GLARGINE SOLOSTAR 100 UNITS/ML 3 ML PEN SC SCH (10:02)
[2020-02-11] MEDS: INSULIN ASPART 100 UNITS/ML 3 ML PEN SC SCH ×4 (10:03→21:57)
--- NOTE | 2020-02-11 13:39 | Pharmacy Report ---
Pharmacy Glycemic Short Note 2 - Date of Service February 11, 2020 - Glycemic Short BSG Results (Last 24 hours): 02/10/20 02/10/20 02/11/20 17:09 20:35 08:44 POC Glucose 88 131 H 146 H 02/11/20 12:15 POC Glucose 214 H OUTPATIENT ANTIDIABETIC REGIMEN: * Tresiba 156 units SC qAM * Novolog 15 units TIDM * Victoza 1.8 mg SC daily * Metformin 2g PO qAM * HbA1c: 12.9% (01/24/20) ASSESSMENT: * Patient is currently receiving an average of 98 units of insulin per day: * 60 units of basal insulin * 38 units of prandial/correctional insulin * BSGs ranging 88- 199 over the past 24hrs * Patient is POD #3 s/p right foot I&D * Risk factors for insulin resistance remain constant * Fasting BSG is fluctuating but remains acceptable. Continue current Lantus order. * Post prandial BSGs have improved after tightening carb ratio yesterday (from 5 to 4). Lunch BSG was elevated today (214 mg/dL). The AM dose of novolog was given only two hours prior to lunch BSG, therefore I will not react to this value. PLAN FOR INPATIENT GLYCEMIC CONTROL: * Hold outpatient oral diabetes medications * Basal insulin * Lantus 60 units SC daily * Bolus insulin * NovoLog per scale ACHS or Q6hrs while NPO * Goal Range: Low 110 mg/dL - High 140 mg/dL * Correction Factor: 15 mg/dL/unit * Nutritional / Prandial insulin per carb ratio of 1 unit per 4 grams CHO consumed PLAN FOR DISCHARGE: * Continue to follow with MTM clinic at [facility] in [place]
--- NOTE | 2020-02-11 19:33 | Hospitalist Progress Note ---
Date of Service February 11, 2020 Assessment & Plan (1) Osteomyelitis of right foot: Osteomyelitis of right foot, right foot abscesses Staphylococcus Bacteremia -This 49 year old Male who was admitted on 01/23/2020 and found to have right foot osteomyelitis and abscesses in the setting of type 1 diabetes and had been operated on by orthopedics on 01/24/2020(patient had 6 Incision and Drainage Septic Right Foot Dorsal abscess, incision and drainage lateral foot abscess; Tenosynovectomy Extensor Digitorum Tendons(x4 ), exploration with irrigation and debridement plantar deep space foot, irrigation debridement tarsal tunnel, tenosynovectomy extensor hallucis longus tendon, excision avulsion fracture lateral cuboid, placement of deep Hemovac suction drains x2 by ortho Dr. Whitfield (hemovac discontinued by ortho on ) and also treated with IV antibiotics Staphylococcus aureus bacteremia with right arm PICC line placed on 01/31/2020 and then to continue IV Cefazolin as 2 grams every 8 hours for 6 weeks with expected stop date on for February. -On follow up to wound care center center on 02/02/2020, the wound care Dr. Dolan reported "that compared to patient's last inpatient picture, appears the foot is more erythematous, inflamed and edematous. There is some purulent drainage coming from the main dorsal wound. There is drainage from all suture lines." also that patient's blood pressure was was 90/60 and that the Patient's left first toe also appears to be turning gangrene. His foot was painted with Betadine and Other wounds covered with Adaptic and Aquacel Ag -He was sent back to hospital as direct admission for further management of the right foot. On arrival, to the medical hull, patient does not appear to be tachycardic and with normal blood pressure of 143/83. I taken down the right foot dressing and see that there are not much draining from the suture sites of the. There is an abrasion of the right foot 2nd toe which will have surface wound culture taken. The left foot with which is the unoperated side with dry 2nd toe eschar. -On review of systems: no fever, no dizziness, no headache. no chest pain, no shortness of breath. no vomiting. -surface wound culture sent from right foot left toe as there is minimal drainage seen -orthopedics Dr. Whitfield took patient to operating room on 02/03/2020 02/10/20 S/P day#2 Right Foot Incision and drainage of recurrent abscess dorsal foot, incision and drainage of recurrent abscess lateral foot, incision and drainage recurrent abscess dorsal second toe, irrigation and debridement of calcaneus and cuboid including joint capsule and bone, implantation of antibiotic beads multiple sites right foot- Barrera Whitfield DO Wound cx grew staph aureus (MSSA) pain controlled Dressing changed and packing pulled today as per ortho Continue Non weight bearing Will transition to previous IV cefazolin IV q8 hours on discharge. 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 Depression. Continue Celexa. DVT px SCDs heparin subq adding today Code Status Full code Disposition Possible discharge tomorrow if arrangement makes for abx infusion. Admission and Anticipated Discharge Date Admission Date: February 02, 2020 Subjective Pt was seen and examined Lying in bed with no distress Pt was looking forward to discharge home today But case management unable to get him arranged with home health for home abx infusion Denies any chest pain, palpitation, dizziness and SOB Physical Exam Physical Exam: General- No acute distress Head- atraumatic Eyes- PERRL, EOMI, ENT- oropharynx clear Neck- supple, no JVD Lungs- clear to auscultation Heart- regular rhythm; no murmur Abdomen- normal bowel sounds, soft, nontender Extremities- no calf tenderness, +right foot wrap , +decrease sensation in b/l LE Neuro- alert, oriented x 3; PERRL, EOMI; no facial palsy; no dysarthria Skin- warm & dry Results & Data Results & Data ([facility]) Vital Signs (Past 12 Hours) Vital Signs Temp Pulse Resp BP Pulse Ox 02/11/20 15:30 36.6 C 78 18 131/83 98 02/11/20 07:45 36.7 C 78 16 141/88 H 96
[2020-02-11] MEDS: HEPARIN SOD 5,000 UNIT/0.5 ML VIAL SQ SCH (21:58)
[2020-02-12] MEDS: CEFAZOLIN 2000MG 2,000 MG/15 ML SYR IV SCH ×2 (06:03→14:05)
[2020-02-12 08:05] VITALS: TEMP 97.9; O2SAT 96
[2020-02-12] MEDS ORDERED: INSULIN GLARGINE SOLOSTAR 100 UNITS/ML 3 ML PEN SC SCH (09:00)
[2020-02-12] MEDS: INSULIN ASPART 100 UNITS/ML 3 ML PEN SC SCH ×2 (09:47→13:06)
[2020-02-12] MEDS: CITALOPRAM 40 MG TAB PO SCH (09:49)
[2020-02-12] MEDS: LOVASTATIN 20 MG TAB PO SCH (09:49)
[2020-02-12] MEDS: ASPIRIN 81 MG ECTAB PO SCH (09:49)
[2020-02-12] MEDS: MULTIVITAMIN TAB PO SCH (09:49)
[2020-02-12] MEDS: HEPARIN SOD 5,000 UNIT/0.5 ML VIAL SQ SCH (09:50)
[2020-02-12 09:53] VITALS: BP 137/87; PULSE 77
[2020-02-12] MEDS: AMLODIPINE BESYLATE 5 MG TAB PO SCH (09:53)
[2020-02-12] MEDS: lisinopriL 10 MG TAB PO SCH (09:53)
--- NOTE | 2020-02-12 13:53 | Hospitalist Progress Note ---
Date of Service February 12, 2020 Assessment & Plan (1) Osteomyelitis of right foot: Osteomyelitis of right foot, right foot abscesses Staphylococcus Bacteremia -This 49 year old Male who was admitted on 01/23/2020 and found to have right foot osteomyelitis and abscesses in the setting of type 1 diabetes and had been operated on by orthopedics on 01/24/2020(patient had 6 Incision and Drainage Septic Right Foot Dorsal abscess, incision and drainage lateral foot abscess; Tenosynovectomy Extensor Digitorum Tendons(x4 ), exploration with irrigation and debridement plantar deep space foot, irrigation debridement tarsal tunnel, tenosynovectomy extensor hallucis longus tendon, excision avulsion fracture lateral cuboid, placement of deep Hemovac suction drains x2 by ortho Dr. Whitfield (hemovac discontinued by ortho on ) and also treated with IV antibiotics Staphylococcus aureus bacteremia with right arm PICC line placed on 01/31/2020 and then to continue IV Cefazolin as 2 grams every 8 hours for 6 weeks with expected stop date on for February. -On follow up to wound care center center on 02/02/2020, the wound care Dr. Dolan reported "that compared to patient's last inpatient picture, appears the foot is more erythematous, inflamed and edematous. There is some purulent drainage coming from the main dorsal wound. There is drainage from all suture lines." also that patient's blood pressure was was 90/60 and that the Patient's left first toe also appears to be turning gangrene. His foot was painted with Betadine and Other wounds covered with Adaptic and Aquacel Ag -He was sent back to hospital as direct admission for further management of the right foot. On arrival, to the medical hull, patient does not appear to be tachycardic and with normal blood pressure of 143/83. I taken down the right foot dressing and see that there are not much draining from the suture sites of the. There is an abrasion of the right foot 2nd toe which will have surface wound culture taken. The left foot with which is the unoperated side with dry 2nd toe eschar. -On review of systems: no fever, no dizziness, no headache. no chest pain, no shortness of breath. no vomiting. -surface wound culture sent from right foot left toe as there is minimal drainage seen -orthopedics Dr. Whitfield took patient to operating room on 02/03/2020 02/12/20 S/P day#4 Right Foot Incision and drainage of recurrent abscess dorsal foot, incision and drainage of recurrent abscess lateral foot, incision and drainage recurrent abscess dorsal second toe, irrigation and debridement of calcaneus and cuboid including joint capsule and bone, implantation of antibiotic beads multiple sites right foot- Barrera Whitfield DO Wound cx grew staph aureus (MSSA) pain controlled Dressing changed and packing pulled today as per ortho Continue Non weight bearing Transition to previous IV cefazolin IV q8 hours on discharge. case management was notified and working on IV abx infusion at home OK from ortho to discharge home Continue daily wound care with dressing change Follow up appointment with Dr. 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 Depression. Continue Celexa. DVT px SCDs On heparin subq Code Status Full code Disposition Discharge home today after next dose of IV abx Admission and Anticipated Discharge Date Admission Date: February 02, 2020 Subjective Pt was seen and examined Lying in bed with no distress Pt said that he feels ok director of casework department arranged IV abx infusion for him to start tonight Denies any new complaint Physical Exam Physical Exam: General- No acute distress Head- atraumatic Eyes- PERRL, EOMI, ENT- oropharynx clear Neck- supple, no JVD Lungs- clear to auscultation Heart- regular rhythm; no murmur Abdomen- normal bowel sounds, soft, nontender Extremities- no calf tenderness, +right foot wrap , +decrease sensation in b/l LE Neuro- alert, oriented x 3; PERRL, EOMI; no facial palsy; no dysarthria Skin- warm & dry Results & Data Results & Data ([facility]) Vital Signs (Past 12 Hours) Vital Signs Temp Pulse Resp BP Pulse Ox 02/12/20 09:53 77 137/87 02/12/20 08:03 36.6 C 76 18 137/89 96
--- NOTE | 2020-02-13 08:57 | Discharge Summary ---
Date of Service February 13, 2020 Admission HPI Per Admitting Provider This 49 year old Male who was admitted on 01/23/2020 and found to have right foot osteomyelitis and abscesses in the setting of type 1 diabetes and had been operated on by orthopedics on 01/24/2020(patient had 6 Incision and Drainage Septic Right Foot Dorsal abscess, incision and drainage lateral foot abscess; Tenosynovectomy Extensor Digitorum Tendons(x4 ), exploration with irrigation and debridement plantar deep space foot, irrigation debridement tarsal tunnel, tenosynovectomy extensor hallucis longus tendon, excision avulsion fracture lateral cuboid, placement of deep Hemovac suction drains x2 by ortho Dr. Whitfield (hemovac discontinued by ortho on ) and also treated with IV antibiotics Staphylococcus aureus bacteremia with right arm PICC line placed on 01/31/2020 and then to continue IV Cefazolin as 2 grams every 8 hours for 6 weeks with expected stop date on for February. On follow up to wound care center center on 02/02/2020, the wound care Dr. Dolan reported "that compared to patient's last inpatient picture, appears the foot is more erythematous, inflamed and edematous. There is some purulent drainage coming from the main dorsal wound. There is drainage from all suture lines." also that patient's blood pressure was was 90/60 and that the Patient's left first toe also appears to be turning gangrene. His foot was painted with Betadine and Other wounds covered with Adaptic and Aquacel Ag He was sent back to hospital as direct admission for further management of the right foot. On arrival, to the medical hull, patient does not appear to be tachycardic and with normal blood pressure of 143/83. I taken down the right foot dressing and see that there are not much draining from the suture sites of the. There is an abrasion of the right foot 2nd toe which will have surface wound culture taken. The left foot with which is the unoperated side with dry 2nd toe eschar. On review of systems: no fever, no dizziness, no headache. no chest pain, no shortness of breath. no vomiting. Admission Exam Per Admitting Provider Constitutional: + obese Eyes: PERRL, conjunctivae normal, anicteric sclerae EOM intact bilaterally ENMT: external ear and nose normal, oropharynx normal Neck: trachea midline, no thyromegaly normal visual inspection Respiratory: normal respiratory effort, lungs clear to auscultation Cardiovascular:regular rate Gastrointestinal: normal bowel sounds, soft, nontender, no hepatosplenomegaly Musculoskeletal: normocephalic and head atraumatic Skin: I taken down the right foot dressing and see that there are not much draining from the suture sites of the. There is an abrasion of the right foot 2nd toe which will have surface wound culture taken. The left foot with which is the unoperated side with dry 2nd toe eschar. Neurologic: PERRL, EOMI, accommodation nl, no face palsy, no dysarthria Psychiatric: A+Ox3, euthymic affect Principal Diagnosis 1. Right foot recurrent abscess in the dorsal foot. 2. Recurrent abscess, lateral foot. 3. Recurrent abscess, dorsal second toe. 4. Septic arthritis of the calcaneocuboid joint. 5. Charcot arthropathy. Discharge Exam General- No acute distress Head- atraumatic Eyes- PERRL, EOMI, ENT- oropharynx clear Neck- supple, no JVD Lungs- clear to auscultation Heart- regular rhythm; no murmur Abdomen- normal bowel sounds, soft, nontender Extremities- no calf tenderness, +right foot wrap , +decrease sensation in b/l LE Neuro- alert, oriented x 3; PERRL, EOMI; no facial palsy; no dysarthria Skin- warm & dry Discharge Data Allergies Allergy/AdvReac Type Severity Reaction Status Date / Time No Known Allergies Allergy Verified 02/02/20 14:44 Consultations 02/02/20 16:59 Consult Case Management - Discharge Planning Routine 02/02/20 17:06 Consult Orthopedic Surgery Routine 02/08/20 12:28 Consult Case Management - Discharge Planning Routine Procedures Performed Operation Date: 02/03/20 07:30 Actual Procedures p Capsulotomy 2nd MPJ, Right Second Toe Extensor Tenosynovectomy, Multiple Incisions and Drainage, Dorsal Foot Abscess Incision and Drainage, Lateral Foot Abscess Incision and Drainage, Medial Foot Abcess Incision and Drainage, Plantar Foot Abscess Incision and Drainage (Right) - Barrera Whitfield DO Operation Date: 02/08/20 07:00 Actual Procedures p Right Foot Incision and drainage of abscess, irrigation and debridement of calcaneus and cuboid, implantation of antibiotic beads - Barrera A Barter, DO Ordered Studies 02/03/20 07:47 US - OR guided needle placemen Routine Hospital Course (1) Osteomyelitis of right foot: Osteomyelitis of right foot, right foot abscesses Staphylococcus Bacteremia -This 49 year old Male who was admitted on 01/23/2020 and found to have right foot osteomyelitis and abscesses in the setting of type 1 diabetes and had been operated on by orthopedics on 01/24/2020(patient had 6 Incision and Drainage Septic Right Foot Dorsal abscess, incision and drainage lateral foot abscess; Tenosynovectomy Extensor Digitorum Tendons(x4 ), exploration with irrigation and debridement plantar deep space foot, irrigation debridement tarsal tunnel, tenosynovectomy extensor hallucis longus tendon, excision avulsion fracture lateral cuboid, placement of deep Hemovac suction drains x2 by ortho Dr. Whitfield (hemovac discontinued by ortho on ) and also treated with IV antibiotics Staphylococcus aureus bacteremia with right arm PICC line placed on 01/31/2020 and then to continue IV Cefazolin as 2 grams every 8 hours for 6 weeks with expected stop date on for February. -On follow up to wound care center center on 02/02/2020, the wound care Dr. Dolan reported "that compared to patient's last inpatient picture, appears the foot is more erythematous, inflamed and edematous. There is some purulent drainage coming from the main dorsal wound. There is drainage from all suture lines." also that patient's blood pressure was was 90/60 and that the Patient's left first toe also appears to be turning gangrene. His foot was painted with Betadine and Other wounds covered with Adaptic and Aquacel Ag -He was sent back to hospital as direct admission for further management of the right foot. On arrival, to the medical hull, patient does not appear to be tachycardic and with normal blood pressure of 143/83. I taken down the right foot dressing and see that there are not much draining from the suture sites of the. There is an abrasion of the right foot 2nd toe which will have surface wound culture taken. The left foot with which is the unoperated side with dry 2nd toe eschar. -On review of systems: no fever, no dizziness, no headache. no chest pain, no shortness of breath. no vomiting. -surface wound culture sent from right foot left toe as there is minimal drainage seen -orthopedics Dr. Whitfield took patient to operating room on 02/03/2020 02/12/20 S/P day#4 Right Foot Incision and drainage of recurrent abscess dorsal foot, incision and drainage of recurrent abscess lateral foot, incision and drainage recurrent abscess dorsal second toe, irrigation and debridement of calcaneus and cuboid including joint capsule and bone, implantation of antibiotic beads multiple sites right foot- Barrera Whitfield DO Wound cx grew staph aureus (MSSA) pain controlled Dressing changed and packing pulled today as per ortho Continue Non weight bearing Transition to previous IV cefazolin IV q8 hours on discharge. case management was notified and working on IV abx infusion at home OK from ortho to discharge home Continue daily wound care with dressing change Follow up appointment with Dr. 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 Depression. Continue Celexa. DVT px SCDs On heparin subq Code Status Full code Disposition Discharge home today after next dose of IV abx Total Time Total Time Spent Total Time Spent (In Minutes): 35 minutes Total Time Includes: Examination of the Patient, Discharge Planning, Medication Reconciliation, Communication With Other Providers and Other Discharge Plan Discharge Items Patient Disposition: Home - Home Health Services Reason For Visit: RT FOOT CELLULITIS (OPEN) Discharge Diagnosis: 1. Right foot recurrent abscess in the dorsal foot. 2. Recurrent abscess, lateral foot. 3. Recurrent abscess, dorsal second toe. 4. Septic arthritis of the calcaneocuboid joint. 5. Charcot arthropathy. Activity: Per Instructions section Non-emergency contact: Primary Care Provider Call non-emergency contact if: you have any medication questions and your temperature is above 101 Follow-up/Referrals: Joanne Sheikh MD [Primary Care Provider] - Diet: Carb Consistent or DM2 Addtl Attending Provider Instructions: Follow up with Provider Dr. Corral (Dr. Sheikh's colleague) on 02/15 @ 12PMMD Department Internal Medicine [facility] 06/03/2020 2:00 PM Provider Joanne Sheikh MD Department Internal Medicine [facility] Follow up with orthopedic Tee Bynum PA-C on 02/14 () @ 10:30 AM Follow up with wound care clinic Continue dailly wound care and dressing change Continue non-weightbearing right foot Fall precaution Continue IV antibiotic with Cefazolin Check CBC and BMP weekly while on IV Cefazolin (your physician will order it) Addtl Fiber Technician Provider Instructions: Follow up with Dr. Whitfield nursing staff this upcoming week for dressing change. You will see his PA Tee Bynum at 10:30 AM on February 14. Please arrive 15minutes early. Continue non weight bearing Right foot. ACTIVITY RECOMMENDATIONS: Limitations: No weight bearing to affected limb at all times. SPECIAL CARE INSTRUCTIONS: * Some drainage onto the dressing is normal and is no cause for alarm. * Some swelling is natural especially after walking. * When resting, keep your foot elevated above the level of your heart. * Call [facility] if you notice: -Increased drainage -Fever over 101 degrees F -Severe constant pain -Increased redness of the wounds -Increased swelling BANDAGE: * Daily dressing changes until seen in the office. * Keep bandage/cast dry at all times. FOLLOW UP VISIT WITH DR. WHITFIELD NOTED ABOVE (Feb AT 10:30 AM WITH TEE BYNUM PAC) CALL THE OFFICE WITH ANY QUESTIONS [phone] Pending Studies at Discharge: No Stand-Alone Forms: My [facility] [employer], Smoking Cessation Medications and DC Order Prescriptions: New lisinopril 10 mg Tablet 10 mg PO QAM Qty: 30 RF: 0 Continued citalopram [Celexa] 40 mg tablet 40 mg PO QAM RF: 0 lovastatin 40 mg tablet 40 mg PO HS RF: 0 metformin [Glucophage XR] 500 mg tablet extended release 24 hr 2,000 mg PO QAM RF: 0 insulin aspart U-100 [Novolog Flexpen U-100 Insulin] 100 unit/mL (3 mL) Insulin Pen 15 unit SUBCUT TIDM RF: 0 Victoza 3-Moy 0.6 mg/0.1 mL (18 mg/3 mL) pen injector 1.8 mg SUBCUT QAM RF: 0 Tresiba FlexTouch U-200 200 unit/mL (3 mL) insulin pen 156 unit SUBCUT QAM RF: 0 amlodipine [Norvasc] 5 mg Tablet 5 mg PO QAM 30 Days Qty: 30 RF: 0 indomethacin 50 mg capsule 50 mg PO BID PRN (Reason: Gout Flare Up) RF: 0 cefazolin 1 gram recon soln 2 gm IV Q8H 30 Days Qty: 90 RF: 0 Discontinued lisinopril 2.5 mg tablet 2.5 mg PO QAM RF: 0 Discharge Orders: Discharge Order (Routine); Ordered 02/12/20 Ordered By: Breana Cabrera/Other Patient Handouts: Managing Type 2 Diabetes, Managing Diabetes: The A1C Test, Diabetes: Meal Planning, ED Diabetic Foot Care Admission Data Admit Date/Time: 02/02/20 16:40 Attending Provider: Breana Rachel Admit Provider: Sean Mora Primary Care Provider: Joanne Sheikh Other Providers: Sean Mora ; Barrera Whitfield ; [facility] ; [facility] Other Interventions: Discharge Summary Assessment (RN) Last Done: 02/12/20 14:15 DC Date/Time DO NOT enter until pt leaves facility: 02/12/20 16:42
== END 2020-02-12 16:42 | disposition home health service (06) | DRG 623 ==
LOC: SUATTDRO 16:40 → 2N 16:40 → 3W 17:49

== ENCOUNTER 2022-05-29 17:43 | Inpatient (IN) ==
[2022-05-29 18:23] LABS: Basophils # (auto) 0.03 K/uL (0-0.2); Basophils % (auto) 0.2 %; Eosinophils % (auto) 0.6 %; Hematocrit (blood only) 37.2 % (40.1-51.0); Hemoglobin 12.3 g/dl (14.0-18.0); Immature Granulocytes # (auto) 0.11 K/uL (0.00-0.02); Immature Granulocytes % (auto) 0.6 %; Lymphocytes # (auto) 1.46 K/uL (1.2-3.4); Lymphocytes % (auto) 8.5 %; Mean Corpuscular Hemoglobin 30.4 pg (25.0-34.0); Mean Corpuscular Hgb Conc 33.1 g/dL (32.0-36.0); Mean Corpuscular Volume 92.1 fL (80.0-100.0); Mean Platelet Volume 8.6 fL (9.4-12.4); Monocytes # (auto) 1.24 K/uL (0.24-0.82); Monocytes % (auto) 7.3 %; Neutrophils # (auto) 14.15 K/uL (1.4-6.5); Neutrophils % (auto) 82.8 %; Platelet Count 381 K/uL (130-400); RDW Standard Deviation 40.9 fL (36.4-46.3); Red Blood Count 4.04 M/uL (4.63-6.08); White Blood Count 17.09 K/ul (4.8-10.8)
[2022-05-29 18:41] LABS: Albumin Globulin Ratio 0.6 (0.9-2); Albumin Level 3.3 gm/dl (3.4-5.0); BUN Creatinine Ratio 15.9 (10-20); Calcium 8.9 mg/dl (8.5-10.1); Creatinine Clr Calc Pharmacy 113.5 ml/min; Est GFR (African American) 76.6 ml/min; Est GFR (Non-African American) 66.1 ml/min; Globulin 5.4 gm/dl (2.5-4.0); Potassium 4.5 mmol/L (3.5-5.1); Total Protein 8.7 gm/dl (6.0-8.3)
[2022-05-29] MEDS ORDERED: VANCOMYCIN CONSULT ACTIVE PRN (19:09)
[2022-05-29] MEDS ORDERED: SODIUM CHLORIDE 0.9% 1000ML 1,000 ML IV ONE (19:09)
[2022-05-29] MEDS ORDERED: PIPERACILLIN/TAZOBACTAM 4.5 GM/120 ML BAG IV ONE (19:09)
[2022-05-29] MEDS ORDERED: VANCOMYCIN HCL 2,750 MG in SODIUM CHLORIDE 0.9% 500 ML IV ONE (19:09)
--- NOTE | 2022-05-29 19:13 | Emergency Department Note ---
Impression & Plan Sepsis, Osteomyelitis of great toe of left foot, COVID-19 ED Provider Note Name: MIS MILLER Age: 52 Sex: M Arrives Via: Walk-In Informant: Patient,, ED Provider: Amado Singh MD Chief Complaint: Foot infection Impression: As per impressions above Medical Decision Making: Pleasant 52-year-old gentleman with history of diabetes and neuropathic issues in his feet he has had recurrent infections though now has a significant ulcer under the bottom of his left great toe it is now resulted in osteomyelitis of the toe and developing severe infection of the toe itself. Toe is significantly swollen and clearly quite infected. He has erythema coming up the foot and a little bit on the lower leg. He is not having fevers but is having chills as well as an elevated white blood cell count and tachycardia in setting of significant toe infection.. I do feel he is early sepsis. He was managed aggressively once brought back from the waiting room with blood cultures and lactic acid obtained as well as empiric IV antibiotics for broad-spectrum. He is not hypotensive nor his white blood cell count elevated as well avoid 30/kg fluid bolus. I did get x-rays of the chest and the foot which reveal osteomyelitis and questionable pulmonary vascular congestion. Admission COVID testing is positive. He notes a 2-week history of cough and fatigue which he is already related to his toe infection. I suspect that he is actually had COVID the last 2 weeks as well. While likely outside of the 10-day window we will keep in isolation until properly cleared. This may be the cause of the findings on his chest x-ray as well. Patient and are comfortable with plan for hospitalization he is aware that this may result in amputation of his toe. Prior Medical Record and Triage/Nursing Notes reviewed by Me Additional history obtained from chart Differentials:Osteomyelitis, cellulitis, abscess, sepsis, bacteremia, moe ctrolyte imbalance amongst other causes of weakness fever and fatigue were considered. Vital Signs: reviewed and remarkable for tachycardia on arrival Interventions: Normal saline bolus, Zosyn IV, vancomycin IV Labs:Reviewed and remarkable for elevated white blood cell count Imaging:Chest x-ray bilateral congestive findings versus viral infiltrate. Toe x-ray osteomyelitis of the left great toe significant soft tissue edema Plan: Disposition:Hospitalization. Condition: Good stable throughout History of Present Illness:52-year-old gentleman with a long history of diabetes and previous toe infections arrives for evaluation of worsening left great toe infection. Dealing with this for the last 3 weeks or so. Also into the base of the toe that is gradually worsened and now the entire toe swollen. He was seen by podiatry a few days ago and told he had osteomyelitis and likely needed his toe removed. Over the last few days worsening chills, fatigue, w eakness, tachycardia and now spreading rash up his foot and leg. Denies any calf pain, syncope, chest pain, shortness of breath, palpitations, abdominal pain, nausea, vomiting, urinary/bowel symptoms or other concerning signs or symptoms. He has not had any actual fevers but does feel chilled. No known injury to the toe. No known foreign body. Does have diabetic neuropathy and does not feel the toes very well. No medications prior to arrival. Nothing seems to make this better or worse. He has not been on antibiotics in the last few weeks though previously was on Keflex and Doxy without improvement. ROS: See above HPI for pertinent positives & negatives. A total of 10 systems reviewed and were otherwise negative. Past Medical History:See Below Past Surgical History:See Below Family History:See Below Social History:See Below Home Medications:See Below Allergies:No known drug allergies Vitals:Blood Pressure: 136/84, Pulse 120, RR 18, T 37.2C, O2 96% on RA Physical Exam: GENERAL: Patient is unwell appearing and in mild distress. EYES: No scleral icterus, unremarkable pupils. ENT: Mucous membranes moist, no nasal congestion. NECK: No masses appreciated, nomeningismus, trachea is midline. RESPIRATORY: No dyspnea. Clear to auscultation and equal bilaterally. No wheeze, no rhonchi. CARDIOVASCULAR: Tachy.No murmurs, rubs, gallops appreciated. GASTROINTESTINAL: Abdomen soft, non-tender, no peritonitis.Bowel sounds positive.No masses appreciated. BACK: No midline tenderness, no CVA tenderness EXTREMITIES: Normal motion all extremities, no cyanosis, no edema. Left great toe: 1.5 cm ulceration under base of toe, toe is significantly swollen, discolored and malodorous. NEUROLOGIC: Alert and oriented, no acute motor or sensory deficits, no focal weakness, cranial nerves grossly intact. SKIN: Red rash left foot extending medially left inner lower leg to mid fontenot. no jaundice, no diaphoresis. PSYCH: Appropriate GCS: 15 ED Course: Times/Reassessments: Much more comfortable and heart rate has improved significantly with IV fluids. Amado Singh MD Past Med/Surg History Medical History Anemia Anxiety Depression Diabetes IDDM History of gout Hyperlipidemia Hypertension Lazy eye Morbid obesity with BMI of 50.0-59.9, adult Osteomyelitis of right foot Peripheral neuropathy feet bl Psoriasis Sleep apnea BIPAP Surgical History H/O foot surgery multiple---last 02/2020 @ [facility] Right foot I& : MAC sedation at [facility] History of difficult intubation I&D septic right foot: 01/24/20: Grade view 1, Glidescope#4, ETT 7.5 at [facility] History of tonsillectomy Family History Grandfather (Maternal) Coronary heart disease Grandfather (Paternal) Coronary heart disease Other No family history of adverse response to anesthesia No significant family history Social History Smoking Status: Never smoker Second Hand Exposure: No; Hx Alcohol Use: No Hx Substance Use: No Preferred Language: Egyptian Communication Ability: Effective Marketing Support Assistant Required: No Beliefs That Will Affect Care: None marital status: Current Living Situation: Spouse and Family Current Living Situation Comment: Lives w/ spouse and child current occupational status: employed Other Information That Helps Us Care for You: No Feels Safe at Home: Yes Safety Concerns: Feels Safe At This Time Assistive Devices: CPAP, Denture - Upper and Glasses Assistive Devices Comment: Brought personal CPAP Allergies Allergies Allergy/AdvReac Type Severity Reaction Status Date / Time No Known Allergies Allergy Verified 05/29/22 21:23 Home Meds Home Medications Medication Instructions Recorded Confirmed citalopram 40 mg tablet (Celexa) 40 mg PO QAM 06/25/19 05/29/22 insulin aspart U-100 100 unit/mL 25 unit subcut TIDM 06/25/19 05/29/22 (3 mL) subcutaneous pen (Novolog Flexpen U-100 Insulin aspart) insulin degludec 200 unit/mL (3 160 unit subcut QAM 06/25/19 05/29/22 mL) subcutaneous pen (Tresiba FlexTouch U-200 insulin) lovastatin 40 mg tablet 40 mg PO HS 06/25/19 05/29/22 lisinopril 2.5 mg tablet 2.5 mg PO QAM 03/12/22 05/29/22 amlodipine 5 mg tablet 5 mg PO QAM 05/29/22 05/29/22 aspirin 81 mg chewable tablet 81 mg PO DAILY 05/29/22 05/29/22 (Aspirin Childrens) dulaglutide 4.5 mg/0.5 mL 4.5 mg subcut WK 05/29/22 05/29/22 subcutaneous pen injector (Trulicity) fluticasone propionate 50 1 - 2 spray intranasal HS 05/29/22 05/29/22 mcg/actuation nasal spray,suspension hydrocortisone 2.5 % topical 1 applic topical BID PRN flares 05/29/22 05/29/22 ointment indomethacin 50 mg capsule 50 mg PO BIDM 05/29/22 05/29/22 metformin 500 mg tablet,extended 2,000 mg PO DAILY 05/29/22 05/29/22 release 24 hr naproxen 500 mg tablet 500 mg PO BIDM 05/29/22 05/29/22 triamcinolone acetonide 0.1 % 1 applic topical BID PRN flaring 05/29/22 05/29/22 topical ointment Results & Data (ED) Vital Signs Vital Signs - 24 hr 05/29/22 17:45 05/29/22 19:30 05/29/22 21:00 Temperature 37.2 C Temperature Source Oral Pulse Rate 120 H Pulse Rate [Finger] 94 H 102 H Pulse Rhythm [Finger] Regular Regular Pulse Strength [Finger] Normal Normal Respiratory Rate 18 20 18 Respiratory Effort / Characteristics Non-Labored Non-Labored Non-Labored Respiratory Depth Normal Normal Normal Respiratory Pattern Regular Regular Blood Pressure 136/84 Blood Pressure [Right Arm] 126/71 126/71 Blood Pressure Mean 101 Blood Pressure Mean [Right Arm] 89 89 Blood Pressure Position [Right Arm] Sitting Pulse Oximetry 96 96 96 Oxygen Delivery Method Room Air Room Air Room Air Sepsis Recent Fever Within 48 Hours No Sepsis New/Unexplained Change in Mental Status No Sepsis Action Taken by Nursing No Action Required Laboratory Data Result diagrams: 05/30/22 05:55 05/30/22 05:55 Lab Results 05/29/22 05/29/22 05/29/22 Range/Units 18:09 18:09 18:09 WBC 17.09 H (4.8-10.8) K/ul RBC 4.04 L (4.63-6.08) M/uL Hgb 12.3 L (14.0-18.0) g/dl Hct 37.2 L (40.1-51.0) % MCV 92.1 (80.0-100.0) fL MCH 30.4 (25.0-34.0) pg MCHC 33.1 (32.0-36.0) g/dL RDW Std Deviation 40.9 (36.4-46.3) fL RDW Coeff of José Manuel 12.0 (11.5-14.5) % Plt Count 381 (130-400) K/uL MPV 8.6 L (9.4-12.4) fL Immature Gran % (Auto) 0.6 % Neut % (Auto) 82.8 % Lymph % (Auto) 8.5 % Terrell % (Auto) 7.3 % Eos % (Auto) 0.6 % Baso % (Auto) 0.2 % Neut # (Auto) 14.15 H (1.4-6.5) K/uL Lymph # (Auto) 1.46 (1.2-3.4) K/uL Terrell # (Auto) 1.24 H (0.24-0.82) K/uL Eos # (Auto) 0.10 (0-0.50) K/uL Baso # (Auto) 0.03 (0-0.2) K/uL Immature Gran # (Auto) 0.11 H (0.00-0.02) K/uL Sodium 130 L (136-145) mmol/L Potassium 4.5 (3.5-5.1) mmol/L Chloride 97 L (98-107) mmol/L Carbon Dioxide 25 (21-32) mmol/L Anion Gap 8 (3-11) BUN 20 (6-23) mg/dl Creatinine 1.26 (0.6-1.4) mg/dl Est Cr Clr Drug Dosing 113.5 ml/min Est GFR ( Amer) 76.6 ml/min Est GFR (Non-Af Amer) 66.1 ml/min BUN/Creatinine Ratio 15.9 (10-20) Glucose 178 H (70-99(Fasting)) mg/dl Estimat Average Glucose mg/dl Hemoglobin A1c (4.5-5.6) % Lactate (0.4-2.0) mmol/L Calcium 8.9 (8.5-10.1) mg/dl Magnesium (1.7-2.4) mg/dl Total Bilirubin 1.0 (0.2-1.0) mg/dl AST 22 (13-39) U/L ALT 31 (7-52) U/L Alkaline Phosphatase 110 H (34-104) U/L Total Protein 8.7 H (6.0-8.3) gm/dl Albumin 3.3 L (3.4-5.0) gm/dl Globulin 5.4 H (2.5-4.0) gm/dl Albumin/Globulin Ratio 0.6 L (0.9-2) Procalcitonin 0.21 (0-0.5) ng/ml TSH (0.300-4.500) uIu/ml 05/29/22 05/29/22 05/29/22 Range/Units 18:09 18:09 18:09 WBC (4.8-10.8) K/ul RBC (4.63-6.08) M/uL Hgb (14.0-18.0) g/dl Hct (40.1-51.0) % MCV (80.0-100.0) fL MCH (25.0-34.0) pg MCHC (32.0-36.0) g/dL RDW Std Deviation (36.4-46.3) fL RDW Coeff of José Manuel (11.5-14.5) % Plt Count (130-400) K/uL MPV (9.4-12.4) fL Immature Gran % (Auto) % Neut % (Auto) % Lymph % (Auto) % Terrell % (Auto) % Eos % (Auto) % Baso % (Auto) % Neut # (Auto) (1.4-6.5) K/uL Lymph # (Auto) (1.2-3.4) K/uL Terrell # (Auto) (0.24-0.82) K/uL Eos # (Auto) (0-0.50) K/uL Baso # (Auto) (0-0.2) K/uL Immature Gran # (Auto) (0.00-0.02) K/uL Sodium (136-145) mmol/L Potassium (3.5-5.1) mmol/L Chloride (98-107) mmol/L Carbon Dioxide (21-32) mmol/L Anion Gap (3-11) BUN (6-23) mg/dl Creatinine (0.6-1.4) mg/dl Est Cr Clr Drug Dosing ml/min Est GFR ( Amer) ml/min Est GFR (Non-Af Amer) ml/min BUN/Creatinine Ratio (10-20) Glucose (70-99(Fasting)) mg/dl Estimat Average Glucose 220 mg/dl Hemoglobin A1c 9.3 H (4.5-5.6) % Lactate (0.4-2.0) mmol/L Calcium (8.5-10.1) mg/dl Magnesium 1.3 L (1.7-2.4) mg/dl Total Bilirubin (0.2-1.0) mg/dl AST (13-39) U/L ALT (7-52) U/L Alkaline Phosphatase (34-104) U/L Total Protein (6.0-8.3) gm/dl Albumin (3.4-5.0) gm/dl Globulin (2.5-4.0) gm/dl Albumin/Globulin Ratio (0.9-2) Procalcitonin (0-0.5) ng/ml TSH 0.833 (0.300-4.500) uIu/ml 05/29/22 Range/Units 19:20 WBC (4.8-10.8) K/ul RBC (4.63-6.08) M/uL Hgb (14.0-18.0) g/dl Hct (40.1-51.0) % MCV (80.0-100.0) fL MCH (25.0-34.0) pg MCHC (32.0-36.0) g/dL RDW Std Deviation (36.4-46.3) fL RDW Coeff of José Manuel (11.5-14.5) % Plt Count (130-400) K/uL MPV (9.4-12.4) fL Immature Gran % (Auto) % Neut % (Auto) % Lymph % (Auto) % Terrell % (Auto) % Eos % (Auto) % Baso % (Auto) % Neut # (Auto) (1.4-6.5) K/uL Lymph # (Auto) (1.2-3.4) K/uL Terrell # (Auto) (0.24-0.82) K/uL Eos # (Auto) (0-0.50) K/uL Baso # (Auto) (0-0.2) K/uL Immature Gran # (Auto) (0.00-0.02) K/uL Sodium (136-145) mmol/L Potassium (3.5-5.1) mmol/L Chloride (98-107) mmol/L Carbon Dioxide (21-32) mmol/L Anion Gap (3-11) BUN (6-23) mg/dl Creatinine (0.6-1.4) mg/dl Est Cr Clr Drug Dosing ml/min Est GFR ( Amer) ml/min Est GFR (Non-Af Amer) ml/min BUN/Creatinine Ratio (10-20) Glucose (70-99(Fasting)) mg/dl Estimat Average Glucose mg/dl Hemoglobin A1c (4.5-5.6) % Lactate 1.9 (0.4-2.0) mmol/L Calcium (8.5-10.1) mg/dl Magnesium (1.7-2.4) mg/dl Total Bilirubin (0.2-1.0) mg/dl AST (13-39) U/L ALT (7-52) U/L Alkaline Phosphatase (34-104) U/L Total Protein (6.0-8.3) gm/dl Albumin (3.4-5.0) gm/dl Globulin (2.5-4.0) gm/dl Albumin/Globulin Ratio (0.9-2) Procalcitonin (0-0.5) ng/ml TSH (0.300-4.500) uIu/ml Administered Medications Amlodipine Besylate (Amlodipine Besylate 5 Mg Tab) [facility] [place] [facility] [place] Stop: 06/29/22 08:59 Last Admin: 05/30/22 07:42 Dose: 5 mg Documented By: BASIM Aspirin (Aspirin 81 Mg Ectab) 81 mg PO DAILY [facility] Stop: 06/29/22 08:59 Last Admin: 05/30/22 07:43 Dose: 81 mg Documented By: BASIM Citalopram Hydrobromide (Citalopram 40 Mg Tab) 40 mg PO QAM [facility] Stop: 06/29/22 08:59 Last Admin: 05/30/22 07:43 Dose: 40 mg Documented By: BASIM Enoxaparin Sodium (Enoxaparin Inj 40 Mg/0.4 Ml Syr) 40 mg SQ QAM [facility] Stop: 06/29/22 08:59 Last Admin: 05/30/22 07:44 Dose: 40 mg Documented By: BASIM Sodium Chloride (Nss 1000ml) 1,000 mls @ 60 mls/hr IV .[id number] [facility] Stop: 05/30/22 15:15 Last Admin: 05/29/22 22:48 Dose: 60 mls/hr Documented By: ADOLFO Piperacillin Sod/Tazobactam (Sod 4.5 gm/ Dextrose) 120 mls @ 30 mls/hr IV Q8H [facility]; Protocol Stop: 07/11/22 01:59 Last Infusion: 05/30/22 13:08 Dose: 0 mls/hr Documented By: Admin: 05/30/22 09:02 Dose: 30 mls/hr Documented By: Infusion: 05/30/22 05:00 Dose: 0 mls/hr Documented By: Admin: 05/30/22 01:00 Dose: 30 mls/hr Documented By: LISETTE Daptomycin 675 mg/ Syringe 13.5 mls @ 6.75 mls/min IV Q24H [facility]; Protocol Stop: 07/11/22 00:00 Last Admin: 05/30/22 00:41 Dose: 6.75 mls/min Documented By: LISETTE Insulin Aspart (Insulin Aspart Per Unit) 0 units SC ACHS [facility] Stop: 06/28/22 23:28 Last Admin: 05/30/22 12:06 Dose: 2 units Documented By: BASIM Co-signed By: [id number] Admin: 05/30/22 08:02 Dose: Not Given Documented By: BASIM Co-signed By: [id number] Admin: 05/29/22 23:48 Dose: Not Given Documented By: LISETTE Insulin Glargine (Lantus Per Unit Charge) 100 units SQ QAM [facility] Stop: 06/29/22 08:59 Last Admin: 05/30/22 08:05 Dose: 100 units Documented By: BASIM Co-signed By: [id number] Lisinopril (Lisinopril 2.5 Mg Tab) 2.5 mg PO QAM [facility] Stop: 06/29/22 08:59 Last Admin: 05/30/22 07:43 Dose: 2.5 mg Documented By: BASIM Discontinued Medications Acetaminophen (Acetaminophen 325 Mg Tab) 650 mg PO NOW STA Stop: 05/29/22 23:15 Last Admin: 05/29/22 23:47 Dose: 650 mg Documented By: LISETTE Piperacillin Sod/Tazobactam Sod (Zosyn) 4.5 gm in 120 mls @ 240 mls/hr IV NOW ONE Stop: 05/29/22 19:38 Last Infusion: 05/29/22 20:36 Dose: 0 mls/hr Documented By: Admin: 05/29/22 19:42 Dose: 240 mls/hr Documented By: ADOLFO Vancomycin HCl 2,750 mg/ (Sodium Chloride) 555 mls @ 200 mls/hr IV NOW ONE Stop: 05/29/22 21:55 Last Infusion: 05/29/22 23:00 Dose: 0 mls/hr Documented By: Admin: 05/29/22 20:08 Dose: 200 mls/hr Documented By: ADOLFO Sodium Chloride (Nss 1000ml) 1,000 mls @ 999 mls/hr IV .[id number] ONE Stop: 05/29/22 20:09 Last Infusion: 05/29/22 21:25 Dose: 0 mls/hr Documented By: Admin: 05/29/22 19:44 Dose: 999 mls/hr Documented By: ADOLFO Magnesium Sulfate/Dextrose (Magnesium Sulfate / D5w) 1 gm in 100 mls @ 50 mls/hr IV ONE STA Stop: 05/30/22 00:35 Last Infusion: 05/30/22 00:56 Dose: 0 mls/hr Documented By: Admin: 05/29/22 22:56 Dose: 50 mls/hr Documented By: VALENCIA Discharge Plan Visit Data Chief Complaint: Foot Injury/Pain Stated Complaint: DIABETIC ULCER INFECTED IN TOE ED Provider: Amado Singh Discharge Problem: Sepsis, Osteomyelitis of great toe of left foot, COVID-19 Patient Disposition: Admitted As Inpatient Discharge Instructions Interventions: ED Discharge Assessment Last Done: 05/29/22 23:16 : Sepsis Qualifiers: Sepsis type: sepsis due to unspecified organism Sepsis acute organ dysfunction status: unspecified Qualified Code(s): A41.9 - Sepsis, unspecified organism
--- NOTE | 2022-05-29 20:31 | History & Physical Report ---
Date of Service May 29, 2022 Assessment & Plan (1) Sepsis: Plan: Secondary to diabetic foot infection, R History of DM neuropathy, history of Charcot foot Osteomyelitis on imaging Failed outpatient treatment COVID-19 pneumonia Patient oxygenation stable for now. HTN, stable hyperlipidemia on statin Rx asthma, stable DM2 insulin requiring, suboptimal control as of recent hemoglobin A1c of 9.3 last December 2021 chronic anemia, hemoglobin at baseline TAD on CPAP medication noncompliance as per records Medical telemetry CS, Daptomycin, Zosyn Orthopedics consult Re: Diabetic foot infection with underlying osteomyelitis (Patient known to Dr. Whitfield.) Supportive management for patient's COVID-19 pneumonia. Basal bolus insulin, ISS BG goal 1 10-1 40, carb count coverage, update hemoglobin A1c DVT prophylaxis. Lovenox subcu Full code Patient requesting updates from providers. Ms. Daniela Pritchard, contact #[phone]. Text document was generated using [employer] voice recognition software. It may contain grammatical or spelling errors. Kindly contact undersigned for clarification of any documentation item in question. History of Present Illness Chief Complaint: Left great toe bone infection Primary Care Provider: Joanne Sheikh MD History obtained from patient, family, and records. Medical history significant for HTN, hyperlipidemia, asthma, DM2 insulin requiring, history DM neuropathy, history of Charcot foot, chronic anemia (baseline hemoglobin of 12), TAD on CPAP, medication noncompliance as per records Last February 2020 for septic osteomyelitis right foot right foot status post surgery. Patient completed cefazolin course for MSSA bacteremia. 6 weeks ago, patient noted wound on the left great toe. No fever, no chills. Patient consulted [facility] ER last month for worsening of left great toe wound with foul-smelling drainage. No osteomyelitis on plain x-ray. Patient discharged on Keflex and doxycycline course. Minimal improvement despite compliance with antibiotic course. Patient seen by local software test analyst [facility] 3 weeks ago. Debridement done. Patient given Bactrim prescription. 2 weeks ago, patient noted cough symptoms productive of white sputum. No chest pain, no SOB. Possible COVID-19 contacts at home. Patient completed COVID-19 vaccination. Follow-up visit at software test analyst office 4 days ago. Toe wound with drainage worse. Left foot x-ray showed pathologic fracture of the proximal phalanx of the hallux with signs of osteomyelitis of the distal phalanx. Patient told that he may need surgery. Patient counseled to proceed to ER if with worsening infection. Patient consulted ER date for worsening left toe drainage. Vancomycin and Zosyn administered at the ER. Medical History as above Surgical History : Tonsillectomy/adenoidectomy, strabismus surgery Family History : Breast cancer, heart disease, alcoholism Personal/Social history : Nonsmoker, no chronic intake of alcoholic beverages. 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 Allergies Allergy/AdvReac Type Severity Reaction Status Date / Time No Known Allergies Allergy Verified 05/29/22 21:23 Home Medications Medication Instructions Recorded Confirmed Type citalopram 40 mg tablet (Celexa) 40 mg PO QAM 06/25/19 05/29/22 History insulin aspart U-100 100 unit/mL 25 unit subcut TIDM 06/25/19 05/29/22 History (3 mL) subcutaneous pen (Novolog Flexpen U-100 Insulin aspart) insulin degludec 200 unit/mL (3 160 unit subcut QAM 06/25/19 05/29/22 History mL) subcutaneous pen (Tresiba FlexTouch U-200 insulin) lovastatin 40 mg tablet 40 mg PO HS 06/25/19 05/29/22 History lisinopril 2.5 mg tablet 2.5 mg PO QAM 03/12/22 05/29/22 History amlodipine 5 mg tablet 5 mg PO QAM 05/29/22 05/29/22 History aspirin 81 mg chewable tablet 81 mg PO DAILY 05/29/22 05/29/22 History (Aspirin Childrens) dulaglutide 4.5 mg/0.5 mL 4.5 mg subcut WK 05/29/22 05/29/22 History subcutaneous [facility] fluticasone propionate 50 1 - 2 spray intranasal HS 05/29/22 05/29/22 History mcg/actuation nasal spray,suspension hydrocortisone 2.5 % topical 1 applic topical BID PRN flares 05/29/22 05/29/22 History ointment indomethacin 50 mg capsule 50 mg PO BIDM 05/29/22 05/29/22 History metformin 500 mg tablet,extended 2,000 mg PO DAILY 05/29/22 05/29/22 History release 24 hr naproxen 500 mg tablet 500 mg PO BIDM 05/29/22 05/29/22 History triamcinolone acetonide 0.1 % 1 applic topical BID PRN flaring 05/29/22 05/29/22 History topical ointment Past Med/Surg History Medical History Anemia Anxiety Depression Diabetes IDDM History of gout Hyperlipidemia Hypertension Lazy eye Morbid obesity with BMI of 50.0-59.9, adult Osteomyelitis of right foot Peripheral neuropathy feet bl Psoriasis Sleep apnea BIPAP Surgical History H/O foot surgery multiple---last 02/2020 @ [facility] Right foot I& : MAC sedation at [facility] History of difficult intubation I&D septic right foot: 01/24/20: Grade view 1, Glidescope#4, ETT 7.5 at [facility] History of tonsillectomy Family History Grandfather (Maternal) Coronary heart disease Grandfather (Paternal) Coronary heart disease Other No family history of adverse response to anesthesia No significant family history Social History Smoking Status: Never smoker Second Hand Exposure: No; Hx Alcohol Use: No Hx Substance Use: No Preferred Language: Armenian Communication Ability: Effective Clinical Services Director Required: No Beliefs That Will Affect Care: None marital status: Current Living Situation: Spouse and Family Current Living Situation Comment: Lives w/ spouse and child current occupational status: employed Other Information That Helps Us Care for You: No Feels Safe at Home: Yes Safety Concerns: Feels Safe At This Time Assistive Devices: CPAP, Denture - Upper and Glasses Assistive Devices Comment: Brought personal CPAP Review of Systems Review of Systems: As per HPI, all other systems reviewed and negative Physical Exam Physical Exam: GENERAL: Comfortable, morbidly obese, somewhat apathetic, no respiratory distress SKIN: Pallor, warm HEENT: Pale palpebral conjunctivae, no ptosis, dry buccal mucosa NECK : Supple, short neck, no tenderness CHEST : Decreased breath sounds, no tenderness HEART : Tachycardic, no obvious murmurs ABDOMEN: Some distention, nontender EXTREMITIES : Swollen left great toe with ulcerated wound plantar aspect with purulent drainage, minimal LE swelling, no LE tenderness NEUROLOGIC : Coherent, no facial asymmetry, no other gross focality Results & Data Results & Data ([facility]) Vital Signs (Past 12 Hours) Vital Signs Temp Pulse Pulse Resp BP BP Pulse Ox 05/29/22 19:30 94 H 20 126/71 96 05/29/22 17:45 37.2 C 120 H 18 136/84 96 O2 Del Method 05/29/22 19:30 Room Air 05/29/22 17:45 Room Air Laboratory Results Laboratory Results WBC 17.09 K/ul (4.8-10.8) H 05/29/22 18:09 RBC 4.04 M/uL (4.63-6.08) L 05/29/22 18:09 Hgb 12.3 g/dl (14.0-18.0) L 05/29/22 18:09 Hct 37.2 % (40.1-51.0) L 05/29/22 18:09 MCV 92.1 fL (80.0-100.0) 05/29/22 18:09 MCH 30.4 pg (25.0-34.0) 05/29/22 18:09 MCHC 33.1 g/dL (32.0-36.0) 05/29/22 18:09 RDW Std Deviation 40.9 fL (36.4-46.3) 05/29/22 18:09 RDW Coeff of José Manuel 12.0 % (11.5-14.5) 05/29/22 18:09 Plt Count 381 K/uL (130-400) 05/29/22 18:09 MPV 8.6 fL (9.4-12.4) L 05/29/22 18:09 Immature Gran % (Auto) 0.6 % 05/29/22 18:09 Neut % (Auto) 82.8 % 05/29/22 18:09 Lymph % (Auto) 8.5 % 05/29/22 18:09 Roberts % (Auto) 7.3 % 05/29/22 18:09 Eos % (Auto) 0.6 % 05/29/22 18:09 Baso % (Auto) 0.2 % 05/29/22 18:09 Neut # (Auto) 14.15 K/uL (1.4-6.5) H 05/29/22 18:09 Lymph # (Auto) 1.46 K/uL (1.2-3.4) 05/29/22 18:09 Roberts # (Auto) 1.24 K/uL (0.24-0.82) H 05/29/22 18:09 Eos # (Auto) 0.10 K/uL (0-0.50) 05/29/22 18:09 Baso # (Auto) 0.03 K/uL (0-0.2) 05/29/22 18:09 Immature Gran # (Auto) 0.11 K/uL (0.00-0.02) H 05/29/22 18:09 Sodium 130 mmol/L (136-145) L 05/29/22 18:09 Potassium 4.5 mmol/L (3.5-5.1) 05/29/22 18:09 Chloride 97 mmol/L (98-107) L 05/29/22 18:09 Carbon Dioxide 25 mmol/L (21-32) 05/29/22 18:09 Anion Gap 8 (3-11) 05/29/22 18:09 BUN 20 mg/dl (6-23) 05/29/22 18:09 Creatinine 1.26 mg/dl (0.6-1.4) 05/29/22 18:09 Est Cr Clr Drug Dosing 113.5 ml/min 05/29/22 18:09 Est GFR ( Amer) 76.6 ml/min 05/29/22 18:09 Est GFR (Non-Af Amer) 66.1 ml/min 05/29/22 18:09 BUN/Creatinine Ratio 15.9 (10-20) 05/29/22 18:09 Glucose 178 mg/dl (70-99(Fasting)) H 05/29/22 18:09 Lactate 1.9 mmol/L (0.4-2.0) 05/29/22 19:20 Calcium 8.9 mg/dl (8.5-10.1) 05/29/22 18:09 Total Bilirubin 1.0 mg/dl (0.2-1.0) 05/29/22 18:09 AST 22 U/L (13-39) 05/29/22 18:09 ALT 31 U/L (7-52) 05/29/22 18:09 Alkaline Phosphatase 110 U/L (34-104) H 05/29/22 18:09 Total Protein 8.7 gm/dl (6.0-8.3) H 05/29/22 18:09 Albumin 3.3 gm/dl (3.4-5.0) L 05/29/22 18:09 Globulin 5.4 gm/dl (2.5-4.0) H 05/29/22 18:09 Albumin/Globulin Ratio 0.6 (0.9-2) L 05/29/22 18:09 Procalcitonin 0.21 ng/ml (0-0.5) 05/29/22 18:09 SARS-CoV-2, RNA, NAAT POSITIVE (NEGATIVE) A* 05/29/22 Unknown Diagnostic Findings Left foot x-ray: 1. Soft tissue infection with subcutaneous gas in the first toe as above. 2. There is evidence of osteomyelitis of the first proximal and distal phalanges with pathologic fractures. This represents a significant change from 05/03/2022. 3. Degenerative change and heel spurs as above. Chest x-ray : Bibasilar airspace consolidation is typical for pneumonia/aspiration pneumonitis. Clinical correlation required and radiographic follow-up to resolution is recommended. EKG as per my interpretation : Rate 110, sinus tachycardia, LAD, LAFB, incomplete RBBB, T wave abnormalities septal leads
--- NOTE | 2022-05-29 21:18 | XRay Report ---
LEFT FOOT 3 VIEWS CLINICAL HISTORY: Left foot injury. FINDINGS: 3 views of the left foot are compared to study dated 05/03/2022. The skeletal structures ar e well-mineralized. Soft tissue edema and subcutaneous gas are noted in the first toe. There is heter ogeneous osteopenia and erosive change seen involving the first proximal and distal phalanges, consis tent with osteomyelitis. There is a mildly displaced pathologic fracture through the mid shaft of the first proximal phalanx. There is also likely fracture through the base of the first distal phalanx. No similar appearing destructive change is seen throughout the remainder of the foot. Degenerative sp urring is seen along the dorsal aspect of the tarsal bones. Osteoarthritic change is seen at the tars ometatarsal articulations. There are dorsal and plantar calcaneal enthesophytes. Milder soft tissue e savanna seen throughout the remainder of the foot. Atherosclerotic calcification is noted in the regiona l arteries. IMPRESSION: 1. Soft tissue infection with subcutaneous gas in the first toe as above. 2. There is evidence of osteomyelitis of the first proximal and distal phalanges with pathologic frac tures. This represents a significant change from 05/03/2022. 3. Degenerative change and heel spurs as above. Electronically signed by: Tom George M.D. 05/29/2022 9:16 PM
[2022-05-29] MEDS ORDERED: MAGNESIUM SULFATE / D5W 1 GM/100 ML BAG IV STA (22:36)
[2022-05-29] MEDS ORDERED: SODIUM CHLORIDE 0.9% 1000ML 1,000 ML IV STA (22:36)
[2022-05-29] MEDS ORDERED: ACETAMINOPHEN 325 MG TAB PO STA (23:14)
[2022-05-29] MEDS ORDERED: GLUCAGON FOR INJ 1 MG VIAL SQ PRN (23:29)
[2022-05-29] MEDS ORDERED: ACETAMINOPHEN 325 MG TAB PO PRN (23:29)
[2022-05-29] MEDS ORDERED: GLUCOSE 40% GEL 15 GM TUBE PO PRN (23:29)
[2022-05-29] MEDS ORDERED: oxyCODONE HCL IR 5 MG TAB (IMMEDIATE RELEASE) PO PRN (23:29)
[2022-05-29] MEDS ORDERED: PROMETHAZINE HCL 12.5 MG in SODIUM CHLORIDE 0.9% 50 ML IV PRN (23:29)
[2022-05-29] MEDS ORDERED: GLUCOSE 10 TAB/TUBE PO PRN (23:29)
[2022-05-29] MEDS ORDERED: DEXTROSE 50% 50 ML SYRINGE IV PRN (23:29)
[2022-05-29] MEDS ORDERED: CARBOHYDRATES FOR HYPOGLYCEMIA PO PRN (23:29)
[2022-05-29] MEDS: INSULIN ASPART PER UNIT SC SCH (23:48)
[2022-05-30] MEDS: DAPTOmycin 675 MG in SYRINGE 0 ML IV SCH (00:41)
--- NOTE | 2022-05-30 00:42 | XRay Report ---
SINGLE VIEW CHEST CLINICAL HISTORY: Infection FINDINGS: An AP, portable, upright chest radiograph is compared to study dated 01/23/2020 and correlat ed with chest CT dated 01/07/2020. The cardiomediastinal silhouette is unremarkable. There is bibasila r airspace consolidation. No large pleural effusion or pneumothorax is seen. The bony thorax is gross ly intact. IMPRESSION: Bibasilar airspace consolidation is typical for pneumonia/aspiration pneumonitis. Clinica l correlation required and radiographic follow-up to resolution is recommended. ACT 112: Negative or not required by law. Electronically signed by: Tom George M.D. 05/30/2022 12:40 AM
[2022-05-30] MEDS: PIPERACILLIN/TAZOBACTAM 4.5 GM in DEXTROSE 5% 100 ML IV SCH ×3 (01:00→17:56)
[2022-05-30 01:30] LABS: Appearance Urine Cloudy (Clear); Bacteria Urine Automated Negative (Negative); Blood Urine Negative (Negative); Color Urine Orange; Glucose Urine UA Negative (Negative); Ketones Urine Trace (Negative); Leukocyte Esterase Urine Negative (Negative); Nitrite Urine Negative (Negative); Protein Urine Trace (Negative); Specific Gravity Urine 1.024 (1.000-1.030); Urobilinogen Urine Positive (Negative)
[2022-05-30 01:34] LABS: Bilirubin Urine 1+ (Negative)
[2022-05-30 06:35] LABS: Basophils # (auto) 0.03 K/uL (0-0.2); Basophils % (auto) 0.2 %; Eosinophils # (auto) 0.14 K/uL (0-0.50); Eosinophils % (auto) 1.1 %; Hematocrit (blood only) 33.9 % (40.1-51.0); Hemoglobin 11.2 g/dl (14.0-18.0); Immature Granulocytes # (auto) 0.06 K/uL (0.00-0.02); Immature Granulocytes % (auto) 0.5 %; Lymphocytes % (auto) 16.1 %; Mean Corpuscular Hemoglobin 30.5 pg (25.0-34.0); Mean Corpuscular Volume 92.4 fL (80.0-100.0); Mean Platelet Volume 8.9 fL (9.4-12.4); Monocytes # (auto) 1.25 K/uL (0.24-0.82); Monocytes % (auto) 10.1 %; Neutrophils # (auto) 8.91 K/uL (1.4-6.5); Platelet Count 325 K/uL (130-400); RDW Coefficient of Variation 12.2 % (11.5-14.5); Red Blood Count 3.67 M/uL (4.63-6.08); White Blood Count 12.39 K/ul (4.8-10.8)
[2022-05-30 07:12] LABS: BUN Creatinine Ratio 17.7 (10-20); Calcium 8.7 mg/dl (8.5-10.1); Est GFR (African American) 78.1 ml/min; Est GFR (Non-African American) 67.4 ml/min; Potassium 3.9 mmol/L (3.5-5.1)
[2022-05-30] MEDS: amLODIPine BESYLATE 5 MG TAB PO SCH (07:42)
[2022-05-30] MEDS: lisinopril 2.5 MG TAB PO SCH (07:43)
[2022-05-30] MEDS: ASPIRIN 81 MG ECTAB PO SCH (07:43)
[2022-05-30] MEDS: CITALOPRAM 40 MG TAB PO SCH (07:43)
[2022-05-30] MEDS: INSULIN ASPART PER UNIT SC SCH ×4 (08:02→20:20)
[2022-05-30] MEDS: LANTUS PER UNIT CHARGE SQ SCH (08:05)
[2022-05-30] MEDS ORDERED: ENOXAPARIN INJ 40 MG/0.4 ML SYR SQ SCH (09:00)
[2022-05-30 09:47] LABS: Estimated Average Glucose 220 mg/dl; Hemoglobin A1C 9.3 % (4.5-5.6)
--- NOTE | 2022-05-30 14:03 | Hospitalist Progress Note ---
Date of Service May 30, 2022 Assessment & Plan (1) Sepsis: Plan: Secondary to Osteomyelitis, L Great toe, L foot Cellulitis History of DM neuropathy, history of Charcot foot Failed outpatient treatment - wound culture: pending blood cultures: pending - afebrile this morning - continue Dapto + Zosyn IV - Podiatry SVC consulted COVID-19 pneumonia - given risk factors, offered Remdesivir, risks and benefits discussed with patient he is agreeable and understanding - CXR: Bibasilar airspace consolidation is typical for pneumonia/aspiration pneumonitis. Clinical correlation required and radiographic follow-up to resolution is recommended. - Remdesivir IV day #1 Lovenox for DVT prophylaxis - SCDs, IS HTN, stable hyperlipidemia on statin Rx asthma, stable DM2 insulin requiring, suboptimal control as of recent hemoglobin A1c of 9.3 last December 2021 chronic anemia, hemoglobin at baseline TAD on CPAP medication noncompliance as per records Basal bolus insulin, ISS BG goal 1 10-1 40, carb count coverage, update hemoglobin A1c DVT prophylaxis. Lovenox subcu Full code plan of care discussed with patient in detail and at length all questions answered he is understanding, agreeable, comfortable with the plan of care Admission and Anticipated Discharge Date Admission Date: May 29, 2022 Subjective ff up for L toe OM, COVID 19 pneumonia, etc seen resting in bed, comfortable states he feels ok overall minimal discomfort on the L toe/foot has productive cough, no dyspnea, chest pain no chest pain, dyspnea, palpitations, dizziness no abdominal pain, nausea no other symptoms Review of Systems Review of Systems: all noted and negative except for above Physical Exam Physical Exam: General- oriented x 3, not in distress, speaks in sentences with no effort or accessory muscle use Head- atraumatic Eyes- PERRL, EOMI, anicteric ENT- oropharynx clear Neck- supple, no JVD, no adenopathy, no thyromegaly; carotids +2/2, no bruits appreciated Lungs-mild rhonchi right mid-base, clear on the left no wheezing Heart- normal rate, regular rhythm; no murmur, no gallop, no rub appreciated Abdomen- normal bowel sounds, nondistended, soft, nontender, no masses or hepatosplenomegaly Extremities- no pretibial edema, no calf tenderness; peripheral pulses intact L foot- mild edema/erythema/warmth on fore foot (+) ulcer on the dorsal aspect of l great toe, with yellow drainage Neuro- alert, oriented x 3; CN 2-12 grossly intact; motor 5/5 bilaterally;sensation 100% on all extremities except decreased sensation BL feet; no other gross focal neurologic deficits Skin- warm & dry Results & Data Results & Data ([facility]) Vital Signs (Past 12 Hours) Vital Signs Temp Pulse Pulse Resp BP BP Pulse Ox 05/30/22 12:14 36.8 C 85 20 100/65 95 05/30/22 08:06 36.9 C 85 19 102/67 93 05/30/22 07:48 05/30/22 07:09 80 05/30/22 04:07 37.0 C 82 20 128/69 95 O2 Del Method 05/30/22 12:14 Room Air 05/30/22 08:06 Room Air 05/30/22 07:48 CPAP 05/30/22 07:09 05/30/22 04:07 BiPAP all noted and reviewed including below
--- NOTE | 2022-05-30 14:23 | Orthopedic Consultation ---
Date of Consultation May 30, 2022 Assessment & Plan (1) Osteomyelitis of great toe of left foot: Patient seen, evaluated, and treated. I did discuss x-ray and x-ray findings with Patient. Recommendation of hallux amputation. I reviewed procedure in detail as well as postoperative recovery. I discussed e xpectations and patient's current weightbearing status. All questions answered. I have discussed procedure in detail as well as postoperative recovery. All potential risks, benefits, complications, alternatives, rehab, potential for incomplete relief of symptoms, need for further surgery, DVT, PE, , persistent pain, swelling, scarring, weakness, neurovascular, wound complications and potential for amputations were discussed with patient. Unwanted outcomes such as, but not limited to were reviewed including under correction, overcorrection, return of deformity, infection. All questions were answered. Patient has decided to proceed with procedure as indicated. 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 Patient PMH includes HTN, hyperlipidemia, asthma, DM2 insulin requiring, history DM neuropathy, history of Charcot foot, chronic anemia (baseline hemoglobin of 12), TAD on CPAP, medication noncompliance as per records. Patient has history of DFUs resulting in OM requiring surgical care from 2019. Patient reported to [facility] ED 05/03/22 for left foot DFU and was discharged on Keflex and doxycycline course. Patient was then treated at [facility] for ankle and foot care with no improvement. He was presented to [facility] ED 05/29 where x-rays showed OM of proximal and distal phalanx. Vancomycin and Zosyn administered at the ER. Patient does test Covid positive. He has Pneumonia from Covid and was started on Remdesivir today. Allergies Allergy/AdvReac Type Severity Reaction Status Date / Time No Known Allergies Allergy Verified 05/29/22 21:23 Home Medications Medication Instructions Recorded Confirmed Type citalopram 40 mg tablet (Celexa) 40 mg PO QAM 06/25/19 05/29/22 History insulin aspart U-100 100 unit/mL 25 unit subcut TIDM 06/25/19 05/29/22 History (3 mL) subcutaneous pen (Novolog Flexpen U-100 Insulin aspart) insulin degludec 200 unit/mL (3 160 unit subcut QAM 06/25/19 05/29/22 History mL) subcutaneous pen (Tresiba FlexTouch U-200 insulin) lovastatin 40 mg tablet 40 mg PO HS 06/25/19 05/29/22 History lisinopril 2.5 mg tablet 2.5 mg PO QAM 03/12/22 05/29/22 History amlodipine 5 mg tablet 5 mg PO QAM 05/29/22 05/29/22 History aspirin 81 mg chewable tablet 81 mg PO DAILY 05/29/22 05/29/22 History (Aspirin Childrens) dulaglutide 4.5 mg/0.5 mL 4.5 mg subcut WK 05/29/22 05/29/22 History subcutaneous pen injector (Trulicity) fluticasone propionate 50 1 - 2 spray intranasal HS 05/29/22 05/29/22 History mcg/actuation nasal spray,suspension hydrocortisone 2.5 % topical 1 applic topical BID PRN flares 05/29/22 05/29/22 History ointment indomethacin 50 mg capsule 50 mg PO BIDM 05/29/22 05/29/22 History metformin 500 mg tablet,extended 2,000 mg PO DAILY 05/29/22 05/29/22 History release 24 hr naproxen 500 mg tablet 500 mg PO BIDM 05/29/22 05/29/22 History triamcinolone acetonide 0.1 % 1 applic topical BID PRN flaring 05/29/22 05/29/22 History topical ointment Patient History Medical History Anemia Anxiety Depression Diabetes IDDM History of gout Hyperlipidemia Hypertension Lazy eye Morbid obesity with BMI of 50.0-59.9, adult Osteomyelitis of right foot Peripheral neuropathy feet bl Psoriasis Sleep apnea BIPAP Surgical History H/O foot surgery multiple---last 02/2020 @ [facility] Right foot I& : MAC sedation at [facility] History of difficult intubation I&D septic right foot: 01/24/20: Grade view 1, Glidescope#4, ETT 7.5 at [facility] History of tonsillectomy Family History Grandfather (Maternal) Coronary heart disease Grandfather (Paternal) Coronary heart disease Other No family history of adverse response to anesthesia No significant family history Social History Smoking Status: Never smoker Second Hand Exposure: No; Hx Alcohol Use: No Hx Substance Use: No Preferred Language: Andorran Communication Ability: Effective Hand Cloth Examiner Required: No Beliefs That Will Affect Care: None marital status: Current Living Situation: Spouse and Family Current Living Situation Comment: Lives w/ spouse and child current occupational status: employed Other Information That Helps Us Care for You: No Feels Safe at Home: Yes Safety Concerns: Feels Safe At This Time Assistive Devices: CPAP, Denture - Upper and Glasses Assistive Devices Comment: Brought personal CPAP Review of Systems Review of Systems: All systems reviewed & are unremarkable except as noted in HPI & below Physical Exam Constitutional: + morbidly obese Eyes: normal visual stern by confrontation ENMT: external ear and nose normal, oropharynx normal Cardiovascular: Rate/Rhythm: + tachycardic (COMMUNITY PHARMACIST wnl. Pedal pulses palpable) Musculoskeletal: no cyanosis or clubbing, extremities motor strength 5/5 Skin: Left IPJ hallux full thickness ulcer probes to bone. Neurologic: Decreased Epicritic sensation. Psychiatric: Orientation: alert and oriented x 3 Results & Data ([facility]) Vital Signs (Past 12 Hours) Vital Signs Temp Pulse Pulse Resp BP BP Pulse Ox 05/30/22 12:14 36.8 C 85 20 100/65 95 05/30/22 08:06 36.9 C 85 19 102/67 93 05/30/22 07:48 05/30/22 07:09 80 05/30/22 04:07 37.0 C 82 20 128/69 95 O2 Del Method 05/30/22 12:14 Room Air 05/30/22 08:06 Room Air 05/30/22 07:48 CPAP 05/30/22 07:09 05/30/22 04:07 BiPAP
[2022-05-30 14:40] LABS: A calco-baum cmplx NotReported Not Detected (NotDetected); Bact fragilis Not Reported Not Detected (NotDetected); C auris Not Reported Not Detected (NotDetected); Calbicans Not Reported Not Detected (NotDetected); Candida glabrata Not Reported Not Detected (NotDetected); Candida krusei Not Reported Not Detected (NotDetected); Cneoformans/gatti Not Reported Not Detected (NotDetected); Cparapsilosis Not Reported Not Detected (NotDetected); Ctropicalis Not Reported Not Detected (NotDetected); E cloacae compx Not Reported Not Detected (NotDetected); Efaecalis Not Reported Not Detected (NotDetected); Efaecium Not Reported Not Detected (NotDetected); Enterobacterales Not Reported Not Detected (NotDetected); Escherichia coli Not Reported Not Detected (NotDetected); H influenzae Not Reported Not Detected (NotDetected); K aerogenes Not Reported Not Detected (NotDetected); Koxytoca Not Reported Not Detected (NotDetected); Kpneumoniae grp Not Reported Not Detected (NotDetected); Lmonocyt Not Reported Not Detected (NotDetected); N meningitidis Not Reported Not Detected (NotDetected); P aeruginosa Not Reported Not Detected (NotDetected); Proteus spp Not Reported Not Detected (NotDetected); Salmonella spp Not Reported Not Detected (NotDetected); Smarcescens Not Reported Not Detected (NotDetected); Staph lugdunensis Not Reported Not Detected (NotDetected); Staph spp. Not Reported Not Detected (NotDetected); Staphaureus Not Reported Not Detected (NotDetected); Staphepi Not Reported Not Detected (NotDetected); Stenmaltophilia Not Reported Not Detected (NotDetected); Strep agal(GrpB) Not Reported Not Detected (NotDetected); Strep pneum Not Reported Not Detected (NotDetected); Strep pyog (GrpA) Not Reported Not Detected (NotDetected); Strep spp Not Reported Not Detected (NotDetected)
[2022-05-30] MEDS ORDERED: REMDESIVIR 200 MG in SODIUM CHLORIDE 0.9% 210 ML IV ONE (16:00)
[2022-05-30] MEDS: FLUTICASONE PROPIONATE NA SPR 16 GM BTL SCH (20:23)
[2022-05-30] MEDS ORDERED: LOVASTATIN 20 MG TAB PO SCH (21:00)
[2022-05-31] MEDS: DAPTOmycin 675 MG in SYRINGE 0 ML IV SCH ×2 (00:13→23:08)
[2022-05-31] MEDS: PIPERACILLIN/TAZOBACTAM 4.5 GM in DEXTROSE 5% 100 ML IV SCH ×3 (01:03→17:29)
[2022-05-31] MEDS ORDERED: INSULIN ASPART PER UNIT SC SCH (06:00)
[2022-05-31] MEDS ORDERED: BUPIVACAINE 0.5 % 5 MG/1 ML MPF 30ML VIAL ONE (07:20)
--- NOTE | 2022-05-31 07:47 | Anesthesiology Consultation ---
Date of Service May 31, 2022 Assessment & Plan (1) Encounter for pre-operative examination: Chart Review Chart Review: Acceptable Risk for Surgery (urgent for osteomyelitis) History Surgery Operation Date: 05/31/22 07:30 Proposed Procedures p Amputation Toe(Left) - GERMÁN AquinoM, MS Height/Weight Height: 6 ft 1 in Weight: 168 kg Allergies Allergy/AdvReac Type Severity Reaction Status Date / Time No Known Allergies Allergy Verified 05/29/22 21:23 Medications Home Medications Medication Instructions Recorded Confirmed Last Taken citalopram 40 mg tablet (Celexa) 40 mg PO QAM 06/25/19 05/29/22 03/25/22 09:00 insulin aspart U-100 100 unit/mL 25 unit subcut TIDM 06/25/19 05/29/22 03/24/22 18:00 (3 mL) subcutaneous pen (Novolog Flexpen U-100 Insulin aspart) insulin degludec 200 unit/mL (3 160 unit subcut QAM 06/25/19 05/29/22 03/25/22 09:00 mL) subcutaneous pen (Tresiba FlexTouch U-200 insulin) lovastatin 40 mg tablet 40 mg PO HS 06/25/19 05/29/22 03/25/22 09:00 lisinopril 2.5 mg tablet 2.5 mg PO QAM 03/12/22 05/29/22 03/25/22 09:00 amlodipine 5 mg tablet 5 mg PO QAM 05/29/22 05/29/22 Unknown aspirin 81 mg chewable tablet 81 mg PO DAILY 05/29/22 05/29/22 Unknown (Aspirin Childrens) dulaglutide 4.5 mg/0.5 mL 4.5 mg subcut WK 05/29/22 05/29/22 Unknown subcutaneous pen injector (Trulicity) fluticasone propionate 50 1 - 2 spray intranasal HS 05/29/22 05/29/22 Unknown mcg/actuation nasal spray,suspension hydrocortisone 2.5 % topical 1 applic topical BID PRN flares 05/29/22 05/29/22 Unknown ointment indomethacin 50 mg capsule 50 mg PO BIDM 05/29/22 05/29/22 Unknown metformin 500 mg tablet,extended 2,000 mg PO DAILY 05/29/22 05/29/22 Unknown release 24 hr naproxen 500 mg tablet 500 mg PO BIDM 05/29/22 05/29/22 Unknown triamcinolone acetonide 0.1 % 1 applic topical BID PRN flaring 05/29/22 05/29/22 Unknown topical ointment Active Medications Generic Name Dose Route Start Last Admin Trade Name Freq PRN Reason Stop Dose Admin Amlodipine Besylate 5 mg 05/30/22 09:00 05/30/22 07:42 Amlodipine Besylate 5 Mg Tab PO 06/29/22 08:59 5 mg QAM DISHA Administration Aspirin 81 mg 05/30/22 09:00 05/30/22 07:43 Aspirin 81 Mg Ectab PO 06/29/22 08:59 81 mg DAILY DISHA Administration Citalopram Hydrobromide 40 mg 05/30/22 09:00 05/30/22 07:43 Citalopram 40 Mg Tab PO 06/29/22 08:59 40 mg QAM DISHA Administration Enoxaparin Sodium 40 mg 05/30/22 09:00 05/30/22 07:44 Enoxaparin Inj 40 Mg/0.4 Ml Syr SQ 06/29/22 08:59 40 mg QAM DISHA Administration Fluticasone Propionate 1 sprays 05/30/22 21:00 05/30/22 20:23 Fluticasone Propionate Na Spr 16 Gm Btl NA 06/29/22 20:59 1 sprays HS DISHA Administration Piperacillin Sod/Tazobactam 120 mls @ 30 mls/hr 05/30/22 02:00 05/31/22 04:59 Sod 4.5 gm/ Dextrose IV 07/11/22 01:59 Infused Q8H [facility] Infusion Protocol Daptomycin 675 mg/ Syringe 13.5 mls @ 6.75 mls/min 05/30/22 00:00 05/31/22 0 0:13 IV 07/11/22 00:00 6.75 mls/min Q24H DISHA Administration Protocol Insulin Aspart 0 units 05/31/22 06:00 05/31/22 05:37 Insulin Aspart Per Unit SC 06/30/22 05:59 Not Given Q6 [facility] Insulin Glargine 100 units 05/30/22 09:00 05/30/22 08:05 Lantus Per Unit Charge SQ 06/29/22 08:59 100 units QAM DISHA Administration Lisinopril 2.5 mg 05/30/22 09:00 05/30/22 07:43 Lisinopril 2.5 Mg Tab PO 06/29/22 08:59 2.5 mg QAM DISHA Administration Lovastatin 40 mg 05/30/22 21:00 05/30/22 20:24 Lovastatin 20 Mg Tab PO 06/29/22 20:59 40 mg HS DISHA Administration NPO Date Last Intake of Fluids: 05/30/22 Time Last Intake of Fluids: 23:55 Past Medical History Medical History Anemia Anxiety Depression Diabetes IDDM History of gout Hyperlipidemia Hypertension Lazy eye Morbid obesity with BMI of 50.0-59.9, adult Osteomyelitis of right foot Peripheral neuropathy feet bl Psoriasis Sleep apnea BIPAP Past Family History Family History Grandfather (Maternal) Coronary heart disease Grandfather (Paternal) Coronary heart disease Other No family history of adverse response to anesthesia No significant family history Past Surgical History Surgical History H/O foot surgery multiple---last 02/2020 @ [facility] Right foot I& : MAC sedation at [facility] History of difficult intubation I&D septic right foot: 01/24/20: Grade view 1, Glidescope#4, ETT 7.5 at [facility] History of tonsillectomy Social History Smoking Status: Never smoker Hx Alcohol Use: No Hx Substance Use: No substance use type: does not use Physical Exam Vital Signs Last Vital Signs Temp 37 C 05/31/22 04:54 Pulse 96 H 05/31/22 07:38 Resp 16 05/31/22 04:54 BP 122/83 05/31/22 04:54 Pulse Ox 94 05/31/22 04:54 O2 Del Method 05/31/22 04:54 Testing Laboratory Results 05/30/22 05:55 05/30/22 05:55 Hemoglobin A1c 9.3 % (4.5-5.6) H 05/29/22 18:09 Urine Color [place] 05/30/22 01:00 Urine Appearance Cloudy (Clear) A 05/30/22 01:00 Urine pH 5.0 (4.5-7.5) 05/30/22 01:00 Ur Specific [place] 1.024 (1.000-1.030) 05/30/22 01:00 Urine Protein Trace (Negative) H 05/30/22 01:00 Urine Glucose (UA) Negative (Negative) 05/30/22 01:00 Urine Ketones Trace (Negative) H 05/30/22 01:00 Urine Nitrite Negative (Negative) 05/30/22 01:00 Ur Leukocyte Esterase Negative (Negative) 05/30/22 01:00 Urine WBC (Auto) 1-5 /hpf (0-5) 05/30/22 01:00 Urine RBC (Auto) 5-10 /hpf (0-4) H 05/30/22 01:00 U Hyaline Cast (Auto) 5-10 /lpf (0-5) H 05/30/22 01:00 U Epithel Cells (Auto) 10-20 /lpf (0-5) H 05/30/22 01:00 Urine Bacteria (Auto) Negative (Negative) 05/30/22 01:00 05/30/22 17:51 Gram Stain - Final Sputum, Expectorated 05/29/22 18:09 Aerobic Blood Culture - Preliminary Blood Gram positive cocci clusters Anaerobic Blood Culture - Preliminary Gram positive cocci 05/29/22 19:20 Aerobic Blood Culture - Preliminary Blood No growth in Aerobic bottle after 24 hours. Anaerobic Blood Culture - Preliminary Gram positive cocci 05/29/22 22:30 Gram Stain - Final Toe,Left Great 05/31/22 05/30/22 05:34 20:16 POC Glucose 89 146 H covid positive 05/29/22 BSG AM of procedure 89 Electrocardiogram Date: 05/29/22 Findings: + ST @ (108) Chest X-Ray Date: 05/29/22 Bibasilar changes consistent with pneumonia/aspiration pneumonitis Echocardiogram Date: 01/25/20 EF: 55-60% Valvular Disease: + no significant valvular disease
[2022-05-31] MEDS ORDERED: MIDAZOLAM HCL 1 MG/ML 2ML VIAL ONE (07:50)
[2022-05-31] MEDS ORDERED: fentaNYL citrate 100 MCG/2 ML VIAL ONE ×2 (07:50→08:54)
[2022-05-31] MEDS ORDERED: LIDOCAINE 2% MPF LOCAL 5 ML VIAL INFIL ONE (07:51)
[2022-05-31] MEDS ORDERED: PROPOFOL IV EMULSION 10 MG/ML 20 ML VIAL IV ONE (07:54)
[2022-05-31] MEDS ORDERED: fentaNYL citrate 100 MCG/2 ML VIAL IV PRN (08:36)
[2022-05-31] MEDS ORDERED: ONDANSETRON INJ 2 MG/ML 2 ML VIAL IV PRN (08:36)
[2022-05-31] MEDS ORDERED: ATROPINE SULFATE 0.1 MG/ML 10ML SYR IV PRN (08:36)
--- NOTE | 2022-05-31 08:57 | History & Physical Bridge Note ---
Date of Service May 31, 2022 History & Physical Bridge Note I have examined the patient, reviewed the History & Physical and in the interval since the performance of the History & Physical I have noted the following changes of clinical significance: no changes noted
--- NOTE | 2022-05-31 09:00 | Post Operative Brief Note ---
Immediate Post Op Note v1 Date of Surgery May 31, 2022 Pre & Post Diagnosis Operation Date: 05/31/22 07:30 Pre-Op Diagnosis: Osteomylelitis Left Foot Post-Op Diagnosis: Osteomylelitis Left Foot I identified the patient and participated in the time-out.: Yes Procedure Operation Date: 05/31/22 07:30 Actual Procedures p Left Hallux Amputation(Left) - Chase Warren DPM, MS Surgeon Chase Warren DPM, MS Rework Operator None Estimated Blood Loss 10 Findings Consistent with Post-Op Diagnosis osteomyelitis findings left hallux Specimens left Hallux Pathology Proximal Phalanx Left hallux Microbiology
--- NOTE | 2022-05-31 09:01 | Operative Report ---
Post Operative Report Pre & Post Diagnosis Operation Date: 05/31/22 07:30 Pre-Op Diagnosis: Osteomylelitis Left Foot Post-Op Diagnosis: Osteomylelitis Left Foot I identified the patient and participated in the time-out.: Yes Procedure Operation Date: 05/31/22 07:30 Actual Procedures p Left Hallux Amputation(Left) - Chase Warren DPM, MS Surgeon Chase Warren DPM, MS Software Client Architect None Estimated Blood Loss 10 Findings Consistent with Post-Op Diagnosis Finding consistent with Osteomyelitis Specimens Left hallux - Pathology Left great toe proximal phalanx - Microbiology Description of Procedure History of present illness: Patient is a type II diabetic, 52 year old male who is seen for treatment of osteomyelitis of the left first proximal and distal phalanx. Patient notes a diabetic foot ulcer open for multiple months. Patient relates minimal discomfort. All questions answered. Discussed procedure in detail and postoperative recovery. All potential risks, benefits, complications, alternatives, rehab, potential for incomplete relief of symptoms, need for further surgery, DVT, PE, , persistent pain, swelling, scarring, weakness, neurovascular, wound complications and potential for amputations were discussed with patient. Unwanted outcomes such as, but not limited to were reviewed including under correction, overcorrection, return of deformity, infection. All questions were answered. Patient has decided to proceed with procedure as indicated. Preoperative diagnosis: Diabetic ulcer osteomyelitis left first proximal and distal phalanx, Left foot infection Postoperative diagnosis: same Name of operation: Amputation left great toe with delayed primary closure Surgeon Dr. Warren Software Client Architect: None Anesthesia: local with monitored anesthesia care Hemostasis: pneumatic ankle tourniquet Estimated blood loss: minimal Procedure in detail: Under mild sedation the patient was brought in the operating room placed on the operating table in supine position. A pneumatic ankle tourniquet was then placed about the patient's left ankle. Following IV sedation local anesthesia was obtained about the left utilizing 15 cc of a one-to-one mixture of 1% lidocaine plain and 0.5% Marcaine plain. The foot was then prepped scrubbed and draped in usual aseptic manner. An Esmarch bandage was utilized to exsanguinate the patient's left foot and the pneumatic ankle tourniquet was then inflated. Attention was then directed to a nonhealing diabetic ulcer on the left hallux where a diabetic foot ulcer is present and probes to bone. A fishmouth incision was created utilizing a sharp, sterile, #15 blade. The incision which was deepened through subcutaneous tissue using sharp blunt dissection. Care was taken to identify and retract all vital neurovascular structures. All bleeders were ligated and cauterized necessary. At this time the left hallux was removed. A portion of the osteomyelitic first proximal phalanx was placed on the back table. The remainder of the left hallux was sent to pathology. A portion of the first proximal phalanx was sent to microbiology. Copious amounts of sterile lactate ringer was utilized to flush the incision site. Due to the extent of the soft tissue infection the wound was left open for delayed primary closure. Upon completion of the procedure the incision was dressed with a sterile compressive dressing consisting of 4 x 4's Modesto Kerlix ABD. The pneumatic ankle tourniquet was deflated and a prompt hyperemic response was noted to all digits of the left foot. The Patient tolerated the procedure and anesthesia well. He was transferred to recovery room vital signs stable and vascular status intact all toes of the left foot. Following a period of postoperative monitoring the patient will be re-admitted to the floor resume all pre-operative orders. Please contact Dr. Warren for all postoperative care or if any problems arise . I attest to the content of the Intraoperative Record and any orders documented therein. Any exceptions are noted below.
--- NOTE | 2022-05-31 09:29 | Anesthesiology Progress Note ---
Date of Service May 31, 2022 Anesthesia Post Procedure Vital Signs Vital Signs: Temp Pulse Pulse Resp BP Pulse Ox O2 Del Method 05/31/22 07:00 Room Air, CPAP 05/31/22 07:38 96 H 05/31/22 04:54 37 C 88 16 122/83 94 CPAP 05/31/22 04:03 37.1 C 92 H 16 122/80 93 CPAP 05/30/22 23:37 37.0 C 92 H 20 102/67 97 BiPAP 05/30/22 19:47 Room Air, CPAP 05/30/22 19:20 37 C 94 H 16 112/73 95 Room Air 05/30/22 15:38 37.5 C 88 16 105/60 95 CPAP 05/30/22 15:10 96 H 05/30/22 12:14 36.8 C 85 20 100/65 95 Room Air Pain Intensity Left Great Toe: Pain Intensity: 3 Transfer of Care Handoff Completed per policy Notes Mental Status: alert / awake / arousable Patient Amnestic to Procedure: Yes Nausea / Vomiting: adequately controlled Pain: adequately controlled Airway Patency, RR, SpO2: stable & adequate BP & HR: stable & adequate Hydration State: stable & adequate Anesthetic Complications: no major complications apparent
[2022-05-31] MEDS: CITALOPRAM 40 MG TAB PO SCH (10:25)
[2022-05-31] MEDS: amLODIPine BESYLATE 5 MG TAB PO SCH (10:25)
[2022-05-31] MEDS: ADVANCED PROBIOTIC 1250 MG CAPSULE PO SCH (10:25)
[2022-05-31] MEDS: ASPIRIN 81 MG ECTAB PO SCH (10:25)
[2022-05-31] MEDS: lisinopril 2.5 MG TAB PO SCH (10:26)
[2022-05-31] MEDS: LANTUS PER UNIT CHARGE SQ SCH (10:26)
[2022-05-31 10:38] LABS: Basophils # (auto) 0.03 K/uL (0-0.2); Basophils % (auto) 0.3 %; Eosinophils # (auto) 0.08 K/uL (0-0.50); Eosinophils % (auto) 0.7 %; Hematocrit (blood only) 34.2 % (40.1-51.0); Hemoglobin 11.2 g/dl (14.0-18.0); Immature Granulocytes # (auto) 0.06 K/uL (0.00-0.02); Immature Granulocytes % (auto) 0.5 %; Lymphocytes # (auto) 1.19 K/uL (1.2-3.4); Lymphocytes % (auto) 10.8 %; Mean Corpuscular Hemoglobin 30.4 pg (25.0-34.0); Mean Corpuscular Hgb Conc 32.7 g/dL (32.0-36.0); Mean Corpuscular Volume 92.9 fL (80.0-100.0); Mean Platelet Volume 8.7 fL (9.4-12.4); Monocytes # (auto) 0.85 K/uL (0.24-0.82); Monocytes % (auto) 7.7 %; Neutrophils # (auto) 8.82 K/uL (1.4-6.5); Platelet Count 359 K/uL (130-400); RDW Coefficient of Variation 12.1 % (11.5-14.5); RDW Standard Deviation 41.8 fL (36.4-46.3); Red Blood Count 3.68 M/uL (4.63-6.08); White Blood Count 11.03 K/ul (4.8-10.8)
[2022-05-31 10:56] LABS: Albumin Globulin Ratio 0.6 (0.9-2); BUN Creatinine Ratio 14.3 (10-20); Bilirubin,Total 0.9 mg/dl (0.2-1.0); Calcium 8.7 mg/dl (8.5-10.1); Creatinine Clr Calc Pharmacy 128.5 ml/min; Est GFR (African American) 88.3 ml/min; Est GFR (Non-African American) 76.2 ml/min; Globulin 4.8 gm/dl (2.5-4.0); Potassium 4.5 mmol/L (3.5-5.1); Total Protein 7.8 gm/dl (6.0-8.3)
[2022-05-31] MEDS: INSULIN ASPART PER UNIT SC SCH ×3 (12:32→20:01)
[2022-05-31] MEDS: REMDESIVIR 100 MG in SODIUM CHLORIDE 0.9% 230 ML IV SCH (19:12)
--- NOTE | 2022-05-31 19:22 | Hospitalist Progress Note ---
Date of Service May 31, 2022 Delayed entry Date of service per above Assessment & Plan (1) Sepsis: Plan: Secondary to Osteomyelitis, L Great toe, L foot Cellulitis History of DM neuropathy, history of Charcot foot Failed outpatient treatment - wound culture: pending blood cultures: pending - afebrile this morning - continue Dapto + Zosyn IV - Podiatry SVC consulted Status post left hallux amputation 05/31/2022 For wound closure tomorrow COVID-19 pneumonia - given risk factors, offered Remdesivir, risks and benefits discussed with patient he is agreeable and understanding - CXR: Bibasilar airspace consolidation is typical for pneumonia/aspiration pneumonitis. Clinical correlation required and radiographic follow-up to resolution is recommended. - Remdesivir IV day #2 Lovenox for DVT prophylaxis - SCDs, IS HTN, stable hyperlipidemia on statin Rx asthma, stable DM2 insulin requiring, suboptimal control as of recent hemoglobin A1c of 9.3 last December 2021 chronic anemia, hemoglobin at baseline TAD on CPAP medication noncompliance as per records DVT prophylaxis. Lovenox subcu Full code plan of care discussed with patient in detail and at length all questions answered he is understanding, agreeable, comfortable with the plan of care Admission and Anticipated Discharge Date Admission Date: May 29, 2022 Subjective Follow-up for osteomyelitis left toe, COVID-19 pneumonia, etc. Seen resting in bed, comfortable, not in distress States he feels fine overall No cough, shortness of breath minimal discomfort on the left foot No other symptoms Review of Systems Review of Systems: all noted and negative except for above Physical Exam Physical Exam: General- oriented x 3, not in distress, speaks in sentences with no effort or accessory muscle use Eyes- anicteric Neck- no JVD Lungs- clear breath sounds bilaterally, no crackles, no wheezing Heart- normal rate, regular rhythm; no murmurs Abdomen- normal bowel sounds, nondistended, soft, no tenderness Extremities- no pretibial edema, no calf tenderness Left foot: Heavy dressing in place Neuro- alert, oriented x 3; no gross focal neurologic deficits Skin- warm & dry Results & Data Results & Data ([facility]) Vital Signs (Past 12 Hours) Vital Signs Temp Pulse Pulse Pulse Resp BP Pulse Ox 05/31/22 19:14 37.1 C 79 16 135/92 94 05/31/22 15:47 90 05/31/22 10:05 88 19 131/84 93 05/31/22 09:55 90 21 127/82 94 05/31/22 10:45 36.8 C 87 16 126/83 98 05/31/22 09:45 36.1 C L 88 17 117/74 93 05/31/22 09:35 87 21 124/77 93 05/31/22 09:25 87 22 128/80 96 05/31/22 09:15 88 18 129/84 88 L 05/31/22 09:05 90 19 131/81 93 05/31/22 08:57 36.3 C L 93 H 21 121/88 93 05/31/22 07:38 96 H O2 Del Method O2 Flow Rate 05/31/22 19:14 Room Air 05/31/22 15:47 05/31/22 10:05 Nasal Cannula 2 05/31/22 09:55 Nasal Cannula 2 05/31/22 10:45 Room Air 05/31/22 09:45 Nasal Cannula 2 05/31/22 09:35 Nasal Cannula 2 05/31/22 09:25 Nasal Cannula 2 05/31/22 09:15 Room Air 05/31/22 09:05 Room Air 05/31/22 08:57 Room Air 05/31/22 07:38 all noted and reviewed including below
[2022-05-31] MEDS: FLUTICASONE PROPIONATE NA SPR 16 GM BTL SCH (20:01)
--- NOTE | 2022-05-31 21:39 | Electrocardiogram Report ---
Test Reason : Blood Pressure : / mmHG Vent. Rate : 108 BPM Atrial Rate : 108 BPM P-R Int : 122 ms QRS Dur : 096 ms QT Int : 320 ms P-R-T Axes : 059 000 060 degrees QTc Int : 428 ms Sinus tachycardia Incomplete right bundle branch block When compared with ECG of 23-JAN-2020 19:18, No significant change was found Confirmed by Ivan Hill ([id number]) on 05/31/2022 9:39:39 PM Referred By: REFERRED SELF Confirmed By:Ivan Hill
[2022-06-01] MEDS: PIPERACILLIN/TAZOBACTAM 4.5 GM in DEXTROSE 5% 100 ML IV SCH ×3 (01:04→17:15)
[2022-06-01 06:59] LABS: Alanine Aminotransferase 18 U/L (7-52); BUN Creatinine Ratio 16.8 (10-20); Bilirubin,Total 0.7 mg/dl (0.2-1.0); Blood Urea Nitrogen 18 mg/dl (6-23); Calcium 8.3 mg/dl (8.5-10.1); Carbon Dioxide 24 mmol/L (21-32); Chloride 101 mmol/L (98-107); Est GFR (African American) 93.3 ml/min; Est GFR (Non-African American) 80.5 ml/min; Glucose 80 mg/dl (70-99(Fasting)); Total Protein 7.8 gm/dl (6.0-8.3)
[2022-06-01] MEDS: INSULIN ASPART PER UNIT SC SCH ×4 (08:02→21:39)
[2022-06-01] MEDS: LANTUS PER UNIT CHARGE SQ SCH (08:03)
[2022-06-01 08:14] LABS: Albumin Level 2.9 gm/dl (3.4-5.0); Potassium 4.6 mmol/L (3.5-5.1)
[2022-06-01] MEDS: amLODIPine BESYLATE 5 MG TAB PO SCH (08:20)
[2022-06-01] MEDS: ADVANCED PROBIOTIC 1250 MG CAPSULE PO SCH (08:21)
[2022-06-01] MEDS: CITALOPRAM 40 MG TAB PO SCH (08:21)
[2022-06-01] MEDS: ASPIRIN 81 MG ECTAB PO SCH (08:21)
[2022-06-01] MEDS: lisinopril 2.5 MG TAB PO SCH (08:22)
--- NOTE | 2022-06-01 17:14 | Hospitalist Progress Note ---
Date of Service June 01, 2022 Assessment & Plan (1) Osteomyelitis of great toe of left foot: Plan: (1) Sepsis: Plan: Secondary to Osteomyelitis, L Great toe, L foot Cellulitis History of DM neuropathy, history of Charcot foot Failed outpatient treatment - wound culture: Streptococcus anginosus blood cultures : Bottle 1: Staph species, gram-positive cocci Bottle 2: Streptococcus anginosus, gram- positive cocci Blood cultures 05/31: Negative so far - Echo: No vegetation noted on TTE -Stable overall - continue Dapto + ceftriaxone IV ID consult Status post left hallux amputation 05/31/2022 For wound closure tomorrow at [address] Beasley [id number] pneumonia - given risk factors, offered Remdesivir, risks and benefits discussed with patient he is agreeable and understanding - CXR:Bibasilar airspace consolidation is typical for pneumonia/aspiration pneumonitis. Clinical correlation required and radiographic follow-up to resolution is recommended. -Patient remained stable, on room air, O2 sat 95% - Remdesivir IV day #2 Lovenox for DVT prophylaxis - SCDs, IS HTN, stable hyperlipidemia on statin Rx asthma, stable DM2 insulin requiring, suboptimal control as of recent hemoglobin A1c of 9.3 last December 2021 chronic anemia, hemoglobin at baseline TAD on CPAP DVT prophylaxis. Lovenox subcu Full code plan of care discussed with patient in detail and at length all questions answered he is understanding, agreeable, comfortable with the plan of care Admission and Anticipated Discharge Date Admission Date: May 29, 2022 Subjective Follow-up for osteomyelitis left big toe, status post amputation, etc. Seen resting in bed, comfortable, no distress States he feels fine overall Still has some cough but better, no shortness of breath No chest pain Denies foot pain No other symptoms Review of Systems Review of Systems: all noted and negative except for above Physical Exam Physical Exam: General- oriented x 3, not in distress, speaks in sentences with no effort or accessory muscle use Eyes- anicteric Neck- no JVD Lungs- clear BS bilaterally, no crackles Heart- normal rate, regular rhythm; no murmurs Abdomen- normal bowel sounds, nondistended, soft, nontender Extremities- no pretibial edema, no calf tenderness Neuro- alert, oriented x 3; no gross focal neurologic deficits Skin- warm & dry Results & Data Results & Data ([facility]) Vital Signs (Past 12 Hours) Vital Signs Temp Pulse Pulse Resp BP BP Pulse Ox 06/01/22 15:27 87 06/01/22 14:31 37.2 C 89 18 108/56 L 95 06/01/22 11:46 37.1 C 82 18 117/69 94 06/01/22 09:01 06/01/22 08:38 80 06/01/22 07:50 36.8 C 80 18 128/73 95 O2 Del Method 06/01/22 15:27 06/01/22 14:31 Room Air 06/01/22 11:46 Room Air 06/01/22 09:01 Room Air, CPAP 06/01/22 08:38 06/01/22 07:50 Room Air all noted and reviewed including below
[2022-06-01] MEDS ORDERED: cefTRIAXone SODIUM 2,000 MG in DEXTROSE 5% 50 ML IV SCH (18:00)
[2022-06-01] MEDS: metroNIDAZOLE 500 MG/100 ML BAG IV SCH (19:36)
[2022-06-01] MEDS: REMDESIVIR 100 MG in SODIUM CHLORIDE 0.9% 230 ML IV SCH (20:37)
[2022-06-01] MEDS: FLUTICASONE PROPIONATE NA SPR 16 GM BTL SCH (20:37)
--- NOTE | 2022-06-01 20:55 | Orthopedic Progress Note ---
Date of Service June 01, 2022 Assessment & Plan (1) Osteomyelitis of great toe of left foot: Plan: Patient seen, evaluated, and treated. I did discuss delayed primary closure. I reviewed procedure in detail as well as postoperative recovery. I discussed expectations and patient's current weightbearing status. All questions answered. I have discussed procedure in detail as well as postoperative recovery. All potential risks, benefits, complications, alternatives, rehab, potential for incomplete relief of symptoms, need for further surgery, DVT, PE, , persistent pain, swelling, scarring, weakness, neurovascular, wound complications and potential for amputations were discussed with patient. Unwanted outcomes such as, but not limited to were reviewed including under correction, overcorrection, return of deformity, infection. All questions were answered. Patient has decided to proceed with procedure as indicated. 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 Follow-up for osteomyelitis left big toe, status post amputation. Patient scheduled for delayed primary closure 06/02/22. Denies foot pain No other symptoms Review of Systems Review of Systems: All systems reviewed & are unremarkable except as noted in HPI & below Physical Exam Physical Exam: Dressing clean, dry, and intact. Results & Data ([facility]) Vital Signs (Past 12 Hours) Vital Signs Temp Pulse Pulse Resp BP BP Pulse Ox 06/01/22 19:44 37.5 C 86 18 118/75 95 06/01/22 15:27 87 06/01/22 14:31 37.2 C 89 18 108/56 L 95 06/01/22 11:46 37.1 C 82 18 117/69 94 06/01/22 09:01 O2 Del Method 06/01/22 19:44 Room Air 06/01/22 15:27 06/01/22 14:31 Room Air 06/01/22 11:46 Room Air 06/01/22 09:01 Room Air, CPAP
[2022-06-02] MEDS: metroNIDAZOLE 500 MG/100 ML BAG IV SCH ×2 (00:51→09:44)
[2022-06-02] MEDS: DAPTOmycin 675 MG in SYRINGE 0 ML IV SCH (00:51)
[2022-06-02 08:52] LABS: Albumin Globulin Ratio 0.6 (0.9-2); Albumin Level 2.9 gm/dl (3.4-5.0); BUN Creatinine Ratio 20.2 (10-20); Bilirubin,Total 0.4 mg/dl (0.2-1.0); Calcium 8.7 mg/dl (8.5-10.1); Creatinine Clr Calc Pharmacy 138.5 ml/min; Est GFR (African American) 96.6 ml/min; Est GFR (Non-African American) 83.3 ml/min; Globulin 4.9 gm/dl (2.5-4.0); Potassium 4.6 mmol/L (3.5-5.1); Total Protein 7.8 gm/dl (6.0-8.3)
[2022-06-02] MEDS: INSULIN ASPART PER UNIT SC SCH ×4 (09:20→21:04)
[2022-06-02] MEDS: ADVANCED PROBIOTIC 1250 MG CAPSULE PO SCH (09:23)
[2022-06-02] MEDS: ASPIRIN 81 MG ECTAB PO SCH (09:23)
[2022-06-02] MEDS: CITALOPRAM 40 MG TAB PO SCH (09:24)
[2022-06-02] MEDS: lisinopril 2.5 MG TAB PO SCH (09:24)
[2022-06-02] MEDS: amLODIPine BESYLATE 5 MG TAB PO SCH (09:24)
[2022-06-02] MEDS: LANTUS PER UNIT CHARGE SQ SCH (09:55)
--- NOTE | 2022-06-02 10:10 | Anesthesiology Consultation ---
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 Surgery Operation Date: 05/31/22 07:30 Proposed Procedures p Amputation Toe(Left) - Chase Warren DPM, Operation Date: 06/02/22 07:50 Proposed Procedures p Delayed Primary Closure from Wednesday Amputation - Chase Warren DPM, MS Height/Weight Height: 6 ft 1 in Weight: 168.3 kg Allergies Allergy/AdvReac Type Severity Reaction Status Date / Time No Known Allergies Allergy Verified 05/29/22 21:23 Medications Home Medications Medication Instructions Recorded Confirmed Last Taken citalopram 40 mg tablet (Celexa) 40 mg PO QAM 06/25/19 05/29/22 03/25/22 09:00 insulin aspart U-100 100 unit/mL 25 unit subcut TIDM 06/25/19 05/29/22 03/24/22 18:00 (3 mL) subcutaneous pen (Novolog Flexpen U-100 Insulin aspart) insulin degludec 200 unit/mL (3 160 unit subcut QAM 06/25/19 05/29/22 03/25/22 09:00 mL) subcutaneous pen (Tresiba FlexTouch U-200 insulin) lisinopril 2.5 mg tablet 2.5 mg PO QAM 03/12/22 05/29/22 03/25/22 09:00 amlodipine 5 mg tablet 5 mg PO QAM 05/29/22 05/29/22 Unknown aspirin 81 mg chewable tablet 81 mg PO DAILY 05/29/22 05/29/22 Unknown (Aspirin Childrens) dulaglutide 4.5 mg/0.5 mL 4.5 mg subcut WK 05/29/22 05/29/22 Unknown subcutaneous pen injector (Trulicity) fluticasone propionate 50 1 - 2 spray intranasal HS 05/29/22 05/29/22 Unknown mcg/actuation nasal spray,suspension hydrocortisone 2.5 % topical 1 applic topical BID PRN flares 05/29/22 05/29/22 Unknown ointment indomethacin 50 mg capsule 50 mg PO BIDM 05/29/22 05/29/22 Unknown metformin 500 mg tablet,extended 2,000 mg PO DAILY 05/29/22 05/29/22 Unknown release 24 hr naproxen 500 mg tablet 500 mg PO BIDM 05/29/22 05/29/22 Unknown triamcinolone acetonide 0.1 % 1 applic topical BID PRN flaring 05/29/22 05/29/22 Unknown topical ointment Active Medications Generic Name Dose Route Start Last Admin Trade Name Freq PRN Reason Stop Dose Admin Amlodipine Besylate 5 mg 05/30/22 09:00 06/02/22 09:24 Amlodipine Besylate 5 Mg Tab PO 06/29/22 08:59 5 mg QAM DISHA Administration Aspirin 81 mg 05/30/22 09:00 06/02/22 09:23 Aspirin 81 Mg Ectab PO 06/29/22 08:59 81 mg DAILY DISHA Administration Citalopram Hydrobromide 40 mg 05/30/22 09:00 06/02/22 09:24 Citalopram 40 Mg Tab PO 06/29/22 08:59 40 mg QAM DISHA Administration Fluticasone Propionate 1 sprays 05/30/22 21:00 06/01/22 20:37 Fluticasone Propionate Na Spr 16 Gm Btl NA 06/29/22 20:59 1 sprays HS DISHA Administration Daptomycin 675 mg/ Syringe 13.5 mls @ 6.75 mls/min 05/30/22 00:00 06/02/22 00:51 IV 07/11/22 00:00 6.75 mls/min Q24H DISHA Administration Protocol Remdesivir 100 mg/ Sodium 250 mls @ 250 mls/hr 05/31/22 20:00 06/01/22 21:38 Chloride IV 06/03/22 20:59 Infused Q24H DISHA Infusion Ceftriaxone Sodium 2,000 mg/ 70 mls @ 140 mls/hr 06/01/22 18:00 06/01/22 20:26 Dextrose IV 07/13/22 17:59 Infused DAILY@1800 DISHA Infusion Protocol Metronidazole 500 mg in 100 mls @ 100 mls/hr 06/01/22 18:00 06/02/22 09:44 Flagyl IV 07/13/22 17:59 100 mls/hr Q8H DISHA Administration Protocol Insulin Aspart 0 units 05/31/22 11:30 06/02/22 09:20 Insulin Aspart Per Unit SC 06/30/22 11:29 2 units ACHS DISHA Administration Insulin Glargine 100 units 05/30/22 09:00 06/02/22 09:55 Lantus Per Unit Charge SQ 06/29/22 08:59 Not Given QAM DISHA Lactobacillus Acidophilus 2 cap 05/31/22 09:00 06/02/22 09:23 Advanced Probiotic 1250 Mg Capsule PO 06/30/22 08:59 2 cap DAILY DISHA Administration Lisinopril 2.5 mg 05/30/22 09:00 06/02/22 09:24 Lisinopril 2.5 Mg Tab PO 06/29/22 08:59 2.5 mg QAM DISHA Administration NPO Date Last Intake of Fluids: 05/30/22 Time Last Intake of Fluids: 23:55 Date Last Intake of Solids: 05/30/22 Past Medical History Medical History Anemia Anxiety Depression Diabetes IDDM History of gout Hyperlipidemia Hypertension Lazy eye Morbid obesity with BMI of 50.0-59.9, adult Osteomyelitis of right foot Peripheral neuropathy feet bl Psoriasis Sleep apnea BIPAP Past Family History Family History Grandfather (Maternal) Coronary heart disease Grandfather (Paternal) Coronary heart disease Other No family history of adverse response to anesthesia No significant family history Past Surgical History Surgical History H/O foot surgery multiple---last 02/2020 @ [facility] Right foot I& : MAC sedation at [facility] History of difficult intubation I&D septic right foot: 01/24/20: Grade view 1, Glidescope#4, ETT 7.5 at [facility] History of tonsillectomy Social History Smoking Status: Never smoker Hx Alcohol Use: No Hx Substance Use: No substance use type: does not use Physical Exam Vital Signs Last Vital Signs Temp 98.4 F 06/02/22 08:06 Pulse 77 06/02/22 08:06 Resp 18 06/02/22 08:06 BP 137/80 06/02/22 08:06 Pulse Ox 95 06/02/22 08:06 O2 Del Method 06/02/22 08:06 O2 Flow Rate 2 05/31/22 10:05 Testing Laboratory Results 05/31/22 10:17 06/02/22 08:11 Hemoglobin A1c 9.3 % (4.5-5.6) H 05/29/22 18:09 Urine Color [place] 05/30/22 01:00 Urine Appearance Cloudy (Clear) A 05/30/22 01:00 Urine pH 5.0 (4.5-7.5) 05/30/22 01:00 Ur Specific [place] 1.024 (1.000-1.030) 05/30/22 01:00 Urine Protein Trace (Negative) H 05/30/22 01:00 Urine Glucose (UA) Negative (Negative) 05/30/22 01:00 Urine Ketones Trace (Negative) H 05/30/22 01:00 Urine Nitrite Negative (Negative) 05/30/22 01:00 Ur Leukocyte Esterase Negative (Negative) 05/30/22 01:00 Urine WBC (Auto) 1-5 /hpf (0-5) 05/30/22 01:00 Urine RBC (Auto) 5-10 /hpf (0-4) H 05/30/22 01:00 U Hyaline Cast (Auto) 5-10 /lpf (0-5) H 05/30/22 01:00 U Epithel Cells (Auto) 10-20 /lpf (0-5) H 05/30/22 01:00 Urine Bacteria (Auto) Negative (Negative) 05/30/22 01:00 05/29/22 19:20 Aerobic Blood Culture - Final Blood Streptococcus anginosus group Anaerobic Blood Culture - Final Streptococcus anginosus group 05/29/22 18:09 Aerobic Blood Culture - Preliminary Blood Staphylococcus species Anaerobic Blood Culture - Preliminary Abiotrophia/Granulicatella Sp. 05/31/22 Unknown Gram Stain - Final Tissue,Undefined Aerobic and Anaerobic Culture - Preliminary Streptococcus anginosus group 05/31/22 10:30 Aerobic Blood Culture - Preliminary Blood No growth in Aerobic bottle after 24 hours. Anaerobic Blood Culture - Preliminary No growth in Anaerobic bottle after 24 hours. 05/31/22 10:17 Aerobic Blood Culture - Preliminary Blood No growth in Aerobic bottle after 24 hours. Anaerobic Blood Culture - Preliminary No growth in Anaerobic bottle after 24 hours. 05/30/22 17:51 Gram Stain - Final Sputum, Expectorated Sputum Culture - Final Moderate normal pankaj. 05/29/22 22:30 Gram Stain - Final Toe,Left Great Wound Culture - Final Streptococcus anginosus group 06/02/22 07:40 POC Glucose 109 H Electrocardiogram Date: 05/29/22 Findings: + ST @ (108) Chest X-Ray Date: 05/29/22 Bibasilar changes consistent with pneumonia/aspiration pneumonitis Echocardiogram Date: 01/25/20 EF: 55-60% Valvular Disease: + no significant valvular disease
[2022-06-02] MEDS ORDERED: ATROPINE SULFATE 0.1 MG/ML 10ML SYR IV PRN (15:55)
[2022-06-02] MEDS ORDERED: ONDANSETRON INJ 2 MG/ML 2 ML VIAL IV PRN (15:55)
[2022-06-02] MEDS ORDERED: fentaNYL citrate 100 MCG/2 ML VIAL IV PRN (15:55)
--- NOTE | 2022-06-02 16:16 | History & Physical Bridge Note ---
Date of Service June 02, 2022 History & Physical Bridge Note I have examined the patient, reviewed the History & Physical and in the interval since the performance of the History & Physical I have noted the following changes of clinical significance: no changes noted
[2022-06-02] MEDS ORDERED: PROPOFOL IV EMULSION 10 MG/ML 20 ML VIAL IV ONE (16:18)
[2022-06-02] MEDS ORDERED: LIDOCAINE 2% MPF LOCAL 5 ML VIAL INFIL ONE (16:18)
[2022-06-02] MEDS ORDERED: ACETAMINOPHEN 1000 MG/100 ML IV IV ONE (16:24)
--- NOTE | 2022-06-02 16:42 | Hospitalist Progress Note ---
Date of Service June 02, 2022 Assessment & Plan (1) Osteomyelitis of great toe of left foot: Plan: (1) Sepsis: Plan: Secondary to Osteomyelitis, L Great toe, L foot Cellulitis History of DM neuropathy, history of Charcot foot Failed outpatient treatment - wound culture 05/29: Streptococcus anginosus blood cultures : Bottle 1: Coag negative staph not lugdunensis, Abiotropha/Granulicatella Bottle 2: Streptococcus anginosus Blood cultures 05/31: Negative so far Tissue culture 05/31: Streptococcus anginosus - Echo: No vegetation noted on TTE -Stable overall -Ceftriaxone IV 2 g daily ID consulted, recommend 2 weeks of IV antibiotics Status post left hallux amputation 05/31/2022 For wound closure today at [address] Ramos MELENDEZ-19 pneumonia - given risk factors, offered Remdesivir, risks and benefits discussed with patient he is agreeable and understanding - CXR:Bibasilar airspace consolidation is typical for pneumonia/aspiration pneumonitis. Clinical correlation required and radiographic follow-up to resolution is recommended. -Patient remained stable, on room air, O2 sats 96% - Remdesivir IV day #3 Lovenox for DVT prophylaxis - SCDs, IS HTN, stable hyperlipidemia on statin Rx asthma, stable DM2 insulin requiring, suboptimal control as of recent hemoglobin A1c of 9.3 last December 2021 chronic anemia, hemoglobin at baseline TAD on CPAP DVT prophylaxis. Lovenox subcu Full code plan of care discussed with patient in detail and at length all questions answered he is understanding, agreeable, comfortable with the plan of care Admission and Anticipated Discharge Date Admission Date: May 29, 2022 Subjective Follow-up for osteomyelitis, bacteremia, etc. Seen resting in bed comfortable, not in distress States he feels fine overall Still having some cough, productive of yellow sputum, but no shortness of breath No chest pain Minimal discomfort on the left foot No other symptoms Review of Systems Review of Systems: all noted and negative except for above Physical Exam Physical Exam: General- oriented x 3, not in distress, speaks in sentences with no effort or accessory muscle use Eyes- anicteric Neck- no JVD Lungs- clear breath sounds bilaterally, no crackles, no wheezing noted Heart- normal rate, regular rhythm; no murmurs Abdomen- normal bowel sounds, nondistended, soft, nontender Extremities- no pretibial edema, no calf tenderness Left foot: Heavy dressing in place No bleeding or discharge Neuro- alert, oriented x 3; no gross focal neurologic deficits Skin- warm & dry Results & Data Results & Data ([facility]) Vital Signs (Past 12 Hours) Vital Signs Temp Pulse Pulse Resp BP BP Pulse Ox 06/02/22 14:18 83 06/02/22 14:45 36.9 C 94 H 16 105/64 93 06/02/22 10:57 37 C 90 16 109/68 96 06/02/22 06:15 79 06/02/22 08:06 36.9 C 77 18 137/80 95 O2 Del Method 06/02/22 14:18 06/02/22 14:45 Room Air 06/02/22 10:57 Room Air 06/02/22 06:15 06/02/22 08:06 Room Air all noted and reviewed including below
[2022-06-02] MEDS ORDERED: fentaNYL citrate 100 MCG/2 ML VIAL ONE (17:24)
--- NOTE | 2022-06-02 17:50 | Operative Report ---
Post Operative Report Pre & Post Diagnosis Operation Date: 05/31/22 07:30 Pre-Op Diagnosis: Osteomylelitis Left Foot Post-Op Diagnosis: Osteomylelitis Left Foot Operation Date: 06/02/22 07:50 Pre-Op Diagnosis: SEPSIS, COVID Post-Op Diagnosis: SEPSIS, COVID I identified the patient and participated in the time-out.: Yes Procedure Operation Date: 05/31/22 07:30 Actual Procedures p Left Hallux Amputation(Left) - Chase Warren DPM, MS Operation Date: 06/02/22 07:50 Actual Procedures p Delayed Primary Closure from Wednesday Amputation, flexor tenotomy 2-5, tendo achilles lengthening (Left) - Chase Warren DPM, MS Surgeon Chase Warren DPM, MS Warehouse Receiving Clerk None Estimated Blood Loss 5 Findings Consistent with Post-Op Diagnosis none Specimens None Description of Procedure History of present illness: Patient is a type II diabetic, 52 year old male who is seen for delayed primary closure after recent of the left hallux amputation. Patient has history of multiple bilateral DFUs. He is status post right Charcot foot reconstruction. Patient has left foot hammertoe contractures with equinus deformity. There is concern for continued left foot breakdown and we did discuss reduction of left foot deformities including flexor tenotomies and tendo Achilles lengthening during today's surgical care. I reviewed procedures and indication. All questions answered. Discussed procedure in detail and postoperative recovery. All potential risks, benefits, complications, alternatives, rehab, potential for incomplete relief of symptoms, need for further surgery, DVT, PE, , persistent pain, swelling, scarring, weakness, neurovascular, wound complications and potential for amputations were discussed with patient. Unwanted outcomes such as, but not limited to were reviewed including under correction, overcorrection, return of deformity, infection. All questions were answered. Patient has decided to proceed with procedure as indicated. Preoperative diagnosis: 1.) Diabetic ulcer, open left hallux amputation 2.) Equinus deformity left 3.) Digital contractures 2, 3, 4, 5 Name of operation: 1.) Delayed Primary Closure Left hallux amputation 2.) Tendo Achilles lengthening left 3.) Open Flexor tenotomies 2, 3, 4 ,5 digits of left foot Surgeon Dr. Warren Warehouse Receiving Clerk: None Anesthesia: local with monitored anesthesia care Hemostasis: pneumatic ankle tourniquet Estimated blood loss: minimal Procedure in detail: Under mild sedation the patient was brought in the operating room placed on the operating table in supine position. A pneumatic ankle tourniquet was then placed about the patient's left ankle. Following IV sedation local anesthesia was obtained about the left utilizing 15 cc of a one-to-one mixture of 1% lidocaine plain and 0.5% Marcaine plain. The foot was then prepped scrubbed and draped in usual aseptic manner. An Esmarch bandage was utilized to exsanguinate the patient's left foot and the pneumatic ankle tourniquet was then inflated. Attention was then directed to the open diabetic ulcer left hallux amputation site. Utilizing a sharp, sterile, #15 blade non viable soft tissue was excised down to and including muscle and tendon. All bleeders were ligated and cauterized necessary. Copious amounts of sterile normal saline was utilized to flush the amputation site. The deep structures were coapted and the skin was reapproximated coapted utilizing horizontal suture technique with 3-0 nylon. Next attention was directed to the posterior aspect of the patient's left lower extremity. Range of motion at ankle showed inability to dorsiflex past 90 degrees. 3 separate baer were made with marking pen 3 cm apart along the posterior aspect of the tendo Achilles left lower extremity. Utilizing a sharp sterile 15 in blade a 1 cm incision was placed at the 3 separate locations. At this time a sharp sterile 15 deep blade was utilized for the tendo Achilles lengthening. The lead was placed parallel along the long axis of the Achilles tendon entering the tendon at midline then becoming horizontal and exiting medially at most distal and most proximal incision and laterally at central incision site. Range of motion of left ankle now shows ability to dorsiflex past 10 degrees of 90. Each incision site was closed with 4-0 nylon. Attention was then directed to the second digit. At this time a using a sharp, sterile #15 blade a transverse flexor tenotomy and capsulotomy was performed to the proximal interphalangeal joint of the distal interphalangeal joint of the second digit of the left foot. Attention was then directed to the third digit. At this time a using a sharp, sterile #15 blade a transverse flexor tenotomy and capsulotomy was performed to the proximal interphalangeal joint of the distal interphalangeal joint of the third digit of the left foot. Attention was then directed to the fourth digit. At this time a using a sharp, sterile #15 blade a transverse flexor tenotomy and capsulotomy was performed to the proximal interphalangeal joint of the distal interphalangeal joint of the fourth digit of the left foot. Attention was then directed to the fifth digit. At this time a using a sharp, sterile #15 blade a transverse flexor tenotomy and capsulotomy was performed to the proximal interphalangeal joint of the distal interphalangeal joint of the fifth digit of the left foot. Upon completion of the procedure the left foot was dressed with a sterile compressive dressing consisting of 4 x 4's Mod[place] Kerlix ABD. The pneumatic ankle tourniquet was deflated and a prompt hyperemic response was noted to all digits of the left foot. The Patient tolerated the procedure and anesthesia well. He was transferred to recovery room vital signs stable and vascular status intact all toes of the left foot. Following a period of postoperative monitoring the patient will be re-admitted to the floor resume all pre-operative orders. Please contact Dr. Warren for all postoperative care or if any problems arise . I attest to the content of the Intraoperative Record and any orders documented therein. Any exceptions are noted below.
[2022-06-02] MEDS ORDERED: cefTRIAXone SODIUM 2,000 MG in DEXTROSE 5% 50 ML IV SCH (18:00)
--- NOTE | 2022-06-02 18:42 | Anesthesiology Progress Note ---
Date of Service June 02, 2022 Anesthesia Post Procedure Vital Signs Vital Signs: Temp Pulse Pulse Resp BP BP Pulse Ox 06/02/22 18:05 36.8 C 83 15 107/71 93 06/02/22 14:18 83 06/02/22 14:45 36.9 C 94 H 16 105/64 93 06/02/22 10:57 37 C 90 16 109/68 96 06/02/22 06:15 79 06/02/22 08:06 36.9 C 77 18 137/80 95 06/02/22 00:08 87 06/01/22 23:23 36.9 C 92 H 20 122/81 94 06/01/22 23:14 06/01/22 19:44 37.5 C 86 18 118/75 95 O2 Del Method 06/02/22 18:05 Room Air 06/02/22 14:18 06/02/22 14:45 Room Air 06/02/22 10:57 Room Air 06/02/22 06:15 06/02/22 08:06 Room Air 06/02/22 00:08 06/01/22 23:23 Room Air 06/01/22 23:14 Room Air 06/01/22 19:44 Room Air Pain Intensity Left Great Toe: Pain Intensity: 3 Transfer of Care Handoff Completed per policy Notes Mental Status: alert / awake / arousable Patient Amnestic to Procedure: Yes Nausea / Vomiting: adequately controlled Pain: adequately controlled Airway Patency, RR, SpO2: stable & adequate BP & HR: stable & adequate Hydration State: stable & adequate Anesthetic Complications: no major complications apparent
[2022-06-02] MEDS: REMDESIVIR 100 MG in SODIUM CHLORIDE 0.9% 230 ML IV SCH (19:09)
[2022-06-02] MEDS: FLUTICASONE PROPIONATE NA SPR 16 GM BTL SCH (20:01)
[2022-06-03 07:14] LABS: Albumin Globulin Ratio 0.6 (0.9-2); BUN Creatinine Ratio 18.9 (10-20); Bilirubin,Total 0.5 mg/dl (0.2-1.0); Calcium 8.9 mg/dl (8.5-10.1); Creatinine Clr Calc Pharmacy 136.7 ml/min; Est GFR (African American) 94.4 ml/min; Est GFR (Non-African American) 81.4 ml/min; Globulin 5.2 gm/dl (2.5-4.0); Potassium 4.6 mmol/L (3.5-5.1); Total Protein 8.2 gm/dl (6.0-8.3)
[2022-06-03] MEDS: INSULIN ASPART PER UNIT SC SCH ×4 (07:59→21:52)
[2022-06-03] MEDS: LANTUS PER UNIT CHARGE SQ SCH (08:00)
[2022-06-03] MEDS: lisinopril 2.5 MG TAB PO SCH (08:15)
[2022-06-03] MEDS: CITALOPRAM 40 MG TAB PO SCH (08:15)
[2022-06-03] MEDS: ASPIRIN 81 MG ECTAB PO SCH (08:15)
[2022-06-03] MEDS: amLODIPine BESYLATE 5 MG TAB PO SCH (08:16)
[2022-06-03] MEDS: ADVANCED PROBIOTIC 1250 MG CAPSULE PO SCH (08:16)
[2022-06-03] MEDS ORDERED: SODIUM CHLORIDE 0.9% IV STA (17:19)
[2022-06-03] MEDS ORDERED: VANCOMYCIN CONSULT ACTIVE PRN (17:19)
[2022-06-03] MEDS ORDERED: VANCOMYCIN HCL IV STA (17:19)
--- NOTE | 2022-06-03 17:28 | Hospitalist Progress Note ---
Date of Service June 03, 2022 Assessment & Plan (1) Osteomyelitis of great toe of left foot: Plan: Sepsis:: Secondary to Osteomyelitis, L Great toe, L foot Cellulitis History of DM neuropathy, history of Charcot foot Failed outpatient treatment - wound culture 05/29: Streptococcus anginosus blood cultures : Bottle 1: Coag negative staph not lugdunensis, Abiotropha/Granulicatella Bottle 2: Streptococcus anginosus Blood cultures 05/31: Negative so far Tissue culture 05/31: Streptococcus anginosus - Echo: No vegetation noted on TTE 05/31/2022:Status post left hallux amputation By Dr. Chase Warren 06/02/2022 s/p Delayed Primary Closure from Wednesday Amputation, flexor tenotomy 2-5, tendo achilles lengthening (Left) - Chase Warren, DPM, MS Patient remained stable overall Initially placed on daptomycin plus ceftriaxone IV daily Confirmed with Podiatry SVC Dr. Warren, source control completed [facility] ID Dr. Bean consulted, recommend 2 weeks of IV Vancomycin Patient will need placement of midline PT and OT evaluation pending- Prefers to be discharged to home with home services if possible Cam boot also being fitted Patient nonweightbearing on left foot per Dr. aWrren COVID-19 pneumonia - CXR:Bibasilar airspace consolidation is typical for pneumonia/aspiration pneumonitis. Clinical correlation required and radiographic follow-up to resolution is recommended. -Patient remained stable, on room air, O2 sats 96% - Remdesivir IV day #4/5 Lovenox for DVT prophylaxis - SCDs, IS HTN - stable Asthma -- stable DM2 insulin requiring, suboptimal control as of recent hemoglobin A1c of 9.3 last December 2021 -- BSG stable overall Chronic anemia, hemoglobin at baseline TAD on CPAP DVT prophylaxis. Lovenox subcu Full code Disposition PT and OT evaluation pending patient prefers to be discharged to home with home health services if possible plan of care discussed with patient in detail and at length all questions answered he is understanding, agreeable, comfortable with the plan of care Admission and Anticipated Discharge Date Admission Date: May 29, 2022 Subjective Follow-up for osteomyelitis of the left big toe, bacteremia, etc. Seen resting in bed, comfortable, no distress States he feels fine overall Minimal discomfort on the left foot No shortness of breath, chest pain, still has some dry cough Feels improved overall No other symptom Review of Systems Review of Systems: all noted and negative except for above Physical Exam Physical Exam: General- oriented x 3, not in distress, speaks in sentences with no effort or accessory muscle use Eyes- anicteric Neck- no JVD Lungs- clear breath sounds bilaterally, no rales/wheezes Heart- normal rate, regular rhythm; no murmurs Abdomen- normal bowel sounds, nondistended, soft, No tenderness Extremities- no pretibial edema, no calf tenderness Left foot: Heavy dressing in place, no bleeding or discharge Neuro- alert, oriented x 3; no gross focal neurologic deficits Skin- warm & dry Results & Data Results & Data ([facility]) Vital Signs (Past 12 Hours) Vital Signs Temp Pulse Pulse Resp BP BP Pulse Ox 06/03/22 17:26 36.7 C 85 18 120/67 95 06/03/22 12:35 36.7 C 84 16 122/78 95 06/03/22 12:35 36.7 C 87 16 122/78 95 06/03/22 14:12 87 06/03/22 07:52 37.0 C 81 18 117/73 95 06/03/22 06:10 83 O2 Del Method 06/03/22 17:26 Room Air 06/03/22 12:35 Room Air 06/03/22 12:35 Room Air 06/03/22 14:12 06/03/22 07:52 Room Air 06/03/22 06:10 all noted and reviewed including below
[2022-06-03] MEDS ORDERED: VANCOMYCIN HCL 2,750 MG in SODIUM CHLORIDE 0.9% 500 ML IV ONE (17:30)
[2022-06-03] MEDS ORDERED: ENOXAPARIN INJ 40 MG/0.4 ML SYR SQ SCH (19:30)
[2022-06-03] MEDS: REMDESIVIR 100 MG in SODIUM CHLORIDE 0.9% 230 ML IV SCH (21:45)
[2022-06-03] MEDS: FLUTICASONE PROPIONATE NA SPR 16 GM BTL SCH (21:48)
[2022-06-03] MEDS: HEPARIN SOD 5,000 UNIT/0.5 ML VIAL SQ SCH (21:49)
--- NOTE | 2022-06-03 21:53 | Pharmacy Report ---
Pharmacy Vanc AUC Short Note - Date of Service June 03, 2022 - Assessment & Plan Assessment 52 year old M receiving vancomycin for treatment of bacteremia. Day #1 of antimicrobial therapy: 06/03/2022 Plan Vancomycin * Load: Vancomycin 2,750 mg IV once on 06/03/22 at 1750. * Maintenance: Vancomycin 1,500 mg IV q12h starting 06/04/22 at 0800. * AUC/ZAIN is the preferred PK/PD target for vancomycin * AUC guided dosing is effective and associated with decreased risk of nephrotoxicity compared to traditional trough targets * Trough level of 16.2 mcg/mL is predicted to achieve target AUC/ZAIN of 400-600 mg/L.hr and may be associated with a 12 % risk of nephrotoxicity * Trough or random level ordered for: 06/05/22 with AM labs Pharmacy will continue to follow and will adjust dose/frequency as necessary. Thank you.
[2022-06-04] MEDS: HEPARIN SOD 5,000 UNIT/0.5 ML VIAL SQ SCH ×3 (05:17→20:39)
[2022-06-04 07:20] LABS: Est GFR (African American) 95.5 ml/min; Est GFR (Non-African American) 82.4 ml/min
[2022-06-04] MEDS: INSULIN ASPART PER UNIT SC SCH ×4 (08:33→20:39)
[2022-06-04] MEDS: LANTUS PER UNIT CHARGE SQ SCH (08:34)
[2022-06-04] MEDS: ADVANCED PROBIOTIC 1250 MG CAPSULE PO SCH (08:40)
[2022-06-04] MEDS: VANCOMYCIN HCL 1,500 MG in SODIUM CHLORIDE 0.9% 500 ML IV SCH ×2 (08:40→20:39)
[2022-06-04] MEDS: ASPIRIN 81 MG ECTAB PO SCH (08:40)
[2022-06-04] MEDS: lisinopril 2.5 MG TAB PO SCH (08:41)
[2022-06-04] MEDS: CITALOPRAM 40 MG TAB PO SCH (08:41)
[2022-06-04] MEDS: amLODIPine BESYLATE 5 MG TAB PO SCH (08:41)
--- NOTE | 2022-06-04 10:43 | Hospitalist Progress Note ---
Date of Service June 04, 2022 Assessment & Plan (1) Osteomyelitis of great toe of left foot: Plan: Sepsis:: Secondary to Osteomyelitis, L Great toe, L foot Cellulitis History of DM neuropathy, history of Charcot foot Failed outpatient treatment - wound culture 05/29: Streptococcus anginosus blood cultures : Bottle 1: Coag negative staph not lugdunensis, Abiotropha/Granulicatella Bottle 2: Streptococcus anginosus Blood cultures 05/31: Negative so far Tissue culture 05/31: Streptococcus anginosus - Echo: No vegetation noted on TTE 05/31/2022:Status post left hallux amputation By Dr. Chase Warren 06/02/2022 s/p Delayed Primary Closure from Wednesday Amputation, flexor tenotomy 2-5, tendo Achilles lengthening (Left) - Chase Warren, DPM, MS stable post op course without complication to date Initially placed on daptomycin plus ceftriaxone IV daily Confirmed with Podiatry SVC Dr. Warren, source control completed [facility] ID Dr. Bean consulted, recommend 2 weeks of IV Vancomycin Patient will need placement of midline which is going in today (06/04) PT and OT evaluation pending- Prefers to be discharged to home with home services if possible Cam boot also being fitted Patient nonweightbearing on left foot per Dr. Warren Appreciate discharge recs regarding would care and other restrictions per Dr Warren COVID-19 pneumonia - CXR:Bibasilar airspace consolidation is typical for pneumonia/aspiration pneumonitis. Clinical correlation required and radiographic follow-up to resolution is recommended. -Patient remained stable, on room air, O2 sats 96% - Remdesivir course completed. Lovenox for DVT prophylaxis - SCDs, IS HTN -chronic, stable Asthma -- chronic, stable. No wheezing or hypoxia. DM2 insulin requiring, suboptimal control as of recent hemoglobin A1c of 9.3 last December 2021 -- BSG stable overall Chronic anemia, hemoglobin at baseline TAD on CPAP DVT prophylaxis. Lovenox subcu Full code Disposition PT and OT evaluation pending patient prefers to be discharged to home with home health services Roseanne Armstrong DO [facility] Hospitalist Admission and Anticipated Discharge Date Admission Date: May 29, 2022 Subjective Follow-up for osteomyelitis of the left big toe, bacteremia, and covid pneumonia Today he is resting and in NAD, denies cough, fevers, chills or SOB Some nasal congestion and noted to be on nasal CPAP at night, currently on Flonase nasal spray. Denies any pain in surgical site which is wrapped He is NWB per Dr. Warren and patient and therapist were just in the room and both feel transfers can be accomplished at home Today we are awaiting IV line placement and HH set up for next two weeks of vancomycin PCP is DR. Sheikh who will be following levels. Tolerating PO and no other issues today. Review of Systems Review of Systems: All systems were reviewed and negative except as indicated on subjective above. Physical Exam Physical Exam: CONSTITUTIONAL: morbidly obese, vitals as above, generally well-appearing, NAD EYES: normal conjunctivae, no scleral icterus ENT: external ear and nose normal, MMM NECK: trachea midline RESPIRATORY: clear to auscultation bilaterally, no crackles, rales or wheezes, normal respiratory effort CARDIOVASCULAR: regular rate and rhythm, S1 and 2 heard without murmurs, gall ops or rubs, no JVD, no peripheral edema CHEST: inspection of chest was normal GASTROINTESTINAL: soft, nontender, Nd, no guarding MUSCULOSKELETAL: strength 5/5 throughout, head is normocephalic and atraumatic SKIN: warm and dry NEUROLOGIC: CN 2-12 grossly intact, no sensory deficit, normal cognition, normal speech, no tremor PSYCHIATRIC: alert cooperative and oriented to person, place and time. Euthymic mood, makes good eye contact, language grossly intact, recent and remote memory grossly intact. Results & Data Results & Data ([facility]) Vital Signs (Past 12 Hours) Vital Signs Temp Pulse Resp BP BP Pulse Ox O2 Del Method 06/04/22 07:56 36.7 C 79 20 121/75 96 Room Air 06/04/22 05:18 36.9 C 76 18 118/76 93 CPAP 06/03/22 22:50 37 C 85 18 107/83 94 CPAP Laboratory Results [facility] 06/04/22 06:44 Creatinine 1.05 Medications Administered Current Inpatient Medications Acetaminophen (Acetaminophen 325 Mg Tab) 650 mg PO Q4H PRN PRN Reason: Pain or Fever Stop: 06/28/22 23:28 Amlodipine Besylate (Amlodipine Besylate 5 Mg Tab) 5 mg PO QAM [facility] Stop: 06/29/22 08:59 Last Admin: 06/04/22 08:41 Dose: 5 mg Aspirin (Aspirin 81 Mg Ectab) 81 mg PO DAILY [facility] Stop: 06/29/22 08:59 Last Admin: 06/04/22 08:40 Dose: 81 mg Citalopram Hydrobromide (Citalopram 40 Mg Tab) 40 mg PO QAM [facility] Stop: 06/29/22 08:59 Last Admin: 06/04/22 08:41 Dose: 40 mg Dextrose (Dextrose 50% 50 Ml Syringe) 25 - 50 ml IV UD PRN; Protocol PRN Reason: Hypoglycemia Protocol Stop: 06/28/22 23:28 Fluticasone Propionate (Fluticasone Propionate Na Spr 16 Gm Btl) 1 sprays NA HS [facility] Stop: 06/29/22 20:59 Last Admin: 06/03/22 21:48 Dose: 1 sprays Glucagon (Glucagon For Inj 1 Mg Vial) 1 mg SQ UD PRN; Protocol PRN Reason: Hypoglycemia Protocol Stop: 06/28/22 23:28 Glucose (Glucose 40% Gel 15 Gm Tube) 15 - 30 gm PO UD PRN; Protocol PRN Reason: Hypoglycemia Protocol Stop: 06/28/22 23:28 Glucose (Glucose 10 Tab/Tube) 4 - 8 tab PO UD PRN; Protocol PRN Reason: Hypoglycemia Treatment Stop: 06/28/22 23:28 Heparin Sodium (Porcine) (Heparin Sod 5,000 Unit/0.5 Ml Vial) 5,000 units SQ Q8H [facility] Stop: 07/03/22 19:59 Last Admin: 06/04/22 05:17 Dose: 5,000 units Promethazine HCl 12.5 mg/ (Sodium Chloride) 50.5 mls @ 202 mls/hr IV Q6H PRN PRN Reason: Nausea And Vomiting Stop: 06/28/22 23:28 Vancomycin HCl 1,500 mg/ (Sodium Chloride) 530 mls @ 200 mls/hr IV Q12H DISHA; Protocol Stop: 06/18/22 07:59 Last Admin: 06/04/22 08:40 Dose: 200 mls/hr Insulin Aspart (Insulin Aspart Per Unit) 0 units SC ACHS [facility] Stop: 06/30/22 11:29 Last Admin: 06/04/22 08:33 Dose: 5 units Insulin Glargine (Lantus Per Unit Charge) 100 units SQ QAM [facility] Stop: 06/29/22 08:59 Last Admin: 06/04/22 08:34 Dose: 100 units Lactobacillus Acidophilus (Advanced Probiotic 1250 Mg Capsule) 2 cap PO DAILY [facility] Stop: 06/30/22 08:59 Last Admin: 06/04/22 08:40 Dose: 2 cap Lisinopril (Lisinopril 2.5 Mg Tab) 2.5 mg PO QAM [facility] Stop: 06/29/22 08:59 Last Admin: 06/04/22 08:41 Dose: 2.5 mg Miscellaneous (Carbohydrates For Hypoglycemia ) 15 - 30 gm PO UD PRN PRN Reason: Hypoglycemia Protocol Stop: 06/28/22 23:28 Miscellaneous Information (Vancomycin Consult Active) 1 each N/A UD PRN PRN Reason: Consult Stop: 07/03/22 17:18 Oxycodone HCl (Oxycodone Hcl Ir 5 Mg Tab (Immediate Release)) 5 - 10 mg PO QID PRN PRN Reason: Pain Stop: 06/12/22 23:28
--- NOTE | 2022-06-04 14:06 | Orthopedic Progress Note ---
Date of Service June 04, 2022 Assessment & Plan (1) Osteomyelitis of great toe of left foot: Plan Patient seen, evaluated, and treated. - Dressing reapplied with out incident. 4x4, kerlix, KORTNEY. -Patient is WB as tolerated in CAMBOOT. - Patient awaiting midline placement for IV abx. Clear margins were obtained. Abx recommendations per ID. - Patient will follow up in 2-3 weeks for suture removal. Thank you for allowing me to participate in the care of this Patient. Admission and Anticipated Discharge Date Admission Date: May 29, 2022 Subjective Patient seen at bedside in no acute distress. He is seen while nursing is present. Patient relates no compliants and is resting comfortably in bed. Patient does have CAMBOOT. Review of Systems Review of Systems: All systems reviewed & are unremarkable except as noted in HPI & below Physical Exam Physical Exam: Dressing clean, dry, and intact. Dressing removed with out incident. Sutures are intact and skin is well approximated. There is no erythema or signs of infection. Results & Data ([facility]) Vital Signs (Past 12 Hours) Vital Signs Temp Pulse Resp BP BP Pulse Ox O2 Del Method 06/04/22 11:40 36.7 C 82 14 117/74 96 Room Air 06/04/22 07:56 36.7 C 79 20 121/75 96 Room Air 06/04/22 05:18 36.9 C 76 18 118/76 93 CPAP
[2022-06-04] MEDS: FLUTICASONE PROPIONATE NA SPR 16 GM BTL SCH (20:39)
[2022-06-05] MEDS: HEPARIN SOD 5,000 UNIT/0.5 ML VIAL SQ SCH ×2 (04:55→12:09)
[2022-06-05 06:46] LABS: Hematocrit (blood only) 34.9 % (40.1-51.0); Hemoglobin 11.6 g/dl (14.0-18.0); Mean Corpuscular Hemoglobin 30.1 pg (25.0-34.0); Mean Corpuscular Hgb Conc 33.2 g/dL (32.0-36.0); Mean Corpuscular Volume 90.6 fL (80.0-100.0); Mean Platelet Volume 8.6 fL (9.4-12.4); Platelet Count 373 K/uL (130-400); RDW Coefficient of Variation 12.1 % (11.5-14.5); RDW Standard Deviation 40.2 fL (36.4-46.3); Red Blood Count 3.85 M/uL (4.63-6.08); White Blood Count 9.07 K/ul (4.8-10.8)
[2022-06-05 07:17] LABS: C Reactive Protein 7.13 mg/dl (0-0.5); Calcium 8.9 mg/dl (8.5-10.1); Creatinine Clr Calc Pharmacy 130.7 ml/min; Est GFR (African American) 90.2 ml/min; Est GFR (Non-African American) 77.9 ml/min; Potassium 4.4 mmol/L (3.5-5.1)
[2022-06-05] MEDS: INSULIN ASPART PER UNIT SC SCH ×2 (08:36→12:04)
[2022-06-05] MEDS: LANTUS PER UNIT CHARGE SQ SCH (08:37)
[2022-06-05] MEDS: VANCOMYCIN HCL 1,500 MG in SODIUM CHLORIDE 0.9% 500 ML IV SCH (08:43)
[2022-06-05] MEDS: ASPIRIN 81 MG ECTAB PO SCH (08:44)
[2022-06-05] MEDS: amLODIPine BESYLATE 5 MG TAB PO SCH (08:44)
[2022-06-05] MEDS: ADVANCED PROBIOTIC 1250 MG CAPSULE PO SCH (08:44)
[2022-06-05] MEDS: lisinopril 2.5 MG TAB PO SCH (08:44)
[2022-06-05] MEDS: CITALOPRAM 40 MG TAB PO SCH (08:45)
--- NOTE | 2022-06-05 11:38 | Discharge Summary ---
Discharge Summary Date of Service June 05, 2022 Notes For Next Care Provider Please follow weekly labs while patient on IV antibiotics. Medication Changes From Visit Daptomycin 700mg IV daily x 14 days Admission HPI Per Admitting Provider History obtained from patient, family, and records. Medical history significant for HTN, hyperlipidemia, asthma, DM2 insulin requiring, history DM neuropathy, history of Charcot foot, chronic anemia (baseline hemoglobin of 12), TAD on CPAP, medication noncompliance as per records Last confinement February 2020 for septic osteomyelitis right foot right foot status post surgery. Patient completed cefazolin course for MSSA bacteremia. 6 weeks ago, patient noted wound on the left great toe. No fever, no chills. Patient consulted [facility] ER last month for worsening of left great toe wound with foul-smelling drainage. No osteomyelitis on plain x-ray. Patient discharged on Keflex and doxycycline course. Minimal improvement despite compliance with antibiotic course. Patient seen by local regional truck driver from [facility] for ankle and foot care 3 weeks ago. Debridement done. Patient given Bactrim prescription. 2 weeks ago, patient noted cough symptoms productive of white sputum. No chest pain, no SOB. Possible COVID-19 contacts at home. Patient completed COVID-19 vaccination. Follow-up visit at regional truck driver office 4 days ago. Toe wound with drainage worse. Left foot x-ray showed pathologic fracture of the proximal phalanx of the hallux with signs of osteomyelitis of the distal phalanx. Patient told that he may need surgery. Patient counseled to proceed to ER if with worsening infection. Patient consulted ER date for worsening left toe drainage. Vancomycin and Zosyn administered at the ER. Medical History as above Surgical History : Tonsillectomy/adenoidectomy, strabismus surgery Family History : Breast cancer, heart disease, alcoholism Personal/Social history : Nonsmoker, no chronic intake of alcoholic beverages. 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 Admission Exam Per Admitting Provider Physical Exam: GENERAL: Comfortable, morbidly obese, somewhat apathetic, no respiratory distress SKIN: Pallor, warm HEENT: Pale palpebral conjunctivae, no ptosis, dry buccal mucosa NECK : Supple, short neck, no tenderness CHEST : Decreased breath sounds, no tenderness HEART : Tachycardic, no obvious murmurs ABDOMEN: Some distention, nontender EXTREMITIES : Swollen left great toe with ulcerated wound plantar aspect with purulent drainage, minimal LE swelling, no LE tenderness NEUROLOGIC : Coherent, no facial asymmetry, no other gross focality Principal Dx & Hospital Course #1 = Principal Diagnosis (1) Osteomyelitis of great toe of left foot: The patient is a 52-year-old man with history of diabetes and neuropathic issues in his feet who has had a history of recurrent infections in his feet. He now has a significant ulcer on the bottom of his left great toe and was found to have osteomyelitis. He was considered septic on arrival and was placed on daptomycin and Zosyn with consultation to podiatry. He subsequently underwent a left hallux amputation on the left by Dr. Warren on 05/31/2022. Sepsis work-up revealed cultures of the blood that were positive for Streptococcus anginosus, coagulase negative staph and ABO atrophia. Wound cultures grew Streptococcus anginosus with a recent wound culture growing Prevotella. He was continued on ceftriaxone,Flagyl, and daptomycin. Repeat blood cultures were clear of infection. Infectious disease was consulted and recommended continuing 2 weeks of daptomycin after source control was achieved with amputation. He was continued on daptomycin but switched to vancomycin after some difficulty with placement into SNF. Patient ultimately decided to go home with home health and was switched back to daptomycin. He received a PICC line prior to discharge. Jocelyne tamayo also received the cam boot that he was fitted for during his hospital stay and is allowed to be weightbearing as tolerated per surgery with a cam boot on. As an aside he had COVID-pneumonia and became hypoxic transiently. As a result he was placed on remdesivir course and given steroids. At time of discharge he was oxygenating well on room air with no symptoms of breathlessness nasal congestion or other respiratory issues. A TTE was performed this admission revealing no evidence of vegetation that was acute. There was a focal thickening of the noncoronary cusp of the aortic valve however this will appear to be unchanged compared to images seen in January 2020. Ejection fraction was 55 to 60%. At time of discharge she was hemodynamically stable afebrile, mentating at baseline. He was discharged in stable condition with close primary care follow-up recommended. Discharge Exam CONSTITUTIONAL: morbidly obese, vitals as above, generally well-appearing, NAD EYES: normal conjunctivae, no scleral icterus ENT: external ear and nose normal, MMM NECK: trachea midline RESPIRATORY: clear to auscultation bilaterally, no crackles, rales or wheezes, normal respiratory effort CARDIOVASCULAR: regular rate and rhythm, S1 and 2 heard without murmurs, gallops or rubs, no JVD, no peripheral edema CHEST: inspection of chest was normal GASTROINTESTINAL: soft, nontender, Nd, no guarding MUSCULOSKELETAL: strength 5/5 throughout, head is normocephalic and atraumatic SKIN: warm and dry NEUROLOGIC: CN 2-12 grossly intact, no sensory deficit, normal cognition, normal speech, no tremor PSYCHIATRIC: alert cooperative and oriented to person, place and time. Euthymic mood, makes good eye contact, language grossly intact, recent and remote memory grossly intact. Updated Medication List Medication Instructions Recorded Confirmed Type citalopram 40 mg tablet (Celexa) 40 mg PO QAM 06/25/19 05/29/22 History insulin aspart U-100 100 unit/mL 25 unit subcut TIDM 06/25/19 05/29/22 History (3 mL) subcutaneous pen (Novolog Flexpen U-100 Insulin aspart) insulin degludec 200 unit/mL (3 160 unit subcut QAM 06/25/19 05/29/22 History mL) subcutaneous pen (Tresiba FlexTouch U-200 insulin) lisinopril 2.5 mg tablet 2.5 mg PO QAM 03/12/22 05/29/22 History amlodipine 5 mg tablet 5 mg PO QAM 05/29/22 05/29/22 History aspirin 81 mg chewable tablet 81 mg PO DAILY 05/29/22 05/29/22 History (Aspirin Childrens) dulaglutide 4.5 mg/0.5 mL 4.5 mg subcut WK 05/29/22 05/29/22 History subcutaneous pen injector (Trulicity) fluticasone propionate 50 1 - 2 spray intranasal HS 05/29/22 05/29/22 History mcg/actuation nasal spray,suspension metformin 500 mg tablet,extended 2,000 mg PO DAILY 05/29/22 05/29/22 History release 24 hr triamcinolone acetonide 0.1 % 1 applic topical BID PRN flaring 05/29/22 05/29/22 History topical ointment daptomycin 500 mg intravenous 700 mg IV DAILY #14 ea 06/05/22 Rx solution Hospital Stay Data Consultations 05/29/22 20:16 ED Decision to Admit Stat 05/30/22 12:08 Consult Podiatry Routine 06/01/22 14:24 Consult Infectious Diseases Routine Procedures Performed Operation Date: 05/31/22 07:30 Actual Procedures p Left Hallux Amputation(Left) - Chase Warren DPM, MS Operation Date: 06/02/22 07:50 Actual Procedures p Delayed Primary Closure from Wednesday Amputation, flexor tenotomy 2-5, tendo achilles lengthening (Left) - Chase Warren DPM, MS Pending Results Patient Have Any Pending Studies at Discharge: No Discharge Instructions Given to Patient (Per Discharging Provider) Please follow all post operative wound instructions per Dr. Warren and followup in his office in 2-3 weeks for suture removal. Please take all medications as instructed on discharge list below. You will need two weeks of intravenous antibiotics. This also requires weekly labwork to be drawn and followed by your primary care provider. Home Health will be provided to assist with home medication administration and labwork. Please follow-up with your primary care physician within one week to ensure you are still doing well since discharge from the hospital. Please observe home isolation for at least 10 days since symptom onset from covid-19 infection. After this, please wear a mask in public and maintain appropriate social distancing per current public health guidance. For any questions, please contact the [place] Dept of Health. It was a pleasure taking care of you! Please call if you have any questions or problems. You can reach a [facility] hospitalist on duty at [facility] 24 hours a day by calling [phone]. Take care of yourself. Roseanne Armstrong, [facility] Hospitalist Total Time Total Time Spent Total Time Spent (In Minutes): 60
[2022-06-05] MEDS ORDERED: DAPTOmycin 700 MG in SYRINGE 0 ML IV SCH (14:00)
== END 2022-06-05 16:46 | disposition home health service (06) | DRG 853 ==
LOC: ED 17:43 → SUATTDRO 22:25 → 2W 22:25